=== PATIENT | female | born 1975 | race Caucasian/White ===

== ENCOUNTER 2022-08-26 04:27 | Emergency (ER) | payer OTHER, SELFPAY ==
[2022-08-26 04:28] VITALS: BP 181/101; PULSE 132; RESP 18; TEMP 36; O2SAT 99; BMI 37.8
--- NOTE | 2022-08-26 04:34 | RAD_ITS ---
STUDY: X-RAY - LEFT HUMERUS REASON FOR EXAM: Female, 46 years old patient with fracture after unspecified trauma. TECHNIQUE: AP and crosstable lateral view(s) of the humerus. COMPARISON: Prior comparison studies are not available for review at this time. FINDINGS: There is an acute displaced fracture of the mid humeral diaphysis. There is mild angulation at the fracture site with apex volar. The visualized left shoulder and elbow are within normal limits in appearance. There is no demonstrated soft tissue abnormality. RAD/Humerus min 2 Views IMPRESSION: Acute displaced fracture of the mid humerus. Electronically Signed: Anel Latif MD at 5:25 EST ,
--- NOTE | 2022-08-26 04:35 | EX.ED.UPPERE ---
HPI History of Present Illness Chief Complaint: Upper Extremity Injury Informant: patient and spouse/S.O. Narrative Narrative: [id number]-[id number]-[id number] female presents for left upper extremity injury. Patient sleeping fell out of bed awakening to pain. Bed is 3 feet high. Carpeted floor. This occurred 2 PM over 2 hours ago. Due to pain increasing she came to the ED. History of foot fractures in the past with no surgical intervention. States pain goes down her whole arm. No paresthesias. Prior similar symptoms: No PFSH PFSH Medical History Asthma Home Medications oxycodone 5 mg capsule 5 mg PO Q4H PRN pain 5 days #30 caps 08/26/22 [Rx Last Taken Unknown] Allergy/AdvReac Type Severity Reaction Status Date / Time amoxicillin Allergy Hives Verified 08/26/22 04:31 Sulfa (Sulfonamide Allergy Rash Verified 08/26/22 04:31 Antibiotics) Surgical History Status post left foot surgery Social History Smoking Status: Current every day smoker tobacco type: cigarettes ROS ROS ED Constitutional Constitutional ED: Denies chills, fever(s) or sweats Eyes Eyes: Denies change in vision ENT ENT ED: Denies dysphagia or sore throat Cardiovascular Cardiovascular: Denies chest pain, leg edema, palpitations or racing heartbeat Respiratory/Chest Respiratory/Chest: Denies cough, dyspnea or dyspnea on exertion Gastrointestinal Gastrointestinal: Denies abdominal pain, diarrhea, nausea or vomiting Genitourinary Genitourinary ED: Denies dysuria, hematuria or urinary frequency Musculoskeletal Musculoskeletal: Reports extremity pain and other Details: Left upper arm pain ; Denies back pain or neck pain Integumentary Denies rash or wounds Neurologic Neurologic: Denies headache(s), paresthesias or weakness EXAM Physical Exam Const Vital Signs: 08/26/22 04:28 Temperature 96.8 F L Temperature Source Temporal Pulse Rate 132 H Respiratory Rate 18 Blood Pressure 181/101 H Blood Pressure Mean 127 Pulse Ox 99 Oxygen Delivery Method Room Air Positive well nourished and well developed Constitutional Narrative: GCS 15, uncomfortable, holding her left upper arm. General Appearance ED: well developed HEENT Reports moist mucous membranes normocephalic and atraumatic Eyes PERRL, EOMs intact bilaterally and conjunctivae normal General Eye ED: Yes normal appearance of both eyes Neck full ROM, no lymphadenopathy and supple Neck Narrative: No step-offs. General: Negative for tenderness Chest Wall inspection of chest normal and palpation of chest normal Chest: Negative for tenderness Resp normal respiratory effort and normal air movement Resp Narrative: Symmetric breath sounds Effort and Inspection: symmetric chest movement; Negative for respiratory distress Cardio regular rhythm and no murmurs Rate: tachycardic Peripheral Pulses: pulses 2+ throughout GI normal to inspection, nondistended, normoactive bowel sounds and non-tender Palpation: Negative for guarding or rebound tenderness present Back/Spine no CVA tenderness and no thoracic nor lumbar tenderness Extremity Extremity Narrative: Right upper extremity full range of motion without pain. Left upper extremity: No clavicular tenderness. No proximal shoulder tenderness there is tenderness at the mid humerus, is able to passively extend the elbow. She is able to have wrist extension. Skin intact. Neurovascular intact distally. General Extremety ED: Negative for edema or tenderness General Extremity: Negative for edema Neuro oriented x3, CN's II-XII intact bilaterally and no sensory deficits noted Sensorium / Orientation: awake and alert Skin no rashes or lesions noted and no wounds MDM MDM MDM Narrative Medical decision making narrative: Patient thought about exam concerns for injury to the humerus. Contusion versus fracture, no deformities at the shoulder elbow for concern for dislocation. Patient treated with IM morphine, x-ray humerus will be obtained. 0505: 2 view humerus x-ray interpreted myself transverse fracture mid humerus, angulated with apex anterior I spoke with on-call orthopedist Dr. Corrales who reviewed the imagings. He states this will likely need surgery due to transverse fracture. Recommended placing a coaptation posterior splint to help with immobilization. He will have a office reach out to the patient for appointment to be seen this week. This was explained with the patient understands. I placed a splint with no difficulty sling was provided. Due to fracture with pain, she will require medicines to help with symptoms. She is provided a 5-day prescription to help with symptoms to take every 4 hours. Oxycodone. Radial nerve was intact during examination and post splinting. Return precautions. All questions were answered. Procedure note: Splinting. Verbal consent. Morphine IM given prior to splinting. Assistance with nursing for stabilization. Kerlix dressing placed in upper and lower forearm with extra padding in the mid humerus. 5 inch plaster used for coapt splint of the upper arm, Kerlix dressing to secure secure. Additional 5 inch plaster for long posterior splint. Juan wrap to secure. Sling provided to help with weight. Neuro vas intact post splint. Able to flex and extend her wrist. Patient tolerated procedure well. Discharge Plan Triage Chief Complaint: Upper Extremity Injury ED Provider: Jose A Renae Dx/Rx/DC Orders Clinical Impression: Humerus shaft fracture, Injury of left upper arm Instructions: Understanding a Humerus Fracture Prescriptions: New oxycodone 5 mg capsule 5 mg PO Q4H PRN (Reason: pain) 5 Days Qty: 30 0RF Primary Care Provider: Care Physician,No Primary Referrals: Maximilian Corrales DO [Med Staff - Active Staff] - 2 Days Care Physician,No Primary [Primary Care Provider] - Activity Restrictions/Additional Instructions: Maintain splint and sling for comfort. Pain medicine as prescribed will likely need surgery. Dr. Corrales's office will reach out to you to be seen. Disposition Disposition: Home, Self Care
[2022-08-26] MEDS: Morphine 4 MG/ML Syringe IM ×2 (04:41→05:28)
== END 2022-08-26 06:37 | disposition home or self-care (01) ==
PROVIDERS: Emergency Provider Emergency Medicine; Visit Provider Emergency Medicine
DX: S42.302A Unspecified fracture of shaft of humerus, left arm, initial encounter for closed fracture (principal); F17.210 Nicotine dependence, cigarettes, uncomplicated; W06.XXXA Fall from bed, initial encounter
CPT/HCPCS: 73060; 96372; 99283

== ENCOUNTER 2023-01-22 10:00 | Outpatient (RCR) | payer OTHER, SELFPAY ==
--- NOTE | 2022-09-17 08:31 | HP.OTEVAL_ITS ---
Patient's Visit Information JOHNATHAN CAMPUZANO is a 46 year old F, referred to Occupational Therapy by Dr. Enrique Vasques MD, with a diagnosis of closed displaced transvers fx of shaft of L humerus. Date of Evaluation: 09/16/22 Occupational Therapist: Jina Ye, VIDYA/Maria E, CHT - Subjective This 46 year old female was seen for OT eval with dx of closed displaced transverse fx of left humerus shaft. pt states DOI was 08/26/22 pt states she went to ER. and was sent to [facility]. pt states she had sx about a weak later and underwent a ORIF on 08/30/22. pt arrives to day s/p 2 weeks 3 days from left humerus ORIF. pt is right handed. 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 currently pts is assisting with all ADLs and IADls. Dr. Vasques ordered OT : use of sling PRN Non WB at this time. - ADLs Dressing: Pants, Socks, Shoes Fasteners: Tie shoes, Buttons, Zippers, Snaps Eating: Use silverware Bathing: Handle washcloth & soap, Wash hair, Squeeze shampoo bottle Toileting: Manage clothing Kitchen: Chop with knife, Peel fruits & vegetables, Open jars, Lift saucepan, Take dish out of oven Comments: pts is assisting pt as able with all daily tasks - Pain left 1 Pain Intensity Range: 8 - ROM Shoulder: right WNL left will test at week 4 Elbow: right 0/135 left 60/ Forearm: right sup/pron WNL left 50 sup 55 pronation Wrist: right 70/65 left 30/45 - Strength Surveillance Systems Engineer: right 65# left NT Lateral Pinch: right 8# left NT Tripod Pinch: right 6# left NT Strength Comments: will test at week 8 - Quick DASH-Disab of Arm,Shoulder& Hand Quick DASH Score: 91.6650 - Goals Goal:100% adherence to protocol: Yes Comment: ORIF of humerus Goal:Daily scar massage when approriate: Yes Goal:ROM equal to unaffected hand: Yes Goal:Surveillance Systems Engineer/Pinch strength at least 75% of unaffected hand: Yes Comment: not to initiate until indicates Goal:No pain with affected hand use: Yes Goal:Full use of affected hand in daily activities including: Yes Goal:Decrease scar hypersensitivity: Yes - Rehabilitation General Assessment: Pt arrives 2 weeks and 3 days s/p from ORIF of left Humerus. Pt currently non wt. Bearing to left UE. pt demo with newly healing structures of left UE limiting pts use of left UE with ADls. Pt will demo need for skilled OTR/L,CHT services 1-2x week for 8 weeks to decrease pain, decrease edema, increase ROM and when cleared by increase strength to return pt to PLOF. Pt demo understanding and agrees to POC. Rehabilitation Potential: Excellent - Anticipated Interventions A/AAROM/PROM, Strengthening, Edema Control, Scar Care, Triggerpoint Release, Desensitization, Modalities, Joint Protection/Energy Conservation, Ergonomic Education, Education re Diagnosis, Manual Lymph Drainage, Home Program - Visit Plan Frequency: 1-2x /Week Duration: 2 Months TEXT: Thank you for the opportunity to evaluate your patient. For Medicare and Medicare HMO plans, please review the plan of care and approve it. It will need to be FAXED BACK to us at [phone] for Medicare purposes. Please let me know if there are questions or concerns regarding this plan of care. Physician Signature: Date:
--- NOTE | 2022-10-03 12:11 | OTREVAL_ITS ---
Dr. Enrique Vasques MD, It has been my pleasure to treat JOHNATHAN CAMPUZANO over the last 3 visits for closed displaced transvers fx of shaft of L humerus. Please see the progress note below for an update on the occupational therapy plan of care! Subjective: pt arrives 4 weeks and and 6 days s/p from ORIF closed displaced transvers fx of shaft of L humerus. pt continues to have limited ROM/ soreness and edema. pt reports increase pain and limited ability to sleep more than 3 hours. pt is doing AROM and using sling when not at home Objective/Function: left elbow -35/125 increase from -60/80. left forearm pronation 70* increase from 55*. left forearm supination 55* (after therapy) increase from 50 (prior to tx session 0). left wrist flexion 45 same as eval. left wrist ext 20* decrease 10*. pt demo limited ROM of left UE. pt demo with scar adhesions to triceps. Therapy has ed. pt on AROM of shoulder, elbow forearm and wrist- pt using ice 3x a day 10 min to keep swelling down- pt is performing scar massage and currently using soft sponge to work on keeping fingers joints from getting stiff. Plan Frequency: 1-2x /Week Duration: 2 Months Plan: cont with AROM. light strentch Goals - Goals Patient Goals: Regain Mobility, Decrease Pain, Return to Work, Decrease Swelling/Stiffness, Improve Fine Motor Skills, Use Hand/Wrist/Arm Normally Again, Be More Independent in ADLS Goal:100% adherence to protocol: Yes Goal:Daily scar massage when approriate: Yes Goal:ROM equal to unaffected hand: Yes Goal:Armhole Feller Handstitching Machine/Pinch strength at least 75% of unaffected hand: Yes Goal:No pain with affected hand use: Yes Goal:Full use of affected hand in daily activities including: Yes Goal:Decrease scar hypersensitivity: Yes Anticipated Interventions Anticipated Interventions: A/AAROM/PROM, Strengthening, Edema Control, Scar Care, Triggerpoint Release, Desensitization, Modalities, Joint Protection/Energy Conservation, Ergonomic Education, Education re Diagnosis, Manual Lymph Drainage, Home Program Please do not hesitate to contact me at [phone] by phone or if you have questions or concerns regarding this new plan of care! Sincerely, Jina Ye, COMPAR/L, CHT
--- NOTE | 2022-12-24 16:12 | HP.PTEVAL_ITS ---
Patient's Visit Information JOHNATHAN CAMPUZANO is a 47 year old F referred to Physical Therapy by Dr. Enrique Vasques MD with a diagnosis of Adhesive capsulitis. Date of Evaluation: 12/24/22 Physical Therapist: Omero Zapata, DPT, OCS, CSCS - Visit Plan Frequency: 2-3x /Week Duration: 4-6 Weeks Plan: 2-3x/week for 4-6 weeks for. 1. manual g- h mobs grade 4 L shoulder and stretching capsule and PROM-AROM. 2. strength RC and postural muscles to HEP. 3. ice and TENS if painful at rest. - Subjective L shoulder. Broke humerus in August and had surgery. Plate and screws. Working in OT on frozen wrist. Shoulder has been frozen since then. May have MRI on shoulder. Shoulder has hurt since she fell. She fell out of bed in middle of night. Then went to OT for therapy. Now has a hard time lifting up. It hurts alot of the time. Got injection in shoulder November 25. That helped her pain a little. Hlped her sleep better. Was constant pain Fe and October. Now is intermittent. Hard to wear bra. Wakes up every 45 minutes and has to sleep on tummy. 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 5# lift restriction. Hoping to go back late January. Hobbies: fish, has not been but will this and is R handed. Basic aDLS: Dresses self , hard to pull pants up and has to pull bra up body, cannot reach behind her. Showers self. bathroom I. Lives with , in one story. - Pain L shoulder Pain Intensity (Out of 10): 2 Pain Intensity Range: 3, 6 - Objective AROM L shoulder 45 er, glut IR, 90 flexion adn 85 abduction, R is WNL.PROM L shoulder to 110 and abduction to 100 and ext rotation to 40 and IR to 20 at 80 abd. Endfeels are firm and painful in all motions. Elbow arom WFL and full. w rist and hand closing limited on L side and being seen by OT. Posture is forward head and protracted scap. strength in neutral on L is 4- er, ir; flexion and abduction are 3+. reflexes 2/3 bi and tri. Sensation UE WNL to gross light touch. - Balance/Special Test Scores Quick DASH Score: 54.5450 - Goals Goal 1:: 130 flexion adn abduction aROM without pain to help with funciton Goal Time Frame: 4-6 Weeks Goal 2:: pain 2/10 at worst and only with stretching Goal Time Frame: 4-6 Weeks Goal 3:: Sleep without interruption 4 hours at night Goal Time Frame: 4-6 Weeks Goal 4:: Pt ready to return to work full duty Goal Time Frame: 4-6 Weeks Goal 5:: I appropriate HEP to manage condition Goal Time Frame: 4-6 Weeks - Rehabilitation Potential Physical Therapy Diagnosis: Adhesive capsulitis stiffness limiting funciton and sleep Rehabilitation Potential: Good - Anticipated Interventions Patient/Client Instruction: Educate patient on: Condition, Plan of Care For the Purpose of:: To decrease pain, To increase ROM, To improve nutrient delivery to tissue, To improve muscle performance and motor function, To increase tolerance to activity/condition/position, To improve ability of physical actions for home/community/work/leisure Therapeutic Exercise to Include: Strength training, Flexibilty training, Passive ROM, Active ROM, Scapular Strength/Stabilization For the Purpose of:: To decrease pain, To decrease swelling/inflammation, To increase ROM, To improve nutrient delivery to tissue, To increase oxygenation perfusion, To increase tolerance to activity/condition/position, To improve ability of physical actions for home/community/work/leisure Manual Therapy Techniques to Include: Mobilization, Passive ROM, Soft tissue mobilization For the Purpose of:: To decrease pain, To increase ROM TENS: Yes Cryotherapy (ice pack, ice massage): Yes For the Purpose of:: To decrease pain Thank you for the opportunity to evaluate your patient. For Medicare and Medicare HMO plans, please review the plan of care and approve it. It will need to be FAXED BACK to us at [phone] for Medicare purposes. For Medicare only, by signing this I certify the plan of care. Please let me know if there are questions or concerns regarding this plan of care. Physician Signature: Date:
--- NOTE | 2023-03-07 14:39 | HP.PTDCNRP_ITS ---
Patient Information Patient Information: JOHNATHAN CAMPUZANO was seen in my office for initial evaluation on 12/24/22. The following Plan of Care was established for this patient: POC Established Initial Frequency: 2-3x /Week Initial Duration: 4-6 Weeks Anticipated Interventions Patient/Client Instruction: Educate patient on: Condition and Plan of Care For the Purpose of:: To decrease pain, To increase ROM, To improve nutrient delivery to tissue, To improve muscle performance and motor function, To increase tolerance to activity/condition/position and To improve ability of phy sical actions for home/community/work/leisure Therapeutic Exercise to Include: Strength training, Flexibilty training, Passive ROM, Active ROM and Scapular Strength/Stabilization For the Purpose of:: To decrease pain, To decrease swelling/inflammation, To increase ROM, To improve nutrient delivery to tissue, To increase oxygenation perfusion, To increase tolerance to activity/condition/position and To improve ability of physical actions for home/community/work/leisure Manual Therapy Techniques to Include: Mobilization, Passive ROM and Soft tissue mobilization For the Purpose of:: To decrease pain and To increase ROM TENS: Yes Cryotherapy (ice pack, ice massage): Yes For the Purpose of:: To decrease pain Last Seen Last Seen: This patient was last seen in our office 01/22/23. Pertinent comments regarding their Physical therapy will appear below: Pt seen 8 visits and felt 85% better. She was to f/u two weeks after last session but did not attend. At this point, it has been over 6 weeks and I will discontinue due to nonattendance. At this point I will be discontinuing this patient from physical therapy. I would be happy to see this patient again in the future if found appropriate by the physician. Thank you! Omero Zapata, DPT, OCS, CSCS Balance/Gait/Functional tests Balance/Special Test Scores Quick DASH Score: 11.6858
== END 2023-01-22 19:00 | disposition home or self-care (01) ==
LOC: PT 10:00
PROVIDERS: Referring Provider Orthopaedic Surgery Hand Surgery; Visit Provider Orthopaedic Surgery Hand Surgery
DX: S42.322D Displaced transverse fracture of shaft of humerus, left arm, subsequent encounter for fracture with routine healing (principal)
CPT/HCPCS: 97110; 97140; 97161; 97166; 97530

== ENCOUNTER 2023-02-21 01:56 | Emergency (ER) | payer OTHER, SELFPAY ==
[2023-02-21 01:57] VITALS: BP 141/82; PULSE 96; RESP 16; TEMP 36.6; O2SAT 99; BMI 42.4
--- NOTE | 2023-02-21 02:05 | EDS_ITS ---
HPI History of Present Illness Chief Complaint: Back Informant: patient Narrative Narrative: Patient has been having pain in her left low back for the past 2 days, started when she stood up after getting some coffee at home 1 morning. Has been persistent ever since. Hurts more to move around. Radiates into her left proximal thigh and she has some pain in her left groin. No nausea, vomiting, diarrhea, fevers, chills. She states she usually does not urinate a lot, and she seems to been urinating more lately. She denies any dysuria or hematuria or other urinary symptoms. She is concerned she could have a urinary infection, she states she had one in the past and she think she had pain like this. [facility] Medical History Asthma Contusion of left forearm Contusion of left hand Contusion of left wrist Left elbow contusion Home Medications NK 02/21/23 [History Last Taken Unknown] hydrocodone-acetaminophen 5-325mg 5mg-325mg 1 tab PO Q6H PRN PRN Pain 2 days #8 TABLETS 02/21/23 [Rx Last Taken Unknown] naproxen 500 mg tablet 500 mg PO BID PRN #20 tabs 02/21/23 [Rx Last Taken Unknown] Allergy/AdvReac Type Severity Reaction Status Date / Time amoxicillin Allergy Hives Verified 02/21/23 01:57 Sulfa (Sulfonamide Allergy Rash Verified 02/21/23 01:57 Antibiotics) Surgical History Status post left foot surgery Social History Smoking Status: Current every day smoker tobacco type: cigarettes ROS ROS ED Constitutional Constitutional ED: Denies chills or fever(s) Gastrointestinal Gastrointestinal: Denies abdominal pain, constipation, fecal incontinence, nausea or vomiting Genitourinary Genitourinary ED: Reports other Details: no urinary retention ; Denies abdominal discomfort or urinary incontinence Musculoskeletal Musculoskeletal: Reports as per HPI and back pain; Denies neck pain Integumentary Denies rash or wounds Neurologic Neurologic: Denies headache(s), paresthesias or weakness EXAM Physical Exam Const Vital Signs: 02/21/23 01:57 Temperature 97.9 F Temperature Source Temporal Pulse Rate 96 Respiratory Rate 16 Blood Pressure 141/82 H Blood Pressure Mean 101 Pulse Ox 99 Positive well nourished, well developed and obese General Appearance ED: well developed and NAD Nutritional Appearance: obese HEENT Negative for trauma or tenderness Eyes PERRL and EOMs intact bilaterally Neck full ROM and supple GI normal to inspection, nondistended, normoactive bowel sounds, soft to palpation and non-tender GI Narrative: Tender at the left ASIS, not the left lower quadrant Back/Spine normal to inspection Back/Spine Narrative: Ipsilateral left straight leg raise increases back pain without radicular symptoms. Tender at the left SI joint no other areas of back tenderness no midline tenderness. No rash. Lumbar Spine / Lower Back: ROM limited, paraspinal muscle tenderness and straight leg raise negative bilaterally; Negative for lumbar spinal tenderness Extremity normal to inspection, full ROM and no pedal edema Neuro oriented x3 and no sensory deficits noted Sensorium / Orientation: alert Motor Exam: strength 5/5 throughout Deep Tendon Reflexes: Rt Patellar (L4): 2+, Lt Patellar (L4): 2+, Rt Ankle (S1): 2+ and Lt Ankle (S1): 2+ Deep Tendon Reflexes Back: Rt Patellar (L4): 2+, Lt Patellar (L4): 2+, Rt Ankle (S1): 2+ and Lt Ankle (S1): 2+ Plantar Reflex: Downgoing: bilateral Psych mental status grossly normal and thought process normal Skin no rashes or lesions noted and no wounds MDM MDM MDM Narrative Medical decision making narrative: As I discussed with this patient, I am happy to check her urine if she would like, and she would. However, I do not think her back pain has anything to do with her bladder or kidney. She does not have pain high in the CVA to suggest pyelonephritis or a renal process. She is tender in the left SI joint where her pain is, and I suspect this is sacroiliitis which we discussed. I reviewed her urinalysis, she does have positive nitrite but the rest of her urinalysis is unremarkable. I am sending this for a culture but I do not think she needs to be treated with an antibiotic right now. Given prescriptions for analgesics and appropriate discharge instructions regarding follow-up. Patient is feeling much better after analgesics here in the emergency department in the form of Toradol injection and an oral [place]. Lab Data Attestation: I reviewed the patient's lab results. Labs: Laboratory Results - last 24 hr 02/21/23 02:15 Urine Color Yellow Urine Clarity Clear Urine pH 6.0 Ur Specific [place] 1.010 Urine Protein Negative Urine Glucose (UA) Normal Urine Ketones Negative Urine Occult Blood Negative Urine Nitrite Positive H Urine Bilirubin 3 H Urine Urobilinogen 8 H Ur Leukocyte Esterase 25 H Urine RBC 0 SEEN Urine WBC 0-5 SEEN Ur Squamous Epith Cells 5-10 SEEN Urine Bacteria 1+ Urine Mucus 0 SEEN Discharge Plan Triage Chief Complaint: Back ED Provider: Braulio Reynolds Dx/Rx/DC Orders Clinical Impression: Acute left-sided low back pain Instructions: ED Sacroiliitis Prescriptions: New hydrocodone-acetaminophen [hydrocodone-acetaminophen] 5-325 mg tablet 1 tab PO Q6H PRN PRN (Reason: Pain) 2 Days Qty: 8 0RF naproxen 500 mg tablet 500 mg PO BID PRN Qty: 20 0RF No Action NK Primary Care Provider: Care Physician,No Primary Referrals: Doctor,Your [Non-Staff] - 1 Week if not improving Activity Restrictions/Additional Instructions: We sent a culture of your urine, if it returns consistent with infection, you will be contacted about starting an antibiotic. Disposition Disposition: Home, Self Care
[2023-02-21] MEDS: HYDROcodone Bitartrate/Apap 5/325 Tablet PO (02:13)
[2023-02-21] MEDS: Ketorolac 60 MG/2 ML Vial IM (02:14)
[2023-02-21 02:29] LABS: Mucous, Urine 0 SEEN /hpf (<or=2+); Red Blood Cells-Urine 0 SEEN /hpf (0-5)
[2023-02-21 02:30] LABS: Color, Urine Yellow (Yellow); Glucose, Dipstick Normal (Normal); Ketone-Dipstick Negative (Negative); Leukocyte Esterase-Dipstick 25 /ul (Negative); Nitrite-Dipstick Positive (Negative); Occult Blood-Urine Negative /ul (Negative); Protein-Dipstick Negative (Negative); Urine Bilirubin Dipstick 3 mg/dL (Negative); Urine Clarity Clear (Clear); Urine Urobilinogen 8 mg/dl (Normal)
[2023-02-21 02:45] LABS: Bacteria 1+ /hpf (None Seen); Squamous Epithelial Cells - UA 5-10 SEEN /hpf (5-10); White Blood Cells 0-5 SEEN /hpf (0-5)
[2023-02-21 03:18] VITALS: PULSE 78; RESP 18; O2SAT 97
== END 2023-02-21 03:25 | disposition home or self-care (01) ==
PROVIDERS: Emergency Provider Emergency Medicine; Visit Provider Emergency Medicine
DX: M54.50 Low back pain, unspecified (principal); F17.210 Nicotine dependence, cigarettes, uncomplicated; E66.9 Obesity, unspecified
CPT/HCPCS: 81001; 96372; 99283

== ENCOUNTER 2023-10-15 06:31 | Emergency (ER) | payer OTHER, SELFPAY ==
[2023-10-15 06:32] VITALS: BP 124/89; PULSE 109; RESP 16; TEMP 36.6; O2SAT 96; BMI 42.5
--- NOTE | 2023-10-15 06:36 | EKG12_ITS ---
Test Reason : CP Blood Pressure : / mmHG Vent. Rate : 104 BPM Atrial Rate : 104 BPM P-R Int : 130 ms QRS Dur : 076 ms QT Int : 338 ms P-R-T Axes : 078 051 064 degrees QTc Int : 444 ms Sinus tachycardia Otherwise normal ECG Confirmed by SINDHU CARL, MAU ([id number]), multimedia editor GAUTAM HERNANDEZ ([id number]) on 10/16/2023 6:23:36 AM Referred By: Gail Confirmed By:MAU MANLEY MD
[2023-10-15 06:51] VITALS: O2SAT 96
[2023-10-15 06:56] VITALS: BP 140/86; PULSE 99; RESP 20; O2SAT 96
--- OUTSIDE RECORDS SUMMARY | 2023-10-15 07:07 | XMS RPT_ITS | CCD ---
Author Name Unknown Address [address] [place] [address] Organization [facility] Care Team Providers Care Clinical Data Analyst Name Role Phone MELQUIADES, KOBE Unavailable Unavailable MELQUIADES, KOBE Unavailable Unavailable MELQUIADES, KOBE Unavailable Unavailable YAMILETH ROSE Unavailable Unavailable MELQUIADES, KOBE Unavailable Unavailable CLARIBEL LU Unavailable Unavailable MELQUIADES, KOBE Unavailable Unavailable KAMRAN LAME Olga Lidia Unavailable Unavailable MELQUIADSE, KOBE Unavailable Unavailable LISA MCGILL Unavailable Unavailable GARCIA DE LA TORRE CHECKERER HAND Attending Unavailable GARCIA DE LA TORRE NP Primary Care Unavailable GARCIA DE LA TORRE CHECKERER HAND Admitting Unavailable Allergies Allergy Classification Reported Allergen(s) Allergy Type Date of Onset Reaction(s) Facility (1 source) Amoxicillin Drug Allergy 12-12-2017 [facility] Repository (1 source) Sulfonamides (Antibiotic) Drug allergy (disorder) 12-12-2017 [facility] Repository (1 source) Amoxicillin Drug Allergy [facility] Repository (1 source) Sulfonamides (Antibiotic) Drug allergy (disorder) [facility] Repository Problems Active Problems Problem Classification Problem Date Documented Da te Episodic/Chronic Unclassified (1 source) CONTACT WITH AND SUSPECTED EXPOSURE TO COVID-19; Translations: [CONTACT WITH AND SUSPECTED EXPOSURE TO COVID-19] Onset: 02-22-2022 Past or Other Problems Problem Classification Problem Date Documented Da te Episodic/Chronic Other injuries and conditions due to external causes (2 sources) Unspecified injury of right wrist, hand and finger(s), initial encounter; Translations: [S69.91XA - Unspecified injury of right wrist, hand and finger(s), initial encounter] Onset: 12-12-2017 Episodic Results Test Name Value Interpretation Reference Range Facil ity Encounters Encounter Date Encounter Type Care Provider Facility Start: 02-22-2022 End: 02-22-2022 ambulatory GARCIA NARDA [facility] Start: 12-12-2017 End: 12-12-2017 Emergency department patient visit KOBE ARNETT Facility:[facility] Start: 11-09-2017 End: 11-09-2017 Emergency department patient visit KOBE ARNETT Facility:[facility] Start: 11-09-2017 End: 11-09-2017 Emergency department patient visit KOBE ARNETT Facility:[facility] Start: 10-29-2017 End: 10-29-2017 Emergency department patient visit KOBE ARNETT Facility:[facility] Start: 08-15-2017 End: 08-15-2017 Patient encounter procedure KOBE ARNETT Facility:[facility] Payers Date Payer Category Payer Self-pay 2017 Unknown [id number] 1975 Unknown [id number] 2.16.84 [id number] Unknown [id number] 2.16.8 [id number] Unknown [id number] 2.16.8 [id number] Unknown [id number] 2.16.8 [id number] Unknown [id number] 2.16.8 [id number] Unknown [id number] 2.16.8 [id number] Unknown [id number] Summary Purpose Family History No Family History Records FoundNo Family History Records FoundNo Family History Records Found Advance Directives No Advanced Directives Records FoundNo Advanced Directives Records FoundNo Advanced Directives Records Found Additional Source Comments INFORMATION SOURCE (unrecogn ized section and content) DATE CREATED AUTHOR AUTHOR'S ORGANIZ ATION 08/31/2020 [facility] DATE CREATED AUTHOR AUTHOR'S ORGANIZ ATION 02/25/2022 [facility] FOR RECORDS PERTAINING TO PATIENTS WHO ARE OR HAVE BEEN ENROLLED IN A CHEMICAL DEPENDENCY/SUBSTANCEABUSE PROGRAM, SOME INFORMATION MAY BE OMITTED. This clinical summary was aggregated from multiple sources. Caution should be exercised in using it in the provision of clinical care. This summary normalizes information from multiple sources, and as a consequence, information in this document may materially change the coding, format and clinical context of patient data. In addition, data may be omitted in some cases. CLINICAL DECISIONS SHOULD BE BASED ON THE PRIMARY CLINICAL RECORDS. [employer] [facility]. provides no warranty or guarantee of the accuracy or completeness of information in this document.
--- NOTE | 2023-10-15 07:09 | RAD_ITS ---
INDICATION: cough EXAMINATION/TECHNIQUE: X-RAY - XR Chest 2 Views COMPARISON: No relevant prior comparison study available FINDINGS: LINES/DEVICES: None. LUNGS: No consolidation, edema or effusion. No pneumothorax. MEDIASTINUM AND CARDIOVASCULAR STRUCTURES: Cardiac silhouette not enlarged. Central airways and mediastinal contour are unremarkable. BONES AND SOFT TISSUES: Unremarkable. RAD/Chest PA and Lateral IMPRESSION: No radiographic evidence of acute cardiopulmonary disease. Electronically Signed: Maria A Lujan MD at 7:47 EDT ,
--- NOTE | 2023-10-15 07:10 | EX.ED.VIS.UR ---
HPI HPI - URI History of Present Illness Chief Complaint: Cough Informant: patient Onset/Context/Timing Onset: Weeks Timing: Continuous Current Severity: Mild Maximum Severity: Mild Associated Symptoms Associated Symptoms: Positive for Productive Cough (Green sputum) Narrative Narrative: 47-year-old female history of asthma has had a 10-day history of a productive cough of green sputum. No fever. No vomiting or diarrhea. Wheezing with shortness of breath. She currently is on no meds at home and does not have an inhaler. She denies any hemoptysis. Prior similar symptoms: Yes Recent Illness/Hospitalization: No ROS ROS ED ROS Narrative Cough. Wheezing. Review of Systems ROS Unobtainable: Denies due to encephalopathy Constitutional Constitutional ED: Denies chills or fever(s) Eyes Eyes: Denies blurry vision ENT ENT ED: Denies ear pain Cardiovascular Cardiovascular: Denies chest pain or palpitations Respiratory/Chest Respiratory/Chest: Reports cough, dyspnea and sputum Gastrointestinal Gastrointestinal: Denies abdominal pain, constipation or diarrhea Genitourinary Genitourinary ED: Denies dysuria or hematuria Musculoskeletal Musculoskeletal: Denies arthralgias, back pain, myalgias or neck pain Integumentary Denies abscess, Abrasions or rash Neurologic Neurologic: Denies headache(s) Psychiatric Psychiatric: Denies anxiety, depression or suicidal ideation Endocrine Endocrinology: Denies cold intolerance or heat intolerance Hematologic/Lymphatic Hematologic/Lymphatic: Denies easy bleeding, easy bruising or lymphadenopathy Allergic/Immunologic Allergic/Immunologic ED: Denies mouth swelling, tongue swelling or urticaria PFSH PFSH Medical History Asthma Contusion of left forearm Contusion of left hand Contusion of left wrist Former smoker Left elbow contusion Sleep apnea Smoker Home Medications hydrocodone-acetaminophen 5-325mg 5mg-325mg 1 tab PO Q6H PRN PRN Pain 2 days #8 TABLETS 02/21/23 [Rx Last Taken Unknown] naproxen 500 mg tablet 500 mg PO BID PRN #20 tabs 02/21/23 [Rx Last Taken Unknown] albuterol sulfate 90 mcg/actuation aerosol inhaler (Proventil HFA) 2 inh inhalation Q4H PRN shortness of breath or wheezing #8.5 grams 10/15/23 [Rx Last Taken Unknown] fluticasone propionate inhalation 10/15/23 [History Last Taken Unknown] multivitamin (Daily Multi-Vitamin tablet) 1 tab PO DAILY 10/15/23 [History Last Taken Unknown] prednisone 20 mg tablet 40 mg (2 x 20 mg) PO DAILY 10 days #20 tabs 10/15/23 [Rx Last Taken Unknown] Allergy/AdvReac Type Severity Reaction Status Date / Time amoxicillin Allergy Hives Verified 02/21/23 01:57 Sulfa (Sulfonamide Allergy Rash Verified 02/21/23 01:57 Antibiotics) Surgical History History of tonsillectomy Status post left foot surgery Social History Smoking Status: Current every day smoker tobacco type: cigarettes EXAM Physical Exam Narrative Exam Narrative: Well-appearing 47-year-old female. Vital signs stable afebrile. Pulse ox 96% on room air no signs hypoxia. H EENT exam posterior pharynx normal. Moist mucous membranes. Neck nontender no JVD. No lymphadenopathy. Lungs scattered expiratory wheezes. No rales or rhonchi. Dry cough. Heart regular rhythm no murmur. Chest wall and ribs nontender. Abdomen soft nontender. Moving all 4 extremities. Calves are nontender without edema or cords. Neurologically patient is awake and alert no focal motor deficits. Const Vital Signs: 10/15/23 06:32 10/15/23 06:51 10/15/23 06:56 Temperature 97.9 F Temperature Source Oral Pulse Rate 109 H 99 Respiratory Rate 16 20 H Respiratory Effort Normal Respiratory Depth Normal Respiratory Pattern Normal Blood Pressure 124/89 H 140/86 H Blood Pressure Mean 100 104 Pulse Ox 96 96 Oxygen Delivery Method Room Air Room Air Room Air Positive well nourished and well developed; Negative for cachectic or contractures General Appearance ED: well developed and NAD; Negative for cachectic, contractures, cyanotic, diaphoretic or pallor Nutritional Appearance: Negative for cachectic HEENT Reports moist mucous membranes; Denies dry mucous membranes normocephalic; Negative for atraumatic or scalp tenderness Face and Sinus: Negative for sinus tenderness, maxillary instability or facial tenderness Mouth ED: No dry mucous membranes Mouth: No dry mucous membranes Throat: posterior oropharynx normal Eyes PERRL and EOMs intact bilaterally General Eye ED: Negative for pale conjunctiva or scleral icterus Neck no lymphadenopathy, supple, no meningeal signs and no JVD General: Negative for anterior neck swelling or lymphadenopathy Resp No clear to auscultation bilaterally Effort and Inspection: Negative for retractions, pain with movement or other Auscultation: Negative for rales, rhonchi or wheezes Cardio S1 normal heart sound, S2 normal heart sound and no murmurs Rate: regular rate; Negative for bradycardia, tachycardic or other Rhythm: regular rhythm; Negative for abnormal rhythm GI non-tender, non-distended and no masses Inspection: Negative for abdominal distention Auscultation: normoactive bowel sounds Palpation: soft; Negative for tender, guarding, hepatomegaly, splenomegaly or mass Percussion: Negative for other Back/Spine no CVA tenderness and normal ROM General Back: Negative for CVA tenderness Cervical Spine: Negative for cervical spine tenderness Thoracic Spine / Upper Back: Negative for thoracic spinal tenderness Lumbar Spine / Lower Back: Negative for lumbar spinal tenderness Sacrum: Negative for tenderness Extremity normal to inspection and full ROM General Extremety ED: Negative for cyanosis, tenderness or other findings General Extremity: Negative for cyanosis or other findings Neuro oriented x3 and CN's II-XII intact bilaterally Sensorium / Orientation: alert, oriented to person, oriented to place and oriented to time; Negative for orientation impaired, lethargic or stuporous Motor Exam: strength 5/5 throughout; Negative for general weakness or strength abnormal Psych mental status grossly normal Appearance: Negative for other Attitude: No agitated Mood & Affect: Negative for depressed, anxious or tearful Skin General Skin Exam: Negative for jaundice or pallor Lesions: no lesions Rashes: no rashes Trauma: Negative for abrasion or laceration MDM MDM MDM Narrative Medical decision making narrative: 47-year-old female, smoker with asthma that said a cough for 10 days. Wheezing. She will be treated with DuoNeb and albuterol aerosols. 60 p.o. prednisone a chest x-ray to be obtained. Patient is already COVID test at home was negative. I explained to her and her significant other that it may be -10 days and they are comfortable with not being tested at this time. It is not can alter our treatment. Repeat exam patient doing well at 7:40 AM. She is currently receiving aerosols. She will receive her steroids. Currently she is not wheezing. She and I and her went over her chest x-ray. She will be discharged home with Proventil inhaler prescription and also prednisone prescription. We discussed the need to stop smoking. And outpatient follow-up with a local primary care physician. History & Record Review Discussion w/independent historian: Patient and Family Radiography Chest X-Ray - ED: 2 View, Read by ED Physician, Heart, Lungs and Mediastinum Diagnostic Testing: Chest x-ray, 2 views, AP and lateral 2 by myself shows no acute abnormality. Normal cardiac silhouette. No infiltrates. No effusions. Rhythm Strip Rhythm Strip: Sinus Tach Rate: 104 Ectopy: None EKG Initial EKG: Attestation: I personally reviewed and interpreted this EKG as follows: Interpretation: No Acute Injury Pattern and Sinus Tachycardia Comments: Sinus tachycardia cardia rate of 104 no acute signs of MA, ischemia or dysrhythmia. Discharge Plan Triage Chief Complaint: Cough ED Provider: Gordo Viera Dx/Rx/DC Orders Clinical Impression: Bilateral wheezing, Viral URI Instructions: ED Asthma, Acute (Adult), ED URI, Viral W/ Wheezing (Adult) Prescriptions: New prednisone 20 mg tablet 40 mg PO DAILY 10 Days Qty: 20 0RF albuterol sulfate [Proventil HFA] 90 mcg/actuation HFA aerosol inhaler 2 inh inhalation Q4H PRN (Reason: shortness of breath or wheezing) Qty: 8.5 1RF No Action hydrocodone-acetaminophen [hydrocodone-acetaminophen] 5-325 mg tablet 1 tab PO Q6H PRN PRN (Reason: Pain) 2 Days Qty: 8 0RF naproxen 500 mg tablet 500 mg PO BID PRN Qty: 20 0RF multivitamin [Daily Multi-Vitamin] Tablet 1 tab PO DAILY fluticasone propionate inhalation Primary Care Provider: Care Physician,No Primary Referrals: Matt Worrell MD [Med Staff - Industrial Registered Nurse] - 1 Week if not improving Care Physician,No Primary [Primary Care Provider] - Activity Restrictions/Additional Instructions: Prednisone 40 mg/day with for the next 10 days. Albuterol inhaler 2 puffs every 2 hours as needed for wheezing or shortness of breath. Follow-up with a local primary care physician. Return if worse. Long-term try to stop smoking. Disposition Disposition: Home, Self Care
[2023-10-15] MEDS: predniSONE 20 MG Tablet 60 MG PO (07:13)
[2023-10-15] MEDS: Albuterol 2.5 MG/3 ML VIAL.NEB. INHALATION (07:36)
[2023-10-15] MEDS: Ipratropium/Albuterol Sulfate 3 ML AMPUL.NEB INHALATION (07:36)
[2023-10-15 07:38] VITALS: PULSE 110; RESP 20; O2SAT 96
[2023-10-15 08:02] VITALS: BP 139/84; PULSE 107; RESP 19; TEMP 37.1; O2SAT 96
== END 2023-10-15 08:03 | disposition home or self-care (01) ==
PROVIDERS: Emergency Provider Emergency Medicine; Visit Provider Emergency Medicine
DX: J06.9 Acute upper respiratory infection, unspecified (principal); J45.909 Unspecified asthma, uncomplicated; F17.210 Nicotine dependence, cigarettes, uncomplicated
CPT/HCPCS: 71046; 93005; 94640; 99282

== ENCOUNTER 2023-11-22 15:32 | Emergency (ER) | payer OTHER, SELFPAY ==
[2023-11-22 15:34] VITALS: BP 143/92; PULSE 100; RESP 18; TEMP 36.4; O2SAT 97; BMI 41.1
--- NOTE | 2023-11-22 15:48 | EKG12_ITS ---
Test Reason : HTN Blood Pressure : / mmHG Vent. Rate : 089 BPM Atrial Rate : 089 BPM P-R Int : 142 ms QRS Dur : 076 ms QT Int : 358 ms P-R-T Axes : 071 030 057 degrees QTc Int : 435 ms Normal sinus rhythm Normal ECG When compared with ECG of 15-OCT-2023 06:36, No significant change was found Confirmed by SARAH CARL, ANTOINE ([id number]), film editor supervisor ALEXIS ABREU ([id number]) on 12/01/2023 1:16:57 PM Referred By: Confirmed By:MARY JO SMITH MD
--- NOTE | 2023-11-22 15:50 | EX.ED.DYSGE1 ---
HPI <EZIO Rolon - Last Filed: 11/22/23 19:55> History of Present Illness Chief Complaint: Hypertension Narrative Narrative: 47-year-old female states intermittently over the last week she is felt off. She had occasional headaches, lightheadedness, and both thighs feels sore. She also has years long history of intermittent chest pain with a sharp pain in the left side of her chest that lasts seconds which occurred maybe 5 times this week. This morning her coworkers checked her blood pressure and it was high and they rechecked an hour later and it was even higher so she decided to seek evaluation. She does not take any medications or have a history of high blood pressure. She smokes about 1 pack/day and drinks alcohol daily. She states her reoccurring chest pain has been thoroughly evaluated in the past with 2 separate admissions. She reports having a normal echocardiogram and stress test. [facility] <EZIO Rolon - Last Filed: 11/22/23 19:55> PFS Medical History Asthma Contusion of left forearm Contusion of left hand Contusion of left wrist Former smoker Left elbow contusion Sleep apnea Smoker Home Medications hydrocodone-acetaminophen 5-325mg 5mg-325mg 1 tab PO Q6H PRN PRN Pain 2 days #8 TABLETS 02/21/23 [Rx Last Taken Unknown] naproxen 500 mg tablet 500 mg PO BID PRN #20 tabs 02/21/23 [Rx Last Taken Unknown] albuterol sulfate 90 mcg/actuation aerosol inhaler (Proventil HFA) 2 inh inhalation Q4H PRN shortness of breath or wheezing #8.5 grams 10/15/23 [Rx Last Taken Unknown] fluticasone propionate inhalation 10/15/23 [History Last Taken Unknown] multivitamin (Daily Multi-Vitamin tablet) 1 tab PO DAILY 10/15/23 [History Last Taken Unknown] prednisone 20 mg tablet 40 mg (2 x 20 mg) PO DAILY 10 days #20 tabs 10/15/23 [Rx Last Taken Unknown] albuterol sulfate 90 mcg/actuation aerosol inhaler (Ventolin HFA) 1 - 2 puff inhalation Q6H PRN wheezing 30 days #1 device 11/22/23 [Rx Last Taken Unknown] Allergy/AdvReac Type Severity Reaction Status Date / Time amoxicillin Allergy Hives Verified 11/22/23 15:34 latex Allergy Hives Verified 11/22/23 15:34 Sulfa (Sulfonamide Allergy Rash Verified 11/22/23 15:34 Antibiotics) Surgical History History of tonsillectomy Status post left foot surgery Social History Smoking Status: Current every day smoker tobacco type: cigarettes ROS <EZIO Rolon - Last Filed: 11/22/23 19:55> ROS ED ROS Narrative Constitutional: Negative for fever, chills, malaise. CVS: Positive for chest pain. Negative for palpitations, syncope. Respiratory: Negative for shortness of breath, cough. GI: Negative for abdominal pain, nausea, vomiting, diarrhea, melena, hematochezia. : Negative for dysuria. EXAM <EZIO Rolon - Last Filed: 11/22/23 19:55> Physical Exam Narrative Exam Narrative: CONST: Patient sitting in no acute distress. EYES: Normal inspection. NECK: Normal inspection. RESP: No respiratory distress, CTAB. CVS: Regular rate and rhythm, no murmur, no gallop. ABD: Soft and nontender, no guarding or rebound, nondistended. SKIN: Color normal, no rash, warm, dry, intact. EXTREMITIES: Normal appearance, no pedal edema. 2+ radial and DP pulses. NEURO: Alert and answering questions appropriately. PSYCH: Normal affect. Const Vital Signs: 11/22/23 15:34 11/22/23 17:13 11/22/23 17:14 Temperature 97.5 F L Temperature Source Temporal Pulse Rate 100 85 Respiratory Rate 18 19 H Respiratory Effort Normal Non-Labored Respiratory Pattern Normal Blood Pressure 143/92 H 153/82 H Blood Pressure Mean 109 105 Pulse Ox 97 96 Oxygen Delivery Method Room Air Room Air 11/22/23 17:29 Temperature 97.6 F L Temperature Source Pulse Rate 60 Respiratory Rate 14 Respiratory Effort Respiratory Pattern Blood Pressure 145/78 H Blood Pressure Mean 100 Pulse Ox 99 Oxygen Delivery Method <Dr. Omero Preston, DO - Last Filed: 11/22/23 17:48> Physical Exam Const Vital Signs: 11/22/23 15:34 11/22/23 17:13 11/22/23 17:14 Temperature 97.5 F L Temperature Source Temporal Pulse Rate 100 85 Respiratory Rate 18 19 H Respiratory Effort Normal Non-Labored Respiratory Pattern Normal Blood Pressure 143/92 H 153/82 H Blood Pressure Mean 109 105 Pulse Ox 97 96 Oxygen Delivery Method Room Air Room Air 11/22/23 17:29 Temperature 97.6 F L Temperature Source Pulse Rate 60 Respiratory Rate 14 Respiratory Effort Respiratory Pattern Blood Pressure 145/78 H Blood Pressure Mean 100 Pulse Ox 99 Oxygen Delivery Method [facility] <EZIO Rolon - Last Filed: 11/22/23 19:55> [facility] Narrative Medical decision making narrative: Patient checked her blood pressure at work and it was high so she presents for evaluation. She appears well and nontoxic. BP is 143/92 vital signs are stable. She is in no distress and her exam is benign. Overall basic labs are unremarkable. EKG is sinus rhythm with no ischemic changes and troponin is 5. She had chest pain earlier this week but none today so do not think she requires serial enzymes. She also has had a negative cardiac workup in the past with echo/stress test for the same symptoms. Her blood pressure here has been slightly elevated staying in the 140s/70s?90s. I recommended she keep a daily BP log and follow-up with primary care doctor for reevaluation and if it continues to read high she may need medication at that point. She was comfortable with this plan and discharged in stable condition. Lab Data Attestation: I reviewed the patient's lab results. Labs: Laboratory Results - last 24 hr 11/22/23 16:00 WBC 12.2 H RBC 5.04 Hgb 15.7 H Hct 47.2 H MCV 93.7 MCH 31.2 MCHC 33.3 RDW Std Deviation 44.5 H RDW Coeff of Sofiya 13.1 Plt Count 244 MPV 10.8 Immature Gran % (Auto) 0.600 Neut % (Auto) 63.8 Lymph % (Auto) 26.5 [place] % (Auto) 7.5 Eos % (Auto) 1.0 Baso % (Auto) 0.6 Absolute Neuts (auto) 7.8 H Absolute Lymphs (auto) 3.22 Nucleated RBC % 0 Platelet Estimate ADEQUATE Plt Morphology Comment LARGE RBC Morphology N CHROM Anisocytosis RARE Macrocytosis RARE Sodium 141 Potassium 3.7 Chloride 108 H Carbon Dioxide 27.0 Anion Gap 6 BUN 12 Creatinine 0.73 Estim Creat Clear Calc 106.58 Est GFR (MDRD) Af Amer 109 Est GFR (MDRD) Non-Af 90 BUN/Creatinine Ratio 16.4 Glucose 97 Calcium 9.1 Troponin I High Sens 5 Radiography Diagnostic Testing: Clinical Impression(s) from Imaging Studies Chest X-Ray 11/22/23 16:49 IMPRESSION: There are no acute findings. Electronically Signed: Ramon Aguayo MD at 17:11 EDT , ED attending interpretation of 1-view chest x-ray shows normal heart size, no acute infiltrate, edema, or effusion. EKG Initial EKG: Attestation: I personally reviewed and interpreted this EKG as follows: Interpretation: Sinus Rhythm and No Acute Injury Pattern Comments: Normal sinus rhythm 89 bpm Normal intervals, no acute ischemic changes <Dr. Omero Preston, DO - Last Filed: 11/22/23 17:48> [facility] Lab Data Labs: Laboratory Results - last 24 hr 11/22/23 16:00 WBC 12.2 H RBC 5.04 Hgb 15.7 H Hct 47.2 H MCV 93.7 MCH 31.2 MCHC 33.3 RDW Std Deviation 44.5 H RDW Coeff of Sofiya 13.1 Plt Count 244 MPV 10.8 Immature Gran % (Auto) 0.600 Neut % (Auto) 63.8 Lymph % (Auto) 26.5 [place] % (Auto) 7.5 Eos % (Auto) 1.0 Baso % (Auto) 0.6 Absolute Neuts (auto) 7.8 H Absolute Lymphs (auto) 3.22 Nucleated RBC % 0 Platelet Estimate ADEQUATE Plt Morphology Comment LARGE RBC Morphology N CHROM Anisocytosis RARE Macrocytosis RARE Sodium 141 Potassium 3.7 Chloride 108 H Carbon Dioxide 27.0 Anion Gap 6 BUN 12 Creatinine 0.73 Estim Creat Clear Calc 106.58 Est GFR (MDRD) Af Amer 109 Est GFR (MDRD) Non-Af 90 BUN/Creatinine Ratio 16.4 Glucose 97 Calcium 9.1 Troponin I High Sens 5 Radiography Chest X-Ray - ED: 1 View, Read by ED Physician, Read by Radiologist and No Acute Disease Diagnostic Testing: Clinical Impression(s) from Imaging Studies Chest X-Ray 11/22/23 16:49 IMPRESSION: There are no acute findings. Electronically Signed: Ramon Aguayo MD at 17:11 EDT , Treatment and Re-Evaluation :: I have personally performed a face to face assessment of the patient and have reviewed the PEÑA Note. I performed a substantive portion of the visit including all aspects of the following. My alston findings include: History: Patient presents with elevated blood pressure that she noticed today. Patient states she has not felt right for the past week and a half. Patient checked her blood pressure today at work and noted that it was elevated at 147/104. Patient states she repeated twice and it was 152/109 and then 163/106. Patient admits to some mild nausea but denies any vomiting. Patient admits to a mild headache. Patient states her blood pressure gets better with rest. Patient states nothing makes it worse. Patient denies any fevers or chills. Exam: Vital signs are stable except for slightly elevated blood pressure of 143/92. Patient is afebrile. Patient is in no acute distress. Oral mucosa is pink and moist. Neck is supple. Trachea is midline. There is no JVD. Heart was regular rate and rhythm. Lungs are clear and equal bilaterally. Abdomen is soft. Bowel sounds are normal. There is no tenderness. Cranial nerves II through XII are intact. There are no focal motor or sensory deficits noted. Medical Decision Making: Differential diagnosis includes accelerated hypertension, hypertensive urgency, hypertensive emergency, cardiac dysrhythmia, cardiac ischemia, acute kidney injury, and electrolyte abnormality. EKG will be obtained to assess for cardiac dysrhythmia and cardiac ischemia. Chest x-ray will be obtained to assess for pneumonia and widened mediastinum. CBC will be obtained to assess for leukocytosis and anemia. Basic metabolic profile will be obtained to assess for electrolyte abnormality and renal function. High-sensitivity troponin will be obtained to assess for cardiac ischemia. EKG was obtained. On my independent interpretation, it shows a normal sinus rhythm with a rate of 89. OR interval, QRS interval, and QTc intervals were within normal limits. [place] was normal. There are no acute ST or T wave changes noted. Portable 1 view chest x-ray was obtained. On my independent interpretation, lung barney are clear. There is normal cardiac silhouette. Bony thorax is normal. There is no acute process noted. Radiologist also interpreted the x-ray and agrees. CBC was reviewed. There is a mild leukocytosis of 12.2. The remainder was essentially within normal limits. Basic metabolic profile was reviewed and was within normal limits. High-sensitivity troponin was reviewed and was normal at 5. Patient was advised of her findings. Patient's blood pressure is not elevated to a point where emergent control is necessary at this time. Patient was instructed to continue to monitor her blood pressures. Patient was instructed to follow-up with her primary care physician in 3 to 5 days for further evaluation. Patient understood and was agreeable with the plan. All questions were answered. Discharge Plan Triage Chief Complaint: Hypertension ED Midlevel Provider: Sivan Garces ED Provider: Omero Preston Dx/Rx/DC Orders Clinical Impression: Hypertension, Atypical chest pain Instructions: Blood Pressure Check Steps Prescriptions: New albuterol sulfate [Ventolin HFA] 90 mcg/actuation HFA aerosol inhaler 1 - 2 puff inhalation Q6H PRN (Reason: wheezing) 30 Days Qty: 1 0RF No Action hydrocodone-acetaminophen [hydrocodone-acetaminophen] 5-325 mg tablet 1 tab PO Q6H PRN PRN (Reason: Pain) 2 Days Qty: 8 0RF naproxen 500 mg tablet 500 mg PO BID PRN Qty: 20 0RF multivitamin [Daily Multi-Vitamin] Tablet 1 tab PO DAILY fluticasone propionate inhalation prednisone 20 mg tablet 40 mg PO DAILY 10 Days Qty: 20 0RF albuterol sulfate [Proventil HFA] 90 mcg/actuation HFA aerosol inhaler 2 inh inhalation Q4H PRN (Reason: shortness of breath or wheezing) Qty: 8.5 1RF Primary Care Provider: Care Physician,No Primary Referrals: Eugenio Mckeon MD [Med Staff - Active Staff] - Care Physician,No Primary [Primary Care Provider] - Activity Restrictions/Additional Instructions: Your screening blood work and testing looks normal today. I recommend getting a blood pressure cuff and checking the reading on your upper arm once a day. Take it after you have been calm and sitting for about 5 minutes. Keep a daily log and follow-up with a primary care doctor. Disposition Disposition: Home, Self Care Discharge Date/Time: 11/22/23 17:33
[2023-11-22 16:16] LABS: Absolute Lymphocyte Count 3.22 X10^3/uL (0.83-4.51); Absolute Neutrophil Count 7.8 X10^3/uL (2.0-7.7); Basophil# 0.07 X10^3/uL; Basophil% 0.6 % (0-1); Eosinophil# 0.12 X10^3/uL; Hematocrit 47.2 % (37-47); Hemoglobin 15.7 g/dL (12.0-15.0); Lymphocyte # 3.22 X10^3/ul (0.83-4.51); Lymphocyte % 26.5 % (19-41); Mean Corp Hgb Conc 33.3 g/dL (32-36); Mean Corpuscular Hgb 31.2 pg (27.0-32.0); Mean Corpuscular Volume 93.7 fL (81-99); Mean Platelet Vol. 10.8 fl (6.2-12.0); Monocyte# 0.91 X10^3/uL; Monocyte% 7.5 % (0-10); NRBC Flagged by Analyzer 0 % (0-5); Neutrophil # 7.76 X10^3/uL (2.7-7.7); Neutrophil % 63.8 % (47-70); POSITIVE COUNT YES; Platelet Count 244 K/mm3 (150-450); RBC Distribution Width CV 13.1 % (11.6-14.6); RBC Distribution Width SD 44.5 fl (35.1-43.9); Red Blood Count 5.04 M/mm3 (4.2-5.4); White Blood Count 12.2 K/mm3 (4.4-11.0)
[2023-11-22 16:35] LABS: Anion Gap 6 (5-15); BUN 12 mg/dL (7-18); BUN/Creat Ratio 16.4 RATIO (10-20); Calcium,Total 9.1 mg/dL (8.5-10.1); Chloride 108 mmol/L (98-107); Creatinine, Serum 0.73 mg/dL (0.55-1.02); EST Glomerular Filtration Rate 90 mL/min (>60); Est Glom Filt Rate - Afr Amer 109 mL/min (>60); Estimated Creatinine Clearance 106.58 ml/min; Glucose 97 mg/dL (74-106); Potassium 3.7 mmol/L (3.5-5.1); Sodium Level 141 mmol/L (136-145); Troponin-I HS 5 pg/mL (3.0-54.0)
--- NOTE | 2023-11-22 16:49 | RAD_ITS ---
STUDY: X-RAY CHEST REASON FOR EXAM: Female, 47 years old. CHEST PAIN chest pain TECHNIQUE: XR Chest 1 View COMPARISON: 10/15/2023 FINDINGS: There is no demonstrated pleural abnormality. Normal size heart. Normal mediastinum and stewart. Normal visualized pulmonary arteries. Normal visualized aortic arch and descending thoracic aorta. Normal visualized thoracic spine. Normal visualized ribs, clavicles, and shoulders. There are no acute findings of the upper abdomen. RAD/Chest 1 View (Portable) IMPRESSION: There are no acute findings. Electronically Signed: Ramon Aguayo MD at 17:11 EDT ,
[2023-11-22 16:52] LABS: Differential Indicated SCAN CRITERIA MET; Platelet Estimate ADEQUATE (ADEQ)
[2023-11-22 16:53] LABS: Anisocytosis RARE; Macrocytosis RARE; Platelet Morphology LARGE; Red Cell Morphology N CHROM NORMAL (NORM C&C)
[2023-11-22 17:14] VITALS: BP 153/82; PULSE 85; RESP 19; O2SAT 96
[2023-11-22 17:29] VITALS: BP 145/78; PULSE 60; RESP 14; TEMP 36.4; O2SAT 99
== END 2023-11-22 17:33 | disposition home or self-care (01) ==
PROVIDERS: Physician Assistant; Emergency Provider Emergency Medicine; Visit Provider Emergency Medicine
DX: I10 Essential (primary) hypertension (principal); R07.89 Other chest pain; F17.210 Nicotine dependence, cigarettes, uncomplicated; G47.30 Sleep apnea, unspecified
CPT/HCPCS: 71045; 80048; 84484; 85025; 93005; 99283

== ENCOUNTER 2024-02-23 23:58 | Observation (INO) | payer OTHER, SELFPAY ==
[2024-02-23 23:59] VITALS: BP 144/102; PULSE 120; RESP 22; TEMP 36.5; O2SAT 96; BMI 42.3
[2024-02-24] VITALS (8 sets, daily range): BP systolic 122–138; BP diastolic 63–86; PULSE 79–108; RESP 14–18; TEMP 35.8–36.9; O2SAT 95–97; BMI 42.3
--- NOTE | 2024-02-24 00:18 | EX.ED.SAOD ---
HPI History of Present Illness Chief Complaint: ETOH Intox Informant: patient and spouse/S.O. Narrative Narrative: 48-year-old female alcoholic presenting asking for detox. She has never gone through detox before. She has been a daily heavy drinker for over 10 years. She states she has quit on her own before but the last time was a while ago. She averages 11-18 beers per day in addition to about 10 shots worth of tequila. She drank about that much today and her last drink was about an hour ago, she states she does not have withdrawal symptoms at this time but if she does not drink typically she will get them. She denies using any other substances. She has no suicidal thoughts or ideation. No recent illness. [facility] Medical History Sleep apnea Former smoker Smoker Contusion of left hand Contusion of left wrist Contusion of left forearm Left elbow contusion Asthma Home Medications ?Medication ?Instructions ?Recorded ?Last Taken ?Type albuterol sulfate 90 mcg/actuation 2 inh inhalation Q4H PRN shortness 10/15/23 Unknown Rx aerosol inhaler (Proventil HFA) of breath or wheezing #8.5 grams Allergy/AdvReac Type Severity Reaction Status Date / Time amoxicillin Allergy Hives Verified 02/23/24 23:59 latex Allergy Hives Verified 02/23/24 23:59 Sulfa (Sulfonamide Allergy Rash Verified 02/23/24 23:59 Antibiotics) Surgical History History of tonsillectomy Status post left foot surgery Social History Smoking Status: Current every day smoker tobacco type: cigarettes ROS ROS ED Constitutional Constitutional ED: Denies chills or fever(s) Eyes Eyes: Denies change in vision or diplopia ENT ENT ED: Denies rhinorrhea or sore throat Cardiovascular Cardiovascular: Denies chest pain or palpitations Respiratory/Chest Respiratory/Chest: Denies cough or dyspnea Gastrointestinal Gastrointestinal: Denies abdominal pain, diarrhea, nausea or vomiting Genitourinary Genitourinary ED: Denies dysuria or hematuria Musculoskeletal Musculoskeletal: Denies back pain or neck pain Integumentary Denies abscess or rash Neurologic Neurologic: Denies headache(s), paresthesias or weakness Psychiatric Psychiatric: Denies anxiety or suicidal thoughts EXAM Physical Exam Const Vital Signs: 02/23/24 23:59 Temperature 97.7 F L Temperature Source Temporal Pulse Rate 120 H Respiratory Rate 22 H Blood Pressure 144/102 H Blood Pressure Mean 116 Pulse Ox 96 Oxygen Delivery Method Room Air Positive well nourished and well developed General Appearance ED: well developed and NAD HEENT Reports moist mucous membranes normocephalic and atraumatic Eyes PERRL and EOMs intact bilaterally Neck full ROM and supple Resp normal respiratory effort and clear to auscultation bilaterally Cardio regular rate, regular rhythm and no murmurs GI non-tender and non-distended Auscultation: normoactive bowel sounds Palpation: soft Back/Spine no CVA tenderness General Back: other FROM Extremity normal to inspection General Extremety ED: Negative for edema, pulses abnormal or tenderness General Extremity: Negative for edema or pulses abnormal Neuro oriented x3, CN's II-XII intact bilaterally and no sensory deficits noted Sensorium / Orientation: awake and alert Motor Exam: strength 5/5 throughout Psych mental status grossly normal and thought process normal Psych Narrative: Tearful at times Skin no rashes or lesions noted and no wounds MDM MDM MDM Narrative Medical decision making narrative: At this time patient is not in any alcohol withdrawal, requesting detox, which is appropriate given her longstanding history of heavy daily use. Withdrawal is likely if she quit cold turkey. Workup underway, discussing with hospitalist for inpatient detox bed. Lab Data Attestation: I reviewed the patient's lab results. Labs: Laboratory Results - last 24 hr 02/24/24 00:30 WBC 9.7 RBC 4.86 Hgb 15.4 H Hct 45.3 MCV 93.2 MCH 31.7 MCHC 34.0 RDW Std Deviation 44.4 H RDW Coeff of Sofiya 13.0 Plt Count 319 MPV 10.6 Immature Gran % (Auto) 0.900 Neut % (Auto) 46.7 L Lymph % (Auto) 42.8 H [place] % (Auto) 7.0 Eos % (Auto) 1.9 Baso % (Auto) 0.7 Absolute Neuts (auto) 4.5 Absolute Lymphs (auto) 4.15 Nucleated RBC % 0 PT 12.4 INR 0.9 Sodium 142 Potassium 3.9 Chloride 109 H Carbon Dioxide 22.0 Anion Gap 11 BUN 14 Creatinine 0.79 Estim Creat Clear Calc 95.23 Est GFR (MDRD) Af Amer 100 Est GFR (MDRD) Non-Af 82 BUN/Creatinine Ratio 17.7 Glucose 160 H Calcium 8.5 Total Bilirubin 0.20 AST 41 H ALT 59 H Alkaline Phosphatase 95 Total Protein 7.2 Albumin 3.6 Globulin 3.6 Albumin/Globulin Ratio 1.0 Serum , Qual NEGATIVE Urine Opiates Screen NEGATIVE Urine Methadone Screen NEGATIVE Ur Barbiturates Screen NEGATIVE Ur Phencyclidine Scrn NEGATIVE Ur Amphetamines Screen NEGATIVE MDMA (Ecstasy) Screen NEGATIVE U Benzodiazepines Scrn NEGATIVE Urine Cocaine Screen NEGATIVE U Cannabinoids Screen NEGATIVE Ur Drug Screen Comment Ethyl Alcohol 100.0 Management Discussion w/another healthcare provider: Hospitalist Discharge Plan Dx/Rx/DC Orders Clinical Impression: Alcohol dependence Disposition Disposition: Acute Care Hospital [facility]
[2024-02-24 00:49] LABS: Absolute Lymphocyte Count 4.15 X10^3/uL (0.83-4.51); Absolute Neutrophil Count 4.5 X10^3/uL (2.0-7.7); Basophil# 0.07 X10^3/uL; Basophil% 0.7 % (0-1); Eosinophil# 0.18 X10^3/uL; Eosinophils% 1.9 % (0-5); Hematocrit 45.3 % (37-47); Hemoglobin 15.4 g/dL (12.0-15.0); Lymphocyte # 4.15 X10^3/ul (0.83-4.51); Lymphocyte % 42.8 % (19-41); Mean Corpuscular Hgb 31.7 pg (27.0-32.0); Mean Corpuscular Volume 93.2 fL (81-99); Mean Platelet Vol. 10.6 fl (6.2-12.0); Monocyte# 0.68 X10^3/uL; NRBC Flagged by Analyzer 0 % (0-5); Neutrophil # 4.53 X10^3/uL (2.7-7.7); Neutrophil % 46.7 % (47-70); POSITIVE MORPHOLOGY YES; Platelet Count 319 K/mm3 (150-450); RBC Distribution Width SD 44.4 fl (35.1-43.9); Red Blood Count 4.86 M/mm3 (4.2-5.4); White Blood Count 9.7 K/mm3 (4.4-11.0)
--- NOTE | 2024-02-24 00:50 | HP.PCM.HOS_ITS ---
HPI - General General Date of Admission: 02/24/24 Date of Service: 02/24/24 Chief Complaint: Alcohol detox HPI Narrative JOHNATHAN CAMPUZANO, is a 48 F who presented to [facility] ED on 02/24/2024 for alcohol detoxification. Saw patient at bedside in the ED, present. Patient was sitting up comfortably in bed, no acute distress. She was flushed appearing but otherwise did not appear anxious or agitated. She was answering all questions appropriately for me. Patient has never gone through alcohol detox before. She has been a daily heavy drinker for over 10 years. Has quit on her own in the past but it has been a while since then. She averages 12-18 beers per day plus about 10 shots worth of tequila. She drank about that much today and last drink was an hour prior to admission. She currently denies any withdrawal symptoms but does states she will get withdrawal symptoms if she does not drink at home. Denies any other substance use. No other acute concerns. Vitals in ED notable for sinus tachycardia to 100s, otherwise unremarkable. Labs notable for mild AST and ALT elevations, otherwise unremarkable. No imaging done in the ED. Will be admitted for further management. [facility] Medical History (Updated 02/24/24 @ 03:[address] Christopher Soares, DO) Chest pain Sleep apnea Former smoker Smoker Contusion of left hand Contusion of left wrist Contusion of left forearm Left elbow contusion Asthma Home Medications ?Medication ?Instructions ?Recorded ?Last Taken ?Type albuterol sulfate 90 mcg/actuation 2 inh inhalation Q4H PRN shortness 10/15/23 Unknown Rx aerosol inhaler (Proventil HFA) of breath or wheezing #8.5 grams Allergy/AdvReac Type Severity Reaction Status Date / Time amoxicillin Allergy Hives Verified 02/23/24 23:59 latex Allergy Hives Verified 02/23/24 23:59 Sulfa (Sulfonamide Allergy Rash Verified 02/23/24 23:59 Antibiotics) Surgical History History of tonsillectomy Status post left foot surgery Social History Smoking Status: Current every day smoker tobacco type: cigarettes ROS Constitutional Constitutional: Denies chills, fatigue, fever(s) or weakness Eyes Eyes: Denies change in vision Cardiovascular Cardiovascular: Denies chest pain Respiratory/Chest Respiratory/Chest: Denies shortness of breath at rest Gastrointestinal Gastrointestinal: Denies abdominal pain, constipation, diarrhea, nausea or vomiting Musculoskeletal Musculoskeletal: Denies arthralgias or myalgias Neurologic Neurologic: Denies dizziness, focal weakness, headache(s), seizures or tremor(s) Psychiatric Psychiatric: Denies anxiety or depression Vital Signs Vital Signs Vital Signs: 02/23/24 23:59 Temperature 97.7 F L Temperature Source Temporal Pulse Rate 120 H Respiratory Rate 22 H Blood Pressure 144/102 H Blood Pressure Mean 116 Pulse Ox 96 Oxygen Delivery Method Room Air Weight Weight: 101.469 kg Body Mass Index (BMI) 42.3 Physical Exam Const alert, oriented x3 and no apparent distress Constitutional Narrative: Middle-age female, morbidly obese, somewhat flushed appearing, otherwise sitting up comfortably in bed, conversing normally, no acute distress. General Appearance: cooperative and comfortable HEENT normocephalic, head/scalp atraumatic, hearing grossly normal bilaterally, nasal mucous membranes and turbinates normal and moist oral mucous membranes Eyes PERRL, EOMs intact bilaterally and conjunctivae normal Neck full ROM Chest inspection of chest normal Resp normal respiratory effort, normal air movement, no use of accessory muscles and clear to auscultation bilaterally Cardio no murmurs and peripheral pulses 2+ throughout Cardio Narrative: Tachycardic, regular rhythm. GI normal to inspection, nondistended, normoactive bowel sounds, soft to palpation, non-tender and non-distended Back/Spine normal ROM Extremity normal to inspection, full ROM and no pedal edema Skin no rashes or lesions noted Neuro moves all extremities and no focal motor deficits Speech: speech normal Psych mental status grossly normal Results Lab / Micro Data 02/24/24 00:30 02/24/24 00:30 Labs: Laboratory Results - last 24 hr 02/24/24 00:30: Ur Drug Screen Comment Assessment & Plan Assessment/Plan (1) Alcohol abuse: (2) Desire for detoxification: (3) Tobacco abuse: PLAN: Plan Patient is a 48-year-old female who presented [facility] ED on 02/24/2024 for alcohol detoxification. 1. Alcohol abuse with desire for detoxification ? Admit under inpatient status to [facility]. Case management consulted. Will treat with phenobarbital taper with as needed medications for symptom management per alcohol withdrawal order set. 2. Tobacco abuse ? Smokes 1 to 1.5 packs of cigarettes per day. Nicotine patch provided per patient request. 3. Morbid obesity ? BMI 42 on admit. Encouraged lifestyle modifications. Complicates hospital course, care and prognosis. 4. Asthma ? Stable on room air, not in acute exacerbation. Continue home albuterol as needed. DVT prophylaxis: Lovenox twice daily CODE STATUS: Full code, verified Expected disposition: Home, 2 to 3 days Total clinical time spent by myself addressing the patient's medical issues, reviewing all the data, and collaborating with patient's care team: 55 minutes. Charges/Coding Visit Charges Inpatient E&M: 50821 Init Hosp L2
[2024-02-24 00:51] LABS: Differential Indicated SCAN CRITERIA MET; International Normalized Ratio 0.9; Prothrombin Time (Protime)PT. 12.4 SECONDS (11.7-14.9)
[2024-02-24 00:56] LABS: Internal QC Validated? YES +Cl - CLEAR BKGD; Pregnancy, Serum, hCG Quali. NEGATIVE Negative
[2024-02-24 01:02] LABS: AST(SGOT) 41 U/L (15-37); Alanine Aminotransfer ALT/SGPT 59 U/L (13-56); Albumin, Serum 3.6 g/dL (3.2-5.0); Alkaline Phosphatase 95 U/L (45-117); Anion Gap 11 (5-15); BUN 14 mg/dL (7-18); BUN/Creat Ratio 17.7 RATIO (10-20); Calcium,Total 8.5 mg/dL (8.5-10.1); Chloride 109 mmol/L (98-107); Creatinine, Serum 0.79 mg/dL (0.55-1.02); EST Glomerular Filtration Rate 82 mL/min (>60); Est Glom Filt Rate - Afr Amer 100 mL/min (>60); Estimated Creatinine Clearance 95.23 ml/min; Globulin 3.6 g/dL (2.2-4.2); Glucose 160 mg/dL (74-106); Potassium 3.9 mmol/L (3.5-5.1); Protein, Total 7.2 g/dL (6.4-8.2); Sodium Level 142 mmol/L (136-145)
[2024-02-24 01:05] LABS: Amphetamine Urine VISTA NEGATIVE (<1000 ng/mL); Barbiturate Urine VISTA NEGATIVE (< 200 ng/mL); Benzodiazepine Urine VISTA NEGATIVE (< 200 ng/mL); Cocaine Urine VISTA NEGATIVE (< 300 ng/mL); Ecstacy Urine VISTA NEGATIVE (< 500 ng/mL); Methadone Urine VISTA NEGATIVE (< 300 ng/mL); PCP Urine VISTA NEGATIVE (< 25 ng/mL); THC Urine VISTA NEGATIVE (< 50 ng/mL); Vista UDS pH Range 4
[2024-02-24 01:52] LABS: Differential Comment SCANNED
[2024-02-24] MEDS: Phenobarbital 32.4 MG Tablet PO ×6 (02:23→21:33)
[2024-02-24] MEDS: Ondansetron 8 MG Tablet PO ×2 (02:23→10:19)
[2024-02-24] MEDS: Acetaminophen 325 MG Tablet 650 MG PO ×2 (06:18→21:36)
[2024-02-24] MEDS: hydrOXYzine PAM 25 MG Capsule 50 MG PO ×3 (06:18→17:53)
--- NOTE | 2024-02-24 09:49 | PN.HOSP_ITS ---
Reason for Visit Reason for Visit: Diagnoses Alcohol abuse, uncomplicated (02/24/24) Tobacco use (02/24/24) Subjective Subjective Patient was seen and examined today, she does not complain of any tremor or nervousness. Patient was admitted for alcohol detox yesterday. Patient denies any chronic medical problems. Objective Data Objective Data Vital Signs: Vital Signs Temp Pulse Resp BP Pulse Ox O2 Del Method 98 F 90 16 122/63 H 96 Room Air 02/24/24 06:11 02/24/24 06:11 02/24/24 06:11 02/24/24 06:11 02/24/24 09:35 02/24/24 09:35 Oxygen Delivery Method Room Air Weight: 101.605 kg Body Mass Index (BMI) 42.3 Lab / Micro Data 02/24/24 00:30 02/24/24 00:30 Labs: Laboratory Results - last 24 hr 02/24/24 00:30: WBC 9.7, RBC 4.86, Hgb 15.4 H, Hct 45.3, MCV 93.2, MCH 31.7, MCHC 34.0, RDW Std Deviation 44.4 H, RDW Coeff of Sofiya 13.0, Plt Count 319, MPV 10.6, Immature Gran % (Auto) 0.900, Neut % (Auto) 46.7 L, Lymph % (Auto) 42.8 H, Stephenson % (Auto) 7.0, Eos % (Auto) 1.9, Baso % (Auto) 0.7, Absolute Neuts (auto) 4.5, Absolute Lymphs (auto) 4.15, Nucleated RBC % 0, Differential Comment SCANNED, PT 12.4, INR 0.9, Sodium 142, Potassium 3.9, Chloride 109 H, Carbon Dioxide 22.0, Anion Gap 11, BUN 14, Creatinine 0.79, Estim Creat Clear Calc 95.23, Est GFR (MDRD) Af Amer 100, Est GFR (MDRD) Non-Af 82, BUN/Creatinine Ratio 17.7, Glucose 160 H, Calcium 8.5, Total Bilirubin 0.20, AST 41 H, ALT 59 H , Alkaline Phosphatase 95, Total Protein 7.2, Albumin 3.6, Globulin 3.6, Albumin/Globulin Ratio 1.0, Serum , Qual NEGATIVE, Urine Opiates Screen NEGATIVE, Urine Methadone Screen NEGATIVE, Ur Barbiturates Screen NEGATIVE, Ur Phencyclidine Scrn NEGATIVE, Ur Amphetamines Screen NEGATIVE, MDMA (Ecstasy) Screen NEGATIVE, U Benzodiazepines Scrn NEGATIVE, Urine Cocaine Screen NEGATIVE, U Cannabinoids Screen NEGATIVE, Ur Drug Screen Comment , Ethyl Alcohol 100.0 Physical Exam Const alert, oriented x3, no apparent distress and healthy appearing Constitutional Narrative: Patient is morbidly obese General Appearance: cooperative, well kempt and well developed Orientation / Consciousness: awake, oriented to person, oriented to place and oriented to time HEENT normocephalic, head/scalp atraumatic and moist oral mucous membranes Eyes PERRL, EOMs intact bilaterally and conjunctivae normal Neck supple, no JVD, thyroid normal and no carotid bruits General: trachea midline Resp normal respiratory effort, no retractions, no use of accessory muscles and clear to auscultation bilaterally Auscultation: Negative for rales, rhonchi or wheezes Cardio regular rate, regular rhythm, S1 normal heart sound, S2 normal heart sound, no murmurs, no rub and no gallops GI normal to inspection, nondistended, normoactive bowel sounds, soft to palpation, non-tender and non-distended Extremity no clubbing, cyanosis or edema Skin no rashes or lesions noted General Skin Exam: no breakdown Neuro oriented x3, CN's II-XII intact bilaterally, moves all extremities, no focal motor deficits and no sensory deficits noted Sensorium / Orientation: awake and alert Speech: speech normal Psych affect normal Assessment & Plan Assessment/Plan (1) Alcohol abuse: PLAN: Plan 1. Acute alcohol withdrawal-patient will remain on her current medications, she will be monitored for signs of DTs. #2 chronic alcoholism-complicates care, management, recovery, and prognosis #3 morbid obesity-complicates care, management, recovery, and prognosis
[2024-02-24] MEDS: Folic Acid 1 MG Tablet PO (09:56)
[2024-02-24] MEDS: Thiamine Hydrochloride 100 MG Tablet PO (09:56)
[2024-02-24] MEDS: Enoxaparin 40 MG/0.4 ML Syringe SC ×2 (09:56→21:33)
[2024-02-24] MEDS: Dicyclomine 10 MG Capsule 20 MG PO (10:19)
--- NOTE | 2024-02-24 12:25 | CASEMGMT ---
cyber systems operations specialist Rohan said she will meet with patient tomorrow Fri02-25-24. Adamaris Villar NEGOTIATOR INTERNET MARKETER
--- NOTE | 2024-02-24 12:44 | CASEMGMT ---
Social Work As per admitting RN, pt does not have LW/POA and declined further information at this time. PABLITO Zuniga
[2024-02-24] MEDS: traZODone 100 MG Tablet PO (21:36)
[2024-02-25] VITALS (11 sets, daily range): BP systolic 117–148; BP diastolic 64–88; PULSE 72–100; RESP 16–18; TEMP 35.9–36.8; O2SAT 91–98
[2024-02-25] MEDS: Phenobarbital 32.4 MG Tablet PO ×6 (02:14→22:23)
[2024-02-25] MEDS: Albuterol 2.5 MG/3 ML VIAL.NEB. INHALATION ×2 (02:35→21:55)
[2024-02-25] MEDS: Enoxaparin 40 MG/0.4 ML Syringe SC ×2 (10:20→21:18)
[2024-02-25] MEDS: Thiamine Hydrochloride 100 MG Tablet PO (10:20)
[2024-02-25] MEDS: Folic Acid 1 MG Tablet PO (10:20)
[2024-02-25] MEDS: predniSONE 20 MG Tablet 40 MG PO (11:54)
--- NOTE | 2024-02-25 12:33 | PCM.PROGNOTE ---
Subjective Subjective Patient seen and examined. She denies any tremors or shakes, palpitations or any symptoms of withdrawal. She does admit to some shortness of breath with mild wheezing which she thinks is due to her asthma. Review of systems otherwise negative. Objective Data Objective Data Vital Signs: Vital Signs Temp Pulse Resp BP Pulse Ox O2 Del Method O2 Flow Rate 97.8 F 72 16 130/76 H 95 Room Air 2 02/25/24 09:36 02/25/24 09:36 02/25/24 09:36 02/25/24 09:36 02/25/24 10:19 02/25/24 10:19 02/25/24 09:36 Oxygen Flow Rate (L/min) 2 Oxygen Delivery Method Room Air Weight: 224 lb Body Mass Index (BMI) 42.3 Intake & Output: Intake and Output for Last 24 Hours 02/23/24 02/24/24 02/25/24 23:59 23:59 23:59 Intake Total 240 / 240 Balance 240 / 240 Lab / Micro Data 02/24/24 00:30 02/24/24 00:30 Physical Exam Const alert, oriented x3, no apparent distress and well nourished General Appearance: cooperative and well developed HEENT normocephalic, head/scalp atraumatic, moist oral mucous membranes and oropharynx normal Eyes PERRL and EOMs intact bilaterally Neck no lymphadenopathy, supple and no JVD Lymph Lymphatic: no lymphadenopathy noted Resp Resp Narrative: moderately diminished breath sounds bilaterally, mild wheezing but no crackles. On 2L of oxygen. Cardio regular rate, regular rhythm, S1 normal heart sound, S2 normal heart sound and no murmurs GI normal to inspection, nondistended, normoactive bowel sounds, soft to palpation and non-tender Extremity normal capillary refill, no clubbing, cyanosis or edema and no calf tenderness General Extremity: no tenderness to palpation of joints or extremities Skin General Skin Exam: no breakdown Neuro CN's II-XII intact bilaterally, no focal motor deficits, no sensory deficits noted and deep tendon reflexes 2+ bilaterally Motor Exam: strength 5/5 throughout and general weakness Psych thought process normal, cooperative and affect normal Appearance: appropriate Assessment & Plan Assessment/Plan (1) Alcohol abuse: (2) Desire for detoxification: (3) Asthma exacerbation: PLAN: Plan #Acute alcohol withdrawal Denies any symptoms of withdrawal. Currently on alcohol withdrawal phenobarbital. Monitor CIWA score. Thiamine, folic acid and Multi-Laina. #Acute asthma exacerbation Patient on 2 L of oxygen. States she does feel a bit short of breath and is wheezing. Start on p.o. prednisone. Breathing treatments with bronchodilators. #Morbid obesity: BMi is 42.3. Complicates acute care, expected recovery and prognosis. DVT prophylaxis: low risk, encourage ambulation. Charges/Coding Visit Charges Inpatient E&M: 74207 Subs Hosp L2
--- NOTE | 2024-02-25 12:45 | ADDICTION ---
This policy writer met with PT to conduct ASAM, MSE, AUDIT, DUDIT assessments and to plan for d/c. PT A+Ox4 and participated actively. All assessments completed. PT plans to follow-up with treatment services, however she wanted to discuss it with her employer for the EAP program. This worker offered resources. PT did not indicate a need for transportation post d/c from [facility].
[2024-02-25] MEDS: 0.9% Saline Lock 10 ML Syringe IV ×2 (14:06→21:18)
[2024-02-25] MEDS: Acetaminophen 325 MG Tablet 650 MG PO (21:17)
[2024-02-25] MEDS: hydrOXYzine PAM 25 MG Capsule 50 MG PO (22:23)
[2024-02-25] MEDS: traZODone 100 MG Tablet PO (22:23)
[2024-02-26] MEDS: Phenobarbital 32.4 MG Tablet PO ×5 (02:44→22:07)
[2024-02-26 02:55] VITALS: BP 118/85; PULSE 88; RESP 18; TEMP 36.4; O2SAT 97
[2024-02-26 08:02] VITALS: O2SAT 95
[2024-02-26 09:41] VITALS: BP 111/91; PULSE 84; RESP 16; TEMP 36.6; O2SAT 96
[2024-02-26] MEDS: Thiamine Hydrochloride 100 MG Tablet PO (09:43)
[2024-02-26] MEDS: Folic Acid 1 MG Tablet PO (09:43)
[2024-02-26] MEDS: Enoxaparin 40 MG/0.4 ML Syringe SC ×2 (09:43→22:07)
[2024-02-26] MEDS: predniSONE 20 MG Tablet 40 MG PO (09:43)
--- NOTE | 2024-02-26 10:17 | PN_ITS ---
Subjective Subjective Patient seen and examined. She does feel better today. Her breathing has improved and she is on room air. Review of systems otherwise negative. She has remained hemodynamically stable. Objective Data Objective Data Vital Signs: Vital Signs Temp Pulse Resp BP Pulse Ox O2 Del Method O2 Flow Rate 97.9 F 84 16 111/91 H 96 Room Air 2 02/26/24 09:41 02/26/24 09:41 02/26/24 09:41 02/26/24 09:41 02/26/24 09:41 02/26/24 09:41 02/26/24 02:55 Oxygen Flow Rate (L/min) 2 Oxygen Delivery Method Room Air Weight: 224 lb Body Mass Index (BMI) 42.3 Intake & Output: Intake and Output for Last 24 Hours 02/24/24 02/25/24 02/26/24 23:59 23:59 23:59 Intake Total 240 / 240 Balance 240 / 240 Lab / Micro Data 02/24/24 00:30 02/24/24 00:30 Physical Exam Const alert, oriented x3, no apparent distress, healthy appearing and well nourished Constitutional Narrative: Patient is morbidly obese General Appearance: cooperative, comfortable, well kempt and well developed Orientation / Consciousness: awake, oriented to person, oriented to place and oriented to time HEENT normocephalic, head/scalp atraumatic, hearing grossly normal bilaterally, nasal mucous membranes and turbinates normal, moist oral mucous membranes and oropharynx normal Eyes PERRL, EOMs intact bilaterally and conjunctivae normal Neck full ROM, no lymphadenopathy, supple, no JVD, thyroid normal and no carotid bruits General: trachea midline Lymph Lymphatic: no lymphadenopathy noted Chest inspection of chest normal Resp normal respiratory effort, normal air movement, no retractions, no use of accessory muscles and clear to auscultation bilaterally Resp Narrative: on room air. Auscultation: Negative for rales, rhonchi or wheezes Cardio regular rate, regular rhythm, S1 normal heart sound, S2 normal heart sound, no murmurs, no rub, no gallops and peripheral pulses 2+ throughout GI normal to inspection, nondistended, normoactive bowel sounds, soft to palpation, non-tender and non-distended Back/Spine normal ROM Extremity normal to inspection, full ROM, normal capillary refill, no clubbing, cyanosis or edema, no calf tenderness and no pedal edema General Extremity: no tenderness to palpation of joints or extremities Skin no rashes or lesions noted General Skin Exam: no breakdown Neuro oriented x3, CN's II-XII intact bilaterally, moves all extremities, no focal motor deficits, no sensory deficits noted and deep tendon reflexes 2+ bilaterally Sensorium / Orientation: awake and alert Speech: speech normal Motor Exam: strength 5/5 throughout and general weakness Psych mental status grossly normal, thought process normal, cooperative and affect normal Appearance: appropriate Assessment & Plan Assessment/Plan (1) Alcohol abuse: (2) Desire for detoxification: (3) Asthma exacerbation: PLAN: Plan #Acute alcohol withdrawal * Denies any symptoms of withdrawal. * Currently on alcohol withdrawal phenobarbital. Monitor CIWA score. * Thiamine, folic acid and Multi-Laina. * #Acute asthma exacerbation * resolving. Now on room air. continue PO prednisone 40mg daily x 5 days. * * #Morbid obesity: BMi is 42.3. Complicates acute care, expected recovery and prognosis. DVT prophylaxis: low risk, encourage ambulation. Disposition:for likely DC tomorrow. Charges/Coding Visit Charges Inpatient E&M: 74103 Subs Hosp L2
[2024-02-26 15:15] VITALS: BP 117/71; PULSE 87; RESP 16; TEMP 36.8; O2SAT 95
[2024-02-26 22:01] VITALS: BP 141/98; PULSE 88; RESP 17; TEMP 36.5; O2SAT 97
[2024-02-26] MEDS: traZODone 100 MG Tablet PO (22:07)
[2024-02-26] MEDS: Acetaminophen 325 MG Tablet 650 MG PO (22:07)
[2024-02-26] MEDS: 0.9% Saline Lock 10 ML Syringe IV (22:09)
[2024-02-27 03:37] VITALS: BP 115/71; PULSE 70; RESP 16; TEMP 36.5; O2SAT 99
[2024-02-27] MEDS: Phenobarbital 32.4 MG Tablet PO ×2 (03:42→09:40)
--- NOTE | 2024-02-27 03:47 | NURSING ---
updated Ángel (pt ) per pt request about possible DC today.
[2024-02-27 09:34] VITALS: BP 127/84; PULSE 75; RESP 18; TEMP 36.7; O2SAT 96
[2024-02-27] MEDS: predniSONE 20 MG Tablet 40 MG PO (09:35)
[2024-02-27] MEDS: Folic Acid 1 MG Tablet PO (09:35)
--- NOTE | 2024-02-27 09:35 | DS.PCM_ITS ---
Providers Date of Admission: 02/24/24 Date of Discharge: 02/27/24 Primary Care Physician: EZIO Muñoz Reason For Visit: alcohol detox Diagnosis Discharge Diagnosis (1) Alcohol abuse: Status: Acute Code(s): F10.10 - Alcohol abuse, uncomplicated (2) Desire for detoxification: Status: Acute (3) Asthma exacerbation: Status: Acute Code(s): J45.901 - Unspecified asthma with (acute) exacerbation Plan #Acute alcohol withdrawal * Denies any symptoms of withdrawal. * Currently on alcohol withdrawal phenobarbital. Monitor CIWA score. * Thiamine, folic acid and Multi-Laina. * #Acute asthma exacerbation * resolving. Now on room air. continue PO prednisone 40mg daily x 5 days. * * #Morbid obesity: BMi is 42.3. Complicates acute care, expected recovery and prognosis. DVT prophylaxis: low risk, encourage ambulation. Disposition:for likely DC tomorrow. Medications at Discharge Home Medications albuterol sulfate 90 mcg/actuation aerosol inhaler (Proventil HFA) 2 inh inhalation Q4H PRN shortness of breath or wheezing #8.5 grams 10/15/23 prednisone 20 mg tablet 40 mg (2 x 20 mg) PO BREAKFAST #6 tabs 02/27/24 Hospital Course Operations None Procedures None Summary of Care Provided Minutes Spent on Discharge: 55 Hospital Course: Patient is a 48 y/o F with a PMH as outlined who was admitted via the ED on 02/24/2024 for alcohol detox. She said she drank about 12-18 bers daily together with 10 shots of tequila. Her last drink was about an hour prior to admission. Serum alcohol level was less than 3. She was admitted and managed for acute alcohol withdrawal. She was started on alcohol withdrawal protocol with phenobarbital. Hospital course was complicated by mild acute asthmatic exacerbation. She was placed on p.o. prednisone and was initially on 2 L of oxygen but subsequently she was weaned down to room air. She completed a 3-day detox protocol and did well. She remained stable and was discharged home on 02/27/2024. She is follow-up with her primary care doctor within 1 to 2 weeks. She was given a prescription for p.o. prednisone 40 mg daily for 3 days to complete a 5-day course. Patient seen and examined prior to discharge. She had no complaints and had an uneventful night. Review of systems otherwise negative. Labs and vitals reviewed. Home medication reviewed and reconciled. Physical Exam Const alert, oriented x3, no apparent distress, healthy appearing and well nourished Constitutional Narrative: Patient is morbidly obese General Appearance: cooperative, comfortable, well kempt and well developed Orientation / Consciousness: awake, oriented to person, oriented to place and oriented to time HEENT normocephalic, head/scalp atraumatic, hearing grossly normal bilaterally, nasal mucous membranes and turbinates normal, moist oral mucous membranes and oropharynx normal Mouth: oral and palatal mucosa normal Eyes PERRL, EOMs intact bilaterally and conjunctivae normal Neck full ROM, no lymphadenopathy, supple, no JVD, thyroid normal and no carotid bruits General: trachea midline Lymph Lymphatic: no lymphadenopathy noted Chest inspection of chest normal Resp normal respiratory effort, normal air movement, no retractions, no use of accessory muscles and clear to auscultation bilaterally Resp Narrative: on room air. Auscultation: Negative for rales, rhonchi or wheezes Cardio regular rate, regular rhythm, S1 normal heart sound, S2 normal heart sound, no murmurs, no rub, no gallops and peripheral pulses 2+ throughout Cardio Narrative: Tachycardic, regular rhythm. GI normal to inspection, nondistended, normoactive bowel sounds, soft to palpation, non-tender and non-distended Back/Spine normal ROM Extremity normal to inspection, full ROM, normal capillary refill, no clubbing, cyanosis or edema, no calf tenderness and no pedal edema General Extremity: no tenderness to palpation of joints or extremities Skin no rashes or lesions noted General Skin Exam: no breakdown Neuro oriented x3, CN's II-XII intact bilaterally, moves all extremities, no focal motor deficits, no sensory deficits noted and deep tendon reflexes 2+ bilaterally Sensorium / Orientation: awake and alert Speech: speech normal Motor Exam: strength 5/5 throughout and general weakness Psych mental status grossly normal, thought process normal, cooperative and affect normal Appearance: appropriate Weight / BMI Weight Weight: 224 lb Body Mass Index (BMI) 42.3 ABG / Lab / Microbiology Data 02/24/24 00:30 02/24/24 00:30 D/C Instructions Discharge Diet: Low fat / Low cholesterol Discharge Activity: Return to Normal Activity Weight Bearing Status: Weight bearing as tolerated Call your doctor if you observe: Fever of 101 or Higher, Shortness of breath, Dizziness and Chest pain Meaningful Use Info Meaningful Use Meaningful Use Diagnoses (Choose all that apply): None applicable Ischemic Stroke Statin Dosing Therapy Reference: STATIN DOSE THERAPY REFERENCE: * Patients > 75 years receive moderate or high dose statin therapy. * Patients 75 years or YOUNGER should receive HIGH intensity statin dose unless contraindicated. You will be required to document reason for non-treatment if statin daily dose does not meet guidelines. HIGH DOSE STATIN THERAPY DAILY Atorvastatin > than or = to 40 mg Rosuvastatin > than or = to 20 mg Amlodipine + Atorvastatin > than or = to 2.5/40 mg Ezetimibe + Simvastatin 10/80 mg Simvastatin 80mg Discharge Plan Admission Admit Date/Time: 02/24/24 01:13 Primary Reason for Your Visit: acute alcohol withdrawal Attending Provider: Kathie Longoria Primary Care Provider: Hermilo Truong Consulting Providers: Christopher Soares; Peyman Thompson Instructions Patient Instructions: Alcohol Withdrawal: What to Expect Discharge Orders/Prescriptions Prescriptions: New prednisone 20 mg Tablet 40 mg PO BREAKFAST Qty: 6 0RF Continued albuterol sulfate [Proventil HFA] 90 mcg/actuation HFA aerosol inhaler 2 inh inhalation Q4H PRN (Reason: shortness of breath or wheezing) Qty: 8.5 1RF Referrals / Follow Up: Hermilo Truong PA [Primary Care Provider] - Within 1 Week Disposition Disposition (needs filled in before D/C Order can be placed): Home, Self Care Charges/Coding Visit Charges Inpatient E&M: 42726 Disch Hosp >30min
--- NOTE | 2024-02-27 09:35 | DCINST_ITS ---
Discharge Instructions Diet Discharge Diet: Low fat / Low cholesterol Activity Discharge Activity: Return to Normal Activity Weight Bearing Status: Weight bearing as tolerated Dressing / Incision Call your doctor if you observe: Fever of 101 or Higher, Shortness of breath, Dizziness and Chest pain Follow Up Care Test Results: Test results from this visit will be discussed in further detail at your follow- up appointment, if applicable. Discharge Plan Admission Admit Date/Time: 02/24/24 01:13 Primary Reason for Your Visit: acute alcohol withdrawal Attending Provider: Kathie Longoria Primary Care Provider: Hermilo Truong Consulting Providers: Christopher Soares; Peyman Thompson Instructions Patient Instructions: Alcohol Withdrawal: What to Expect Discharge Orders/Prescriptions Prescriptions: New prednisone 20 mg Tablet 40 mg PO BREAKFAST Qty: 6 0RF Continued albuterol sulfate [Proventil HFA] 90 mcg/actuation HFA aerosol inhaler 2 inh inhalation Q4H PRN (Reason: shortness of breath or wheezing) Qty: 8.5 1RF Referrals / Follow Up: Hermilo Truong PA [Primary Care Provider] - Within 1 Week Disposition Disposition (needs filled in before D/C Order can be placed): Home, Self Care
[2024-02-27] MEDS: Enoxaparin 40 MG/0.4 ML Syringe SC (09:36)
[2024-02-27] MEDS: Thiamine Hydrochloride 100 MG Tablet PO (09:36)
--- NOTE | 2024-02-27 09:49 | NURSING ---
pt dialysis continues, pt drowsy
--- NOTE | 2024-02-27 10:48 | PHA.DC.MC.R ---
Pharmacy [facility] has performed discharge medication reconciliation and counseling for this patient. The patient's discharge medication list was reviewed for discrepancies and discrepancies were resolved. The patient was counseled on the following discharge medications and changes in medications for homegoing were reviewed. 1. PREDNISONE The Reason for Use, instructions for use, and potential side effects were reviewed for all new medications. The patient's questions regarding all of their medications were answered. The patient was able to verbally demonstrate an understanding of their discharge medications. The patient was counselled by Frankie Irving PharmD Candidate Medications at Discharge Home Medications albuterol sulfate 90 mcg/actuation aerosol inhaler (Proventil HFA) 2 inh inhalation Q4H PRN shortness of breath or wheezing #8.5 grams 10/15/23 prednisone 20 mg tablet 40 mg (2 x 20 mg) PO BREAKFAST #6 tabs 02/27/24
== END 2024-02-27 10:55 | disposition home or self-care (01) | DRG 897 ==
LOC: ED 02-24 00:25 → PCU 02-24 07:10
PROVIDERS: Admitting Provider Hospitalist; Emergency Provider Emergency Medicine; PCP Physician Assistant; Visit Provider Student in an Organized Health Care Education/Training Program
DX: F10.229 Alcohol dependence with intoxication, unspecified (principal); F10.239 Alcohol dependence with withdrawal, unspecified; Z68.41 Body mass index [BMI] 40.0-44.9, adult; E66.01 Morbid (severe) obesity due to excess calories; J45.901 Unspecified asthma with (acute) exacerbation; F17.210 Nicotine dependence, cigarettes, uncomplicated; Y90.5 Blood alcohol level of 100-119 mg/100 ml
CPT/HCPCS: 80053; 80307; 82077; 84703; 85025; 85610; 94640; 94668; 96372; 99221; 99283; A4216; G0378

== ENCOUNTER → 2024-03-17 | Outpatient (CLI) | payer OTHER, SELFPAY ==
--- NOTE | 2024-03-17 12:17 | BI_ITS ---
MAMMOGRAPHY - BILATERAL SCREENING REASON FOR EXAM: Female, 48 years old. Routine annual screening examination. PERTINENT HISTORY: Non-contributory. TECHNIQUE: Digital bilateral breast michelle (3D mammographic acquisition) in the CC and MLO projections. 2-D mediolateral oblique (MLO) and craniocaudad (CC) views of both breasts were obtained. CAD: Full Field Digital Mammography with Computer Added Detection was performed. COMPARISON: No comparison mammograms available at this time. If any prior films become available, an addendum to this report can be generated. FINDINGS: Breast Composition: There are scattered areas of fibroglandular density. There are no dominant masses or suspicious calcifications. Small benign appearing bilateral axillary lymph nodes. No other significant abnormalities are identified. BI/SCRN MAMM (CAD)W/MICHELLE BILAT IMPRESSION: Negative screening mammogram. Yearly followup mammogram recommended. (A) ASSESSMENT CATEGORY: BIRADS Category 2: Benign. A letter regarding these results will be sent to the patient by the facility within 30 days. Approximately 10% of breast cancers are not detected by mammography. A normal mammogram should not delay biopsy of a clinically suspicious abnormality. [id number] Electronically Signed: Saud Everett MD at 15:04 EDT ,
== END | disposition home or self-care (01) ==
DX: Z12.31 Encounter for screening mammogram for malignant neoplasm of breast (principal)
CPT/HCPCS: 77063; 77067; 94060; 94726; 94729

== ENCOUNTER 2024-11-23 14:02 | Emergency (ER) | payer OTHER, SELFPAY ==
[2024-11-23 14:03] VITALS: BP 120/93; PULSE 104; RESP 16; TEMP 36.3; O2SAT 97; BMI 43.1
[2024-11-23 16:03] VITALS: BP 122/68; PULSE 88; RESP 18; O2SAT 97
--- NOTE | 2024-11-23 16:08 | EDS_ITS ---
HPI History of Present Illness Chief Complaint: General Illness Informant: patient Onset/Context/Timing Onset: Weeks (The last 12 days.) Context: Gradual Onset Timing: Continuous Current Severity: Mild Maximum Severity: Mild Narrative Narrative: 48-year-old female history of prior alcohol abuse but she has been abstaining from alcohol last 9 months. She also has a history of asthma and depression she takes fluoxetine as only medication she is on. Since the 10th about 12 days ago noticed swelling to her left knee. Denies any calf pain. No chest pain or shortness of breath. Said the knee at times feels stiff. Said she just has not really felt great. Denies vomiting or diarrhea. No fever. No trauma. No back pain or chest pain. No abdominal pain. Prior similar symptoms: No Recent Illness/Hospitalization: No PFSH PFSH Medical History Tobacco abuse Desire for detoxification Alcohol abuse Alcohol dependence Chest pain Sleep apnea Former smoker Smoker Contusion of left hand Contusion of left wrist Contusion of left forearm Left elbow contusion Asthma Home Medications ?Medication ?Instructions ?Recorded ?Last Taken ?Type albuterol sulfate 90 mcg/actuation 2 inh inhalation Q4 H PRN shortness 10/15/23 Unknown Rx aerosol inhaler (Proventil HFA) of breath or wheezing #8.5 grams prednisone 20 mg tablet 40 mg (2 x 20 mg) PO BREAKFA ST #6 02/27/24 Unknown Rx tabs Allergy/AdvReac Type Severity Reaction Status Date / Time amoxicillin Allergy Hives Verified 11/23/24 14:03 latex Allergy Hives Verified 11/23/24 14:03 Sulfa (Sulfonamide Allergy Rash Verified 11/23/24 14:03 Antibiotics) Surgical History History of tonsillectomy Status post left foot surgery Social History Smoking Status: Current every day smoker tobacco type: cigarettes ROS ROS ED ROS Narrative Intermittent nausea. No vomiting or diarrhea. No fever or chills. No chest pain or shortness of breath. No abdominal pain. Constitutional Constitutional ED: Denies chills or fever(s) Eyes Eyes: Denies blurry vision ENT ENT ED: Denies ear pain Cardiovascular Cardiovascular: Denies chest pain or palpitations Respiratory/Chest Respiratory/Chest: Denies cough or dyspnea Gastrointestinal Gastrointestinal: Reports nausea; Denies abdominal pain, constipation, diarrhea, melena or vomiting Genitourinary Genitourinary ED: Denies dysuria or hematuria Musculoskeletal Musculoskeletal: Denies arthralgias Integumentary Denies abscess Neurologic Neurologic: Reports headache(s) Psychiatric Psychiatric: Reports depression; Denies anxiety Endocrine Endocrinology: Denies cold intolerance Hematologic/Lymphatic Hematologic/Lymphatic: Reports none Allergic/Immunologic Allergic/Immunologic ED: Denies mouth swelling, tongue swelling, urticaria or other EXAM Physical Exam Narrative Exam Narrative: Well-appearing 40 female. Vital signs are stable afebrile. Pulse ox 97% on room air no signs hypoxia. Significant other is at bedside. H EENT exam pupils round reactive light. Extra motions are intact. No scleral icterus. Moist mucous membranes. No facial droop. Normal speech. Neck nontender no JVD. No lymphadenopathy. Lungs clear to auscultation bilaterally. Heart regular rhythm rate about 100 no murmur. Chest wall ribs nontender. Abdomen soft nontender. No peritoneal signs. Back nontender. She has a nondescript red rash upper sole k. It blanches. There is no petechiae appropriate. No sloughing of skin. This does not look like cellulitis. There is no hives. She is moving all 4 extremities. Left knee she has full flexion extension. No significant swelling or effusion. Calves are nontender without edema or cords. She has normal flexion extension of both hips and knees and ankles. Dorsi plantarflexion intact. Normal touch sensation and strength. Upper extremities are normal. With normal strength and range of motion. Neurologically she is awake alert no focal motor deficits. Const Vital Signs: 11/23/24 14:03 11/23/24 16:03 11/23/24 17:43 Temperature 97.4 F L Temperature Source Temporal Pulse Rate 104 H 88 Respiratory Rate 16 18 Respiratory Effort Normal Respiratory Pattern Normal Blood Pressure 120/93 H 122/68 H Blood Pressure Mean 102 86 Pulse Ox 97 97 Oxygen Delivery Method Room Air Room Air 11/23/24 18:00 Temperature Temperature Source Pulse Rate 74 Respiratory Rate 20 H Respiratory Effort Respiratory Pattern Blood Pressure 128/72 H Blood Pressure Mean 90 Pulse Ox 100 Oxygen Delivery Method Room Air Positive well nourished and well developed; Negative for cachectic, contractures or unkempt General Appearance ED: well developed and NAD; Negative for unkempt, cachectic, contractures, cyanotic, diaphoretic or pallor Nutritional Appearance: Negative for cachectic HEENT Reports moist mucous membranes Eyes PERRL and EOMs intact bilaterally General Eye ED: Negative for pale conjunctiva or scleral icterus Neck no lymphadenopathy, supple and no JVD General: Negative for tenderness Lymph Lymphatic: Negative for other Chest Wall inspection of chest normal and palpation of chest normal Resp normal respiratory effort and clear to auscultation bilaterally Effort and Inspection: Negative for retractions Auscultation: Negative for rales, rhonchi, wheezes or diminished lung sounds Cardio regular rate, regular rhythm, S1 normal heart sound, S2 normal heart sound and no murmurs Rate: Negative for bradycardia or tachycardic Rhythm: Negative for abnormal rhythm GI normal to inspection, nondistended, normoactive bowel sounds, non-tender, non- distended and no masses Inspection: Negative for abdominal distention Auscultation: normoactive bowel sounds Palpation: soft; Negative for tender, guarding or rebound tenderness present Back/Spine no CVA tenderness General Back: Negative for CVA tenderness Cervical Spine: Negative for cervical spine tenderness Thoracic Spine / Upper Back: Negative for thoracic spinal tenderness Lumbar Spine / Lower Back: Negative for lumbar spinal tenderness Extremity normal to inspection Extremity Narrative: Normal range of motion of both upper and lower extremities. Normal strength and sensation. Both calves are nontender without edema or cords. She has minimal if any swelling to the left knee. There is no effusion. No redness. Is not hot. There is no septic joint. No signs of trauma. Ligaments are intact. General Extremety ED: Negative for edema or tenderness General Extremity: Negative for edema Neuro oriented x3, CN's II-XII intact bilaterally and no sensory deficits noted Sensorium / Orientation: alert; Negative for orientation impaired, lethargic or stuporous Motor Exam: strength 5/5 throughout Psych mental status grossly normal Appearance: Negative for unkempt Attitude: No agitated Mood & Affect: Negative for depressed, anxious or tearful Skin no rashes or lesions noted and no wounds General Skin Exam: Negative for jaundice or pallor Lesions: No lesion noted Rashes: No rashes noted Trauma: Negative for abrasion Wounds: Negative for wounds noted MDM MDM MDM Narrative Medical decision making narrative: 48-year-old female is concerned because of her prior history of drinking even though she has abstained for the last 9 months that her liver enzymes may be elevated and also atraumatic knee pain. Screening labs including liver enzymes. EKG even though she appears she has a sinus rhythm. And a left knee x-ray which may show arthritis. There is no history of trauma. There is no dis location and no reason to have a fracture. There is no signs of infected joint. Repeat exam patient is doing well at 6:13 PM. We went over her test results. She will be discharged home outpatient follow-up for her left knee. Ice. Motrin Tylenol. Otherwise her labs are unremarkable. As were her liver enzymes. History & Record Review Discussion w/independent historian: Patient and Family Additional record(s) reviewed:: Prior inpatient record, Prior outpatient record, Prior ED visit and Prior labs Lab Data Attestation: I reviewed the patient's lab results. Lab results narrative: CBC shows white count of 12. H&H of 15 and 43. Platelets 320. Electrolytes shows sodium 139. Gap 10. Normal BUN 13 creatinine 0.68. Liver enzymes are normal. EKG unremarkable. Left knee x-ray unremarkable. Labs: Laboratory Results - last 24 hr 11/23/24 16:54 WBC 12.0 H RBC 4.94 Hgb 15.2 H Hct 43.9 MCV 88.9 MCH 30.8 MCHC 34.6 RDW Std Deviation 41.4 RDW Coeff of Sofiya 12.8 Plt Count 320 MPV 9.8 Immature Gran % (Auto) 0.700 Neut % (Auto) 60.0 Lymph % (Auto) 29.8 Traverse % (Auto) 7.8 Eos % (Auto) 1.2 Baso % (Auto) 0.5 Absolute Neuts (auto) 7.2 Absolute Lymphs (auto) 3.59 Nucleated RBC % 0 Sodium 139 Potassium 4.3 Chloride 103 Carbon Dioxide 25.8 Anion Gap 10 BUN 13 Creatinine 0.68 L Estim Creat Clear Calc 112.00 Est GFR (MDRD) Non-Af 107 BUN/Creatinine Ratio 18.4 Glucose 119 H Calcium 9.2 Total Bilirubin 0.18 AST 27 ALT 29 Alkaline Phosphatase 77 Total Protein 6.8 Albumin 4.1 Globulin 2.7 Albumin/Globulin Ratio 1.5 Radiography Diagnostic Testing: Clinical Impression(s) from Imaging Studies Knee X-Ray 11/23/24 17:10 IMPRESSION: Normal left knee. Reading Location: [facility] Left knee x-ray, 4 views, interpreted by both by myself and the radiologist shows no acute abnormality. No significant arthritis. No joint narrowing. No deformity. No fracture. No effusion. Rhythm Strip Rhythm Strip: Sinus Rhythm Rate: 89 Ectopy: None EKG Initial EKG: Attestation: I personally reviewed and interpreted this EKG as follows: Interpretation: Sinus Rhythm and No Acute Injury Pattern Comments: Normal sinus rhythm rate 89 no acute signs of [place] or ischemia. No change from prior in 2023. Prior EKG tracings: available for review Prior: Unchanged Discharge Plan Triage Chief Complaint: General Illness ED Provider: Gordo Viera Dx/Rx/DC Orders Clinical Impression: Acute pain of left knee Instructions: Knee Pain Prescriptions: No Action albuterol sulfate [Proventil HFA] 90 mcg/actuation HFA aerosol inhaler 2 inh inhalation Q4H PRN (Reason: shortness of breath or wheezing) Qty: 8.5 1RF prednisone 20 mg Tablet 40 mg PO BREAKFAST Qty: 6 0RF Primary Care Provider: Jennifer Olsen Referrals: Jennifer Olsen PA [Primary Care Provider] - 1 Week if not improving Activity Restrictions/Additional Instructions: Ice to your knee to decrease pain and swelling. Motrin for pain and swelling. Follow-up if not improving for further evaluation. Your x-ray today and labs were good. Your liver enzymes were normal. Print Language: Turkmen Disposition Disposition: Home, Self Care
[2024-11-23 17:02] LABS: Absolute Lymphocyte Count 3.59 X10^3/uL (0.83-4.51); Absolute Neutrophil Count 7.2 X10^3/uL (2.0-7.7); Basophil# 0.06 X10^3/uL; Basophil% 0.5 % (0-1); Eosinophil# 0.14 X10^3/uL; Eosinophils% 1.2 % (0-5); Hematocrit 43.9 % (37-47); Hemoglobin 15.2 g/dL (12.0-15.0); Lymphocyte # 3.59 X10^3/ul (0.83-4.51); Lymphocyte % 29.8 % (19-41); Mean Corp Hgb Conc 34.6 g/dL (32-36); Mean Corpuscular Hgb 30.8 pg (27.0-32.0); Mean Corpuscular Volume 88.9 fL (81-99); Mean Platelet Vol. 9.8 fl (6.2-12.0); Monocyte# 0.94 X10^3/uL; Monocyte% 7.8 % (0-10); NRBC Flagged by Analyzer 0 % (0-5); Neutrophil # 7.23 X10^3/uL (2.7-7.7); Platelet Count 320 K/mm3 (150-450); RBC Distribution Width CV 12.8 % (11.6-14.6); RBC Distribution Width SD 41.4 fl (35.1-43.9); Red Blood Count 4.94 M/mm3 (4.2-5.4)
--- NOTE | 2024-11-23 17:10 | RAD_ITS ---
PROCEDURE: KNEE 4 OR MORE VIEWS 11/23/2024 REASON FOR EXAM: ATRAUMATIC LEFT KNEE PAIN TECHNIQUE: 4 view(s) of the left knee FINDINGS: Bones: No fracture. No suspicious bone lesion. Joints: Normal alignment. Effusion: No effusion. Soft tissues: Soft tissues are unremarkable. Other: RAD/Knee 4 or More Views IMPRESSION: Normal left knee. Reading Location: [id number]
[2024-11-23 17:26] LABS: ALB/GLOB Ratio 1.5 RATIO (0.9-2.4); AST(SGOT) 27 U/L (<=31); Alanine Aminotransfer ALT/SGPT 29 U/L (<=34); Albumin, Serum 4.1 g/dL (3.5-5.0); Alkaline Phosphatase 77 U/L (35-104); Anion Gap 10 (5-15); BUN 13 mg/dL (4-19); BUN/Creat Ratio 18.4 RATIO (10-20); Calcium,Total 9.2 mg/dL (7.6-11.0); Carbon Dioxide 25.8 mmol/L (21.0-32.0); Chloride 103 mmol/L (98-108); Creatinine, Serum 0.68 mg/dL (0.70-1.20); EST Glomerular Filtration Rate 107 (>60); Globulin 2.7 g/dL (2.2-4.2); Glucose 119 mg/dL (70-99); Potassium 4.3 mmol/L (3.3-5.1); Protein, Total 6.8 g/dL (5.9-8.4); Sodium Level 139 mmol/L (133-145); Total Bilirubin 0.18 mg/dL (0.00-1.30)
[2024-11-23 18:00] VITALS: BP 128/72; PULSE 74; RESP 20; O2SAT 100
== END 2024-11-23 18:23 | disposition home or self-care (01) ==
PROVIDERS: Emergency Provider Emergency Medicine; Visit Provider Emergency Medicine
DX: M25.562 Pain in left knee (principal); G47.30 Sleep apnea, unspecified; F17.210 Nicotine dependence, cigarettes, uncomplicated
CPT/HCPCS: 73564; 80053; 85025; 93005; 99283; A4216

== ENCOUNTER 2024-12-14 21:29 | Emergency (ER) | payer OTHER, SELFPAY ==
[2024-12-14 21:30] VITALS: BP 153/70; PULSE 106; RESP 20; TEMP 36.4; O2SAT 100; BMI 44.0
[2024-12-14] MEDS: Gabapentin 300 MG Capsule PO (22:21)
[2024-12-14] MEDS: Ibuprofen 600 MG Tablet PO (22:21)
--- NOTE | 2024-12-14 22:36 | ED.VIS.LOWEX ---
HPI History of Present Illness Chief Complaint: Lower Extremity Injury Informant: patient and spouse/S.O. Narrative Narrative: Patient here for other evaluation continued left knee pain for the past month. States a month ago knee buckled had swelling this continued. Reports now pain has gone up her buttocks to her back. No loss of bowel or bladder control. She was seen approximately 3 weeks in the ED and x-ray that was negative. Prior to that saw her PCP was put on steroids with no relief was told to go to ER worsen. She was seen with x-rays. Since then she is had continued pain daily. She states PCP office did call her back to check on her with no relief they called today to set up physical therapy for her. Denies any direct falls or injuries. Prior similar symptoms: No PFSH PFSH Medical History Tobacco abuse Desire for detoxification Alcohol abuse Alcohol dependence Chest pain Sleep apnea Former smoker Smoker Contusion of left hand Contusion of left wrist Contusion of left forearm Left elbow contusion Asthma Home Medications ?Medication ?Instructions ?Recorded ?Last Taken ?Type albuterol sulfate 90 mcg/actuation 2 inh inhalation Q4H PRN shortness 10/15/23 Unknown Rx aerosol inhaler (Proventil HFA) of breath or wheezing #8.5 grams prednisone 20 mg tablet 40 mg (2 x 20 mg) PO BREAKFAST #6 02/27/24 Unknown Rx tabs gabapentin 300 mg capsule 300 mg PO QHS #30 caps 12/14/24 Unknown Rx ibuprofen 600 mg tablet 600 mg PO Q6H PRN PRN pain #20 12/14/24 Unknown Rx TABLETS Allergy/AdvReac Type Severity Reaction Status Date / Time amoxicillin Allergy Hives Verified 12/14/24 21:30 latex Allergy Hives Verified 12/14/24 21:30 Sulfa (Sulfonamide Allergy Rash Verified 12/14/24 21:30 Antibiotics) Surgical History History of tonsillectomy Status post left foot surgery Social History Smoking Status: Current every day smoker tobacco type: cigarettes ROS ROS ED Constitutional Constitutional ED: Denies chills, fever(s) or sweats ENT ENT ED: Denies sore throat Cardiovascular Cardiovascular: Denies chest pain, leg edema, palpitations or racing heartbeat Respiratory/Chest Respiratory/Chest: Denies cough, dyspnea or dyspnea on exertion Gastrointestinal Gastrointestinal: Denies abdominal pain, diarrhea, nausea or vomiting Genitourinary Genitourinary ED: Denies dysuria, hematuria or urinary frequency Musculoskeletal Musculoskeletal: Reports back pain and extremity pain; Denies neck pain Integumentary Denies rash or wounds Neurologic Neurologic: Denies headache(s), paresthesias or weakness EXAM Physical Exam Const Vital Signs: 12/14/24 21:30 12/14/24 22:46 Temperature 97.6 F L 97.9 F Temperature Source Temporal Pulse Rate 106 H 88 Respiratory Rate 20 H 18 Blood Pressure 153/70 H 138/72 H Blood Pressure Mean 97 94 Pulse Ox 100 100 Oxygen Delivery Method Room Air Positive well nourished and well developed General Appearance ED: well developed and NAD HEENT Reports moist mucous membranes normocephalic and atraumatic Eyes General Eye ED: Yes normal appearance of both eyes Neck full ROM Chest Wall Chest: Negative for tenderness Resp normal respiratory effort and normal air movement Effort and Inspection: symmetric chest movement; Negative for respiratory distress Cardio regular rate, regular rhythm and no murmurs Peripheral Pulses: pulses 2+ throughout GI normal to inspection, nondistended, normoactive bowel sounds and non-tender Palpation: Negative for guarding or rebound tenderness present Back/Spine Back/Spine Narrative: No midline tenderness tender palpation left lower lumbar. Straight leg test was negative. Extremity normal to inspection Extremity Narrative: Left lower extremity: No medial thigh tenderness. No calf tenderness. Knee extensor mechanism intact. Mild positive Kathi's. No deformities. Pulses intact distally. General Extremety ED: Negative for edema or tenderness General Extremity: Negative for edema Neuro oriented x3 and no sensory deficits noted Sensorium / Orientation: awake and alert Skin no rashes or lesions noted and no wounds MDM MDM MDM Narrative Medical decision making narrative: Interventions / MDM: Differential diagnosis: Sciatica, left knee pain Diagnosis considered but do not suspect: No cauda equina symptoms. My EKG interpretation: N/A Imaging independently reviewed and interpreted by myself: N/A External documents reviewed: Reviewed left knee x-ray from November 23, 2024 no acute process. Test considered but not ordered:N/A ED course: Patient with no cauda equina symptoms history concerning for sciatica no cauda equina symptoms. Edition states had persistent knee pain had swelling initially she had mildly proximal Kathi's. Discussed with her starting her on neuropathic medicine for which she agreed. Gabapentin started for nighttime use. She will continue ibuprofen. Prescriptions were written. As concerns for knee pain she is referred to orthopedics. She has physical therapy plan outpatient. She will follow-up with her PCP for this. All questions were answered. Re-evaluation: stable Disposition discussed with patient/family/significant other: Patient and significant other Case discussed with consulting clinician: N/A This note was generated with [employer] dictation software. It may contain incorrect words, spelling, and punctuation that were not noted in checking the note before signing. Discharge Plan Triage Chief Complaint: Lower Extremity Injury ED Provider: Jose A Renae Dx/Rx/DC Orders Clinical Impression: Left sided sciatica, Left knee pain Instructions: Knee Pain, ED Sciatica Prescriptions: New gabapentin 300 mg capsule 300 mg PO QHS Qty: 30 0RF ibuprofen 600 mg tablet 600 mg PO Q6H PRN PRN (Reason: pain) Qty: 20 0RF No Action albuterol sulfate [Proventil HFA] 90 mcg/actuation HFA aerosol inhaler 2 inh inhalation Q4H PRN (Reason: shortness of breath or wheezing) Qty: 8.5 1RF prednisone 20 mg Tablet 40 mg PO BREAKFAST Qty: 6 0RF Stand Alone Forms: ED Work / School Excuse Primary Care Provider: Jennifer Olsen Referrals: Jose Almanza MD [Med Staff - Active Staff] - 1 Week Jennifer Olsen PA [Primary Care Provider] - 3-5 Days Activity Restrictions/Additional Instructions: Take medications as prescribed. Follow-up with orthopedics for your knee pain. Follow-up with your doctor for sciatica symptoms. Follow through with your physical therapy. Print Language: Khmer Disposition Disposition: Home, Self Care Discharge Date/Time: 12/14/24 22:48
[2024-12-14 22:46] VITALS: BP 138/72; PULSE 88; RESP 18; TEMP 36.6; O2SAT 100
== END 2024-12-14 22:48 | disposition home or self-care (01) ==
PROVIDERS: Emergency Provider Emergency Medicine; Visit Provider Emergency Medicine
DX: M54.32 Sciatica, left side (principal); M25.562 Pain in left knee; G47.30 Sleep apnea, unspecified; J45.909 Unspecified asthma, uncomplicated; F17.210 Nicotine dependence, cigarettes, uncomplicated
CPT/HCPCS: 99283

== ENCOUNTER 2025-03-09 05:52 | Day surgery (SDC) | payer OTHER, SELFPAY ==
[2025-03-09] VITALS (12 sets, daily range): BP systolic 127–161; BP diastolic 61–135; PULSE 82–114; RESP 16–20; TEMP 36.1–36.8; O2SAT 88–99; BMI 45.1
--- OUTSIDE RECORDS SUMMARY | 2025-03-09 05:55 | XMS RPT_ITS | CCD ---
Author Organization [facility], [facility] Care Team Providers [employer] Architect Name Role Phone MELQUIADES, KOBE Unavailable Unavailable MELQUIADES, KOBE Unavailable Unavailable MELQUIADES, KOBE Unavailable Unavailable YAMILETH AUSTIN Unavailable Unavailable MELQUIADES, KOBE Unavailable Unavailable CLARIBEL LU Unavailable Unavailable MELQUIADES, KOBE Unavailable Unavailable JOHN LAM Unavailable Unavailable MELQUIADES, KOBE Unavailable Unavailable LISA MCGILL Unavailable Unavailable GARCIA DE LA TORRE NP Attending Unavailable GARCIA DE LA TORRE NP Primary Care Unavailable GARCIA DE LA TORRE CHANNEL DEVELOPMENT DIRECTOR Admitting Unavailable Yahir Gutierrez PA-C Unavailable [phone] Ingrid Woods MA Unavailable Unavailable Unavailable Unavailable Mami Eubanks LPN Unavailable Unavailabl e Yahir Dahl Primary Care Provider [phone] Dr. Gordo Viera MD Emergency Provider Unavailable Primary Care Provider Unavailabl e Physical Therapy Provider Unavailable Unavai YAHIR Yoon Referring Unavailable Dr. Gordo Viera MD Attending Provider Dr. Jose A Renae DO Emergency Provider [phone] Yahir Dahl Referring Provider Olivia Mooney Attending Provider Dr. Jose A Renae DO Attending Provider OLIVIA STALLINGS Referring Unavailable OLIVIA STALLINGS Attending Unavailable YAHIR GUTIERREZ Primary Care Unavailable Dr. Maximilian Corrales DO Attending Provider Tony Latham MD Attending Provider Gutierrez, Yahir Referring Unavailable Gutierrez, Yahir Primary Care Unavailable Olivia Stallings Attending Unavailable Josue Austin Attending Unavailable Gutierrez, Yahir Primary Care Unavailable Gutierrez, Yahir Referring Unavailable Maximilian Corrales Attending Unavailable Gutierrez, Yahir Referring Unavailable Gutierrez, Yahir Primary Care Unavailable Gutierrez, Yahir Referring Unavailable Gutierrez, Yahir Primary Care Unavailable Tony Latham Attending Unavailable Olivia Stallings Attending Unavailable Gutierrez, Yahir Primary Care Unavailable Gutierrez, Yahir Referring Unavailable Gutierrez, Yhair Attending Unavailable Gordo Viera Attending Unavailable Gutierrez, Yahir Primary Care Unavailable Gutierrez, Yahir Primary Care Unavailable Jose A Renae Attending Unavailable Gutierrez, Yahir Primary Care Unavailable Tony Latham Attending Unavailable Allergies Allergy Classification Reported Allergen(s) Allergy Type Date of Onset Reaction(s) Facility (2 sources) Amoxicillin Drug Allergy 8 [facility] Repository (2 sources) Sulfonamides (Antibiotic) Drug allergy (disorder) 8 [facility] Repository (1 source) Amoxicillin Drug Allergy [facility] Repository (1 source) Sulfonamides (Antibiotic) Drug allergy (disorder) [facility] Repository (20 sources) Amoxicillin Drug Allergy 3 [facility] (11 sources) Sulfonamides (Antibiotic) Allergy to substance 3 [facility] (7 sources) Latex Allergy to substance 4 [facility] (20 sources) Sulfonamides (Antibiotic) [facility], [facility] (1 source) Latex Drug allergy (disorder) 5 [facility] Repository Medications Current Medications Medication Drug Class(es) Dates Sig (Normalized) Sig (Original) [id number] 200 actuat albuterol 0.09 mg/actuat metered dose inhaler (20 sources) beta2-Adrenergic Agonist Start: 06-09-2024 take 2 puff(s) by inhalation every four to six hours as needed Ventolin HFA 90 mcg/actuation aerosol inhaler ; 2 (two) puff(s) every 4-6hrs prn for 0 days Quantity: 1 {Each} Refills: 3 Ordered: 09-Jun-2024 DELIA Gutierrez Start: 09-Jun-2024 Start: 03-03-2024 take 2 puff(s) by in halation every four to six hours as needed Ventolin HFA 90 mcg/actuation aerosol inhaler ; 2 (two) puff(s) every 4-6hrs prn for 0 days Quantity: 1 {Each} Refills: 3 Ordered: 03-Mar-2024 MELY Woods Ingrid Start: 03-Mar-2024 Start: 11-22-2023 End: 02-24-2024 Albuterol Sulfate (Ventolin Hfa) 90 mcg/actuation HFA aerosol inhaler Discontinued 1 - 2 NMA INHALATION EVERY 6 HOURS as needed for wheezing 1 November 22, 2023 5:28pm February 24, 2024 12:38am Start: 11-22-2023 take 1 puff(s) by in halation every six hours Albuterol Sulfate (Ventolin Hfa) 90 mcg/actuation HFA aerosol inhaler Active 1 - 2 PUFF INHALATION EVERY 6 HOURS 09 02November 22, 2023 5:28pm Start: 10-15-2023 Albuterol Sulf ate (Proventil Hfa) 90 mcg/actuation HFA aerosol inhaler Active 2 NMA INHALATION Q4H as needed for shortness of breath or wheezing 8.5 October 15, 2023 12:00am Start: 10-15-2023 Albuterol Sulf ate (Proventil Hfa) 90 mcg/actuation HFA aerosol inhaler Active 2 INH INHALATION Q4H 8.October 15, 2023 12:00am FLUoxetine 20 mg oral tablet (20 sources) Serotonin Reuptake Inhibitor Start: 01-12-2025 FLUoxetine 20 mg tablet ; 1 (one) tablet daily for 0 days Quantity: 90 {Tablet} Refills: 0 Ordered: 12-Jan-2025 DELIA Gutierrez Start: 12-Jan-2025 Start: 10-11-2024 FLUoxetine 20 mg tablet ; 1 (one) tablet daily for 0 days Quantity: 90 {Tablet} Refills: 0 Ordered: 11-Oct-2024 DELIA Gutierrez Start: 11-Oct-2024 Start: 07-07-2024 FLUoxetine 20 mg tablet ; 1 (one) tablet daily for 0 days Quantity: 90 {Tablet} Refills: 0 Ordered: 07-Jul-2024 DELIA Gutierrez Start: 07-Jul-2024 Start: 04-14-2024 FLUoxetine 20 mg tablet ; 1 (one) tablet daily for 0 days Quantity: 90 {Tablet} Refills: 0 Ordered: 14-Apr-2024 DELIA Gutierrez Start: 14-Apr-2024 Start: 03-03-2024 FLUoxetine 10 mg tablet ; 1 (one) tablet daily for 0 days Quantity: 60 {Tablet} Refills: 0 Ordered: 03-Mar-2024 DELIA Gutierrez Start: 03-Mar-2024 60 actuat fluticasone propionate 0.1 mg/actuat / salmeterol 0.05 mg/actuat dry powder inhaler (20 sources) Corticosteroid, beta2-Adrenergic Agonist Start: 04-14-2024 fluticasone 100 mcg-salmeteroL 50 mcg/dose blistr powdr for inhalation ; 2 (two) inhalation daily for 0 days Quantity: 1 {Each} Refills: 1 Ordered: 14-Apr-2024 MELY Woods Start: 14-Apr-2024 hydrOXYzine hydrochloride 10 mg oral tablet (20 sources) Antihistamine Start: 03-03-2024 hydrOXYzine HC L 10 mg tablet ; 1 (one) tablet three times daily, as needed for 0 days Quantity: 30 {Tablet} Refills: 0 Ordered: 03-Mar-2024 MELY Woods Start: 03-Mar-2024 Comments: Medication taken as needed. Comment on above: Medication taken as needed. ibuprofen 600 mg oral tablet (7 sources) Nonsteroidal Anti-inflammatory Drug Start: 12-14-2024 End: 02-14-2025 Ibuprofen 600 mg tablet Active 600 mg PO EVERY 6-8 HOURS as needed for pain 90 0 January 07, 2025 12:00am [place] (Nk) (2 sources) Start: 02-21-2023 [place] (Nk) A ctive February 21, 2023 12:00am Completed/Discontinued Medications Medication Drug Class(es) Dates Sig (Normalized) Sig (Original) acetaminophen 325 mg / HYDROcodone bitartrate 5 mg oral tablet (10 sources) Opioid Agonist Start: 02-21-2023 End: 07-23-2024 Hydrocodone-Acetami nophen 5-325 mg tablet Discontinued 1 {tbl} PO EVERY 6 HOURS NEEDED as needed for Pain 8 2 0 February 21, 2023 February 24, 2024 12:36am Acute left-sided low back pain Low back pain, unspecified Start: 02-21-2023 take 1 tablet by ernst th every six hours as needed Hydrocodone-Acetaminophen Active 1 TABLE T PO EVERY 6 HOURS NEEDED 8 2 February 21, 2023 fluticasone (8 sources) Corticosteroid Start: 10-15-2023 End: 02-24-2024 fluticasone propionate Disco ntinued INHALATION October 15, 2023 12:00am February 24, 2024 12:36am Start: 10-15-2023 fluticasone pr opionate Active INHALATION October 15, 2023 12:00am gabapentin 300 mg oral capsule (5 sources) Anti-epileptic Agent Start: 12-14-2024 End: 01-21-2025 take 1 capsule by mouth at bedtime Gabapentin 300 mg capsule Discontinued 300 mg PO AT BEDTIME 30 0 December 14, 2024 12:00am January 21, 2025 8:15am Multivitamin (Daily Multi-Vitamin) tablet (8 sources) Start: 10-15-2023 End: 02-24-2024 Multivitamin (Daily Multi-Vitamin) tablet Discontinued 1 {tbl} PO DAILY October 15, 2023 12:00am February 24, 2024 12:36am Start: 10-15-2023 take 1 tablet by ernst th once daily Multivitamin (Daily Multi-Vitamin) tablet Active 1 TABLET PO DAILY October 15, 2023 12:00am naproxen 500 mg oral tablet (10 sources) Nonsteroidal Anti-inflammatory Drug Start: 02-21-2023 End: 02-24-2024 take 1 tablet by mouth twice daily as needed Naproxen 500 mg tablet Discontinued 500 mg PO TWICE DAILY NEEDED 20 0 February 21, 2023 12:00am February 24, 2024 12:36am oxyCODONE hydrochloride 5 mg oral capsule (11 sources) Opioid Agonist Start: 08-26-2022 End: 02-21-2023 take 1 capsule by mouth every four hours as needed for pain Oxycodone 5 mg capsule Discontinued 5 mg PO Q4H as needed for pain 30 5 0 August 26, 2022 February 21, 2023 1:57am Fracture of shaft of humerus predniSONE 20 mg oral tablet (20 sources) Start: 11-15-2024 End: 02-15-2025 predniSONE 20 mg tablet ; 1 (one) Tablet as directed for 0 days Quantity: 20 {Tablet} Refills: 0 Ordered: 15-Feb-2025 MELY Woods Start: 15-Nov-2024 End: 15-Feb-2025 Status: Inactive Comments: Take 3tabs qd for 3 days thenTake 2tabs qd for 3 days thenTake 1tab qd for 3 days thenTake 1/2tab qd for 4 days. Start: 02-27-2024 End: 12-16-2024 take 2 tablets by mouth at breakfast Prednisone 20 mg Tablet Discontinued 40 mg PO WITH BREAKFAST February 27, 2024 12:00am December 16, 2024 10:51am Start: 10-15-2023 End: 02-24-2024 take 2 tablets by mouth once daily Prednisone 20 mg tablet Discontinued 40 mg PO DAILY October 15, 2023 12:00am February 24, 2024 12:36am Start: 10-15-2023 take 40 mg by mouth once daily Prednisone Active 40 MG PO DAILY 23 05October 15, 2023 12:00am Comment on above: Take 3tabs qd for 3 days thenTake 2tabs qd for 3 days thenTake 1tab qd for 3 days thenTake 1/2tab qd for 4 days. Problems Active Problems Problem Classification Problem Date Documented Date Episodic/Chronic Abdominal pain (20 sources) Abdominal pain; Translations: [Unspecified abdominal pain] 11-17-2024 Episodic Alcohol-related disorders (20 sources) Alcohol abuse; Translations: [Alcohol dependence, in remission] 03-03-2024 Chronic Anxiety disorders (20 sources) Anxiety; Translations: [Anxiety disorder, unspecified] 03-03-2024 Chronic Asthma (20 sources) Asthma; Translations: [Exacerbation of asthma] 03-03-2024 Chronic Chronic obstructive pulmonary disease and bronchiectasis (20 sources) Chronic obstructive lung disease; Translations: [Chronic airway obstruction, not elsewhere classified] 03-03-2024 Chronic Essential hypertension (7 sources) Hypertensive disorder; Translations: [Essential (primary) hypertension] 11-22-2023 Chronic Fracture of upper limb (11 sources) Fracture of shaft of humerus ; Translations: [Unspecified fracture of shaft of humerus, unspecified arm, initial encounter for closed fracture] 08-26-2022 Episodic Genitourinary symptoms and ill-defined conditions (20 sources) Urinary symptoms ; Translations: [Unspecified symptoms and signs involving the genitourinary system] 03-03-2024 Episodic Joint disorders and dislocations; trauma-related (17 sources) Derangement of knee; Translations: [Unspecified internal derangement of unspecified knee] Onset: 01-04-2025 12-16-2024 Chronic Joint disorders and dislocations; trauma-related (7 sources) Acute meniscal tear, medial; Translations: [Other tear of medial meniscus, current injury, unspecified knee, initial encounter] Onset: 02-14-2025 01-07-2025 Episodic Malaise and fatigue (20 sources) Fatigue; Translations: [Other fatigue] 10-19-2024 Episodic Nonspecific chest pain (20 sources) Atypical chest pain; Translations: [Other chest pain] 11-22-2023 Episodic Osteoarthritis (20 sources) Arthritis; Translations: [Osteoarthritis of left knee joint] Onset: 02-14-2025 03-03-2024 Chronic Other hematologic conditions (20 sources) Hematocrit - PCV - high; Translations: [Other abnormality of red blood cells] 10-20-2024 Episodic Other injuries and conditions due to external causes (3 sources) Injury of upper arm; Translations: [Unspecified injury of left shoulder and upper arm, initial encounter] 08-26-2022 Episodic Other injuries and conditions due to external causes (8 sources) Injury of left upper arm; Translations: [Unspecified injury of left shoulder and upper arm, initial encounter] 09-03-2022 Episodic Other lower respiratory disease (8 sources) Wheezing; Translations: [Wheezing] 10-15-2023 Episodic Other non-traumatic joint disorders (20 sources) Pain in left knee; Translations: [Pain in joint, lower leg] Onset: 12-20-2024 11-11-2024 Episodic Other non-traumatic joint disorders (3 sources) Effusion, left knee; Translations: [Effusion, left knee] Onset: 12-16-2024 Episodic Other upper respiratory infections (20 sources) Viral upper respiratory tract infection; Translations: [Acute upper respiratory infection, unspecified] 10-15-2023 Episodic Residual codes; unclassified (20 sources) Colon cancer screening declined; Translations: [Procedure and treatment not carried out because of patient's decision for unspecified reasons] 03-03-2024 Episodic Residual codes; unclassified (6 sources) Tobacco user; Translations: [Tobacco use] 03-06-2024 Episodic Spondylosis; intervertebral disc disorders; other back problems (15 sources) Acute low back pain; Translations: [Acute left-sided low back pain] 02-21-2023 Episodic Superficial injury; contusion (20 sources) Contusion of elbow; Translations: [Contusion of left elbow, initial encounter] 10-10-2022 Episodic Unclassified (1 source) CONTACT WITH AND SUSPECTED EXPOSURE TO COVID-19; Translations: [CONTACT WITH AND SUSPECTED EXPOSURE TO COVID-19] Onset: 02-22-2022 Unclassified (20 sources) Number of Children 03-03-2024 Comment on above: 3. Unclassified (20 sources) Number of Pregnancies 03-03-2024 Comment on above: 3. Unclassified (20 sources) Vaginal deliveries 03-03-2024 Comment on above: 3. Unclassified (20 sources) Well adult female - The patient feels well with minor complaints, has good energy level and is sleeping well. The first day of the last menstrual period was : (2002 - s/p hysterectomy). The patient is not using any method of contraception at this time. The patient has a balanced diet (Patient has been working recently on improving her diet overall). The patient exercises weekly (She has recently starting walking in an effort to improve her health). The patient sleeps 6 hours per night. Note for Well adult female: Patient is fasting today.She has not been to a doctor in several years.She is due for breast and colon cancer screening.Patient reports a history of asthma and COPD currently managed with a rescue inhaler. She does report cough and wheezing most days. She usually uses her inhaler once every morning. She has not had pulmonary function testing for some time. She is a current smoker and smokes 1 ppd. She has been smoking since her early twenties. She would like to eventually quit smoking, but does not feel that she is ready to do so at this time.She reports many years of excessive alcohol consumption. She reports that for over 20 years, she drinks heavily most nights. She would drink 12-18 beers a night with 11-14 shots of tequila. She reports that she was able to function well in her life to the point where most people in her life did not know that she had this problem. She recently came to terms with the fact that she had a problem and decided to detox at [facility]. She has been sober for 8 days and reports a strong commitment to remaining so. She reports that she has started counseling for substance abuse and has an excellent support system in her family and friends.Patient does report that she has been feeling anxious and on edge since detoxing. She does report a history of anxiety and depression, though it has been years since she has received treatment for either condition. 03-03-2024 Unclassified (13 sources) Follow up for multiple chronic conditions - The patient is here for follow-up of anxiety, arthritis, asthma and Chronic Obstructive Pulmonary Disease. The patient always takes the prescribed medications. No side effects noted. The patient has a sedentary lifestyle. The patient's out of office blood pressure checks occur rarely. The patient states that there is no recent angina or dyspnea, there are no vision changes or weakness, weight has increased and they do not have headaches. Note for Multiple chronic conditions follow-up: Patient reports that she is feeling well overall.Her anxiety has been well controlled with her current medication. 10-19-2024 Unclassified (13 sources) [ADDITIONAL REASON] Fatigue - The onset of the fatigue has been gradual and has been occurring in a persistent pattern for 4 months (3-4 months). The course has been constant. The fatigue occurs all the time. The symptoms have been associated with excessive sleeping (Patient reports that she can sleep for 16 hours), while the symptoms have not been associated with abdominal pain, chest pain, chills, cough, depression, dyspnea, edema, fever, headache, lymphadenopathy, myalgia, nasal stuffiness, runny nose or sore throat. Note for Fatigue: Patient does report waking often during the night. She does wake up gasping for air at times. She has a history of sleep apnea for which she had surgery approximately 20 years ago. She has not needed a CPAP since having this surgery.Patient is 8 months sober at this time. She has not had any alcohol since before her inpatient detox stay.Patient reports a family history of narcolepsy. 10-19-2024 Unclassified (8 sources) Fatigue - The onset of the fatigue has been gradual and has been occurring in a persistent pattern for 4 months (3-4 months). The course has been constant. The fatigue occurs all the time. The symptoms have been associated with excessive sleeping (Patient reports that she can sleep for 16 hours), while the symptoms have not been associated with abdominal pain, chest pain, chills, cough, depression, dyspnea, edema, fever, headache, lymphadenopathy, myalgia, nasal stuffiness, runny nose or sore throat. Note for Fatigue: Patient does report waking often during the night. She does wake up gasping for air at times. She has a history of sleep apnea for which she had surgery approximately 20 years ago. She has not needed a CPAP since having this surgery.Patient is 8 months sober at this time. She has not had any alcohol since before her inpatient detox stay.Patient reports a family history of narcolepsy. 10-19-2024 Unclassified (8 sources) [ADDITIONAL REASON] Follow up for multiple chronic conditions - The patient is here for follow-up of anxiety, arthritis, asthma and Chronic Obstructive Pulmonary Disease. The patient always takes the prescribed medications. No side effects noted. The patient has a sedentary lifestyle. The patient's out of office blood pressure checks occur rarely. The patient states that there is no recent angina or dyspnea, there are no vision changes or weakness, weight has increased and they do not have headaches. Note for Multiple chronic conditions follow-up: Patient reports that she is feeling well overall.Her anxiety has been well controlled with her current medication. 10-19-2024 Unclassified (2 sources) Well adult female - The patient feels well with no complaints, has good energy level and is sleeping poorly (Patient has been having pain in her knee. She is seeing ortho and is in the process of being scheduled for a meniscus repair in her left knee.). The first day of the last menstrual period was : (partial hysterectomy). The patient is not using any method of contraception at this time. The patient has a balanced diet. The patient does not exercise. The patient sleeps 4 hours per night. Note for Well adult female: Patient due for mammogram and colon cancer screening. 02-15-2025 Past or Other Problems Problem Classification Problem Date Documented Date Episodic/Chronic Other injuries and conditions due to external causes (2 sources) Unspecified injury of right wrist, hand and finger(s), initial encounter; Translations: [S69.91XA - Unspecified injury of right wrist, hand and finger(s), initial encounter] Onset: 12-12-2017 Episodic Other screening for suspected conditions (not mental disorders or infectious disease) (20 sources) Patient encounter status; Translations: [Encounter for screening for diabetes mellitus] Onset: 04-22-2024 03-03-2024 Episodic Unclassified (1 source) Well adult female - The patient feels well with minor complaints, has good energy level and is sleeping well. The first day of the last menstrual period was : (2002). The patient is not using any method of contraception at this time. The patient has a balanced diet. The patient exercises weekly (walking a lot to keep mind off things). The patient sleeps 6 hours per night. The patient's libido is normal. Note for Well adult female: pt was drinking a lot and now sober 8 days and was in [facility] for detox for 4 days - liquid and beer for 25 years when in hospital o2 would drop in the night and they told her to mention to you today went down to 85 pt is now in therapy pt is having real bad headaches 03-03-2024 Unclassified (20 sources) Follow up for multiple chronic conditions - The patient is here for follow-up of anxiety, arthritis, asthma, Chronic Obstructive Pulmonary Disease and other condition(s) (Alcohol use disorder). The patient always takes the prescribed medications. No side effects noted (Needs a refill today). The patient has an active lifestyle but no regular exercise program. The patient's out of office blood pressure checks occur rarely and dietary compliance is fairly good usually adhering to recommendations. The patient states that breathing effort is stable (Patient reports that her rescue inhaler works well when she uses it. She continues to have trouble breathing most mornings when she wakes up. She had PFTs completed, which were normal.), there are no vision changes or weakness, weight has decreased, in general mood has improved (Patient reports that the medication seems to be helping, but she feels that an increased dose would be more helpful. She reports only needing 2 hydroxyzine tablets since her last visit.) and they do not have headaches. Note for Multiple chronic conditions follow-up: Patient is now 50 days sober. 04-14-2024 Unclassified (20 sources) Cold Symptoms - Symptoms include nasal congestion, runny nose, ear pain, sore throat, fever (patient felt feverish, but did not check her temperature), general malaise, headache and facial pain, but do not include dry cough, productive cough or wheezing. The onset was gradual 6 day(s) ago. The symptoms occur constantly. The patient describes this as mild and unchanged. Current treatment includes non-prescription cold medication and rest. Risk factors do not include child in daycare or smoking. The patient has been exposed to an individual with strep (Three of her grandchildren). Patient denies history of seasonal allergies, recurrent sinusitis, recurrent strep pharyngitis, asthma, tonsillectomy or recurrent ear infections. 05-11-2024 Unclassified (19 sources) Knee pain - The onset of the knee pain has been gradual following no specific incident (Patient does not recall any injury.) and has been occurring in a persistent pattern for 2 days. The course has been worsening. The knee pain is mild to moderate in the left knee. The knee pain is characterized as a sharp stabbing. The knee pain is described as being located in the anterior knee. The knee pain is aggravated by any movement. The knee pain is relieved by nothing (Patient has not yet tried any OTC treatments.). The symptoms have been associated with joint swelling, painful ROM, decreased ROM, difficulty arising from chair and difficulty going up and down stairs, but have not been associated with catching, locking, instability, warmth, erythema or fever. There were no previous diagnostic tests. There were no previous evaluations. There has been no previous surgeries. 11-11-2024 Unclassified (1 source) Abdominal pain - The pain radiates to the back. 11-17-2024 Unclassified (16 sources) Abdominal pain - The onset of the abdominal pain has been sudden and has been occurring in a persistent pattern for hours (Started this morning after she had a bowel movement). The course has been constant. The pain is described as a mild dull ache and pressure sensation. The pain is located in the right lower quadrant, left lower quadrant and suprapubic area and radiates to the back. The symptoms have no aggravating factors but have no relieving factors. The symptoms have been associated with chest pain (Patient reports at least several days of intermittent chest pain/heaviness. She denies any worsening of this pain with exertion. She feels that it comes on randomly. She denies any heartburn, shortness of breath, cough, or palpitations.) and fever (Patient reports a fever of 102 on Friday. She has not had any fever since then.), while the symptoms have not been associated with abdominal distention, bloating, bloody stools, constipation, diarrhea, dysuria, heartburn, nausea or vomiting. Note for Abdominal pain: Patient reports that she has generally not felt well since Friday. She reports having significant fatigue, but denies any runny nose, nasal congestion, sore throat, or cough.Patient is currently taking prednisone and she reports that her knee pain has improved. 11-17-2024 Unclassified (6 sources) Readiness finding 03-06-2024 Unclassified (1 source) Well adult female - The patient feels well with no complaints, has good energy level and is sleeping poorly. The first day of the last menstrual period was : (partial hysterectomy). The patient is not using any method of contraception at this time. The patient has a balanced diet. The patient does not exercise. The patient sleeps 4 hours per night. The patient's libido is normal. Note for Well adult female: 03/202402-15-2025 Results Test Name Value Interpretation Reference Range Facility CBC (INCLUDES DIFF/PLT)on Basophils (Bld) [#/Vol] 0.055 10*3/uL Normal 0-200 [facility] Comment on above: Performed By: #### 6 399 #### [facility] [address] [employer] Senior Sergeant: Eduardo Fernandez MD Basophils/100 WBC (Bld) 0.5 % Normal [facility] Comment on above: Performed By: #### 6 399 #### [facility] [address] [employer] Senior Sergeant: Eduardo Fernandez MD Eosinophils (Bld) [#/Vol] 0.187 10*3/uL Normal 15-500 [facility] Comment on above: Performed By: #### 6 399 #### [facility] [address] [place] [address] [employer] Sergeant: Eduardo Fernandez MD Eosinophils/100 WBC (Bld) 1.7 % Normal [facility] Comment on above: Performed By: #### 6 399 #### [facility] of [place] [address] [employer] Senior Sergeant: Eduardo Fernandez MD Erythrocyte distribution width (RBC) [Ratio] 12.8 % Normal 11.0-15.0 [facility] Comment on above: Performed By: #### 6 399 #### [facility] [place] [address] [employer] Senior Sergeant: Eduardo Fernandez MD Hematocrit (Bld) [Volume fraction] 45.7 % High 35.0-45.0 [facility] Comment on above: Performed By: #### 6 399 #### [facility] [place] [address] [employer] Senior Sergeant: Eduardo Fernandez MD Hemoglobin (Bld) [Mass/Vol] 14.8 g/dL Normal 11.7-15.5 [facility] Comment on above: Performed By: #### 6 399 #### [facility] [place] [address] [employer] Senior Sergeant: Eduardo Fernandez MD Lymphocytes (Bld) [#/Vol] 3.817 10*3/uL Normal 850-3900 [facility] Comment on above: Performed By: #### 6 399 #### [facility] [place] [address] [employer] Senior Sergeant: Eduardo Fernandez MD Lymphocytes/100 WBC (Bld) 34.7 % Normal [facility] Comment on above: Performed By: #### 6 399 #### [facility] [place] [address] [employer] Senior Sergeant: Eduardo Fernandez MD MCH (RBC) [Entitic mass] 30.7 pg Normal 27.0-33.0 [facility] Comment on above: Performed By: #### 6 399 #### [facility] [place] [address] [employer] Senior Sergeant: Eduardo Fernandez MD MCHC (RBC) [Mass/Vol] 32.4 g/dL Normal 32.0-36.[address] [facility] Comment on above: Result Comment: For adults, a slight decrease in the calculated MCHC value (in the range of 30 to 32 g/dL) is most likely not clinically significant; however, it should be interpreted with caution in correlation with other red cell parameters and the patient's clinical condition. Performed By: #### 6 399 #### [facility] [place] [address] [employer] Senior Sergeant: Eduardo Fernandez MD MCV (RBC) [Entitic vol] 94.8 fL Normal 80.0-100.0 [facility] Comment on above: Performed By: #### 6 399 #### [facility] [place] [address] [employer] Senior Sergeant: Eduardo Fernandez MD Monocytes (Bld) [#/Vol] 0.737 10*3/uL Normal 200-950 [facility] Comment on above: Performed By: #### 6 399 #### [facility] [place] [address] [employer] Senior Sergeant: Eduardo Fernandez MD Monocytes/100 WBC (Bld) 6.7 % Normal [facility] Comment on above: Performed By: #### 6 399 #### [facility] [place] [address] [employer] Senior Sergeant: Eduardo Fernandez MD Neutrophils (Bld) [#/Vol] 6.204 10*3/uL Normal 4047-8164 [facility] Comment on above: Performed By: #### 6 399 #### [facility] [place] [address] [employer] Senior Sergeant: Eduardo Fernandez MD Neutrophils/100 WBC (Bld) 56.4 % Normal [facility] Comment on above: Performed By: #### 6 399 #### [facility] of [address] [place] [address] [employer]: Eduardo Fernandez MD Platelet mean volume (Bld) [Entitic vol] 10.1 fL Normal 7.5-12.5 [facility] Comment on above: Performed By: #### 6 399 #### [facility] [place] [address] [employer] Senior Sergeant: Eduardo Fernandez MD Platelets (Bld) [#/Vol] 345 10*3/uL Normal 140-400 [facility] Comment on above: Performed By: #### 6 399 #### [facility] of [place] [address] [employer] Senior Sergeant: Eduardo Fernandez MD RBC (Bld) [#/Vol] 4.82 10*6/uL Normal 3.80-5.10 [facility] Comment on above: Performed By: #### 6 399 #### [facility] [place] [address] [employer] Sergeant: Eduardo Fernandez MD WBC (Bld) [#/Vol] 11.0 10*3/uL High 3.8-10.8 [facility] Comment on above: Performed By: #### 6 399 #### [facility] [place] [address] [employer] Senior Sergeant: Eduardo Fernandez MD Laboratory - Hematology and Cell countson 02-15-2025 Basophils (Bld) [#/Vol] 0.055 10*3/uL Normal 0 - 200 {cells/uL} [facility] [employer] [facility] Basophils/100 WBC (Bld) 0.5 % Normal [facility] [employer] [facility] Eosinophils (Bld) [#/Vol] 0.187 10*3/uL Normal 15 - 500 {cells/uL} [facility] [employer] [facility] Eosinophils/100 WBC (Bld) 1.7 % Normal [facility] [employer] [facility] Erythrocyte distribution width (RBC) [Ratio] 12.8 % Normal 11.0 - 15.0 % [facility] [employer] [facility].; [place] [employer], [facility]. Hematocrit (Bld) [Volume fraction] 45.7 % Abnormal 35.0 - 45.0 % [facility] [employer] [facility].; [facility], [facility]. Hemoglobin (Bld) [Mass/Vol] 14.8 g/dL Normal 11.7 - 15.5 g/dL [facility], [facility].; [facility], [facility]. Lymphocytes (Bld) [#/Vol] 3.817 10*3/uL Normal 850 - 3900 {cells/uL} [facility] [employer] [facility].; [place] [employer], [facility]. Lymphocytes/100 WBC (Bld) 34.7 % Normal [facility] [employer] [facility].; [place] [employer], [facility]. MCH (RBC) [Entitic mass] 30.7 pg Normal 27.0 - 33.0 pg [facility], [facility].; [place] [employer], [facility]. MCHC (RBC) [Mass/Vol] 32.4 g/dL Normal 32.0 - 36.0 g/dL [facility] [employer] [facility].; [place] [employer], [facility]. MCV (RBC) [Entitic vol] 94.8 fL Normal 80.0 - 100.0 fL [place] [employer] [facility] [employer] [facility] [facility].; [place] [employer], [facility]. Monocytes (Bld) [#/Vol] 0.737 10*3/uL Normal 200 - 950 {cells/uL} [place] [employer], [facility].; [employer], [facility]. Monocytes/100 WBC (Bld) 6.7 % Normal [facility] [employer] [facility] [facility].; [place] [employer] [facility], [facility]. Neutrophils (Bld) [#/Vol] 6.204 10*3/uL Normal 1500 - 7800 {cells/uL} [place] [employer] [facility].; [place] [employer], [facility]. Neutrophils/100 WBC (Bld) 56.4 % Normal [place] [employer] [facility] [employer] [facility] [facility].; [place] [employer], [facility]. Platelet mean volume (Bld) [Entitic vol] 10.1 fL Normal 7.5 - 12.5 fL [facility] [employer], [facility].; [place] [employer], [facility]. Platelets (Bld) [#/Vol] 345 10*3/uL Normal 140 - 400 [place] [email or web address] [facility]. RBC (Bld) [#/Vol] 4.82 10*6/uL Normal 3.80 - 5.1 0 {Million/uL} [email or web address] [facility]. WBC (Bld) [#/Vol] 11.0 10*3/uL Abnormal 3.8 - 10.8 [employer]. Orthopedic Visit Reporton Orthopedic Visit Report [facility] [address] [place] [address] OFFICE VISIT Date of Service: 02/14/25 MR#: [id number] Acct: [id number] Name: JOHNATHAN ANTONIO Rep #: [id number] : 1975 Provider: Dr. Tony miller MD Age/Sex: 49/F Location[place] [facility] [place] Status: Signed Intake Vital Signs 01/21/25 08:12 02/14/25 13:50 Height 5 ft 1 in 5 ft 1 in Weight: 225 lb 225 lb BMI 42.5 42.5 Intake Visit Reasons: LEFT KNEE Chief Complaint: Left knee pain Accompanied by: Is patient in pain?: Yes Pain scale (1-10): 6 Allergies amoxicillin Allergy (Verified 02/14/25 13:53) Hives latex Allergy (Verified 02/14/25 13:53) Hives Sulfa (Sulfonamide Antibiotics) Allergy (Verified 02/14/25 13:53) Rash Medications ???Medication ???Instructions ???Recorded ???Confirmed ???Type albuterol sulfate 90 mcg/actuation 2 inh inhalation Q4H PRN shortne ss 10/15/23 02/14/25 Rx aerosol inhaler (Proventil HFA) of breath or wheezing #8.5 grams ibuprofen 600 mg tablet 600 mg PO Q6-8H PRN pain #90 tabs 01/07/25 02/14/25 Rx Have you fallen in the past year?: Yes PFSH Medical History Tear of medial meniscus of left knee Tobacco abuse Desire for detoxification Alcohol abuse Alcohol dependence Chest pain Sleep apnea Former smoker Smoker Contusion of left hand Contusion of left wrist Contusion of left forearm Left elbow contusion Asthma Surgical History History of tonsillectomy Status post left foot surgery Social History Smoking Status: Current every day smoker tobacco type: cigarettes HPI LEFT KNEE Details: This documentation accurately reflects the service provided and the decisions made by me, Dr. Tony Latham MD 02/14/25 1226. Part of today???s visit was documented by [ ], acting as scribe. JOHNATHAN ANTONIO is a 49 year old F here today for L knee pain, mild OA and MM root tear. Medial posterior and anterior knee pain. 4 months. 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. does a lot of walking. some mechanical symptoms, positive catching / locking. cortisone made it worse. here with her . PT no. no prior operations on the knee. Using a brace. Supplemental Info [facility] [address] [place] [address] Knee 4 or More Views MR#: [id number] Acct: [id number] Name: JOHNATHAN ANTONIO Rep #: [id number] : 1975 F 48 From: Stanislav Sampson MD PCP: EZIO Carey Status: REG ER Study: Knee 4 or More Views Date of Exam: 11/23/24 Exam# [id number] Ordering Dr: Gordo Viera MD PROCEDURE: KNEE 4 OR MORE VIEWS 11/23/2024 REASON FOR EXAM: ATRAUMATIC LEFT KNEE PAIN TECHNIQUE: 4 view(s) of the left knee FINDINGS: Bones: No fracture. No suspicious bone lesion. Joints: Normal alignment. Effusion: No effusion. Soft tissues: Soft tissues are unremarkable. Other: RAD/Knee 4 or More Views IMPRESSION: Normal left knee. Reading Location: [id number] per Dr. Corrales notes... 01/04/2025 MRI left knee: Report from outside facility read as radial tear involving posterior root medial meniscus with diffuse amorphous increased signal within the medial meniscus compatible with intrasubstance degeneration. Medial extrusion of the body of the medial meniscus. Mild degenerative changes of the medial patellofemoral compartment trace joint effusion on spectra system. I independently reviewed the imaging. Concur with radiologist report. Coding Level of Care Code Off vis,est,level 4 Diagnoses Primary osteoarthritis of left knee M17.12 Osteoarthritis type: primary Tear of medial meniscus of left knee S83.242A Assessment and Plan Assessment and Plan (1) Osteoarthritis of left knee: Status: Acute Qualifiers: Osteoarthritis type: primary Qualified Code(s): M17.12 - Unilateral primary osteoarthritis, left knee Plan: 49-year-old female with left knee pain failed conservative management including intra-articular cortisone injection with mild degenerative changes of the medial patellofemoral compartments normal overall alignment medial meniscus tear that involves the posterior horn and the medial meniscus root on the MRI with mild extrusion, I concur with radiologist interpretation the root does appear to be torn. Can consider ongoing conservative management although more recent literature of last (more content not included)... Normal [facility] Orthopedic Visit Reporton Orthopedic Visit Report [facility] [address] [place] [address] OFFICE VISIT Date of Service: 01/21/25 MR#: [id number] Acct: [id number] Name: JOHNATHAN ANTONIO Rep #: [id number] : 1975 Provider: Dr. Maximilian wallace, DO Age/Sex: 49/F Location[place] [facility] [place] Status: Signed Intake Vital Signs 01/07/25 08:56 01/21/25 08:12 Height 5 ft 1 in 5 ft 1 in Weight: 225 lb 225 lb BMI 42.5 42.5 Intake Visit Reasons: LEFT KNEE Chief Complaint: Left knee pain Accompanied by: Is patient in pain?: Yes Pain scale (1-10): 6 Allergies amoxicillin Allergy (Verified 01/21/25 08:14) Hives latex Allergy (Verified 01/21/25 08:14) Hives Sulfa (Sulfonamide Antibiotics) Allergy (Verified 01/21/25 08:14) Rash Medications ???Medication ???Instructions ???Recorded ???Confirmed ???Type albuterol sulfate 90 mcg/actuation 2 inh inhalation Q4H PRN shortne ss 10/15/23 01/21/25 Rx aerosol inhaler (Proventil HFA) of breath or wheezing #8.5 grams ibuprofen 600 mg tablet 600 mg PO Q6H PRN PRN pain #20 01/21/25 Rx TABLETS ibuprofen 600 mg tablet 600 mg PO Q6-8H PRN pain #90 tabs 01/07/25 01/21/25 Rx Have you fallen in the past year?: Yes [facility] Medical History Tobacco abuse Desire for detoxification Alcohol abuse Alcohol dependence Chest pain Sleep apnea Former smoker Smoker Contusion of left hand Contusion of left wrist Contusion of left forearm Left elbow contusion Asthma Surgical History History of tonsillectomy Status post left foot surgery Social History Smoking Status: Current every day smoker tobacco type: cigarettes HPI LEFT KNEE Details: This documentation accurately reflects the service provided and the decisions made by me, Dr. Maximilian Corrales, DO 01/21/25 0746. Part of today???s visit was documented by Shy Tejeda MA, acting as scribe. JOHNATHAN ANTONIO is a 49 year old obese female smoker here today for left knee. New to me but previously seen by our office. To recall patient had a fall she believes in November however at that time she did not injure her knee however a few days later she started having knee pain. She was having some hip stiffness prior to this with difficulty externally rotating her hip but no real knee problems. She did have an incident where she was walking without any trauma and felt a painful pop in her knee. At previous visit she was started on ibuprofen 600 mg 4 times daily and given a hinged knee brace and an MRI was ordered. She is not having any further significantly painful mechanical symptoms some minor popping. Most of her pain is anterior knee and also some posterior but not specifically medial or lateral. She has improved with the ibuprofen and is not nearly as bad as she was. Her swelling is also reportedly improved. Ortho Exam General General: Yes no acute distress and Yes well groomed Neurologic: Yes alert and Yes oriented x3 Psychologic: Yes reasonable and appropriate Right Knee Patella Translation: 1 Left Knee Skin/Wound: Yes CDI, No ecchymosis, No erythema and Yes swelling Knee ROM: Yes ROM-Extension -20 to 0 and No ROM-Flexion 0-140 (100) Examination: Yes med jt line tenderness, Yes Lat jt line tenderness, Yes TTP inf pole patella, Yes Crepitus and Yes Pain with flexion Stability: NML: Anterior Drawer, NML: Tina, NML: Posterior Drawer, NML: Valgus 0, NML: Valgus 30, NML: Varus 0 and NML: Varus 30 Apprehension with Lateral Translation: No Patella Translation: 1 Patella Grind: Yes KNEE: Questionable faint soft tissue swelling no joint effusion + patellar grind with pain and crepitation that reproduces her pain + tenderness medial joint line + tenderness pes bursa + tenderness lateral joint line - collateral ligament instability - anterior drawer - posterior drawer + pain but no click with medial alla's + pain but no click with lateral alla's Office Procedures Ortho Injections Injections Yes Knee Left Is this a patient provided medication?: No Details: Obtained consent for injection. Under sterile conditions, injected the patients left knee with 1.5cc Bupivacaine, 1.5cc Lidocaine, and 1.0cc Depomedrol. The patient tolerated the injection well without any noted complication. Patient should call our office if redness develops, pain worsens or if they have any concerns. Office Meds Depo-Medrol 40 mg/mL suspension for injection Performing Provider: Maximilian Corrales DO Performing Location: [facility] Administered by: Maximilian Corrales DO on 01/21/25 08:43 Dose Route Admin Location Dispensed Lot Numb (more content not included)... Normal [facility] Orthopedic Visit Reporton Orthopedic Visit Report [facility] [address] [place] [address] [address] [place] [address] OFFICE VISIT Date of Service: 01/07/25 MR#: [id number] Acct: [id number] Name: JOHNATHAN ANTONIO Rep #: [id number] : 1975 Provider: FACUNDO greene Age/Sex: 49/F Location: [facility] Status: Signed Intake Vital Signs 12/16/24 08:04 01/07/25 08:56 Height 5 ft 1 in 5 ft 1 in Weight: 225 lb BMI 42.5 Intake Visit Reasons: LEFT KNEE Chief Complaint: Left knee MRI review Accompanied by: Is patient in pain?: Yes Pain scale (1-10): 6 Allergies amoxicillin Allergy (Verified 01/07/25 08:58) Hives latex Allergy (Verified 01/07/25 08:58) Hives Sulfa (Sulfonamide Antibiotics) Allergy (Verified 01/07/25 08:58) Rash Medications ???Medication ???Instructions ???Recorded ???Confirmed ???Type albuterol sulfate 90 mcg/actuation 2 inh inhalation Q4H PRN shortne ss 10/15/23 01/07/25 Rx aerosol inhaler (Proventil HFA) of breath or wheezing #8.5 grams gabapentin 300 mg capsule 300 mg PO QHS #30 caps 12/14/24 Rx ibuprofen 600 mg tablet 600 mg PO Q6H PRN PRN pain #20 01/07/25 Rx TABLETS ibuprofen 600 mg tablet 600 mg PO Q6-8H PRN pain #90 tabs 01/07/25 01/07/25 Rx [facility] you [facility] the [facility]?: [facility] Tobacco abuse Desire for detoxification Alcohol abuse Alcohol dependence Chest pain Sleep apnea Former smoker Smoker Contusion of left hand Contusion of left wrist Contusion of left forearm Left elbow contusion Asthma Surgical History History of tonsillectomy Status post left foot surgery Social History Smoking Status: Current every day smoker tobacco type: cigarettes HPI LEFT KNEE Details: This documentation accurately reflects the service provided and the decisions made by me, FACUNDO Callahan 01/07/25 0856. Part of today???s visit was documented by Shy Tejeda MA, acting as scribe. JOHNATHAN ANTONIO is a 49 year old F here today for left knee MRI review. Patient would like to discuss the MRI results and discuss what the next step would be. She has been wearing the knee brace. Patient states that she likes wearing the brace, because it helps her more and it has more support. Patient denies any recent injections or physical therapy. Agree with above. Johnathan is a pleasant 49-year-old presenting today for follow-up of left knee injury and MRI review. Currently taking ibuprofen 3x/daily with mild symptom improvement. Takes with food or snack, denies any GI distress. Patient is using the hinged knee brace with weightbearing activity and single crutch on left side and states using approximately 75% weightbearing on the left side with use of the crutch. denies any new injuries. States does get some episodes of sensation of give way, no falls or actual give out has occurred. ROS Const All systems reviewed are unremarkable except as noted in H and other (A O x 3, no apparent distress. No recent illness.) ENT Denies dizziness Card Denies chest pain, Denies dyspnea, Denies edema and Reports other (No palpitations) Resp Denies cough, Denies dyspnea and Reports other (No recent URI) GI Reports system reviewed and no additional complaints, except as documented, Denies nausea and Denies vomiting Musc Reports as per HPI, Reports abnormal gait, Reports arthralgias, Reports joint swelling and Reports limited range of motion Neuro Yes abnormal gait and No dizziness Psych Reports system reviewed and no additional complaints, except as documented Richard/Lymph Denies easy bleeding and Denies easy bruising Ortho Exam Left Knee KNEE: Skin is pink, warm, dry and intact. There is mild to moderate swelling noted to suprapatellar, lateral region. There is no ecchymosis or skin discoloration noted. Range of motion: 0 to 100 degrees, tight and hesitant in 10 to 0 degree motion Palpation : Tender to palpation over superior lateral aspect of the knee and popliteal fossa Special tests: Alla unable to tolerate exam; Tina negative; anterior drawer positive; posterior drawer negative; medial joint opening negative; lateral joint opening minimal, less than 5 Unable to bear full weight on left leg, difficulty and symptom aggravation with approximately 75% of weight on left leg, difficulty with fully extending and weightbearing. Lower leg is soft, nontender, easily compressible, Homans negative Ambulates with left-sided limp Full range of distal joints with no symptom aggravation Distal motor or sensory intact with brisk cap refill at 2 seconds Supplemental Info Attempted to review M (more content not included)... Normal [facility] MR KNEE LEFT WITHOUT CONTRAS Ton 01-04-2025 MR KNEE LEFT WITHOUT CONTRAST EXAMINATION: MRI OF THE LEFT KNEE WITHOUT CONTRAST 01/04/2025 TECHNIQUE: Multiplanar multisequence MRI of the left knee was performed without the administration of intravenous contrast. COMPARISON: None. HISTORY: ORDERING SYSTEM PROVIDED HISTORY: Unspecified internal derangement of left knee; TECHNOLOGIST PROVIDED HISTORY: Illness/Other Acuity: Acute Reason for Exam: Unspecified internal derangement of left knee Type of Encounter: Initial Additional signs and symptoms: nki ORDERING SYSTEM PROVIDED DIAGNOSIS CODES: M23.92 Unspecified internal derangement of left knee M25.562 Pain in left knee M25.462 Effusion, left knee FINDINGS: MENISCI: Radial tear involving posterior root of medial meniscus. Diffuse amorphous increased signal intensity within the medial meniscus compatible with intrasubstance degenerative signal change. Medial extrusion of the body of the medial meniscus likely relating to loss of normal hoop stress. Lateral meniscus appears intact and normal in morphology. No parameniscal cysts are seen. CRUCIATE LIGAMENTS: ACL and PCL appear intact and unremarkable. EXTENSOR MECHANISM: Quadriceps and patellar tendons appear intact and unremarkable. Medial and lateral patellar retinacula appear intact. LATERAL COLLATERAL LIGAMENT COMPLEX: Lateral collateral ligament complex appears intact and unremarkable. Popliteus tendon appears intact. MEDIAL COLLATERAL LIGAMENT COMPLEX: Medial collateral ligament appears intact and unremarkable. KNEE JOINT: Trace knee joint effusion. No intra-articular loose bodies. Small to moderately sized Dumont's cyst. Mild degenerative changes to the patellofemoral compartment of the knee with some areas of fissuring and partial-thickness loss involving lateral facet and apex of the patella. There is also some fissuring and partial-thickness loss involving midline femoral trochlear articular cartilage. Mild degenerative changes to the medial compartment the knee with some slight thinning and possibly some fibrillation. No significant degenerative changes noted to the lateral compartment. No focal full-thickness chondral defect or osteochondral lesion. BONE MARROW: Bone marrow signal intensities are within normal limits. No evidence for occult fracture. No suspicious focal bony lesions. IMPRESSION: 1. Medial meniscus tear. 2. Mild degenerative changes to the medial and patellofemoral compartments. 3. Trace knee joint effusion. 4. Small to moderately sized Dumont's cyst. [facility]/ges Workstation ID: [id number] Dictated by: SALVADOR EVANGELISTA on FriJan 05, 2025 2:30:25 PM EDT Transcribed by: VITA SMITH on FriJan 05, 2025 2:53:48 PM EDT Finalized by: SALVADOR EVANGELISTA on FriJan 06, 2025 8:53:[address] [facility] Comment on above: Order Comment: Fax Injury/Trauma or Illness?:Illness/Other How long have you had these symptoms (acute/chronic)?:Acute Reason for exam?:Unspecified internal derangement of left knee Type of Exam?:Initial Additional signs and symptoms?:nki Orthopedic Visit Reporton Orthopedic Visit Report [facility] [address] [place] [address] OFFICE VISIT Date of Service: 12/16/24 MR#: [id number] Acct: [id number] Name: JOHNATHAN ANTONIO Rep #: [id number] : 1975 Provider: FACUNDO greene Age/Sex: 48/F Location: [facility] [place] Status: Signed Intake Vital Signs 12/14/24 21:30 12/15/24 11:00 12/16/24 08:04 Height 5 ft 1 in 5 ft 1 in 5 ft 1 in Weight: 225 lb BMI 42.5 Intake Visit Reasons: LEFT KNEE Chief Complaint: Left knee pain Accompanied by: Is patient in pain?: Yes Pain scale (1-10): 8 Allergies amoxicillin Allergy (Verified 12/16/24 08:09) Hives latex Allergy (Verified 12/16/24 08:09) Hives Sulfa (Sulfonamide Antibiotics) Allergy (Verified 12/16/24 08:09) Rash Medications ???Medication ???Instructions ???Recorded ???Confirmed ???Type albuterol sulfate 90 mcg/actuation 2 inh inhalation Q4H PRN shortne ss 10/15/23 12/16/24 Rx aerosol inhaler (Proventil HFA) of breath or wheezing #8.5 grams gabapentin 300 mg capsule 300 mg PO QHS #30 caps 12/14/24 Rx ibuprofen 600 mg tablet 600 mg PO Q6H PRN PRN pain #20 Rx TABLETS Have you fallen in the past year?: No PFSH Medical History Tobacco abuse Desire for detoxification Alcohol abuse Alcohol dependence Chest pain Sleep apnea Former smoker Smoker Contusion of left hand Contusion of left wrist Contusion of left forearm Left elbow contusion Asthma Surgical History History of tonsillectomy Status post left foot surgery Social History Smoking Status: Current every day smoker tobacco type: cigarettes HPI LEFT KNEE Details: This documentation accurately reflects the service provided and the decisions made by me, FACUNDO Callahan 12/16/24 0804. Part of today???s visit was documented by Shy Tejeda MA, acting as scribe. JOHNATHAN ANTONIO is a 48 year old F here today for left knee pain. Patient is here for left knee pain. She has a burning ,and shooting pain in knee cap that goes down the leg. This has been going on for about a month. Her left knee just started swelling in the knee cap, and then she could barely put weight on it. She went ot the ER the Friday after [place], the ydid xrays, and they couldn't see any thing. Went to the ER Friday. Patient was walking in the house, and she felt a painful pop in the knee cap.Patient denies any surgeries in the past on the left knee. Bending the knee makes the pain worse. When bending it the knee feels like it's going to explode. Walking makes the pain worse, she can't put weight on it. Patient denies any knee injections. She is going to start physical therapy on 12/30/2024 at [place]. Patient denies any diabetes, or blood thinners.Patient smokes a pack of cigarettes a day. Patient's foot did go numb the other day, but it hasn't went numb ever since. Agree with above. Johnathan is a pleasant 48-year-old female presenting for evaluation of L knee swelling, pain and difficulty walking for 1 month. No identified injury. Unable to recall any aggravating motions or activities prior to onset. Painful and loud pop yesterday, been using crutches Worse with trying bear wt, in and out of car, putting shoes and socks, any rotation on the knee. Sx progressively worsening. 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 No recent illness.) ENT Denies dizziness Card Denies chest pain, Denies dyspnea, Denies edema and Reports other (No palpitations) Resp Denies cough, Denies dyspnea and Reports other (No recent URI) GI Reports system reviewed and no additional complaints, except as documented, Denies nausea and Denies vomiting Musc Reports as per HPI, Reports abnormal gait, Reports arthralgias, Reports joint swelling and Reports limited range of motion Neuro Yes abnormal gait and No dizziness Psych Reports system reviewed and no additional complaints, except as documented Richard/Lymph Denies easy bleeding and Denies easy bruising Ortho Exam Left Knee KNEE: Skin is pink, warm, dry and intact. There is moderate swelling noted to suprapatellar, lateral region. There is no ecchymosis or skin discolorat (more content not included)... Normal [facility] Emergency Department Summary on 12-14-2024 Emergency Department Summary [facility] Medical Records Department [address] [place] [address] Emergency Department Summary 12/14/24 MR#: [id number] Acct: [id number] Name: JOHNATHAN ANTONIO Rep #: [id number] : 1975 48 From: Jose A Espinal PCP: EZIO Carey Status:DEP ER Location: ED HPI History of Present Illness Chief Complaint: Lower Extremity Injury Informant: patient and spouse/S.O. Narrative Narrative: Patient here for other evaluation continued left knee pain for the past month. States a month ago knee buckled had swelling this continued. Reports now pain has gone up her buttocks to her back. No loss of bowel or bladder control. She was seen approximately 3 weeks in the ED and x-ray that was negative. Prior to that saw her PCP was put on steroids with no relief was told to go to ER worsen. She was seen with x-rays. Since then she is had continued pain daily. She states PCP office did call her back to check on her with no relief they called today to set up physical therapy for her. Denies any direct falls or injuries. Prior similar symptoms: No PFSH PFSH Medical History Tobacco abuse Desire for detoxification Alcohol abuse Alcohol dependence Chest pain Sleep apnea Former smoker Smoker Contusion of left hand Contusion of left wrist Contusion of left forearm Left elbow contusion Asthma Home Medications ???Medication ???Instructions ???Recorded ???Last Taken ???Type albuterol sulfate 90 mcg/actuation 2 inh inhalation Q4H PRN shortne ss 10/15/23 Unknown Rx aerosol inhaler (Proventil HFA) of breath or wheezing #8.5 grams prednisone 20 mg tablet 40 mg (2 x 20 mg) PO BREAKFAST #6 02/27/24 Unknown Rx tabs gabapentin 300 mg capsule 300 mg PO QHS #30 caps 12/14/24 Un known Rx ibuprofen 600 mg tablet 600 mg PO Q6H PRN PRN pain #20 Unknown Rx TABLETS Allergy/AdvReac Type Severity Reaction Status Date / Time amoxicillin Allergy Hives Verified 12/14/24 21:30 latex Allergy Hives Verified 12/14/24 21:30 Sulfa (Sulfonamide Allergy Rash Verified 12/14/24 21:30 Antibiotics) Surgical History History of tonsillectomy Status post left foot surgery Social History Smoking Status: Current every day smoker tobacco type: cigarettes ROS ROS ED Constitutional Constitutional ED: Denies chills, fever(s) or sweats ENT ENT ED: Denies sore throat Cardiovascular Cardiovascular: Denies chest pain, leg edema, palpitations or racing heartbeat Respiratory/Chest Respiratory/Chest: Denies cough, dyspnea or dyspnea on exertion Gastrointestinal Gastrointestinal: Denies abdominal pain, diarrhea, nausea or vomiting Genitourinary Genitourinary ED: Denies dysuria, hematuria or urinary frequency Musculoskeletal Musculoskeletal: Reports back pain and extremity pain; Denies neck pain Integumentary Denies rash or wounds Neurologic Neurologic: Denies headache(s), paresthesias or weakness EXAM Physical Exam Const Vital Signs: 12/14/24 21:30 12/14/24 22:46 Temperature 97.6 F L 97.9 F Temperature Source Temporal Pulse Rate 106 H 88 Respiratory Rate 20 H 18 Blood Pressure 153/70 H 138/72 H Blood Pressure Mean 97 94 Pulse Ox 100 100 Oxygen Delivery Method Room Air Positive well nourished and well developed General Appearance ED: well developed and NAD HEENT Reports moist mucous membranes normocephalic and atraumatic Eyes General Eye ED: Yes normal appearance of both eyes Neck full ROM Chest Wall Chest: Negative for tenderness Resp normal respiratory effort and normal air movement Effort and Inspection: symmetric chest movement; Negative for respiratory distress Cardio regular rate, regular rhythm and no murmurs Peripheral Pulses: pulses 2+ throughout GI normal to inspection, nondistended, normoactive bowel sounds and non-tender Palpation: Negative for guarding or rebound tenderness present Back/Spine Back/Spine Narrative: No midline tenderness tender palpation left lower lumbar. Straight leg test was negative. Extremity normal to inspection Extremity Narrative: Left lower extremity: No medial thigh tenderness. No calf tenderness. Knee extensor mechanism intact. Mild positive Alla's. No deformities. Pulses intact distally. General Extremety ED: Negative for edema or tenderness General Extremity: Negative for edema Neuro oriented x3 and no sensory deficits noted Sensorium / Orientation: awake and alert Skin no rashes or lesions noted and no wounds MDM MDM MDM Narrative Medical decision making narrative: Interventions / MDM: Differential diagnosis: Sciatica, left knee pain Diagnosis considered but do no (more content not included)... Normal [facility] CT ABD/PEL W IVCONon 025 CT ABD/PEL W IVCON * * *Final Report* * * DATE OF EXAM: Dec 07 2024 8:48AM [facility] 0530 - CT ABD/PEL W IVCON / PROCEDURE REASON: R10.9 * * * * Physician Interpretation * * * * EXAMINATION: CT ABDOMEN AND PELVIS WITH IV CONTRAST CLINICAL HISTORY: Pelvic pain. TECHNIQUE: CT of the abdomen and pelvis was performed using standard technique, scanning from just above the dome of the diaphragm to the symphysis pubis. MQ: CTAP_3 Contrast: IV: 100 ml of Omnipaque 350 CT Radiation dose: Integrated Dose-length product (DLP) for this visit = 1031 mGy*cm. CT Dose Reduction Employed: Automated exposure control(AEC) and iterative recon COMPARISON: None. RESULT: Liver: No mass. Diffuse hepatic steatosis. Biliary: No bile duct dilation. Gallbladder is unremarkable. Spleen: No mass. No splenomegaly. Pancreas: No mass or duct dilation. Adrenals: No mass. Kidneys: No mass, calculus or hydronephrosis. GI tract: No dilation or wall thickening. Sigmoid diverticulosis without diverticulitis. Normal appendix. Lymph nodes: No abdominal or pelvic lymphadenopathy. Mesentery/Peritoneum: No ascites or mass. Retroperitoneum: No mass. Vasculature: - Abdominal aorta and iliac arteries: Atherosclerotic calcifications without aneurysm. - Celiac and SMA: Patent with replaced right hepatic artery arising from the SMA, normal variant. - Portal venous system (SMV, splenic vein, portal vein and branches): Patent. - Hepatic veins: Patent. Pelvis: No mass, ascites or fluid collection. Hysterectomy. Bones/Soft Tissues: Degenerative changes. Lower thorax: Unremarkable. Localizer images: No additional findings. IMPRESSION: Sigmoid diverticulosis without diverticulitis. Hepatic steatosis. Founder President And Ceo: JEANNIE Transcribe Date/Time: Dec 11 2024 1:14P Dictated by : BRIGIDO TRAN MD This examination was interpreted and the report reviewed and electronically signed by: BRIGIDO TRAN MD on Dec 11 2024 1:23PM EST [id number] Normal [facility] Absolute lymphocyte countOrd ered By: Gordo Viera on 11-23-2024 Lymphocytes Auto (Unsp spec) [#/Vol] 3.59 10*3/uL 0.83-4.51 [facility] Absolute neutrophil countOrd ered By: Gordo Viera on 11-23-2024 Neutrophils (Bld) [#/Vol] 7.2 10*3/uL 2.0-7.7 [facility] Anion gap in Serum or Plasma Ordered By: Gordo Viera on 11-23-2024 Anion gap [Moles/Vol] 10 mmol/L 5- [facility] Automated lymphocyte count a s percentage of total leukocytesOrdered By: Gordo Viera on 11-23-2024 Lymphocytes/100 WBC Auto (Unsp spec) 29.8 % - [facility] BUN/creatinine ratioOrdered By: Gordo Viera on 11-23-2024 Urea nitrogen/Creatinine [Mass ratio] 18.4 mg/mg 10- [facility] Basophil percentageOrdered B y: Gordo Viera on 11-23-2024 Basophils/100 WBC (Bld) 0.5 % 0-1 [facility] Bilirubin, totalOrdered By: Gordo Viera on 11-23-2024 Bilirubin [Mass/Vol] 0.18 mg/dL 0.00-1.[address] [facility] CBC W/Diff, Automatedon 11-03 Absolute Lymph 3.59 X10 3/uL Normal 0.83-4.51 [facility] Comment on above: Performed By: #### L 100.0100 #### [facility] [address] [place], [address] Absolute Neut 7.2 X10 3/uL Normal 2.0-7.7 [facility] Comment on above: Performed By: #### L 100.0100 #### [facility] [address] [place], [address] Basophils/100 WBC (Bld) 0.5 % Normal 0-1 [facility] Comment on above: Performed By: #### L 100.0100 #### [facility] [address] [place], [address] Eosinophils/100 WBC (Bld) 1.2 % Normal 0-5 [facility] Comment on above: Performed By: #### L 100.0100 #### [facility] [address] [place], [address] Erythrocyte distribution width (RBC) [Ratio] 12.8 % Normal 11.6-14.6 [facility] Comment on above: Performed By: #### L 100.0100 #### [facility] [address] [place], [id number] Hematocrit (Bld) [Volume fraction] 43.9 % Normal 37-47 [facility] Comment on above: Performed By: #### L 100.0100 #### [facility] [address] [place], [address] Hemoglobin (Bld) [Mass/Vol] 15.2 g/dL High 12.0-15.0 [facility] Comment on above: Performed By: #### L 100.0100 #### [facility] [address] [place], [address] IG% 0.700 Normal 0.0-0.9 [facility] Comment on above: Result Comment: IG% - Immature Granulocytes (promyelocytes, myelocytes and metamyelocytes) > 1% indicates that a LEFT SHIFT is Present. Performed By: #### L 100.0100 #### [facility] [address] [place], [address] Lymphocytes/100 WBC (Bld) 29.8 % Normal 19-41 [facility] Comment on above: Performed By: #### L 100.0100 #### [facility] [address] [place], [address] MCH (RBC) [Entitic mass] 30.8 pg Normal 27.0-32.0 [facility] Comment on above: Performed By: #### L 100.0100 #### [facility] [address] [place], [address] MCHC (RBC) [Mass/Vol] 34.6 g/dL Normal 32-36 [facility] Comment on above: Performed By: #### L 100.0100 #### [facility] [address] [place], [address] MCV (RBC) [Entitic vol] 88.9 fL Normal 81-99 [facility] Comment on above: Performed By: #### L 100.0100 #### [facility] [address] [place], [address] Monocytes/100 WBC (Bld) 7.8 % Normal 0-10 [facility] Comment on above: Performed By: #### L 100.0100 #### [facility] [address] [place], [address] Neutrophils/100 WBC (Bld) 60.0 % Normal 47-70 [facility] Comment on above: Performed By: #### L 100.0100 #### [facility] [address] [place], [id number] Nucleated RBC (Bld) [#/Vol] 0 10*3/uL Normal 0-5 [facility] Comment on above: Performed By: #### L 100.0100 #### [facility] [address] [place], [address] Platelet mean volume (Bld) [Entitic vol] 9.8 fL Normal 6.2-12.0 [facility] Comment on above: Performed By: #### L 100.0100 #### [facility] [address] [place], [address] Platelets (Bld) [#/Vol] 320 10*3/uL Normal 150-450 [facility] Comment on above: Performed By: #### L 100.0100 #### [facility] [address] [place], [address] RBC (Bld) [#/Vol] 4.94 10*6/uL Normal 4.2-5.4 [facility] Comment on above: Performed By: #### L 100.0100 #### [facility] [address] [place], [address] RDW SD 41.4 fl Normal 35.1-43.9 [facility] Comment on above: Performed By: #### L 100.0100 #### [facility] [address] [place], [address] WBC (Bld) [#/Vol] 12.0 10*3/uL High 4.4-11.0 [facility] Comment on above: Performed By: #### L 100.0100 #### [facility] [address] [place], [address] Carbon dioxide, total [Moles /volume] in Central venous bloodOrdered By: Gordo Viera on 11-23-2024 CO2 [Moles/Vol] 25.8 mmol/L 21.0-32.0 [facility] Chloride assayOrdered By: Dalton Viera on 11-23-2024 Chloride [Moles/Vol] 103 mmol/L 98-[address] [facility] Comprehensive Metabolic Prof ilon 11-23-2024 Albumin [Mass/Vol] 4.1 g/dL Normal 3.5-5.0 [facility] Comment on above: Performed By: #### L 500.4050 #### [facility] [address] [place], [address] Albumin/Globulin [Mass ratio] 1.5 {ratio} Normal 0.9-2.4 [facility] Comment on above: Performed By: #### L 500.4050 #### [facility] [address] [place], [address] ALK PHOS 77 U/L Normal 35-104 [facility] Comment on above: Performed By: #### L 500.4050 #### [facility] [address] [place], [address] ALT [Catalytic activity/Vol] 29 U/L Normal <=34 [facility] Comment on above: Performed By: #### L 500.4050 #### [facility] [address] [place], [address] AST [Catalytic activity/Vol] 27 U/L Normal <=31 [facility] Comment on above: Result Comment: Hemo lysis present, Results??could be affected. ?? Performed By: #### L 500.4050 #### [facility] [address] [place], [address] Bilirubin [Mass/Vol] 0.18 mg/dL Normal 0.00-1.[address] [facility] Comment on above: Performed By: #### L 500.4050 #### [facility] [address] [place], [address] BUN/CRE 18.4 RATIO Normal 10-20 [facility] Comment on above: Performed By: #### L 500.4050 #### [facility] [address] [place], [address] Calcium [Mass/Vol] 9.2 mg/dL Normal 7.6-11.0 [facility] Comment on above: Performed By: #### L 500.4050 #### [facility] [address] [place], [address] Chloride [Moles/Vol] 103 mmol/L Normal 98-[address] [facility] Comment on above: Performed By: #### L 500.4050 #### [facility] [address] [place], [address] CO2 [Moles/Vol] 25.8 mmol/L Normal 21.0-32.0 [facility] Comment on above: Performed By: #### L 500.4050 #### [facility] [address] [place], [address] Creatinine [Mass/Vol] 0.68 mg/dL Low 0.70-1.20 [facility] Comment on above: Performed By: #### L 500.4050 #### [facility] [address] [place], [address] ECRCL 112.00 ml/min Normal 50-250 [facility] Comment on above: Performed By: #### L 500.4050 #### [facility] [address] [place], [address] GAP 10 Normal 5-15 [facility] Comment on above: Performed By: #### L 500.4050 #### [facility] [address] [place], [address] GFR/1.73 sq M.predicted among non-blacks MDRD (S/P/Bld) [Vol rate/Area] 107 mL/min/{1.73_m2} Normal >60 [facility] Comment on above: Result Comment: mL/m in/1.73m2 CKD-EPI Creatinine Equation (2020) Performed By: #### L 500.4050 #### [facility] [address] [place], [address] Globulin (S) [Mass/Vol] 2.7 g/dL Normal 2.2-4.2 [facility] Comment on above: Performed By: #### L 500.4050 #### [facility] [address] [place], [address] Glucose [Mass/Vol] 119 mg/dL High 70-99 [facility] Comment on above: Performed By: #### L 500.4050 #### [facility] [address] [place], [address] Potassium [Moles/Vol] 4.3 mmol/L Normal 3.3-5.1 [facility] Comment on above: Result Comment: Hemo lysis present, Results??could be affected. ?? Performed By: #### L 500.4050 #### [facility] [address] [place], [place], [address] Sodium [Moles/Vol] 139 mmol/L Normal 133-145 [facility] Comment on above: Performed By: #### L 500.4050 #### [facility] [address], [place], [address] T PROT 6.8 g/dL Normal 5.9-8.4 [facility] Comment on above: Performed By: #### L 500.4050 #### [facility] [address] [place], [place], [id number] Urea nitrogen [Mass/Vol] 13 mg/dL Normal 4-19 [facility] Comment on above: Performed By: #### L 500.4050 #### [facility] [address] [place], [place], [address] Emergency Department Summary on 11-23-2024 Emergency Department Summary [facility] Medical Records Department [address] [place] [address] Emergency Department Summary 11/23/24 MR#: [id number] Acct: [id number] Name: JOHNATHAN ANTONIO Rep #: [id number] : 1975 48 From: Gordo Viera MD PCP: EZIO Carey Status:DEP ER Location: ED HPI History of Present Illness Chief Complaint: General Illness Informant: patient Onset/Context/Timing Onset: Weeks (The last 12 days.) Context: Gradual Onset Timing: Continuous Current Severity: Mild Maximum Severity: Mild Narrative Narrative: 48-year-old female history of prior alcohol abuse but she has been abstaining from alcohol last 9 months. She also has a history of asthma and depression she takes fluoxetine as only medication she is on. Since the 10th about 12 days ago noticed swelling to her left knee. Denies any calf pain. No chest pain or shortness of breath. Said the knee at times feels stiff. Said she just has not really felt great. Denies vomiting or diarrhea. No fever. No trauma. No back pain or chest pain. No abdominal pain. Prior similar symptoms: No Recent Illness/Hospitalizatio n: No PFSH PFSH Medical History Tobacco abuse Desire for detoxification Alcohol abuse Alcohol dependence Chest pain Sleep apnea Former smoker Smoker Contusion of left hand Contusion of left wrist Contusion of left forearm Left elbow contusion Asthma Home Medications ???Medication ???Instructions ???Recorded ???Last Taken ???Type albuterol sulfate 90 mcg/actuation 2 inh inhalation Q4H PRN shortne ss 10/15/23 Unknown Rx aerosol inhaler (Proventil HFA) of breath or wheezing #8.5 grams prednisone 20 mg tablet 40 mg (2 x 20 mg) PO BREAKFAST #6 02/27/24 Unknown Rx tabs Allergy/AdvReac Type Severity Reaction Status Date / Time amoxicillin Allergy Hives Verified 11/23/24 14:03 latex Allergy Hives Verified 11/23/24 14:03 Sulfa (Sulfonamide Allergy Rash Verified 11/23/24 14:03 Antibiotics) Surgical History History of tonsillectomy Status post left foot surgery Social History Smoking Status: Current every day smoker tobacco type: cigarettes ROS ROS ED ROS Narrative Intermittent nausea. No vomiting or diarrhea. No fever or chills. No chest pain or shortness of breath. No abdominal pain. Constitutional Constitutional ED: Denies chills or fever(s) Eyes Eyes: Denies blurry vision ENT ENT ED: Denies ear pain Cardiovascular Cardiovascular: Denies chest pain or palpitations Respiratory/Chest Respiratory/Chest: Denies cough or dyspnea Gastrointestinal Gastrointestinal: Reports nausea; Denies abdominal pain, constipation, diarrhea, melena or vomiting Genitourinary Genitourinary ED: Denies dysuria or hematuria Musculoskeletal Musculoskeletal: Denies arthralgias Integumentary Denies abscess Neurologic Neurologic: Reports headache(s) Psychiatric Psychiatric: Reports depression; Denies anxiety Endocrine Endocrinology: Denies cold intolerance Hematologic/Lymphatic Hematologic/Lymphatic: Reports none Allergic/Immunologic Allergic/Immunologic ED: Denies mouth swelling, tongue swelling, urticaria or other EXAM Physical Exam Narrative Exam Narrative: Well-appearing 40 female. Vital signs are stable afebrile. Pulse ox 97% on room air no signs hypoxia. Significant other is at bedside. H EENT exam pupils round reactive light. Extra motions are intact. No scleral icterus. Moist mucous membranes. No facial droop. Normal speech. Neck nontender no JVD. No lymphadenopathy. Lungs clear to auscultation bilaterally. Heart regular rhythm rate about 100 no murmur. Chest wall ribs nontender. Abdomen soft nontender. No peritoneal signs. Back nontender. She has a nondescript red rash upper back. It blanches. There is no petechiae appropriate. No sloughing of skin. This does not look like cellulitis. There is no hives. She is moving all 4 extremities. Left knee she has full flexion extension. No significant swelling or effusion. Calves are nontender without edema or cords. She has normal flexion extension of both hips and knees and ankles. Dorsi plantarflexion intact. Normal touch sensation and strength. Upper extremities are normal. With normal strength and range of motion. Neurologically she is awake alert no focal motor deficits. Const Vital Signs: 11/23/24 14:03 11/23/24 16:03 11/23/24 17:43 Temperature 97.4 F L Temperature Source Temporal Pulse Rate 104 H 88 Respiratory Rate 16 18 Respiratory Effort Normal Respiratory Pattern Normal Blood Pressure 120/93 H 122/68 H Blood Pressure Mean 102 86 Pulse Ox 97 97 Oxygen Delivery Method Room Air Room Air (more content not included)... Normal [facility] Eosinophil percentageOrdered By: Gordo Viera on 11-23-2024 Eosinophils/100 WBC (Bld) 1.2 % 0-5 [facility] Erythrocyte distribution wid th (RBC) [Ratio]Ordered By: Gordo Viera on 11-23-2024 Erythrocyte distribution width (RBC) [Entitic vol] 41.4 fL 35.1-43.9 [facility] Erythrocyte distribution wid th ratioOrdered By: Gordo Viera on 11-23-2024 Erythrocyte distribution width (RBC) [Ratio] 12.8 % 11.6-14.6 [facility] Erythrocyte distribution wid th standard deviationOrdered By: Gordo Viera on 11-23-2024 Erythrocyte distribution width (RBC) [Ratio] 41.4 fl 35.1-43.9 [facility] Estimation of creatinine pranav aranceOrdered By: Gordo Viera on 11-23-2024 Estimated Creatinine Clearance Calc 112.00 ml/min 50-250 [facility] GFR/1.73 sq M.predicted gaby g non-blacks MDRD (S/P/Bld) [Vol rate/Area]Ordered By: Gordo Viera on 11-23-2024 Estimated GFR (MDRD) Non-Af Amer 107 >60 [facility] Comment on above: mL/min/1.73m2 CKD-EP I Creatinine Equation (2020) Glomerular filtration rate ( GFR) estimation/1.73 sq m using serum, plasma, or whole bOrdered By: Gordo Viera on 11-23-2024 GFR/1.73 sq M.predicted among non-blacks MDRD (S/P/Bld) [Vol rate/Area] 107 mL/min/{1.73_m2} >60 [facility] Comment on above: mL/min/1.73m2 CKD-EP I Creatinine Equation (2020) Hematocrit Auto (Bld) [Volum e fraction]Ordered By: Gordo Viera on 11-23-2024 Hematocrit (Bld) [Volume fraction] 43.9 % 37-47 [facility] Hemoglobin measurementOrdere d By: Gordo Viera on 11-23-2024 Hemoglobin (Bld) [Mass/Vol] 15.2 g/dL High 12.0-15.0 [facility] Immature granulocytes/100 WB C Auto (Bld)Ordered By: Gordo Viera on 11-23-2024 Immature granulocytes/100 WBC (Bld) 0.700 % 0.0-0.9 [facility] Comment on above: IG% - Immature Granu locytes (promyelocytes, myelocytes and metamyelocytes) > 1% indicates that a LEFT SHIFT is Present. Knee 4 or More Viewson 11-23 Knee 4 or More Views [facility] [address] [place], [place] [address] Knee 4 or More Views MR#: [id number] Acct: [id number] Name: TATIANNALETICIA SANCHEZSerena Rush Rep #: [id number] : 1975 F 48 From: Stanislav Sampson MD PCP: EZIO Carey Status: REG ER Study: Knee 4 or More Views Date of Exam: 11/23/24 Exam# [id number] Ordering Dr: Gordo Viera MD PROCEDURE: KNEE 4 OR MORE VIEWS 11/23/2024 REASON FOR EXAM: ATRAUMATIC LEFT KNEE PAIN TECHNIQUE: 4 view(s) of the left knee FINDINGS: Bones: No fracture. No suspicious bone lesion. Joints: Normal alignment. Effusion: No effusion. Soft tissues: Soft tissues are unremarkable. Other: RAD/Knee 4 or More Views IMPRESSION: Normal left knee. Reading Location: [facility] CC: Dr. Gordo Viera MD; EZIO Carey Founder President And Ceo: Signed Normal [facility] - Chemistry and C hemistry - challengeOrdered By: Gordo Viera on 11-23-2024 AST [Catalytic activity/Vol] 27 U/L <32 [facility] Comment on above: Hemolysis present, R esults could be affected. Lymphocytes Auto (Unsp spec) [#/Vol]Ordered By: Gordo Viera on 11-23-2024 Lymphocytes (Bld) [#/Vol] 3.59 10*3/uL 0.83-4.51 [facility] Lymphocytes/100 WBC Auto (Un sp spec)Ordered By: Gordo Viera on 11-23-2024 Lymphocytes/100 WBC (Bld) 29.8 % 19-41 [facility] MCV (mean corpuscular volume ) determinationOrdered By: Gordo Viera on 11-23-2024 MCV (RBC) [Entitic vol] 88.9 fL 81-99 [facility] Mean corpuscular hemoglobin (MCH) determinationOrdered By: Gordo Viera on 11-23-2024 MCH (RBC) [Entitic mass] 30.8 pg 27.0-32.0 [facility] Mean corpuscular hemoglobin concentration (MCHC) determinationOrdered By: Gordo Viera on 11-23-2024 MCHC (RBC) [Mass/Vol] 34.6 g/dL 32-36 [facility] Mean platelet volume determi nationOrdered By: Gordo Viera on 11-23-2024 Platelet mean volume (Bld) [Entitic vol] 9.8 fL 6.2-12.0 [facility] Monocyte percentageOrdered B y: Gordo Viera on 11-23-2024 Monocytes/100 WBC (Bld) 7.8 % 0-10 [facility] Neutrophil percentageOrdered By: Gordo Viera on 11-23-2024 Neutrophils/100 WBC (Bld) 60.0 % 47-70 [facility] Nucleated red blood cell per centageOrdered By: Gordo Viera on 11-23-2024 Nucleated RBC/100 WBC (Bld) [Ratio] 0 % 0-5 [facility] Platelet countOrdered By: Dalton Viera on 11-23-2024 Platelets (Bld) [#/Vol] 320 10*3/uL 150-450 [facility] Potassium (Unsp spec) [Mass/ Vol]Ordered By: Gordo Viera on 11-23-2024 Potassium [Moles/Vol] 4.3 mmol/L 3.3-5.1 [facility] Comment on above: Hemolysis present, R esults could be affected. Potassium measurement (mass/ volume)Ordered By: Gordo Viera on 11-23-2024 Potassium (Unsp spec) [Mass/Vol] 4.3 mmol/L 3.3-5.1 [facility] Comment on above: Hemolysis present, R esults could be affected. RBC Auto (Bld) [#/Vol]Ordere d By: Gordo Viera on 11-23-2024 RBC (Bld) [#/Vol] 4.94 10*6/uL 4.2-5.4 [facility] Serum creatinine measurement (mass/volume)Ordered By: Gordo Viera on 11-23-2024 Creatinine [Mass/Vol] 0.68 mg/dL Low 0.70-1.20 [facility] Serum globulin measurementOr dered By: Gordo Viera on 11-23-2024 Globulin (S) [Mass/Vol] 2.7 g/dL 2.2-4.2 [facility] Serum glucose measurement (m ass/volume)Ordered By: Gordo Viera on 11-23-2024 Glucose [Mass/Vol] 119 mg/dL High 70-99 [facility] Serum or plasma alanine todd otransferase (ALT) measurementOrdered By: Gordo Viera on 11-23-2024 ALT [Catalytic activity/Vol] 29 U/L <35 [facility] Serum or plasma albumin ludin urement (mass/volume)Ordered By: Gordo Viera on 11-23-2024 Albumin [Mass/Vol] 4.1 g/dL 3.5-5.0 [facility] Serum or plasma albumin/glob ulin mass ratioOrdered By: Gordo Viera on 11-23-2024 Albumin/Globulin [Mass ratio] 1.5 {ratio} 0.9-2.4 [facility] Serum or plasma alkaline storm sphatase measurementOrdered By: Gordo Viera on 11-23-2024 ALP [Catalytic activity/Vol] 77 U/L 35-104 [facility] Serum or plasma calcium uldin urement (mass/volume)Ordered By: Gordo Viera on 11-23-2024 Calcium [Mass/Vol] 9.2 mg/dL 7.6-11.0 [facility] Serum or plasma urea nitroge n measurement (mass/volume)Ordered By: Gordo Viera on 11-23-2024 Urea nitrogen [Mass/Vol] 13 mg/dL 4-19 [facility] Sodium levelOrdered By: Gordo Viera on 11-23-2024 Sodium [Moles/Vol] 139 mmol/L 133-145 [facility] Total proteinOrdered By: Kyle Viera on 11-23-2024 Protein [Mass/Vol] 6.8 g/dL 5.9-8.4 [facility] White blood cell (WBC) count Ordered By: Gordo Viera on 11-23-2024 WBC (Bld) [#/Vol] 12.0 10*3/uL High 4.4-11.0 [facility] AMYLASEon 11-18-2024 Amylase [Catalytic activity/Vol] 43 U/L Normal 21-101 [facility] Comment on above: Performed By: #### 6 399, 606, 81307 #### [facility] [address] [address] [employer] Senior Sergeant: Eduardo Fernandez MD CBC (INCLUDES DIFF/PLT)on Basophils (Bld) [#/Vol] 0.047 10*3/uL Normal 0-200 [facility] Comment on above: Performed By: #### 6 399, 606, 15977 #### [facility] [address], [address] [place] [id number] [employer] Sergeant: Eduardo Fernandez MD Basophils/100 WBC (Bld) 0.3 % Normal [facility] Comment on above: Performed By: #### 6 399, 606, 65629 #### [facility] [place] [address] [employer] Senior Sergeant: Eduardo Fernandez MD Eosinophils (Bld) [#/Vol] 0.016 10*3/uL Normal 15-500 [facility] Comment on above: Performed By: #### 6 399, 606, 98678 #### [facility] [place] [address] [employer] Sergeant: Eduardo Fernandez MD Eosinophils/100 WBC (Bld) 0.1 % Normal [facility] Comment on above: Performed By: #### 6 399, 606, 17532 #### [facility] [place] [address] [employer] Sergeant: Eduardo Fernandez MD Erythrocyte distribution width (RBC) [Ratio] 12.4 % Normal 11.0-15.0 [facility] Comment on above: Performed By: #### 6 399, 606, 61685 #### [facility] [place] [address] [employer] Sergeant: Eduardo Fernandez MD Hematocrit (Bld) [Volume fraction] 47.3 % High 35.0-45.0 [facility] Comment on above: Performed By: #### 6 399, 606, 18552 #### [facility] [place] [address] [employer] Sergeant: Eduardo Fernandez MD Hemoglobin (Bld) [Mass/Vol] 16.1 g/dL High 11.7-15.5 [facility] Comment on above: Performed By: #### 6 399, 606, 60634 #### [facility] [place] [address] [employer] Sergeant: Eduardo Fernandez MD Lymphocytes (Bld) [#/Vol] 2.558 10*3/uL Normal 850-3900 [facility] Comment on above: Performed By: #### 6 399, 606, 54396 #### [facility] of [address], [address] [place] [address] [employer]: Eduardo Fernandez MD Lymphocytes/100 WBC (Bld) 16.4 % Normal [facility] Comment on above: Performed By: #### 6 399, 606, 09429 #### [facility] [place] [address] [employer] Sergeant: Eduardo Fernandez MD MCH (RBC) [Entitic mass] 30.5 pg Normal 27.0-33.0 [facility] Comment on above: Performed By: #### 6 399, 606, 45892 #### [facility] [place] [address] [employer] Sergeant: Eduardo Fernandez MD MCHC (RBC) [Mass/Vol] 34.0 g/dL Normal 32.0-36.[address] [facility] Comment on above: Result Comment: For adults, a slight decrease in the calculated MCHC value (in the range of 30 to 32 g/dL) is most likely not clinically significant; however, it should be interpreted with caution in correlation with other red cell parameters and the patient's clinical condition. Performed By: #### 6 399, 606, 61925 #### [facility] [place] [address] [employer]: Eduardo Fernandez MD MCV (RBC) [Entitic vol] 89.6 fL Normal 80.0-100.0 [facility] Comment on above: Performed By: #### 6 399, 606, 89880 #### [facility] [place] [address] [employer]: Eduardo Fernandez MD Monocytes (Bld) [#/Vol] 0.608 10*3/uL Normal 200-950 [facility] Comment on above: Performed By: #### 6 399, 606, 16509 #### [facility] [place] [address] [employer]: Eduardo Fernandez MD Monocytes/100 WBC (Bld) 3.9 % Normal [facility] Comment on above: Performed By: #### 6 399, 606, 39980 #### [facility] [place] [address] [employer] Sergeant: Eduardo Fernandez MD Neutrophils (Bld) [#/Vol] 12.371 10*3/uL High 4029-7299 [facility] Comment on above: Performed By: #### 6 399, 606, 18980 #### [facility] [place] [address] [employer] Sergeant: Eduardo Fernandez MD Neutrophils/100 WBC (Bld) 79.3 % Normal [facility] Comment on above: Performed By: #### 6 399, 606, 50402 #### [facility] [place] [address] [employer] Sergeant: Eduardo Fernandez MD Platelet mean volume (Bld) [Entitic vol] 10.3 fL Normal 7.5-12.5 [facility] Comment on above: Performed By: #### 6 399, 606, 75440 #### [facility] [place] [address] [employer]: Eduardo Fernandez MD Platelets (Bld) [#/Vol] 408 10*3/uL High 140-400 [facility] Comment on above: Performed By: #### 6 399, 606, 28302 #### [facility] [place] [address] [employer] Sergeant: Eduardo Fernandez MD RBC (Bld) [#/Vol] 5.28 10*6/uL High 3.80-5.10 [facility] Comment on above: Performed By: #### 6 399, 606, 03109 #### [facility] [place] [address] [employer] Sergeant: Eduardo Fernandez MD WBC (Bld) [#/Vol] 15.6 10*3/uL High 3.8-10.8 [facility] Comment on above: Performed By: #### 6 399, 606, 60702 #### [facility] [place] [address] [employer] Sergeant: Eduardo Fernandez MD COMPREHENSIVE METABOLIC PANE [facility] 11-18-2024 Albumin [Mass/Vol] 4.8 g/dL Normal 3.6-5.1 [facility] Comment on above: Performed By: #### 6 399, 606, 76798 #### [facility] [place] [address] [employer]: Eduardo Fernandez MD Albumin/Globulin [Mass ratio] 1.8 {ratio} Normal 1.0-2.5 [facility] Comment on above: Performed By: #### 6 399, 606, 68544 #### [facility] [place] [address] [employer]: Eduardo Fernandez MD ALP [Catalytic activity/Vol] 67 U/L Normal 31-125 [facility] Comment on above: Performed By: #### 6 399, 606, 81163 #### [facility] [place] [address] [employer]: Eduardo Fernandez MD ALT [Catalytic activity/Vol] 25 U/L Normal 6-29 [facility] Comment on above: Performed By: #### 6 399, 606, 74061 #### [facility] [place] [address] [employer]: Eduardo Fernandez MD AST [Catalytic activity/Vol] 13 U/L Normal 10-35 [facility] Comment on above: Performed By: #### 6 399, 606, 93525 #### [facility] [place] [address] [employer]: Eduardo Fernandez MD Bilirubin [Mass/Vol] 0.3 mg/dL Normal 0.2-1.2 [facility] Comment on above: Performed By: #### 6 399, 606, 87433 #### [facility] [place] [address] [employer]: Eduardo Fernandez MD BUN/CREATININE RATIO SEE NOTE: Normal 6-22 [facility] Comment on above: Result Comment: Not Reported: BUN and Creatinine are within reference range. Performed By: #### 6 399, 606, 17845 #### [facility] [place] [address] [employer]: Eduardo Fernandez MD Calcium [Mass/Vol] 10.0 mg/dL Normal 8.6-10.2 [facility] Comment on above: Performed By: #### 6 399, 606, 19230 #### [facility] [place] [address] [employer]: Eduardo Fernandez MD Chloride [Moles/Vol] 105 mmol/L Normal 98-110 [facility] Comment on above: Performed By: #### 6 399, 606, 61670 #### [facility] [place] [address] [employer]: Eduardo Fernandez MD CO2 [Moles/Vol] 24 mmol/L Normal 20-32 [facility] Comment on above: Performed By: #### 6 399, 606, 76179 #### [facility] [place] [address] [employer]: Eduardo Fernandez MD Creatinine [Mass/Vol] 0.61 mg/dL Normal 0.50-0.[address] [facility] [address] [facility] Comment on above: Performed By: #### 6 399, 606, 16015 #### [facility] [place] [address] [employer]: Eduardo Fernandez MD GFR/1.73 sq M.predicted among non-blacks MDRD (S/P/Bld) [Vol rate/Area] 110 mL/min/{1.73_m2} Normal > OR = 60 [facility] Comment on above: Performed By: #### 6 399, 606, 93471 #### [facility] [place] [address], [address] [place] [address] [employer]: Eduardo Fernandez MD Globulin (S) [Mass/Vol] 2.6 g/dL Normal 1.9-3.7 [facility] Comment on above: Performed By: #### 6 399, 606, 66546 #### [facility] [place] [address] [employer]: Eduardo Fernandez MD Glucose [Mass/Vol] 107 mg/dL High 65-99 [facility] Comment on above: Result Comment: Fasting reference interval For someone without known diabetes, a glucose value between 100 and 125 mg/dL is consistent with prediabetes and should be confirmed with a follow-up test. Performed By: #### 6 399, 606, 67940 #### [facility] [place] [address] [employer]: Eduardo Fernandez MD Potassium [Moles/Vol] 4.4 mmol/L Normal 3.5-5.[address] [facility] Comment on above: Performed By: #### 6 399, 606, 20889 #### [facility] [place] [address] [employer]: Eduardo Fernandez MD Protein [Mass/Vol] 7.4 g/dL Normal 6.1-8.1 [facility] Comment on above: Performed By: #### 6 399, 606, 51207 #### [facility] [place] [address] [employer] Sergeant: Eduardo Fernandez MD Sodium [Moles/Vol] 139 mmol/L Normal 135-146 [facility] Comment on above: Performed By: #### 6 399, 606, 07273 #### [facility] [place] [address] [employer]: Eduardo Fernandez MD Urea nitrogen [Mass/Vol] 12 mg/dL Normal 7-25 [facility] Comment on above: Performed By: #### 6 399, 606, 63663 #### [facility] [address], [address] [place] [address] [employer]: Eduardo Fernandez MD LIPASEon 11-18-2024 Lipase [Catalytic activity/Vol] 38 U/L Normal 7-60 [facility] Comment on above: Performed By: #### 6 399, 606, 19820 #### [facility] [address], [address] [place] [address] [employer]: Eduardo Fernandez MD Laboratory - Chemistry and C hemistry - challengeon 11-17-2024 Albumin [Mass/Vol] 4.8 g/dL Normal 3.6 - 5.1 g/dL [place] [employer] [facility] [employer] Albumin/Globulin [Mass ratio] 1.8 {ratio} Normal 1.0 - 2.5 [place] [employer] ALP [Catalytic activity/Vol] 67 U/L Normal 31 - 125 U/L [employer] ALT [Catalytic activity/Vol] 25 U/L Normal 6 - 29 U/L [employer] Amylase [Catalytic activity/Vol] 43 U/L Normal 21 - 101 U/L [employer] AST [Catalytic activity/Vol] 13 U/L Normal 10 - 35 U/L [employer] Bilirubin [Mass/Vol] 0.3 mg/dL Normal 0.2 - 1 .2 mg/dL [employer] Calcium [Mass/Vol] 10.0 mg/dL Normal 8.6 - 10. 2 mg/dL [employer] Chloride [Moles/Vol] 105 mmol/L Normal 98 - 11 0 mmol/L [employer] CO2 [Moles/Vol] 24 mmol/L Normal 20 - 32 mmol/L [employer] Creatinine [Mass/Vol] 0.61 mg/dL Normal 0.50 - 0.99 mg/dL [facility], [facility]. GFR/1.73 sq M.predicted among non-blacks MDRD (S/P/Bld) [Vol rate/Area] 110 mL/min/{1.73_m2} Normal [facility], [facility] Glucose [Mass/Vol] 107 mg/dL Abnormal 65 - 99 mg/dL [facility], [facility]. Lipase [Catalytic activity/Vol] 38 U/L Normal 7 - 60 U/L [facility] [facility], [facility]. Potassium [Moles/Vol] 4.4 mmol/L Normal 3.5 - 5.3 mmol/L [facility]; [facility], [facility]. Protein [Mass/Vol] 7.4 g/dL Normal 6.1 - 8.1 g/dL [facility], [facility].; [facility], [facility]. Sodium [Moles/Vol] 139 mmol/L Normal 135 - 146 mmol/L [facility], [facility]. Urea nitrogen [Mass/Vol] 12 mg/dL Normal 7 - 25 mg/dL [facility] [employer] [facility] [facility].; [facility], [facility]. Laboratory - Hematology and Cell countson 11-17-2024 Basophils (Bld) [#/Vol] 0.047 10*3/uL Normal 0 - 200 {cells/uL} [facility], [facility]. Basophils/100 WBC (Bld) 0.3 % Normal [facility].; [facility], [facility]. Eosinophils (Bld) [#/Vol] 0.016 10*3/uL Normal 15 - 500 {cells/uL} [facility].; [facility], [facility]. Eosinophils/100 WBC (Bld) 0.1 % Normal [facility]; [facility], [facility] Erythrocyte distribution width (RBC) [Ratio] 12.4 % Normal 11.0 - 15.0 % [facility] [employer] [facility] [facility].; [facility], [facility] Hematocrit (Bld) [Volume fraction] 47.3 % Abnormal 35.0 - 45.0 % [facility] [employer] [facility] [facility].; [facility], [facility] Hemoglobin (Bld) [Mass/Vol] 16.1 g/dL Abnormal 11.7 - 15.5 g/dL [facility], [facility] Lymphocytes (Bld) [#/Vol] 2.558 10*3/uL Normal 850 - 3900 {cells/uL} [facility], [facility].; [facility] [employer] [facility] Lymphocytes/100 WBC (Bld) 16.4 % Normal [facility] [place] [employer] [facility], [facility]. MCH (RBC) [Entitic mass] 30.5 pg Normal 27.0 - 33.0 pg [facility] [employer] [facility] [facility].; [place] [employer] [facility], [facility]. MCHC (RBC) [Mass/Vol] 34.0 g/dL Normal 32.0 - 36.0 g/dL [facility], [facility].; [place] [employer] [facility], [facility]. MCV (RBC) [Entitic vol] 89.6 fL Normal 80.0 - 100.0 fL [facility] [employer] [facility] [facility].; [place] [employer] [facility], [facility]. Monocytes (Bld) [#/Vol] 0.608 10*3/uL Normal 200 - 950 {cells/uL} [facility], [facility].; [place] [employer] [facility], [facility]. Monocytes/100 WBC (Bld) 3.9 % Normal [facility].; [facility], [facility] Neutrophils (Bld) [#/Vol] 12.371 10*3/uL Abnormal 1500 - 7800 {cells/uL} [facility] [employer] [facility] [facility].; [place] [employer] [facility], [facility]. Neutrophils/100 WBC (Bld) 79.3 % Normal [facility] [employer] [facility] [facility]; [place] [employer] [facility] [employer] [facility] [facility] Platelet mean volume (Bld) [Entitic vol] 10.3 fL Normal 7.5 - 12.5 fL [facility] [employer] [facility] [facility].; [facility], [facility]. Platelets (Bld) [#/Vol] 408 10*3/uL Abnormal 140 - 400 [facility] [employer] [facility].; [place] [employer], [facility]. RBC (Bld) [#/Vol] 5.28 10*6/uL Abnormal 3.80 - 5.1 0 {Million/uL} [facility].; [facility] [employer] [facility]. WBC (Bld) [#/Vol] 15.6 10*3/uL Abnormal 3.8 - 10.8 [facility].; [facility] [employer] [facility] No Panel Informationon 11-17 BUN/CREATININE RATIO SEE NOTE: Normal 6 - 22 [facility] [employer] [facility] [facility].; [facility] [employer] [facility]. GLOBULIN 2.6 Normal 1.9 - 3.7 [facility] [employer] [facility] [facility].; [facility] [employer] [facility]. CBC (INCLUDES DIFF/PLT)on Basophils (Bld) [#/Vol] 0.053 10*3/uL Normal 0-200 [facility] Comment on above: Performed By: #### 1 0231, 8763, 3520 #### [facility] [place] [address] [employer] Senior Sergeant: Eduardo Fernandez MD Basophils/100 WBC (Bld) 0.6 % Normal [facility] Comment on above: Performed By: #### 1 0231, 13, 1210 #### [facility] [place] [address] [employer] Senior Sergeant: Eduardo Fernandez MD Eosinophils (Bld) [#/Vol] 0.214 10*3/uL Normal 15-500 [facility] Comment on above: Performed By: #### 1 0231, 63, 7600 #### [facility] [place] [address] [employer] Sergeant: Eduardo Fernandez MD Eosinophils/100 WBC (Bld) 2.4 % Normal [facility] Comment on above: Performed By: #### 1 0231, 27, 7600 #### [facility] [place] [address] [employer] Senior Sergeant: Eduardo Fernandez MD Erythrocyte distribution width (RBC) [Ratio] 12.5 % Normal 11.0-15.0 [facility] Comment on above: Performed By: #### 1 0231, 1601, 0070 #### [facility] of [address], [address] [place] [address] [employer]: Eduardo Fernandez MD Hematocrit (Bld) [Volume fraction] 46.6 % High 35.0-45.0 [facility] Comment on above: Performed By: #### 1 0231, 6399, 7600 #### [facility] of [address], [address] [place] [address] [employer]: Eduardo Fernandez MD Hemoglobin (Bld) [Mass/Vol] 15.6 g/dL High 11.7-15.5 [facility] Comment on above: Performed By: #### 1 0231, 63, 7600 #### [facility] of [address], [address] [place] [address] [employer]: Eduardo Fernandez MD Lymphocytes (Bld) [#/Vol] 3.106 10*3/uL Normal 850-3900 [facility] Comment on above: Performed By: #### 1 023, 63, 7600 #### [facility] of [address], [address] [place] [address] [employer]: Eduardo Fernandez MD Lymphocytes/100 WBC (Bld) 34.9 % Normal [facility] Comment on above: Performed By: #### 1 0231, 6399, 7600 #### [facility] of [place] [address] [employer] Senior Sergeant: Eduardo Fernandez MD MCH (RBC) [Entitic mass] 30.8 pg Normal 27.0-33.0 [facility] Comment on above: Performed By: #### 1 0231, 6399, 7600 #### [facility] of [place] [address] [employer] Sergeant: Eduardo Fernandez MD MCHC (RBC) [Mass/Vol] 33.5 g/dL Normal 32.0-36.[address] [facility] Comment on above: Result Comment: For adults, a slight decrease in the calculated MCHC value (in the range of 30 to 32 g/dL) is most likely not clinically significant; however, it should be interpreted with caution in correlation with other red cell parameters and the patient's clinical condition. Performed By: #### 1 0231, 63, 7600 #### [facility] of [place] [address] [employer] Sergeant: Eduardo Fernandez MD MCV (RBC) [Entitic vol] 91.9 fL Normal 80.0-100.0 [facility] Comment on above: Performed By: #### 1 023, 63, 7600 #### [facility] of [place] [address] [employer] Sergeant: Eduardo Fernandez MD Monocytes (Bld) [#/Vol] 0.596 10*3/uL Normal 200-950 [facility] Comment on above: Performed By: #### 1 230, 63, 7600 #### [facility] of [place] [address] [employer] Sergeant: Eduardo Fernandez MD Monocytes/100 WBC (Bld) 6.7 % Normal [facility] Comment on above: Performed By: #### 1 023, 63, 7600 #### [facility] of [place] [address] [employer] Sergeant: Eduardo Fernandez MD Neutrophils (Bld) [#/Vol] 4.931 10*3/uL Normal 7519-6087 [facility] Comment on above: Performed By: #### 1 023, 63, 7600 #### [facility] of [place] [address] [employer] Sergeant: Eduardo Fernandez MD Neutrophils/100 WBC (Bld) 55.4 % Normal [facility] Comment on above: Performed By: #### 1 023, 63, 7600 #### [facility] of [place] [address] [employer] Sergeant: Eduardo Fernandez MD Platelet mean volume (Bld) [Entitic vol] 10.8 fL Normal 7.5-12.5 [facility] Comment on above: Performed By: #### 1 0231, 6399, 7600 #### [facility] of [place] [address] [employer]: Eduardo Fernandez MD Platelets (Bld) [#/Vol] 376 10*3/uL Normal 140-400 [facility] Comment on above: Performed By: #### 1 0231, 6399, 7600 #### [facility] of [address], [address] [place] [address] [employer]: Eduardo Fernandez MD RBC (Bld) [#/Vol] 5.07 10*6/uL Normal 3.80-5.10 [facility] Comment on above: Performed By: #### 1 0231, 63, 7600 #### [facility] of [place] [address] [employer] Sergeant: Eduardo Fernandez MD WBC (Bld) [#/Vol] 8.9 10*3/uL Normal 3.8-10.8 [facility] Comment on above: Performed By: #### 1 0231, 63, 7600 #### [facility] of [place] [address] [employer] Sergeant: Eduardo Fernandez MD [facility] METABOLIC PANE [facility] 10-20-2024 Albumin [Mass/Vol] 4.6 g/dL Normal 3.6-5.1 [facility] Comment on above: Performed By: #### 1 0231, 63, 7600 #### [facility] of [place] [address] [employer]: Eduardo Fernandez MD Albumin/Globulin [Mass ratio] 1.9 {ratio} Normal 1.0-2.5 [facility] Comment on above: Performed By: #### 1 0231, 6399, 7600 #### [facility] of [place] [address] [employer]: Eduardo Fernandez MD ALP [Catalytic activity/Vol] 68 U/L Normal 31-125 [facility] Comment on above: Performed By: #### 1 0231, 6399, 7600 #### [facility] of [address], [address] [place] [address] [employer]: Eduardo Fernandez MD ALT [Catalytic activity/Vol] 22 U/L Normal 6-29 [facility] Comment on above: Performed By: #### 1 0231, 6399, 7600 #### [facility] of [address], [address] [place] [address] [employer]: Eduardo Fernandez MD AST [Catalytic activity/Vol] 16 U/L Normal 10-35 [facility] Comment on above: Performed By: #### 1 0231, 6399, 7600 #### [facility] of [place] [address] [employer] Sergeant: Eduardo Fernandez MD Bilirubin [Mass/Vol] 0.4 mg/dL Normal 0.2-1.2 [facility] Comment on above: Performed By: #### 1 0231, 63, 7600 #### [facility] of [address], [address] [place] [address] [employer]: Eduardo Fernandez MD BUN/CREATININE RATIO SEE NOTE: Normal 6-22 [facility] Comment on above: Result Comment: Not Reported: BUN and Creatinine are within reference range. Performed By: #### 1 0231, 6399, 7600 #### [facility] of [place] [address] [employer]: Eduardo Fernandez MD Calcium [Mass/Vol] 9.4 mg/dL Normal 8.6-10.2 [facility] Comment on above: Performed By: #### 1 0231, 6399, 7600 #### [facility] of [place] [address] [employer] Sergeant: Eduardo Fernandez MD Chloride [Moles/Vol] 105 mmol/L Normal 98-110 [facility] Comment on above: Performed By: #### 1 0231, 6399, 7600 #### [facility] of [address], [address] [place] [address] [employer]: Eduardo Fernandez MD CO2 [Moles/Vol] 24 mmol/L Normal 20-32 [facility] Comment on above: Performed By: #### 1 0231, 6399, 7600 #### [facility] of [address], [address] [place] [address] [employer]: Eduardo Fernandez MD Creatinine [Mass/Vol] 0.66 mg/dL Normal 0.50-0.[address] [facility] Comment on above: Performed By: #### 1 0231, 63, 7600 #### [facility] of [address], [address] [place] [address] [employer]: Eduardo Fernandez MD GFR/1.73 sq M.predicted among non-blacks MDRD (S/P/Bld) [Vol rate/Area] 108 mL/min/{1.73_m2} Normal > OR = 60 [facility] Comment on above: Performed By: #### 1 0231, 63, 7600 #### [facility] of [address], [address] [place] [address] [employer]: Eduardo Fernandez MD Globulin (S) [Mass/Vol] 2.4 g/dL Normal 1.9-3.7 [facility] Comment on above: Performed By: #### 1 0231, 63, 7600 #### [facility] of [address], [address] [place] [address] [employer]: Eduardo Fernandez MD Glucose [Mass/Vol] 116 mg/dL High 65-99 [facility] Comment on above: Result Comment: Fasting reference interval For someone without known diabetes, a glucose value between 100 and 125 mg/dL is consistent with prediabetes and should be confirmed with a follow-up test. Performed By: #### 1 0231, 6399, 7600 #### [facility] of [address], [address] [place] [address] [employer]: Eduardo Fernandez MD Potassium [Moles/Vol] 4.2 mmol/L Normal 3.5-5.[address] [facility] Comment on above: Performed By: #### 1 0231, 6399, 7600 #### [facility] of [address], [address] [place] [address] [employer]: Eduardo Fernandez MD Protein [Mass/Vol] 7.0 g/dL Normal 6.1-8.1 [facility] Comment on above: Performed By: #### 1 0231, 6399, 7600 #### [facility] of [address], [address] [place] [address] [employer]: Eduardo Fernandez MD Sodium [Moles/Vol] 140 mmol/L Normal 135-146 [facility] Comment on above: Performed By: #### 1 0231, 63, 7600 #### [facility] of [address], [address] [place] [address] [employer]: Eduardo Fernandez MD Urea nitrogen [Mass/Vol] 12 mg/dL Normal 7-25 [facility] Comment on above: Performed By: #### 1 0231, 63, 7600 #### [facility] of [place] [address] [employer] Sergeant: Eduardo Fernandez MD LIPID PANEL, [facility] 10-02 Cholesterol [Mass/Vol] 210 mg/dL High <200 [facility] Comment on above: Performed By: #### 1 0231, 63, 7600 #### [facility] of [place] [address] [employer]: Eduardo Fernandez MD Cholesterol in HDL [Mass/Vol] 46 mg/dL Low > OR = 50 [facility] Comment on above: Performed By: #### 1 0231, 6399, 7600 #### [facility] of [place] [address] [employer]: Eduardo Fernandez MD Cholesterol in LDL [Mass/Vol] 133 mg/dL High [facility] Comment on above: Result Comment: Refe rence range: <100 Desirable range <100 mg/dL for primary prevention; <70 mg/dL for patients with CHD or diabetic patients with > or = 2 CHD risk factors. LDL-C is now calculated using the Rajwinder calculation, which is a validated novel method providing better accuracy than the Friedewald equation in the estimation of LDL-C. Rajesh MEDINA et al. KEMI. 2013;310(19): 1882-2085 (http://education.Musations.CAD Crowd/faq/FRN727) Performed By: #### 1 0231, 4199, 4230 #### [facility] [address], [address] [place] [address] [employer]: Eduardo Fernandez MD Cholesterol.total/Cande sterol in HDL [Mass ratio] 4.6 {ratio} Normal <5.0 [facility] Comment on above: Performed By: #### 1 0231, 1724, 8970 #### [facility] [address], [address] [place] [address] [employer]: Eduardo Fernandez MD NON HDL CHOLESTEROL 164 mg/dL (calc) High <130 [facility] Comment on above: Result Comment: For patients with diabetes plus 1 major ASCVD risk factor, treating to a non-HDL-C goal of <100 mg/dL (LDL-C of <70 mg/dL) is considered a therapeutic option. Performed By: #### 1 0231, 0277, 2890 #### [facility] [address], [address] [place] [address] [employer]: Eduardo Fernandez MD Triglyceride [Mass/Vol] 171 mg/dL High <150 [facility] Comment on above: Performed By: #### 1 0231, 5087, 2720 #### [facility] [place] [address] [employer] Sergeant: Eduardo Fernandez MD TSH W/REFLEX TO FT4on 2024 TSH W/REFLEX TO FT4 1.10 mIU/L Normal [facility] Comment on above: Result Comment: Refe rence Range > or = 20 Years 0.40-4.50 Ranges First trimester 0.26-2.66 Second trimester 0.55-2.73 Third trimester 0.43-2.91 Performed By: #### 1 0231, 2823, 6060 #### [facility] [address] [facility], [address] [place] [address] [employer]: Eduardo Fernandez MD Laboratory - Chemistry and C hemistry - challengeon 10-19-2024 Albumin [Mass/Vol] 4.6 g/dL Normal 3.6 - 5.1 g/dL [facility], [facility].; [place] [employer] [facility] Albumin/Globulin [Mass ratio] 1.9 {ratio} Normal 1.0 - 2.5 [facility], [facility].; [facility] ALP [Catalytic activity/Vol] 68 U/L Normal 31 - 125 U/L [facility] [place] [employer] [facility] ALT [Catalytic activity/Vol] 22 U/L Normal 6 - 29 U/L [facility] [place] [employer] [facility] AST [Catalytic activity/Vol] 16 U/L Normal 10 - 35 U/L [facility], [facility].; [place] [employer] [facility] Bilirubin [Mass/Vol] 0.4 mg/dL Normal 0.2 - 1 .2 mg/dL [facility] [place] [employer] [facility] Calcium [Mass/Vol] 9.4 mg/dL Normal 8.6 - 10. 2 mg/dL [facility] [place] [employer] Chloride [Moles/Vol] 105 mmol/L Normal 98 - 11 0 mmol/L [facility].; [place] [employer] [employer] Cholesterol [Mass/Vol] 210 mg/dL Abnormal [facility] [place] [employer] [facility] Cholesterol in HDL [Mass/Vol] 46 mg/dL Abnormal [place] [employer] [facility] [place] [employer] [facility] Cholesterol in LDL [Mass/Vol] 133 mg/dL Abnormal [place] [employer] [facility] [place] [employer] CO2 [Moles/Vol] 24 mmol/L Normal 20 - 32 mmol/L [facility] [place] [employer] [employer] Creatinine [Mass/Vol] 0.66 mg/dL Normal 0.50 - 0.99 mg/dL [facility] [employer] [facility].; [facility], [facility]. GFR/1.73 sq M.predicted among non-blacks MDRD (S/P/Bld) [Vol rate/Area] 108 mL/min/{1.73_m2} Normal [facility], [facility] Glucose [Mass/Vol] 116 mg/dL Abnormal 65 - 99 mg/dL [facility] [employer] [facility] [facility].; [facility], [facility] Potassium [Moles/Vol] 4.2 mmol/L Normal 3.5 - 5.3 mmol/L [facility], [facility] Protein [Mass/Vol] 7.0 g/dL Normal 6.1 - 8.1 g/dL [facility].; [facility], [facility]. Sodium [Moles/Vol] 140 mmol/L Normal 135 - 146 mmol/L [facility].; [place] [employer] [facility], [facility] Triglyceride [Mass/Vol] 171 mg/dL Abnormal [facility]; [facility], [facility] Urea nitrogen [Mass/Vol] 12 mg/dL Normal 7 - 25 mg/dL [facility] [employer] [facility] [facility]; [place] [employer] [facility], [facility] Laboratory - Hematology and Cell countson 10-19-2024 Basophils (Bld) [#/Vol] 0.053 10*3/uL Normal 0 - 200 {cells/uL} [facility].; [place] [employer], [facility] Basophils/100 WBC (Bld) 0.6 % Normal [facility], [facility] Eosinophils (Bld) [#/Vol] 0.214 10*3/uL Normal 15 - 500 {cells/uL} [facility] [employer] [facility] [facility].; [place] [employer], [facility] Eosinophils/100 WBC (Bld) 2.4 % Normal [facility] [employer] [facility] [facility]; [place] [employer] [facility], [facility] Erythrocyte distribution width (RBC) [Ratio] 12.5 % Normal 11.0 - 15.0 % [facility].; [place] [employer], [facility] Hematocrit (Bld) [Volume fraction] 46.6 % Abnormal 35.0 - 45.0 % [facility], [facility]. Hemoglobin (Bld) [Mass/Vol] 15.6 g/dL Abnormal 11.7 - 15.5 g/dL [facility].; [facility], [facility] Lymphocytes (Bld) [#/Vol] 3.106 10*3/uL Normal 850 - 3900 {cells/uL} [facility].; [facility], [facility] Lymphocytes/100 WBC (Bld) 34.9 % Normal [facility], [facility]. MCH (RBC) [Entitic mass] 30.8 pg Normal 27.0 - 33.0 pg [facility].; [facility], [facility]. MCHC (RBC) [Mass/Vol] 33.5 g/dL Normal 32.0 - 36.0 g/dL [facility].; [facility], [facility]. MCV (RBC) [Entitic vol] 91.9 fL Normal 80.0 - 100.0 fL [facility].; [facility], [facility]. Monocytes (Bld) [#/Vol] 0.596 10*3/uL Normal 200 - 950 {cells/uL} [facility].; [facility], [facility]. Monocytes/100 WBC (Bld) 6.7 % Normal [facility].; [facility], [facility]. Neutrophils (Bld) [#/Vol] 4.931 10*3/uL Normal 1500 - 7800 {cells/uL} [facility].; [place] [employer], [facility]. Neutrophils/100 WBC (Bld) 55.4 % Normal [facility] [employer] [facility] [facility].; [place] [employer] [facility], [facility] Platelet mean volume (Bld) [Entitic vol] 10.8 fL Normal 7.5 - 12.5 fL [facility], [facility].; [employer], [facility]. Platelets (Bld) [#/Vol] 376 10*3/uL Normal 140 - 400 [facility], [facility].; [place] [employer], [facility]. RBC (Bld) [#/Vol] 5.07 10*6/uL Normal 3.80 - 5.1 0 {Million/uL} [facility] [employer] [facility] [facility].; [facility]. WBC (Bld) [#/Vol] 8.9 10*3/uL Normal 3.8 - 10.8 [facility] [employer] [facility] [facility]; [facility] [employer] [facility] [facility] No Panel Informationon 10-19 BUN/CREATININE RATIO SEE NOTE: Normal 6 - 22 [facility] [employer] [facility] [facility].; [facility] [employer] [facility] [facility]. CHOL/HDLC RATIO 4.6 Normal [facility]; [facility] [employer] [facility] [facility] GLOBULIN 2.4 Normal 1.9 - 3.7 [facility] [employer] [facility] [facility]; [facility] [employer] [facility] [facility] NON HDL CHOLESTEROL [address] [facility] [employer] [facility] [facility]; [facility] [employer] [facility] [facility] TSH W/REFLEX TO FT4 1.10 {mIU/L} Normal [facility] [employer] [facility]; [facility] [employer] [facility] [facility] FOOT RIGHT COMPLETEon 2024 FOOT RIGHT COMPLETE EXAM: FOOT RIGHT COMPLETE REASON FOR EXAM: Sprain of right foot COMPARISON: None TECHNIQUE: 3 views FINDINGS: No fractures. 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 Plantar calcaneal enthesophyte. No aggressive osseous lesions or bony demineralization. Normal soft tissues. IMPRESSION: No fracture or traumatic malalignment. Normal [facility] Laboratory - Microbiology an d Antimicrobial susceptibilityon 05-11-2024 S. pyogenes Ag EIA Ql (Throat) Negative Normal [facility] [employer] [facility] [facility]; [facility] [employer] [facility] [facility] SCRN MAMM (CAD)W/MICHELLE BILATo n 03-17-2024 SCRN MAMM (CAD)W/MICHELLE BILAT [place] [address], [place] [id number] SCRN MAMM (CAD)W/MICHELLE BILAT MR#: [id number] Acct: [id number] Name: JOHNATHAN ANTONIO Rep #: [id number] : 1975 F 48 From: Saud gilbert MD PCP: EZIO Carey Status: REG CLI Study: SCRN MAMM (CAD)W/MICHELLE BILAT Date of Exam: 03/04 11/25 Exam# [id number] Ordering Dr: Yahir Gutierrez [id number] MAMMOGRAPHY - BILATERAL SCREENING REASON FOR EXAM: Female, 48 years old. Routine annual screening examination. PERTINENT HISTORY: Non-contributory. TECHNIQUE: Digital bilateral breast michelle (3D mammographic acquisition) in the CC and MLO projections. 2-D mediolateral oblique (MLO) and craniocaudad (CC) views of both breasts were obtained. CAD: Full Field Digital Mammography with Computer Added Detection was performed. COMPARISON: No comparison mammograms available at this time. If any prior films become available, an addendum to this report can be generated. FINDINGS: Breast Composition: There are scattered areas of fibroglandular density. There are no dominant masses or suspicious calcifications. Small benign appearing bilateral axillary lymph nodes. No other significant abnormalities are identified. BI/SCRN MAMM (CAD)W/MICHELLE BILAT IMPRESSION: Negative screening mammogram. Yearly followup mammogram recommended. (A) ASSESSMENT CATEGORY: BIRADS Category 2: Benign. A letter regarding these results will be sent to the patient by the facility within 30 days. Approximately 10% of breast cancers are not detected by mammography. A normal mammogram should not delay biopsy of a clinically suspicious abnormality. [id number] Electronically Signed: Saud Everett MD at 15:04 EDT , CC: EZIO Carey Founder President And Ceo: Signed Normal [facility] COMPREHENSIVE METABOLIC PANE Ruperto 03-04-2024 Albumin [Mass/Vol] 4.5 g/dL Normal 3.6-5.1 [facility] Comment on above: Performed By: #### 1 0231, 63, 7600 #### [facility] of [address], [address] [place] [address] [employer] Senior Sergeant: Eduardo Fernandez MD Albumin/Globulin [Mass ratio] 1.7 {ratio} Normal 1.0-2.5 [facility] Comment on above: Performed By: #### 1 0231, 6399, 7600 #### [facility] of [address], [address] [place] [address] [employer] Senior Sergeant: Eduardo Fernandez MD ALP [Catalytic activity/Vol] 74 U/L Normal 31-125 [facility] Comment on above: Performed By: #### 1 0231, 63, 7600 #### [facility] of [address], [address] [place] [address] [employer] Senior Sergeant: Eduardo Fernandez MD ALT [Catalytic activity/Vol] 42 U/L High 6-29 [facility] Comment on above: Performed By: #### 1 0231, 63, 7600 #### [facility] of [address], [address] [place] [address] [employer] Senior Sergeant: Eduardo Fernandez MD AST [Catalytic activity/Vol] 29 U/L Normal 10-35 [facility] Comment on above: Performed By: #### 1 0231, 6399, 7600 #### [facility] of [address], [address] [place] [address] [employer] Sergeant: Eduardo Fernandez MD Bilirubin [Mass/Vol] 0.4 mg/dL Normal 0.2-1.2 [facility] Comment on above: Performed By: #### 1 0231, 6399, 7600 #### [facility] of [address], [address] [place] [address] [employer] Senior Sergeant: Eduardo Fernandez MD BUN/CREATININE RATIO SEE NOTE: Normal 6-22 [facility] Comment on above: Result Comment: Not Reported: BUN and Creatinine are within reference range. Performed By: #### 1 0231, 6399, 7600 #### [facility] of [address], [address] [place] [address] [employer] Sergeant: Eduardo Fernandez MD Calcium [Mass/Vol] 9.5 mg/dL Normal 8.6-10.2 [facility] Comment on above: Performed By: #### 1 0231, 63, 7600 #### [facility] of [address], [address] [place] [address] [employer] Sergeant: Eduardo Fernandez MD Chloride [Moles/Vol] 101 mmol/L Normal 98-110 [facility] Comment on above: Performed By: #### 1 023, 63, 7600 #### [facility] of [place] [address] [employer] Senior Sergeant: Eduardo Fernandez MD CO2 [Moles/Vol] 22 mmol/L Normal 20-32 [facility] Comment on above: Performed By: #### 1 023, 63, 7600 #### [facility] of [place] [address] [employer] Sergeant: Eduardo Fernandez MD Creatinine [Mass/Vol] 0.83 mg/dL Normal 0.50-0.[address] [facility] Comment on above: Performed By: #### 1 023, 63, 7600 #### [facility] of [place] [address] [employer] Sergeant: Eduardo Fernandez MD GFR/1.73 sq M.predicted among non-blacks MDRD (S/P/Bld) [Vol rate/Area] 87 mL/min/{1.73_m2} Normal > OR = 60 [facility] Comment on above: Performed By: #### 1 0231, 63, 7600 #### [facility] of [place] [address] [employer] Sergeant: Eduardo Fernandez MD Globulin (S) [Mass/Vol] 2.6 g/dL Normal 1.9-3.7 [facility] Comment on above: Performed By: #### 1 023, 63, 7600 #### [facility] of [place] [address] [employer] Sergeant: Eduardo Fernandez MD Glucose [Mass/Vol] 123 mg/dL High 65-99 [facility] Comment on above: Result Comment: Fasting reference interval For someone without known diabetes, a glucose value between 100 and 125 mg/dL is consistent with prediabetes and should be confirmed with a follow-up test. Performed By: #### 1 0231, 6399, 7600 #### [facility] [place] [address] [employer]: Eduardo Fernandez MD Potassium [Moles/Vol] 4.2 mmol/L Normal 3.5-5.[address] [facility] Comment on above: Performed By: #### 1 0231, 63, 7600 #### [facility] [place] [address] [employer]: Eduardo Fernandez MD Protein [Mass/Vol] 7.1 g/dL Normal 6.1-8.1 [facility] Comment on above: Performed By: #### 1 0231, 63, 7600 #### [facility] [place] [address] [employer] Sergeant: Eduardo Fernandez MD Sodium [Moles/Vol] 138 mmol/L Normal 135-146 [facility] Comment on above: Performed By: #### 1 0231, 63, 7600 #### [facility] [place] [address] [employer] Senior Sergeant: Eduardo Fernandez MD Urea nitrogen [Mass/Vol] 12 mg/dL Normal 7-25 [facility] Comment on above: Performed By: #### 1 0231, 6399, 7600 #### [facility] [place] [address] [employer] Senior Sergeant: Eduardo Fernandez MD LIPID PANEL, STANDARD 08-0 Cholesterol [Mass/Vol] 200 mg/dL High <200 [facility] Comment on above: Performed By: #### 1 0231, 7600 #### [facility] [address], [address] [place] [address] [employer] Sergeant: Eduardo Fernandez MD Cholesterol in HDL [Mass/Vol] 61 mg/dL Normal > OR = 50 [facility] Comment on above: Performed By: #### 1 023, 7600 #### [facility] [address], [address] [place] [address] [employer] Sergeant: Eduardo Fernandez MD Cholesterol in LDL [Mass/Vol] 110 mg/dL High [facility] Comment on above: Result Comment: Refe rence range: <100 Desirable range <100 mg/dL for primary prevention; <70 mg/dL for patients with CHD or diabetic patients with > or = 2 CHD risk factors. LDL-C is now calculated using the Rajwinder calculation, which is a validated novel method providing better accuracy than the Friedewald equation in the estimation of LDL-C. Rajesh MEDINA et al. KEMI. 2013;310(19): 1793-4235 (http://education.Musations.CAD Crowd/faq/GQN696) Performed By: #### 1 023, 0 #### [facility] [address], [address] [place] [address] [employer] Sergeant: Eduardo Fernandez MD Cholesterol.total/Cande sterol in HDL [Mass ratio] 3.3 {ratio} Normal <5.0 [facility] Comment on above: Performed By: #### 1 023, 7600 #### [facility] [address], [address] [place] [address] [employer] Sergeant: Eduardo Fernandez MD NON HDL CHOLESTEROL 139 mg/dL (calc) High <130 [facility] Comment on above: Result Comment: For patients with diabetes plus 1 major ASCVD risk factor, treating to a non-HDL-C goal of <100 mg/dL (LDL-C of <70 mg/dL) is considered a therapeutic option. Performed By: #### 1 0231, 7600 #### [facility] [address], [address] [place] [address] [employer]: Eduardo Fernandez MD Triglyceride [Mass/Vol] 169 mg/dL High <150 [facility] Comment on above: Performed By: #### 1 3051, 2380 #### [facility] [address], [address] [place] [address] [employer] Sergeant: Eduardo Fernandez MD Laboratory - Chemistry and C hemistry - challengeon 03-03-2024 Albumin [Mass/Vol] 4.5 g/dL Normal 3.6 - 5.1 g/dL [facility], [facility].; [facility], [facility] Albumin/Globulin [Mass ratio] 1.7 {ratio} Normal 1.0 - 2.5 [facility], [facility].; [facility], [facility]. ALP [Catalytic activity/Vol] 74 U/L Normal 31 - 125 U/L [facility], [facility].; [facility], [facility]. ALT [Catalytic activity/Vol] 42 U/L Abnormal 6 - 29 U/L [facility], [facility].; [facility], [facility]. AST [Catalytic activity/Vol] 29 U/L Normal 10 - 35 U/L [facility], [facility].; [place] [employer] [facility], [facility]. Bilirubin [Mass/Vol] 0.4 mg/dL Normal 0.2 - 1 .2 mg/dL [facility], [facility].; [place] [employer] [facility], [facility]. Bilirubin Ql (U) Negative Normal [facility].; [place] [employer] [facility] Calcium [Mass/Vol] 9.5 mg/dL Normal 8.6 - 10. 2 mg/dL [facility], [facility].; [facility] Chloride [Moles/Vol] 101 mmol/L Normal 98 - 11 0 mmol/L [facility], [facility].; [place] [employer] [facility] Cholesterol [Mass/Vol] 200 mg/dL Abnormal [facility], [facility].; [facility], [facility]. Cholesterol in HDL [Mass/Vol] 61 mg/dL Normal [facility], [facility].; [facility] Cholesterol in LDL [Mass/Vol] 110 mg/dL Abnormal [facility], [facility].; [facility] [employer] CO2 [Moles/Vol] 22 mmol/L Normal 20 - 32 mmol/L [facility], [employer].; [employer]. Creatinine [Mass/Vol] 0.83 mg/dL Normal 0.50 - 0.99 mg/dL [facility].; [employer], [employer]. GFR/1.73 sq M.predicted among non-blacks MDRD (S/P/Bld) [Vol rate/Area] 87 mL/min/{1.73_m2} Normal [facility].; [employer]. Glucose [Mass/Vol] 123 mg/dL Abnormal 65 - 99 mg/dL [facility] [employer] [facility] [facility].; [employer]. Ketones Ql (U) Negative Normal [facility].; [employer]. pH (U) 7.0 [pH] Normal [facility] [employer] [facility] [facility].; [place] [employer], [employer]. Potassium [Moles/Vol] 4.2 mmol/L Normal 3.5 - 5.3 mmol/L [facility].; [employer]. Protein [Mass/Vol] 7.1 g/dL Normal 6.1 - 8.1 g/dL [facility] [employer] [facility] [facility].; [employer]. Sodium [Moles/Vol] 138 mmol/L Normal 135 - 146 mmol/L [employer]. Specific gravity (U) [Rel density] 1.015 Normal [facility] [employer] [facility].; [employer]. Triglyceride [Mass/Vol] 169 mg/dL Abnormal [facility] [employer] [facility].; [employer]. Urea nitrogen [Mass/Vol] 12 mg/dL Normal 7 - 25 mg/dL [facility] [employer]. Urobilinogen Qn (U) 0.2 mg/dL Normal [facility].; [employer]. Laboratory - Hematology and Cell countson 03-03-2024 Hemoglobin Ql (U) Negative Normal [employer], [employer] Laboratory - Specimen inform ationon 03-03-2024 Appearance (U) clear Normal [facility].; [employer]. Color (U) dark Yellow Normal [employer] Laboratory - Urinalysison Glucose Test strip (U) [Mass/Vol] Negative Normal [facility] [employer] [facility].; [employer] [employer]. Leukocyte esterase Test strip Ql (U) trace Normal [facility].; [place] [employer], [employer]. Nitrite Ql (U) Negative Normal [facility].; [employer] [employer]. Protein Ql (U) Negative Normal [facility].; [employer]. No Panel Informationon 03-03 BUN/CREATININE RATIO SEE NOTE: Normal 6 - 22 [facility] [employer] [facility].; [employer], [employer]. CHOL/HDLC RATIO 3.3 Normal [facility] [employer] [facility].; [employer] [employer]. GLOBULIN 2.6 Normal 1.9 - 3.7 [facility].; [employer] [employer]. NON HDL CHOLESTEROL [address] [facility] [employer] [facility].; [place] [employer] [facility]. Absolute lymphocyte countOrd ered By: Sivan Garces on 11-22-2023 Lymphocytes Auto (Unsp spec) [#/Vol] 3.22 10*3/uL 0.83-4.51 [facility] Automated lymphocyte count a s percentage of total leukocytesOrdered By: Sivan Garces on 11-22-2023 Lymphocytes/100 WBC Auto (Unsp spec) 26.5 % 19-41 [facility] Basophil percentageOrdered B y: Sivan Garces on 11-22-2023 Basophils/100 WBC (Bld) 0.6 % 0-1 [facility] Chloride [Moles/Vol] 108 mmol/L 98-[address] [facility] Eosinophils/100 WBC (Bld) 1.0 % 0-5 [facility] Glucose [Mass/Vol] 97 mg/dL 74-106 [facility] Hemoglobin (Bld) [Mass/Vol] 15.7 g/dL 12.0-15.0 [facility] Monocytes/100 WBC (Bld) 7.5 % 0-10 [facility] Neutrophils (Bld) [#/Vol] 7.8 10*3/uL 2.0-7.7 [facility] Neutrophils/100 WBC (Bld) 63.8 % 47-70 [facility] Potassium [Moles/Vol] 3.7 mmol/L 3.5-5.1 [facility] Sodium [Moles/Vol] 141 mmol/L 136-145 [facility] WBC (Bld) [#/Vol] 12.2 10*3/uL 4.4-11.0 [facility] Blood platelet adequacy dete ction by light microscopyOrdered By: Sivan Garces on 11-22-2023 Platelets LM Ql (Bld) ADEQUATE ADEQ [facility] Blood platelet morphology de termination (nominal result)Ordered By: Sivan Garces on 11-22-2023 Platelet morphology finding Nom (Bld) LARGE [facility] Determination of erythrocyte mean corpuscular volume (MCV)Ordered By: Sivan Garces on 11-22-2023 MCV (RBC) [Entitic vol] 93.7 fL 81-99 [facility] Erythrocyte distribution wid th ratioOrdered By: Sivan Garces on 11-22-2023 Erythrocyte distribution width (RBC) [Ratio] 13.1 % 11.6-14.6 [facility] Erythrocyte distribution wid th standard deviationOrdered By: Sivan Garces on 11-22-2023 Erythrocyte distribution width (RBC) [Entitic vol] 44.5 fL 35.1-43.9 [facility] Hematocrit Auto (Bld) [Volum e fraction]Ordered By: Sivan Garces on 11-22-2023 Hematocrit (Bld) [Volume fraction] 47.2 % 37-47 [facility] Immature granulocytes/100 WB C Auto (Bld)Ordered By: Sivan Garces on 11-22-2023 Immature granulocytes/100 WBC (Bld) 0.600 % 0.0-0.9 [facility] Comment on above: IG% - Immature Granu locytes (promyelocytes, myelocytes and metamyelocytes) > 1% indicates that a LEFT SHIFT is Present. Laboratory - Chemistry and C hemistry - challengeOrdered By: Sivan Garces on 11-22-2023 CO2 [Moles/Vol] 27.0 mmol/L 21.0-32.0 [facility] Urea nitrogen/Creatinine [Mass ratio] 16.4 mg/mg 10-20 [facility] Laboratory - Hematology and Cell countsOrdered By: Sivan Garces on 11-22-2023 Anisocytosis Ql (Bld) [facility] MCH (RBC) [Entitic mass] 31.2 pg 27.0-32.0 [facility] MCHC (RBC) [Mass/Vol] 33.3 g/dL 32-36 [facility] Nucleated RBC/100 WBC (Bld) [Ratio] 0 % 0-5 [facility] Platelet mean volume (Bld) [Entitic vol] 10.8 fL 6.2-12.0 [facility] Platelets (Bld) [#/Vol] 244 10*3/uL 150-450 [facility] Macrocytes detectionOrdered By: Sivan Garces on 11-22-2023 Macrocytes Ql (Bld) [facility] No Panel InformationOrdered By: Sivan Garces on 11-22-2023 Estimated Creatinine Clearance Calc 106.58 ml/min [facility] Estimated GFR (MDRD) Amer 109 mL/min >60 [facility] Comment on above: GFR Calc Estimated GFR (MDRD) Non-Af Amer 90 mL/min >60 [facility] Comment on above: Non- GFR Calc Troponin I High Sensitivity 5 pg/mL 3.0-54.0 [facility] Comment on above: Please Note: [place] t Units and Gender Specific Reference Ranges. For more information see Policy Stat Procedure [place] High Sensitivity Troponin (TNIH) and attachments. RBC Auto (Bld) [#/Vol]Ordere d By: Sivan Garces on 11-22-2023 RBC (Bld) [#/Vol] 5.04 10*6/uL 4.2-5.4 [facility] RBC morphologyOrdered By: Marcelina Garces on 11-22-2023 RBC morphology finding Nom (Bld) N CHROM NORMAL NORM C&C [facility] Serum or plasma calcium ludin urement (mass/volume)Ordered By: Sivan Garces on 11-22-2023 Calcium [Mass/Vol] 9.1 mg/dL 8.5-10.1 [facility] Serum or plasma creatinine m easurement (mass/volume)Ordered By: Sivan Garces on 11-22-2023 Creatinine [Mass/Vol] 0.73 mg/dL 0.55-1.02 [facility] Comment on above: The validity of the calculated GFR & GFRAA in patients over 70 years has not been determined. Clinical correlation is essential. Serum or plasma urea nitroge n measurement (mass/volume)Ordered By: Sivan Garces on 11-22-2023 Urea nitrogen [Mass/Vol] 12 mg/dL 7-18 [facility] Thin prep Papanicolaou smear with manual screeningOrdered By: Sivan Garces on 11-22-2023 Thin prep Papanicolaou smear with manual screening 6 5-15 [facility] Basophil percentageOrdered B y: Braulio Reynolds on 02-21-2023 Basophil percentage 0-5 SEEN /hpf 0-5 [facility] Bilirubin Test strip Ql (U)O rdered By: Braulio Reynolds on 02-21-2023 Bilirubin Ql (U) 3 mg/dL Negative [facility] Comment on above: COLOR OF URINE MAY A FFECT DIPSTICK RESULTS. Ketones Test strip Ql (U)Ord ered By: Braulio Reynolds on 02-21-2023 Ketones Ql (U) Negative Negative [facility] Mucus LM Ql (Urine sed)Order ed By: Braulio Reynolds on 02-21-2023 Mucus Ql (Urine sed) 0 SEEN /hpf [facility] Nitrite Test strip Ql (U)Ord ered By: Braulio Reynolds on 02-21-2023 Nitrite Ql (U) Positive Negative [facility] Protein Test strip Ql (U)Ord ered By: Braulio Reynolds on 02-21-2023 Protein Ql (U) Negative Negative [facility] Squamous epithelial cells de tection in urine sediment by light microscopyOrdered By: Braulio Reynolds on 02-21-2023 Epithelial cells.squamous LM Ql (Urine sed) 5-10 SEEN /hpf 5-10 [facility] Urine blood detectionOrdered By: Braulio Reynolds on 02-21-2023 RBC Ql (U) Negative Negative [facility] RBC Ql (U) 0 SEEN /hpf 0-5 [facility] Urine clarityOrdered By: Teddy Reynolds on 02-21-2023 Clarity (U) Clear Clear [facility] Urine color determinationOrd ered By: Braulio Reynolds on 02-21-2023 Color (U) Yellow Yellow [facility] Urine glucose detectionOrder ed By: Braulio Reynolds on 02-21-2023 Glucose Ql (U) Normal mg/dl Normal [facility] Urine leukocyte esterase det ection by dipstickOrdered By: Braulio Reynolds on 02-21-2023 Leukocyte esterase Test strip Ql (U) 25 /ul Negative [facility] Urine pHOrdered By: Braulio Reynolds on 02-21-2023 pH (U) 6.0 [pH] 5.0 - 8.0 [facility] Urine sediment bacteria coun t by microscopy (number/high power field)Ordered By: Braulio Reynolds on 02-21-2023 Bacteria LM.HPF (Urine sed) [#/Area] 1 /[HPF] None Seen [facility] Urine specific gravity measu rementOrdered By: Braulio Reynolds on 02-21-2023 Specific gravity (U) [Rel density] 1.010 1.002-1.030 [facility] Urobilinogen Auto test strip Ql (U)Ordered By: Braulio Reynolds on 02-21-2023 Urobilinogen Ql (U) 8 mg/dl Normal [facility] CORONAVIRUS PCR - [facility] 02-22-2022 SARS-CoV-2 (COVID-19) RNA LENA+probe Ql (Unsp spec) Positive Abnormal NORMAL: NEGATIVE [facility] Comment on above: Result Comment: { CA LLED TO ALEXIS,02/22/22,16:41,KLS { READ BACK BY ALEXIS Performed By: #### 2 [id number] #### [facility],[address] [place] [address] SEND TO IC? YES Normal [facility] Comment on above: Result Comment: RESU LTS FAXED TO INFECTION CONTROL. SARS-CoV-2 THIS TEST IS BEING USED UNDER THE FDA EUA PROCEDURE. THIS ASSAY HAS BEEN VALIDATED IN THE [facility] FOR USE WITH NASOPHARYNGEAL SPECIMENS IN [facility]. INTERPRETIVE DATA LABORATORY TEST RESULTS SHOULD ALWAYS BE CONSIDERED IN THE CONTEXT OF CLINICAL OBSERVATIONS AND EPIDEMIOLOGICAL DATA IN MAKING FINAL DIAGNOSIS AND PATIENT MANAGEMENT DECISIONS. PATIENT MANAGEMENT SHOULD FOLLOW CURRENT CDC GUIDELINES. A POSITIVE TEST RESULT FOR COVID-19 INDICATES THAT RNA FROM SARS-CoV-2 WAS DETECTED, AND THE PATIENT IS INFECTED WITH THE VIRUS AND PRESUMED TO BE CONTAGIOUS. A NEGATIVE TEST RESULT FOR THIS TEST MEANS THAT SARS-CoV-2 RNA WAS NOT PRESENT IN THE SPECIMEN ABOVE THE LIMIT OF DETECTION. HOWEVER, A NEGATVIE RESULT DOES NOT RULE OUT COVID-19 AND SHOULD NOT BE USED THE SOLE BASIS FOR TREATMENT OR PATIENT MANAGEMENT DECISIONS. A NEGATIVE RESULT DOES NOT EXCLUDE THE POSSIBILITY OF COVID-19. WHEN DIAGNOSTIC TESTING IS NEGATIVE, THE POSSIBLILTY OF A FALSE NEGATIVE RESULT SHOULD BE CONSIDERED IN THE CONTEXT OF A PATIENT'S RECENT EXPOSURES AND THE PRESENCE OF CLINICAL SIGNS AND SYMPTOMS CONSISTENT WITH COVID-19. THE POSSIBILITY OF A FALSE NEGATIVE RESULT SHOULD ESPECIALLY BE CONSIDERED IF THE PATIENT'S RECENT EXPOSURES OR CLINICAL PRESENTATION INDICATE THAT COVID-19 IS LIKELY, AND DIAGNOSTIC TESTS FOR OTHER CAUSES OF ILLNESS (e.g., OTHER RESPIRATORY ILLNESS) ARE NEGATIVE. IF COVID-19 IS STILL SUSPECTED BASED ON EXPOSURE HISTORY TOGETHER WITH OTHER CLINICAL FINDINGS, RE-TESTED SHOULD BE CONSIDERED BY HEALTHCARE PROVIDERS IN CONSULTATION WITH PUBLIC HEALTH AUTHORITIES. 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 [facility] Comment on above: Result Comment: Nega tive for This test was developed and its performance characteristics determined by [facility]'s [facility] [place]. This test has been authorized by FDA under an Emergency Use Authorization (EUA). This test has been validated in accordance with the FDA's Guidance Document Policy for Diagnostics Testing in Laboratories Certified to Perform High Complexity Testing under CLIA prior to Emergency use Authorization for Coronavirus Disease 2019 during the Public Health Emergency issued on October 02, 2019. COVID19 (SARS This test was developed and its performance characteristics determined by [facility]'s [facility] [place]. This test has been authorized by FDA under an Emergency Use Authorization (EUA). This test has been validated in accordance with the FDA's Guidance Document Policy for Diagnostics Testing in Laboratories Certified to Perform High Complexity Testing under CLIA prior to Emergency use Authorization for Coronavirus Disease 2019 during the Public Health Emergency issued on October 02, 2019. CoV2) by PCR. This test was developed and its performance characteristics determined by [facility]'s [facility] [place]. This test has been authorized by FDA under an Emergency Use Authorization (EUA). This test has been validated in accordance with the FDA's Guidance Document Policy for Diagnostics Testing in Laboratories Certified to Perform High Complexity Testing under CLIA prior to Emergency use Authorization for Coronavirus Disease 2019 during the Public Health Emergency issued on October 02, 2019. COVID 19 Source CHANNEL DEVELOPMENT DIRECTOR Normal [facility] Comment on above: Result Comment: Naso pharyngeal Corrected on 08/30 AT 0134: Previously reported as CHANNEL DEVELOPMENT DIRECTOR SWAB Swab Corrected on 08/30 AT 0134: Previously reported as CHANNEL DEVELOPMENT DIRECTOR SWAB XR Hand 3 Views Righton 12-02 XR Hand 3 Views [facility] Name: JOHNATHAN ANTONIO [address] [place] [address] Phys: [place] [address] : 1975 Age: 41 Acct: [id number] Loc: P/PHYSCARE MRN/Unit No.: [id number] Status: DEP ER Exam Date: 12/12/17 Accession Number: [id number] Exam: [id number] RAD/XR Hand 3 Views Right XR Hand 3 Views Right CLINICAL HISTORY: Fall. COMPARISON: No relevant prior study available at time of interpretation. TECHNIQUE: XR Hand 3 Views Right FINDINGS: No acute fracture or dislocation is visualized. The visualized alignment and joint spaces are unremarkable. IMPRESSION: No acute osseous injury is visualized at the right hand. If there is persistent clinical concern for underlying acute osseous abnormality, recommend repeat exam in 7-10 days. CC: KOBE ARNETT; LISA MCGILL Technologist: GERARDO BOWIE Dictated By: LAUREN ELLIS Signed Date/Time: 12/12/17, 2031 Dictated Date/Time: 12/12/171947 Founder President And Ceo: MIREYA THAO Printed Date/Time: , This report was electronically signed in another vendor system Normal [facility] Basic Metabolic Panelon 04-0 Anion gap 3 molar conc 13 mmol/L Normal 9-18 [facility] Comment on above: Performed By: #### C HEM7, MG, TPNT, TSH ####[facility] [address] [place], [place] [phone] ,Tristan Traylor M.D. FCAP, FASCP Calcium mass conc 9.0 mg/dL Normal 8.6-10.0 [facility] Comment on above: Performed By: #### C HEM7, MG, TPNT, TSH ####[facility] Nyx[address] [place], [place] [address] ,Tristan Traylor M.D. FCAP, FASCP Chloride molar conc 101 mmol/L Normal 98-107 [facility] Comment on above: Performed By: #### C HEM7, MG, TPNT, TSH ####[facility] Ozg[address] [place], [place] 23[address] ,Tristan Traylor M.D. FCAP, FASCP CO2 molar conc 24 mmol/L Normal 22-29 [facility] Comment on above: Performed By: #### C HEM7, MG, TPNT, TSH ####[facility] Ppg[address] [place], [place] [address] ,Tristan Traylor M.D. FCAP, FASCP Creatinine mass conc 0.65 mg/dL Normal 0.51-0.95 [facility] Comment on above: Performed By: #### C HEM7, MG, TPNT, TSH ####[facility] Eia[address] [place], [place] [address] ,Tristan Traylor M.D. FCAP, FASCP GFR/1.73 sq M predicted among non-blacks MDRD vol rate/area (S/P/Bld) mL/min/{1.73_m2} Normal [facility] Comment on above: Result Comment: THE GFR IS ESTIMATED USING THE MDRD STUDY EQUATION.*NOTE* IF THE RACE OF THE PATIENT WAS UNKNOWN AT THE TIME OFREGISTRATION, AND THE PATIENT IS , MULTIPLYTHE EGFR RESULT PROVIDED BY 1.21.NORMAL: EGFR >60.0 Performed By: #### C HEM7, MG, TPNT, TSH ####[facility] Zwr[address] [place], [place] [address] ,Tristan Traylor M.D. FCAP, FASCP Glucose mass conc 91 mg/dL Normal 70-100 [facility] Comment on above: Result Comment: INTR EPRETATION FOR FASTING BLOOD GLUCOSE:70-100 mg/dl NORMAL GLUCOSE EATNQXKGO415-685 mg/dl IMPAIRED FASTING GLUCOSE (PRE-DIABETES)>125 mg/dl DIABETES - ON MORE THAN ONE TESTING Performed By: #### C HEM7, MG, TPNT, TSH ####[facility] Tvu[address] [place], [place] [id number] ,Muna LaneAP, FASCP Potassium molar conc 4.0 mmol/L Normal 3.6-5.0 [facility] Comment on above: Performed By: #### C HEM7, MG, TPNT, TSH ####[facility] Bjm[address] [place], [place] [address] ,Muna LaneAP, FASCP Sodium molar conc 138 mmol/L Normal 136-145 [facility] Comment on above: Performed By: #### C HEM7, MG, TPNT, TSH ####[facility] Nyn[address] [place], [place] [address] ,Tristan Traylor M.D. FCAP, FASCP Urea nitrogen mass conc (Bld) 8.3 mg/dL Normal 6-20 [facility] Comment on above: Performed By: #### C HEM7, MG, TPNT, TSH ####[facility] Gmb[address] [place], [place] [address] ,Tristan Traylor M.D. FCAP, FASCP CBC With Differentialon 04-0 2018 Basophils Auto #/vol (Bld) 0.06 10:3/uL Normal 0.02-0.2 [facility] Comment on above: Performed By: #### C BCD ####[facility] Pad[address] [place] [address] ,Tristan Traylor M.D. FCAP, FASCP Basophils/100 WBC Auto (Bld) 0.7 % Normal 0-1.0 [facility] Comment on above: Performed By: #### C BCD ####[address] [phone] ,Tristan Traylor M.D. FCAP, FASCP CBC Manual Diff NO Normal [facility] Comment on above: Performed By: #### C BCD ####[facility] [place] [address] [phone] ,Tristan Traylor M.D. FCAP, FASCP Eosinophils Auto #/vol (Bld) 0.18 10:3/uL Normal 0-0.5 [facility] Comment on above: Performed By: #### C BCD ####[facility] [place] [phone] ,Tristan Traylor M.D. FCAP, FASCP Eosinophils/100 WBC Auto (Bld) 2.0 % Normal 1.0-3.0 [facility] Comment on above: Performed By: #### C BCD ####[facility] Div[address] [place], [place] 120[address] ,Tristan Traylor M.D. FCAP, FASCP Hematocrit Auto Volume Fraction (Bld) 41.6 % Normal 35.0-47.0 [facility] Comment on above: Performed By: #### C BCD ####[facility] Mmx[address] [place], [place] [address] ,Tristan Traylor M.D. FCAP, FASCP Hemoglobin mass conc (Bld) 14.4 g/dL Normal 11.7-15.7 [facility] Comment on above: Performed By: #### C BCD ####[facility] [place] [id number] ,Tristan Traylor M.D. FCAP, FASCP Lymphocytes Auto #/vol (Bld) 3.42 10:3/uL Normal 1.5-4.0 [facility] Comment on above: Performed By: #### C ANGIE ####[facility] [place] [address] [phone] ,Tristan Traylor M.D. FCAP, FASCP Lymphocytes/100 WBC Auto (Bld) 37.4 % Normal 20.0-40.0 [facility] Comment on above: Performed By: #### C BCD ####[facility] [address] [place] [phone] ,Tristan Traylor M.D. FCAP, FASCP MCH Auto Entitic mass (RBC) 31.4 pg Normal 27.0-40.0 [facility] Comment on above: Performed By: #### C BCD ####[facility] [place] [address] [phone] ,Tristan Traylor M.D. FCAP, FASCP MCV Auto Entitic volume (RBC) 90.6 CU uM Normal 80.0-100.0 [facility] Comment on above: Performed By: #### C BCD ####[facility] [place], [place] [address] ,Tristan Traylor M.D. FCAP, FASCP Mean Corpusc Hgb Concentration 34.6 G/DL Normal 31.0-36.0 [facility] Comment on above: Performed By: #### C BCD ####[facility] Mhc[address] [place], [place] [address] ,Tristan Traylor M.D. FCAP, FASCP Monocytes Auto #/vol (Bld) 0.65 10:3/uL Normal 0.2-0.8 [facility] Comment on above: Performed By: #### C BCD ####[facility] [address] [place] [address] [phone] ,Tristan Traylor M.D. FCAP, FASCP Monocytes/100 WBC Auto (Bld) 7.1 % Normal 4.0-10.0 [facility] Comment on above: Performed By: #### C BCD ####[facility] [place], [place] [address] ,Tristan Traylor M.D. FCAP, FASCP Neutrophils, Absolute 4.79 10:3/uL Normal 2.0-7.0 [facility] Comment on above: Performed By: #### C BCD ####[facility] Alz[address] [place], [place] [address] ,Tristan Traylor M.D. FCAP, FASCP Neutrophils/100 WBC Auto (Bld) 52.4 % Low 54.0-62.0 [facility] Comment on above: Performed By: #### C BCD ####[facility] Vif[address] [place], [place] [address] ,Tristan Traylor M.D. FCAP, FASCP Nucleated RBC #/vol (Bld) 0 10:3/uL Normal -0 [facility] Comment on above: Performed By: #### C BCD ####[facility] Jxv[address] [place], [place] 73225[address] ,Tristan Traylor M.D. FCAP, FASCP Nucleated RBC/100 WBC Ratio (Bld) 0 /100WBC Normal -0 [facility] Comment on above: Performed By: #### C BCD ####[facility] R[address] [place], [place] 8[address] ,Tristan Traylor M.D. FCAP, FASCP Platelets Auto #/vol (Bld) 305 10:3/uL Normal 130-440 [facility] Comment on above: Performed By: #### C BCD ####[facility] Cus[address] [place], [place] [address] ,Tristan Traylor M.D. FCAP, FASCP RBC Auto #/vol (Bld) 4.59 10:6/uL Normal 3.80-5.20 [facility] Comment on above: Performed By: #### C BCD ####[facility] [place] [phone] ,Tristan Traylor M.D. FCAP, FASCP Red Cell Distribution 12.8 Normal 11.5-14.5 [facility] Comment on above: Performed By: #### C BCMarcia ####[facility] [place], [place] [address] ,Tristan Traylor M.D. FCAP, FASCP WBC Auto #/vol (Bld) 9.1 10:3/uL Normal 3.5-11.0 [facility] Comment on above: Performed By: #### C BCD ####[facility] Jwx[address] [place], [place] [address] ,Tristan Traylor M.D. FCAP, FASCP Cardiac Troponin Ton 018 Troponin T.cardiac mass conc ug/L Normal 0-0.99152 [facility] Comment on above: Result Comment: Less than measurable range Performed By: #### C HEM7, MG, TPNT, TSH ####[facility] [address] [place] [address] ,Tristan Traylor M.D. FCAP, FASCP Group A Strep NAATon 018 Group A Strep NAAT S pyo DNA Throat Ql PCR: GAS NOT DETECTED Normal [facility] Comment on above: Order Comment: NEGAT MARLIN for: Group A Strep by NAATNote: Negative results should be followed up with a CULTUREfor patients when clinical symptoms persist or during anoutbreak of Acute Rheumatic Fever. Performed By: #### A LAURA, CP1 ####[facility] O[address] [place], [place] 8[address] ,Tristan Traylor M.D. FCAP, FASCP Magnesium Bloodon 11-09-2017 Magnesium mass conc 1.9 MG/DL Normal 1.6-2.6 [facility] Comment on above: Performed By: #### C HEM7, MG, TPNT, TSH ####[facility] [address] [place] [address] ,[address], FASCP Test Urineon 11-09 HCG ( test) Ql (U) Negative Normal NEGATIVE [facility] Comment on above: Order Comment: Sourc e Of Urine Specimen? Clean Catch` Performed By: #### P TU, U REFLEX ####[facility] [address] [place] [address] ,[address], FASCP Thyroid Stimulating Hormoneo n 11-09-2017 Thyrotropin Qn 1.9600 uIU/mL Normal 0.270-4.200 [facility] Comment on above: Performed By: #### A LAURA, CP1 ####[facility] [address] [place] [address] ,[address], FASCP Urinalysis with Reflex Cultu reon 11-09-2017 Character Urine CLEAR Normal [facility] Comment on above: Order Comment: Sourc e Of Urine Specimen? Clean Catch` Performed By: #### P TU, U REFLEX ####[facility] Xgr[address] [place] [address] ,Tristan Traylor M.D. FCAP, FASCP Is a Culture Indicated? NO CULTURE ORDERED Normal [facility] Comment on above: Order Comment: Sourc e Of Urine Specimen? Clean Catch` Performed By: #### P TU, U REFLEX ####[facility] [address] [place] [address] ,Tristan Traylor M.D. FCAP, FASCP Epithelial Cell 0-2 Normal 0-2 [facility] Comment on above: Order Comment: Sourc e Of Urine Specimen? Clean Catch` Performed By: #### P TU, U REFLEX ####[facility] [address] [place] [address] ,Tristan Traylor M.D. FCAP, FASCP RBC Test strip #/vol (U) 5-10 Abnormal 0-2 [facility] Comment on above: Order Comment: Sourc e Of Urine Specimen? Clean Catch` Performed By: #### P TU, U REFLEX ####[facility] Yih[address] [place] [address] ,Tristan Traylor M.D. FCAP, FASCP WBC #/vol (U) 0-2 Normal 0-5 [facility] Comment on above: Order Comment: Sourc e Of Urine Specimen? Clean Catch` Performed By: #### P TU, U REFLEX ####[facility] [address] [place] [address] ,Tristan Traylor M.D. FCAP, FASCP Bilirubin Ql (U) Negative Normal NEGATIVE [facility] Comment on above: Order Comment: Sourc e Of Urine Specimen? Clean Catch` Performed By: #### P TU, U REFLEX ####[facility] Fcq[address] [place] [address] ,Tristan Traylor M.D. FCAP, FASCP Color Nom (U) YELLOW Normal [facility] Comment on above: Order Comment: Sourc e Of Urine Specimen? Clean Catch` Performed By: #### P TU, U REFLEX ####[facility] Kvh[address] [place] [address] ,Tristan Traylor M.D. FCAP, FASCP Glucose Ql (U) Negative Normal NEGATIVE [facility] Comment on above: Order Comment: Sourc e Of Urine Specimen? Clean Catch` Performed By: #### P TU, U REFLEX ####[facility] [address] [place] [address] [place] [address] ,Tristan Traylor M.D. FCAP, FASCP Hemoglobin Test strip Ql (U) Negative Normal NEGATIVE [facility] Comment on above: Order Comment: Sourc e Of Urine Specimen? Clean Catch` Performed By: #### P TU, U REFLEX ####[facility] [address] [place] [address] [place] [address] ,Tristan Traylor M.D. FCAP, FASCP Ketones Ql (U) Negative Normal NEGATIVE [facility] Comment on above: Order Comment: Sourc e Of Urine Specimen? Clean Catch` Performed By: #### P TU, U REFLEX ####[facility] [address] [place] [address] [place] [address] ,Tristan Traylor M.D. FCAP, FASCP Leukocyte Esterase Negative Normal NEGATIVE [facility] Comment on above: Order Comment: Sourc e Of Urine Specimen? Clean Catch` Performed By: #### P TU, U REFLEX ####[facility] [address] [place] [address] [place] [address] ,Tristan Traylor M.D. FCAP, FASCP Nitrite Test strip Ql (U) Negative Normal NEGATIVE [facility] Comment on above: Order Comment: Sourc e Of Urine Specimen? Clean Catch` Performed By: #### P TU, U REFLEX ####[facility] Exa[address] [place], [place] [address] ,Tristan Traylor M.D. FCAP, FASCP pH Test strip (U) 6.0 [pH] Normal 5.0-8.5 [facility] Comment on above: Order Comment: Sourc e Of Urine Specimen? Clean Catch` Performed By: #### P TU, U REFLEX ####[facility] Jmj[address] [place], [place] 228[address] ,Tristan Traylor M.D. FCAP, FASCP Protein Test strip Ql (U) Negative Normal NEGATIVE [facility] Comment on above: Order Comment: Sourc e Of Urine Specimen? Clean Catch` Performed By: #### P TU, U REFLEX ####[address] [id number] ,Tristan Traylor M.D. FCAP, FASCP Specific Quil[place] 1.016 Normal 1.005-1.035 [facility] Comment on above: Order Comment: Sourc e Of Urine Specimen? Clean Catch` Performed By: #### P TU, U REFLEX ####[facility] Rwd[address] [place], [place] 8[address]4450 ,Tristan Traylor M.D. FCAP, FASCP Urobilinogen Test strip Qn (U) 0.2 {Dmitry'U}/dL Normal 0-1.0 [facility] Comment on above: Order Comment: Sourc e Of Urine Specimen? Clean Catch` Performed By: #### P TU, U REFLEX ####[facility] Lpq[address] [place], [place] 7628[address] ,Tristan Traylor M.D. FCAP, FASCP XR Foot 3 Views [facility] 03- XR Foot 3 Views [facility] Name: JOHNATHAN ANTONIO [address] [place] [address] Phys: [place] [address] : 1975 Age: 41 Acct: [id number] Loc: P/PHYSCARE MRN/Unit No.: [id number] Status: REG ER Exam Date: 10/29/17 Accession Number: [id number] Exam: [id number] RAD/XR Foot 3 Views Right XR Foot 3 Views Right RIGHT FOOT 3 VIEWS HISTORY: Medial pain, and stiffness following an injury slipping on wet grass. COMPARISON: 11/16/2012 FINDINGS: Mineralization is normal. There is narrowing and minimal hypertrophic degenerative change of the versed MTP joint. No fracture, dislocation or other acute osseous abnormality is seen. A prominent plantar heel spur is now present. IMPRESSION: Interval development of a prominent plantar heel spur when compared with 11/16/2012. 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 CC: YAMILETH AUSTIN; KOBE ARNETT Technologist: CHRISTINE FLOREZ Dictated By: PAMELLA RANDALL Signed Date/Time: 10/29/17, 1053 Dictated Date/Time: 10/29/17 1053 Founder President And Ceo: MIREYA THAO Printed Date/Time: , This report was electronically signed in an other vendor system Normal [facility] Complete Blood Counton 08-15 Hematocrit Auto Volume Fraction (Bld) 46.8 % Normal 35.0-47.0 [facility] Comment on above: Performed By: #### C BC ####[facility] Vib[address] [place] [address] ,Tristan Traylor M.D. FCAP, FASCP Hemoglobin mass conc (Bld) 15.8 g/dL High 11.7-15.7 [facility] Comment on above: Performed By: #### C BC ####[facility] Gel[address] [place], [place] 96339[address] ,Tristan Traylor M.D. FCAP, FASCP MCH Auto Entitic mass (RBC) 32.0 pg Normal 27.0-40.0 [facility] Comment on above: Performed By: #### C BC ####[facility] [place], [place] 8273050 ,Tristan Traylor M.D. FCAP, FASCP MCV Auto Entitic volume (RBC) 94.7 CU uM Normal 80.0-100.0 [facility] Comment on above: Performed By: #### C BC ####[facility] [place] [address] [id number] ,Tristan Traylor M.D. FCAP, FASCP Mean Corpusc Hgb Concentration 33.8 G/DL Normal 31.0-36.0 [facility] Comment on above: Performed By: #### C BC ####[facility] [place], [place] 558[address]50 ,Tristan Traylor M.D. FCAP, FASCP Platelets Auto #/vol (Bld) 301 10:3/uL Normal 130-440 [facility] Comment on above: Performed By: #### C BC ####[facility] [place] [address] [id number] ,Tristan Traylor M.D. FCAP, FASCP RBC Auto #/vol (Bld) 4.94 10:6/uL Normal 3.80-5.20 [facility] Comment on above: Performed By: #### C BC ####[facility] [place] [address] [phone] ,Tristan Traylor M.D. FCAP, FASCP Red Cell Distribution 12.8 Normal 11.5-14.5 [facility] Comment on above: Performed By: #### C BC ####[facility] Zma[address] [place], [place] 83308[address] ,Tristan Traylor M.D. FCAP, FASCP WBC Auto #/vol (Bld) 9.0 10:3/uL Normal 3.5-11.0 [facility] Comment on above: Performed By: #### C BC ####[facility] Tlp[address] [place] [address] ,Tristan Traylor M.D. FCAP, FASCP Comprehensive Metabolic Pane ruperto 08-15-2017 Albumin mass conc 4.3 g/dL Normal 4.0-4.9 [facility] Comment on above: Performed By: #### A STEVEN SANCHEZ1 ####[facility] [address] [place] [address] [id number] ,Tristan Traylor M.D. FCAP, FASCP ALP enzyme act/vol 57 U/L Normal 35-104 [facility] Comment on above: Performed By: #### A STEVEN SANCHEZ1 ####[facility] [place] [address] [phone] ,Muna LaneAP, FASCP ALT Alanine Transamine 19 U/L Normal 5-33 [facility] Comment on above: Performed By: #### A STEVEN SANCHEZ1 ####[facility] Hsf[address] [place], [place] [phone] ,Muna [address], FASCP Anion gap 3 molar conc 14 mmol/L Normal 9-18 [facility] Comment on above: Performed By: #### A STEVEN SANCHEZ1 ####[facility] Rlx[address] [place], [place] 7673850 ,Muna LaneAP, FASCP AST Aspartate Transaminase 16 U/L Normal 5-32 [facility] Comment on above: Performed By: #### A STEVEN SANCHEZ1 ####[facility] Mir[address] [place], [place] 1003[address] ,Muna LaneAP, FASCP Bilirubin mass conc 0.4 mg/dL Normal 0.15-1.2 [facility] Comment on above: Performed By: #### A STEVEN SANCHEZ1 ####[facility] [address] [place] [address] ,Tristan Traylor M.D. FCAP, FASCP Calcium mass conc 9.1 mg/dL Normal 8.6-10.0 [facility] Comment on above: Performed By: #### A STEVEN SANCHEZ1 ####[facility] [address] [place] [address] ,Tristan Traylor M.D. FCAP, FASCP Chloride molar conc 98 mmol/L Normal 98-107 [facility] Comment on above: Performed By: #### A STEVEN SANCHEZ1 ####[facility] [address] [place], [place] [id number] ,Tristan Traylor M.D. FCAP, FASCP CO2 molar conc 24 mmol/L Normal 22-29 [facility] Comment on above: Performed By: #### A STEVEN SANCHEZ1 ####[facility] [address] [place] [address] ,Muna LaneAP, FASCP Creatinine mass conc 0.65 mg/dL Normal 0.51-0.95 [facility] Comment on above: Performed By: #### A LAURA CP1 ####[facility] [address] [place] [id number] ,Tristan Traylor M.D. FCAP, FASCP GFR/1.73 sq M predicted among non-blacks MDRD vol rate/area (S/P/Bld) mL/min/{1.73_m2} Normal [facility] Comment on above: Result Comment: THE GFR IS ESTIMATED USING THE MDRD STUDY EQUATION.*NOTE* IF THE RACE OF THE PATIENT WAS UNKNOWN AT THE TIME OFREGISTRATION, AND THE PATIENT IS , MULTIPLYTHE EGFR RESULT PROVIDED BY 1.21.NORMAL: EGFR >60.0 Performed By: #### A STEVEN SANCHEZ1 ####[facility] [address] [place], [place] [id number] ,Tristan Traylor M.D. FCAP, FASCP Glucose mass conc 120 mg/dL High 70-100 [facility] Comment on above: Result Comment: INTR EPRETATION FOR FASTING BLOOD GLUCOSE:70-100 mg/dl NORMAL GLUCOSE [id number] mg/dl IMPAIRED FASTING GLUCOSE (PRE-DIABETES)>125 mg/dl DIABETES - ON MORE THAN ONE TESTING Performed By: #### A STEVEN SANCHEZ1 ####[address] [id number] ,Tristan Traylor M.D. FCAP, FASCP Potassium molar conc 4.4 mmol/L Normal 3.6-5.0 [facility] Comment on above: Performed By: #### A STEVEN SANCHEZ1 ####[facility] [place] [address] [id number] ,Muna LaneAP, FASCP Protein mass conc 6.8 g/dL Normal 6.4-8.3 [facility] Comment on above: Performed By: #### A STEVEN SANCHEZ1 ####[facility] [place] [address] [id number] ,Muna LaneAP, FASCP Sodium molar conc 136 mmol/L Normal 136-145 [facility] Comment on above: Performed By: #### A STEVEN SANCHEZ1 ####[facility] [address] [place] [address] [id number] ,Tristan Traylor M.D. FCAP, FASCP Urea nitrogen mass conc (Bld) 10.8 mg/dL Normal 6-20 [facility] Comment on above: Performed By: #### A STEVEN SANCHEZ1 ####[address], [place] [id number] ,Muna LaneAP, FASCP Lipid Profileon 08-15-2017 Cholesterol in HDL mass conc 55 mg/dL Low >65 [facility] Comment on above: Performed By: #### A STEVEN SANCHEZ1 ####[facility] [address] [place] [address] [id number] ,Muna [address]AP, FASCShantel Cholesterol mass conc 200 mg/dL High 0-199 [facility] Comment on above: Performed By: #### A STEVEN SANCHEZ1 ####[address] [id number] ,Muna Lane, FASCP LDL Cholesterol calculated 129 mg/dl High <100 [facility] Comment on above: Performed By: #### A STVEEN SANCHEZ1 ####[facility] [address] [place] [address] [id number] ,[address], FASCP Risk Ratio 3.[address] [facility] Comment on above: Result Comment: RISK NORMALS MEN WOMEN1/[address] 23[address]39 11.04TRIGLYCERIDES >400 MG/DL MAY CAUSE INCONSISTENCIESIN THE LDL. Performed By: #### A LAURA, CP1 ####[facility] [address] [place] [address] [id number] ,[address], FASCP Triglyceride mass conc 79 mg/dL Normal <150 [facility] Comment on above: Performed By: #### A LAURA, CP1 ####[facility] [address] [place], [place] [id number] ,Tristan J. Macatol, M.D. FCAP, FASCP Vital Signs Date Time Vital Sign Value Performing Clinician Facility 02-15-2025 08:24-0400 Body height 158.75 cm Ingrid Woods MA [facility] 02-15-2025 08:24-0400 Body mass index (BMI) [Ratio] 43.77 kg/m2 Ingrid Woods MA [facility].; [facility] 02-15-2025 08:24-0400 Body surface area Derived from formula 2.09 m2 Ingrid Woods MA [facility].; [facility] 02-15-2025 08:24040 Body weight 110.31 kg Ingrid Woods [facility] [employer] [facility].; [facility] 02-15-2025 08:24-0400 Diastolic blood pressure 84 mm[Hg] Ingrid Woods MA [facility] [employer] [facility]. Comment on above: Patient Position: Sitting; Cuff Location : Left Arm; Cuff Size: Standard 02-15-2025 08:24-0400 Heart rate 82 /min Ingrid Woods [facility] [employer] [facility].; [place] [employer] [facility] [employer] [facility]. Comment on above: Pattern: Regular 02-15-2025 08:24-0400 Systolic blood pressure 136 mm[Hg] Ingrid Woods MA [facility] [employer] [facility].; [facility] [employer] [facility]. Comment on above: Patient Position: Sitting; Cuff Location : Left Arm; Cuff Size: Standard 02-14-2025 13:50-0400 Body height 154.94 cm Yahir Gutierrez PA Work Phone: [facility] 02-14-2025 13:50-0400 Body mass index (BMI) [Ratio] 42.5 kg/m2 Yahir Gutierrez PA Work Phone: [facility] 02-14-2025 13:50-0400 Body weight 102.05 kg Yahir Gutierrez PA Work Phone: [facility] 01-21-2025 08:12-0400 Body height 154.94 cm Yahir Gutierrez PA Work Phone: [facility] 01-21-2025 08:12-0400 Body mass index (BMI) [Ratio] 42.5 kg/m2 Yahir Gutierrez PA Work Phone: 5(929)172-488258 [address] 01-21-2025 08:12-0400 Body weight 102.05 kg Yahir Gutierrez PA Work Phone: 2(484)677-568488 [place] [address] 01-07-2025 08:56-0400 Body height 154.94 cm Yahir Gutierrez PA Work Phone: 0(612)511-929588 [place] [address] 01-07-2025 08:56-0400 Body mass index (BMI) [Ratio] 42.5 kg/m2 Yahir Gutierrez PA Work Phone: 6(893)236-309488 [place] [address] 01-07-2025 08:56-0400 Body weight 102.05 kg Yahir Gutierrez PA Work Phone: 5(493)583-511888 [place] [address] 12-16-2024 08:04-0400 Body height 154.94 cm Yahir Gutierrez PA Work Phone: 3(600)004-153588 [place] [address] 12-16-2024 08:04-0400 Body mass index (BMI) [Ratio] 42.5 kg/m2 Yahir Gutierrez PA Work Phone: 2(493)021-759788 [place] [address] 12-16-2024 08:04-0400 Body weight 102.05 kg Yahir Gutierrez PA Work Phone: 6(756)135-659988 [place] [address] 12-14-2024 22:46-0400 Body temperature 97.9 [degF] Yahir Gutierrez PA Work Phone: 5(339)376-544088 [place] [address] 12-14-2024 22:46-0400 Diastolic blood pressure 72 mm[Hg] Yahir Gutierrez PA Work Phone: 0(235)486-576188 [place] [address] 12-14-2024 22:46-0400 Heart rate 88 /min Yahir Gutierrez PA Work Phone: 3(486)417-712288 [place] [address] 12-14-2024 22:46-0400 Respiratory rate 18 /min Yahir Gutierrez PA Work Phone: 5(125)820-626392 [place] [address] 12-14-2024 22:46-0400 SaO2% (BldA) [Mass fraction] 100 % Yahir Gutierrez PA Work Phone: 8(699)861-906092 [place] [address] 12-14-2024 22:46-0400 Systolic blood pressure 138 mm[Hg] Yahir Gutierrez PA Work Phone: 0(251)499-145192 [place] [address] 12-14-2024 21:30-0400 Body height 154.94 cm Yahir Gutierrez PA Work Phone: 9(720)138-209192 [place] [address] 12-14-2024 21:30-0400 Body mass index (BMI) [Ratio] 44 kg/m2 Yahir Gutierrez PA Work Phone: 4(940)460-058692 [place] [address] 12-14-2024 21:30-0400 Body weight 105.7 kg Yahir Gutierrez PA Work Phone: 9(867)326-951692 [place] [address] 11-23-2024 18:00-0400 Diastolic blood pressure 72 mm[Hg] Yahir Gutierrez PA Work Phone: 5(766)621-923992 [place] [address] 11-23-2024 18:00-0400 Heart rate 74 /min Yahir Gutierrez PA Work Phone: 9(606)763-462392 [place] [address] 11-23-2024 18:00-0400 Respiratory rate 20 /min Yahir Gutierrez PA Work Phone: 4(925)977-154592 [place] [address] 11-23-2024 18:00-0400 SaO2% (BldA) [Mass fraction] 100 % Yahir Gutierrez PA Work Phone: 3(835)045-932192 [place] [address] 11-23-2024 18:00-0400 Systolic blood pressure 128 mm[Hg] Yahir Gutierrez PA Work Phone: 0(750)652-000392 [place] [address] 11-23-2024 14:03-0400 Body height 154.94 cm Yahir Gutierrez PA Work Phone: 9(240)633-746792 [place] [address] 11-23-2024 14:03-0400 Body mass index (BMI) [Ratio] 43.1 kg/m2 Yahir Gutierrez PA Work Phone: 5(594)726-642292 [place] [address] 11-23-2024 14:03-0400 Body temperature 97.4 [degF] Yahir Gutierrez PA Work Phone: [facility] 11-23-2024 14:03-0400 Body weight 103.6 kg Yahir Gutierrez PA Work Phone: [facility] 11-17-2024 13:04-0400 Body height 158.75 cm Ingrid Woods MA [facility] [employer] [facility] 11-17-2024 13:04-0400 Body mass index (BMI) [Ratio] 40.5 kg/m2 Ingrid Woods MA [facility], [facility].; [facility], [facility]. 11-17-2024 13:040400 Body surface area Derived from formula 2.02 m2 Ingrid Woods MA [facility], [facility].; [facility], [facility]. 11-17-2024 13:04-0400 Body temperature 98.4 [degF] Ingrid Wodos MA [facility] [place] [employer] [facility] 11-17-2024 13:040400 Body weight 102.06 kg Ingrid Woods MA [facility], [facility].; [employer] [facility] 11-17-2024 13:04-0400 Diastolic blood pressure 93 mm[Hg] Ingrid Woods MA [facility], [facility].; [employer] [facility] Comment on above: Patient Position: Sitting; Cuff Location : Left Arm; Cuff Size: Standard 11-17-2024 13:04-0400 Heart rate 101 /min Ingrid Woods MA [facility] [employer] Comment on above: Pattern: Regular 11-17-2024 13:04-0400 Systolic blood pressure 154 mm[Hg] Ingrid Woods MA [facility] [employer]. Comment on above: Patient Position: Sitting; Cuff Location : Left Arm; Cuff Size: Standard 11-11-2024 14:03-0400 Body height 158.75 cm Mami Eubanks LPN [facility] [employer] 11-11-2024 14:03-0400 Body mass index (BMI) [Ratio] 40.5 kg/m2 Mami Eubanks LPN [facility], [facility].; [facility], [facility]. 11-11-2024 14:03-0400 Body surface area Derived from formula 2.02 m2 [facility].; [facility]. 11-11-2024 14:03-0400 Body temperature 99.2 [degF] [facility].; [place] [employer] [facility], [employer]. Comment on above: Method: Tympanic 11-11-2024 14:03-0400 Body weight 102.06 kg [facility].; [facility]. 11-11-2024 14:03-0400 Diastolic blood pressure 85 mm[Hg] [facility].; [facility]. Comment on above: Patient Position: Sitting; Cuff Location : Left Arm; Cuff Size: Standard 11-11-2024 14:03-0400 Heart rate 85 /min [facility]; [facility]. Comment on above: Pattern: Regular 11-11-2024 14:03-0400 Systolic blood pressure 141 mm[Hg] [facility].; [facility]. Comment on above: Patient Position: Sitting; Cuff Location : Left Arm; Cuff Size: Standard 10-19-2024 09:48-0400 Diastolic blood pressure 85 mm[Hg] Yahir Gutierrez PA-C Work Phone: [facility].; [facility]. Comment on above: Patient Position: Sitting; Cuff Location : Left Arm; Cuff Size: Standard 10-19-2024 09:48-0400 Systolic blood pressure 131 mm[Hg] Yahir Gutierrez PA-C Work Phone: [facility].; [place] [employer] [facility]. Comment on above: Patient Position: Sitting; Cuff Location : Left Arm; Cuff Size: Standard 10-19-2024 08:29-0400 Body height 158.75 cm Ingrid Woods MA [facility].; [facility]. 10-19-2024 08:29-0400 Body mass index (BMI) [Ratio] 40.58 kg/m2 Ingrid Hood MELY [facility], [facility].; [facility]The [employer] [facility]. 10-19-2024 08:290400 Body surface area Derived from formula 2.02 m2 Ingrid Chuck BOONE [facility]The [employer] [facility].; [facility] 10-19-2024 08:290400 Body weight 102.26 kg Ingrid Chuck BOONE [facility] [employer] [facility].; [place] [employer] [facility] [employer] [facility]. 10-19-2024 08:29-0400 Diastolic blood pressure 85 mm[Hg] Ingrid Woods MA [facility] [employer] [facility].; [place] [employer] [facility], [employer]. Comment on above: Patient Position: Sitting; Cuff Location : Left Arm; Cuff Size: Standard 10-19-2024 08:29-0400 Heart rate 91 /min Ingrid Woods MA [facility] [employer] [facility].; [employer]. Comment on above: Pattern: Regular 10-19-2024 08:29-0400 Systolic blood pressure 144 mm[Hg] Ingrid Woods MELY [facility] [employer] [facility].; [employer] [employer]. Comment on above: Patient Position: Sitting; Cuff Location : Left Arm; Cuff Size: Standard 05-11-2024 10:240400 Body height 158.75 cm Ingrid Woods MA [facility] [employer] [facility].; [place] [employer] [facility] [employer] [facility]. 05-11-2024 10:24-0400 Body mass index (BMI) [Ratio] 38.58 kg/m2 Ingrid Woods MA [facility] [employer] [facility].; [place] [employer] [facility] [employer] [facility]. 05-11-2024 10:240400 Body surface area Derived from formula 1.98 m2 Ingrid Woods MA [facility] [employer] [facility].; [place] [employer] [facility] [employer] [facility]. 05-11-2024 10:24-0400 Body temperature 97.5 [degF] Ingrid Woods MA [facility] [employer] [facility].; [employer] [employer]. 05-11-2024 10:24-0400 Body weight 97.24 kg Ingrid Woods MA [facility] [employer] [facility].; [place] [employer] [facility]. 05-11-2024 10:24-0400 Diastolic blood pressure 73 mm[Hg] Ingrid Woods MA [facility]Perfect [employer]. Comment on above: Patient Position: Sitting; Cuff Location : Left Arm; Cuff Size: Standard 05-11-2024 10:24-0400 Heart rate 73 /min Ingrid Woods MA [facility].; [employer]. Comment on above: Pattern: Regular 05-11-2024 10:24-0400 Systolic blood pressure 137 mm[Hg] Ingrid Woods MA [facility] SouthThe [employer]. Comment on above: Patient Position: Sitting; Cuff Location : Left Arm; Cuff Size: Standard 04-14-2024 07:58-0400 Body height 158.75 cm Ingrid Woods MA [facility].; [employer] 04-14-2024 07:58-0400 Body mass index (BMI) [Ratio] 39.06 kg/m2 Ingrid Woods MA [facility].; [employer] 04-14-2024 07:58-0400 Body surface area Derived from formula 1.99 m2 Ingrid Woods MA [facility] [employer] [facility].; [employer], [employer]. 04-14-2024 07:58-0400 Body weight 98.43 kg Ingrid Woods MA [facility]The [employer] [facility].; [employer]. 04-14-2024 07:58-0400 Diastolic blood pressure 82 mm[Hg] Ingrid Woods MA [facility].; [employer]. Comment on above: Patient Position: Sitting; Cuff Location : Left Arm; Cuff Size: Standard 04-14-2024 07:58-0400 Heart rate 79 /min Ingrid Woods MA [employer] [employer]. Comment on above: Pattern: Regular 04-14-2024 07:58-0400 Systolic blood pressure 128 mm[Hg] Ingrid Woods MA [employer] [employer].; [employer]. Comment on above: Patient Position: Sitting; Cuff Location : Left Arm; Cuff Size: Standard 03-03-2024 11:01-0400 Body height 158.75 cm Ingrid Woods MA [facility] [employer] [facility].; [employer] [facility] [employer] [facility]. 03-03-2024 11:01-0400 Body mass index (BMI) [Ratio] 40.94 kg/m2 Ingrid Woods MA [facility]The [employer] [facility].; [facility] [employer] [facility]. 03-03-2024 11:01-0400 Body surface area Derived from formula 2.03 m2 Ingrid Woods MA [facility]The [employer] [facility].; [facility]The [employer] [facility]. 03-03-2024 11:01-0400 Body weight 103.17 kg Ingrid Woods MA [facility]The [employer] [facility].; [place] [employer] [facility] [employer] [facility]. 03-03-2024 11:01-0400 Diastolic blood pressure 88 mm[Hg] Ingrid Woods MA [facility]The [employer] [facility].; [place] [employer] [facility]. Comment on above: Patient Position: Sitting; Cuff Location : Left Arm; Cuff Size: Standard 03-03-2024 11:01-0400 Heart rate 86 /min Ingrid Woods MA [facility].; [employer]. Comment on above: Pattern: Regular 03-03-2024 11:01-0400 Inhaled oxygen concentration 21 % Ingrid Woods MA [facility]The [employer] [facility].; [employer] [facility]. Comment on above: Room air 03-03-2024 11:01-0400 SaO2% (BldA) [Mass fraction] 96 % Ingrid Woods MA [facility]The [employer] [facility].; [place] [employer]. 03-03-2024 11:01-0400 Systolic blood pressure 137 mm[Hg] Ingrid Woods MA [facility]The [employer] [facility].; [employer] [employer]. Comment on above: Patient Position: Sitting; Cuff Location : Left Arm; Cuff Size: Standard 11-22-2023 17:29-0400 Body temperature 97.6 [degF] [facility] 11-22-2023 17:29-0400 Diastolic blood pressure 78 mm[Hg] [facility] 11-22-2023 17:29-0400 Heart rate 60 /min [facility] 11-22-2023 17:29-0400 Respiratory rate 14 /min [facility] 11-22-2023 17:29-0400 SaO2% (BldA) [Mass fraction] 99 % [facility] 11-22-2023 17:29-0400 Systolic blood pressure 145 mm[Hg] [facility] 11-22-2023 15:34-0400 Body height 157.48 cm [facility] 11-22-2023 15:34-0400 Body mass index (BMI) [Ratio] 41.1 kg/m2 [facility] 11-22-2023 15:34-0400 Body weight 102.01 kg [facility] 10-15-2023 08:02-0400 Body temperature 98.8 [degF] [facility] 10-15-2023 08:02-0400 Diastolic blood pressure 84 mm[Hg] [facility] 10-15-2023 08:02-0400 Heart rate 107 /min [facility] 10-15-2023 08:02-0400 Respiratory rate 19 /min [facility] 10-15-2023 08:02-0400 SaO2% (BldA) [Mass fraction] 96 % [facility] 10-15-2023 08:02-0400 Systolic blood pressure 139 mm[Hg] [facility] 10-15-2023 06:32-0400 Body height 154.94 cm [facility] 10-15-2023 06:32-0400 Body mass index (BMI) [Ratio] 42.5 kg/m2 [facility] 10-15-2023 06:32-0400 Body weight 102.2 kg [facility] 02-21-2023 03:18-0400 Heart rate 78 /min [facility] 02-21-2023 03:18-0400 Respiratory rate 18 /min [facility] 02-21-2023 03:18-0400 SaO2% (BldA) [Mass fraction] 97 % [facility] 02-21-2023 01:57-0400 Body height 157.48 cm [facility] 02-21-2023 01:57-0400 Body mass index (BMI) [Ratio] 42.4 kg/m2 [facility] 02-21-2023 01:57-0400 Body temperature 97.9 [degF] [facility] 02-21-2023 01:57-0400 Body weight 105.3 kg [facility] 02-21-2023 01:57-0400 Diastolic blood pressure 82 mm[Hg] [facility] 02-21-2023 01:57-0400 Systolic blood pressure 141 mm[Hg] [facility] 08-26-2022 04:28-0500 Body height 154.94 cm [facility] 08-26-2022 04:28-0500 Body mass index (BMI) [Ratio] 37.8 kg/m2 [facility] 08-26-2022 04:28-0500 Body temperature 96.8 [degF] [facility] 08-26-2022 04:28-0500 Body weight 90.71 kg [facility] 08-26-2022 04:28-0500 Diastolic blood pressure 101 mm[Hg] [facility] 08-26-2022 04:28-0500 Heart rate 132 /min [facility] 08-26-2022 04:28-0500 Respiratory rate 18 /min [facility] 08-26-2022 04:28-0500 SaO2% (BldA) [Mass fraction] 99 % [facility] 08-26-2022 04:28-0500 Systolic blood pressure 181 mm[Hg] [facility] Encounters Encounter Date Encounter Type Care Provider Facility Start: 03-09-2025 ambulatory Yahir Gutierrez Facility:[facility] Start: 02-15-2025 End: 02-15-2025 Periodic preventive med est patient 40-64yrs Yahir Gutierrez PA-C Work Phone: [email or web address] [facility] Start: 02-15-2025 End: 02-15-2025 Physical examination Yahir Gutierrez PA-C Work Phone: [employer]. Start: 02-14-2025 End: 02-14-[address] Tony Latham MD -[facility] Work Phone: Start: 02-14-2025 End: 02-14-2025 ambulatory Yahir HOLGUIN Work Phone: -[facility] Start: 01-21-2025 End: 01-21-[address] Maximilian Corrales DO -[facility] Work Phone: Start: 01-21-2025 End: 01-21-2025 ambulatory Yahir Gutierrez PA Work Phone: [facility] Work Phone: Start: 01-07-2025 End: 01-07-2025 Patient encounter procedure Olivia REDMONDC -[facility] Work Phone: Start: 01-07-2025 End: 01-07-2025 ambulatory Yahir Gutierrez PA Work Phone: [facility] [facility] Work Phone: Start: 01-04-2025 End: 01-04-2025 ambulatory OLIVIA STALLINGS [facility] Start: 12-16-2024 End: 12-16-2024 ambulatory Yahir Gutierrez PA Work Phone: [facility] Work Phone: Start: 12-16-2024 End: 12-16-2024 Patient encounter procedure Olivia LOREDO [facility] Work Phone: Start: 12-14-2024 End: 12-14-2024 Emergency department patient visit Yahir Gutierrez PA Work Phone: -Emergency Department Work Phone: Start: 12-10-2024 End: 12-10-2024 Patient encounter procedure Yahir Gutierrez PA-C Work Phone: [facility] Start: 12-07-2024 ambulatory YAHIR GUTIERREZ Facility:[facility] Start: 12-07-2024 End: 12-07-2024 Subsequent hospital visit by physician [facility] Work Phone: [facility] Start: 11-23-2024 End: 11-23-2024 Emergency department patient visit Yahir Gutierrez PA Work Phone: -Emergency Department Work Phone: Start: 11-18-2024 End: 11-18-2024 Orders Yahir Gutierrez PA-C Work Phone: [employer] Start: 11-17-2024 End: 11-17-2024 Office outpatient visit 25 minutes Yahir Gutierrez PA-C Work Phone: [employer] Start: 11-17-2024 Review Yahir Gutierrez P A-C Work Phone: [employer] Start: 11-15-2024 End: 11-15-2024 Medication Yahir Gutierrez PA-C Work Phone: [employer] Start: 11-11-2024 End: 11-11-2024 Office outpatient visit 15 minutes Yahir Gutierrez PA-C Work Phone: [employer] Start: 10-20-2024 End: 10-20-2024 Orders Yahir Gutierrez PA-C Work Phone: [employer] Start: 10-19-2024 End: 10-19-2024 Office outpatient visit 25 minutes Yahir Gutierrez PA-C Work Phone: [employer] Start: 05-11-2024 End: 05-11-2024 Office outpatient visit 15 minutes Yahir Gutierrez PA-C Work Phone: [employer] Start: 04-14-2024 End: 04-14-2024 Office outpatient visit 25 minutes Yahir Gutierrez PA-C Work Phone: [employer] Start: 03-17-2024 End: 03-17-2024 ambulatory [facility] Facility:[facility] Start: 03-03-2024 End: 03-03-2024 Initial preventive medicine new patient 40-64yrs Yahir Gutierrez PA-C Work Phone: [employer] Start: 03-03-2024 Patient encounter procedure [facility]ierrez [facility]-C [facility] Start: 03-03-2024 End: 03-03-2024 Physical examination Yahir Gutierrez PA-C Work Phone: [facility] Start: 11-22-2023 End: 11-22-2023 Emergency department patient visit [facility]-Emergency Department Work Phone: Start: 10-15-2023 End: 10-15-2023 Emergency department patient visit [facility]-Emergency Department Work Phone: Start: 02-21-2023 End: 02-21-2023 Emergency department patient visit [facility]-Emergency Department Work Phone: Start: 01-22-2023 End: 01-22-2023 ambulatory [facility] Work Phone: Start: 01-22-2023 End: 01-22-2023 Discharged Recurring [facility]-Physical Therapy Work Phone: Start: 01-22-2023 Registered Rec[facility]ring [facility] Therapy Work Phone: Start: 08-26-2022 End: 08-26-2022 Emergency department patient visit [facility]-Emergency Department Start: 02-22-2022 End: 02-22-2022 ambulatory GARCIA LABOY [facility] Start: 12-12-2017 End: 12-12-2017 Emergency department patient visit KOBE MELQUIADES Facility:[facility] Start: 11-09-2017 End: 11-09-2017 Emergency department patient visit KOBE MELQUIADES Facility:[facility] Start: 11-09-2017 End: 11-09-2017 Emergency department patient visit KOBE MELQUIADES Facility:[facility] Start: 10-29-2017 End: 10-29-2017 Emergency department patient visit KOBE MELQUIADES Facility:[facility] Start: 08-15-2017 End: 08-15-2017 Patient encounter procedure KOBE MELQUIADES Facility:[facility] Physical examination [facility] [employer] [facility] [facility] Physical examination Ingrid Woods MA [facility], [facility]; [facility]. Procedures Date Procedure Procedure Detail Performing Clinician Start: 02-15-2025 End: 02-14-2025 Depression screening Yahir J Gutierrez PA-C Work Phone: Start: 02-15-2025 End: 02-14-2025 Pos clin depres scrn f/u doc Yahir J Gutierrez PA-C Work Phone: Start: 02-15-2025 End: 02-14-2025 Scr dep neg, no plan reqd Yahir J Gutierrez PA-C Work Phone: Start: 11-23-2024 X-ray of knee, four or more views Yahir Gutierrez PA Work Phone: Start: 11-23-2024 Estimated creatinine clearance Yahir Gutierrez PA Work Phone: Start: 11-18-2024 End: 12-13-2024 Ct abdomen & pelvis w/contrast material Yahir J Gutierrez PA-C Work Phone: Start: 11-17-2024 End: 11-22-2024 Ecg routine ecg w/least 12 lds w/i&r Yahir J Gutierrez PA-C Work Phone: Start: 11-15-2024 End: 12-09-2024 Radiologic exam knee complete 4/more views Yahir J Gutierrez PA-C Work Phone: Start: 03-03-2024 End: 04-09-2024 Brncdilat rspse spmtry pre&post-brncdilat admn Yahir J Gutierrez PA-C Work Phone: Start: 03-03-2024 End: 03-02-2024 Depression screening Yahir J Gutierrez PA-C Work Phone: Start: 03-03-2024 End: 03-02-2024 Scr dep neg, no plan reqd Yahir J Gutierrez PA-C Work Phone: Start: 03-03-2024 End: 03-17-2024 Screening mammography bi 2-view breast inc cad Yahir J Gutierrez PA-C Work Phone: Start: 11-22-2023 Plain chest X-ray Start: 10-15-2023 Plain chest X-ray Start: 08-26-2022 Plain x-ray of humerus Start: 08-04-2022 End: 08-04-2022 Left arm Ingrid Woods MA Start: 08-04-2002 End: 08-04-2002 Tonsillectomy Ingrid Woods MA Start: 08-04-1990 End: 08-04-1990 left foot Ingrid Woods MA Plan of Treatment Date Care Activity Detail Author Start: 04-04-2025 Influenza vaccination Influenza Vaccine (Season Ended) [facility] Start: 02-15-2025 Screening mammography bi 2-view breast inc cad Mammogram Bilateral Screening Digital w/CAD (66531) with 3D (tomosynthesis), bilateral (11077) Start: 15-Feb-[address] [facility] [employer] [facility] Start: 02-15-2025 Blood count complete auto&auto difrntl wbc CBC, PLATELETS & AUT DIFF (F) (02696) Start: 15-Feb-2025 08:35-04:[address] [facility] Start: 02-15-2025 Patient encounter procedure Medical; PHYSICAL - annual physical [facility]. Start: 15-Feb-2025 08:30-04:00 DELIA Gutierrez Appointment Request [facility] Start: 12-20-2024 Blood count complete auto&auto difrntl wbc CBC, PLATELETS & AUT DIFF (F) (83373) Start: 20-Dec-[address] [facility] Start: 12-20-2024 Nursing evaluation of patient and report Medical; Nurse visit - CBC- [facility] Start: 20-Dec-2024 10:20-04:00 NURSE, FLOAT Appointment [facility] [employer] [place], [place]. Start: 12-14-2024 [facility] Start: 11-23-2024 [facility] Start: 11-18-2024 End: 11-18-2024 Ct abdomen & pelvis w/contrast material [facility] [employer] Start: 11-17-2024 Assay of lipase LIPASE (04275) Start: 17-Nov-2024 13:31-04:[address] [facility] [employer] [facility] Start: 11-17-2024 Assay of amylase AMYLASE (70209) Start: 17-Nov-2024 13:31-04:[address] [facility] [employer] [facility] Start: 11-17-2024 Comprehensive metabolic panel CMP w/ GFR* (21721) Start: 17-Nov-2024 13:31-04:00 Request [employer]; [facility] [employer] Start: 11-17-2024 Blood count complete auto&auto difrntl wbc CBC, PLATELETS & AUT DIFF (F) (26621) Start: 17-Nov-2024 13:31-04:00 Request [employer]; [facility] [employer] Start: 11-17-2024 End: 11-17-2024 Ecg routine ecg w/least 12 lds w/i&r ELECTROCARDIOGRAM WITH INTERPRETATION (32817) Date: 17-Nov-2024 [employer]; [facility] Start: 11-15-2024 Radiologic exam knee complete 4/more views Knee x-ray, Left Complete (12270) Start: 15-Nov-[address] [facility] Start: 10-19-2024 Lipid panel LIPID PANEL (83841) Start: 19-Oct-2024 08:43-04:[address] [facility] [employer] [facility] Start: 10-19-2024 Assay of thyroid stimulating hormone tsh TSH W/ REFL FREE T4 (88098,86184) (84104) Start: 19-Oct-2024 08:41-04:[address] [facility] [employer] [place], [place]. Start: 10-19-2024 Comprehensive metabolic panel CMP w/ GFR* (43243) Start: 19-Oct-2024 08:41-04:[address] [facility] [employer] [facility] Start: 10-19-2024 Blood count complete auto&auto difrntl wbc CBC, PLATELETS & AUT DIFF (F) (79038) Start: 19-Oct-2024 08:41-04:00 Request [employer]; [employer] Start: 07-14-2024 Patient encounter procedure Medical; EXTENDED RTN - [address] [facility] Start: 14-Jul-2024 08:20-05:00 DELIA Gutierrez Appointment [facility] Start: 05-11-2024 [facility] streptococcus group a Rapid Strep Test (60662) Start: 11-May-2024 Request [employer]; [employer] Start: 04-14-2024 Follow-up encounter Medical; EXTENDED RTN - followup [employer]. Start: 14-Apr-2024 08:00-04:[address] DELIA Gutierrez App[address]ment Request [facility] Start: 04-04-2024 Covid-19 Vaccine ( season) Covid-19 Vaccine () [facility] Start: 03-03-2024 Brncdilat rspse spmtry pre&post-brncdilat admn PFT Protocol (39864) -- not in office Start: 03-Mar-2024 Intent [employer]; [employer] Start: 03-03-2024 Screening mammography bi 2-view breast inc cad Mammogram Bilateral Screening Digital w/CAD (34638) with 3D (tomosynthesis), bilateral (20430) Start: 03-Mar-[address] [facility] [employer] [facility] Start: 03-03-2024 Lipid panel LIPID PANEL (50907) Start: 03-Mar-2024 11:44-04:[address] [facility] [employer] [place], [place]. Start: 03-03-2024 Comprehensive metabolic panel CMP w/ GFR* (82193) Start: 03-Mar-2024 11:44-04:[address] [facility] [employer] Start: 03-03-2024 Urnls dip stick/tablet rgnt auto w/o microscopy Urinalysis, Automated w/o micro (in house)* (67248) Start: 03-Mar-2024 11:30-04:00 Request [facility]; [facility] Start: 11-22-2023 [facility] Start: 10-15-2023 End: 10-15-2023 [facility] Start: 12-20-2020 Diabetes Screening Diabetes Screening [facility] Start: 12-20-2020 Lipid panel Lipid Screening [facility] Start: 12-20-2020 Screening for malignant neoplasm of colon [facility] Start: 2015 Screening for malignant neoplasm of breast Mammogram Screening [facility] Start: 12-20-1996 Screening for malignant neoplasm of cervix Cervical Cancer Screening [facility] Start: 12-20-1994 Hepatitis B Vaccine (1 of 3 - 19+ 3-dose series) Hepatitis B Vaccine (1 of 3 - + 3-dose series) [facility] Start: 12-20-1994 Urine microalbumin profile DTaP,Tdap,Td Vaccine (1 - Tdap) [facility] Start: 12-20-1993 Anxiety Screening Anxiety Screening [facility] Start: 12-20-1993 Depression Screening Depression Screening [facility] Start: 12-20-1993 Hepatitis C screening Hepatitis C Screening [facility] Start: 12-20-1993 HIV screening HIV Screening [facility] MR Lower Extremity Joint [facility] MR Lower Extremity Joint [facility] Patient Education [facility] Work Phone: Patient referral [facility] Work Phone: Immunizations Immunization Date Immunization Notes Care Provider Fa jony 08-25-2021 Covid (Pfizer) Yahir HOLGUIN Work Phone: [facility] 08-01-2021 Covid (Pfizer) Yahir HOLGUIN Work Phone: [facility] Payers Date Payer Category Payer Private Health Insurance [employer] [id number] 2023 Private Health Insurance [id number] 2017 Self-pay 2017 Unknown [id number] 1975 Unknown [id number] .[id number] 1975 Unknown [id number] [id number] .2.902 Unknown [id number] [id number] .2.512 Unknown [id number] 2.840.1.396081.3.579 .2.512 Unknown [id number] [id number] .2.512 Unknown [id number] [id number] .2.512 Unknown [id number] [id number] .2.512 Unknown [id number] Unknown [employer] Unknown [id number] [id number] .2.462 Unknown [id number] 2.16.840.1.373253.3.579 .2.462 Unknown [id number] 2.16.840.1.114368.3.579 .2.462 Unknown [id number] 2.16.840.1.046889.3.579 .2.462 Unknown [id number] 2.16840.1.860113.3.579 .2.462 Unknown [id number] 2.16.840.1.433951.3.579 .2.462 Unknown [id number] 2.16.840.1.812822.3.579 .2.462 Unknown [id number] 2.16.840.1.471996.3.579 .2.462 Unknown [id number] [id number] .2.462 Social History Date Type Detail Facility Start: 08-26-2022 End: 11-22-2023 Tobacco smoking status NHIS Unknown if ever smoked [facility] Start: 1975 Sex Assigned At Female [facility] Current Work/Study Status: Current Work/Study Status: ; Full-time. [employer]. Spouse Spouse [employer]; [employer] Full-time [employer]; [employer] Work Phone: Start: 11-23-2024 End: 12-15-2024 Tobacco smoking status NHIS Smokes tobacco daily (finding) [facility] Start: 11-23-2024 Sex Female (finding) [facility] Start: 1975 Sex assigned at Not on file [facility] Gender identity Not on file [facility] inic NEGATED: Highlighted row [facility] Mental Status Date Assessment Result Facility 11-23-2024 Cognitive function Level Of Cons ciousness Awake;Alert;Appropriate;Follow s Commands [facility] Work Phone: 11-22-2023 Cognitive function Level Of Cons ciousness Awake;Alert;Appropriate;Follow s Commands [facility] Work Phone: Clinical Notes 03-07-2023 to 02-14-2025 Note Date & Type Note Facility 02-14-2025 Progress note [facility] 02-14-2025 Progress note Note Date/Time February 14, 2025 2:26pm [facility] [address] [place] [address] [place] [id number] OFFICE VISIT Date of Service: 02/14/25 MR#: [id number] Acct: [id number] Name: JOHNATHAN ANTONIO Rep #: [id number] : 1975 Provider: Dr. Cyrus Latham MD Age/Sex: 49/F Location: [facility] Status: Signed Intake Vital Signs 01/21/25 08:12 02/14/25 13:50 Height 5 ft 1 in 5 ft 1 in Weight: 225 lb 225 lb BMI 42.5 42.5 Intake Visit Reasons: LEFT KNEE Chief Complaint: Left knee pain Accompanied by: Is patient in pain?: Yes Pain scale (1-10): 6 Allergies amoxicillin Allergy (Verified 02/14/25 13:53) Hives latex Allergy (Verified 02/14/25 13:53) Hives Sulfa (Sulfonamide Antibiotics) Allergy (Verified 02/14/25 13:53) Rash Medications ?Medication ?Instructions ?Recorded ?Confirmed ?Type albuterol sulfate 90 mcg/actuation 2 inh inhalation Q4 H PRN shortness 10/15/23 02/14/25 Rx aerosol inhaler (Proventil HFA) of breath or wheezing #8.5 grams ibuprofen 600 mg tablet 600 mg PO Q6-8H PRN pain #90 tabs 01/07/25 02/14/25 Rx Have you fallen in the past year?: Yes PFSH Medical History Tear of medial meniscus of left knee Tobacco abuse Desire for detoxification Alcohol abuse Alcohol dependence Chest pain Sleep apnea Former smoker Smoker Contusion of left hand Contusion of left wrist Contusion of left forearm Left elbow contusion Asthma Surgical History History of tonsillectomy Status post left foot surgery Social History Smoking Status: Current every day smoker tobacco type: cigarettes HPI LEFT KNEE Details: This documentation accurately reflects the service provided and the decisions made by me, Dr. Tony Latham MD 02/14/25 3656. Part of today?s visit was documented by [ ], acting as scribe. JOHNATHAN ANTONIO is a 49 year old F here today for L knee pain, mild OA and MM root tear. Medial posterior and anterior knee pain. 4 months. 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. does a lot of walking. some mechanical symptoms, positive catching / locking. cortisone made it worse. here with her . PT no. no prior operations on the knee. Using a brace. Supplemental Info [facility] [address] [place], [place] [id number] Knee 4 or More Views MR#: [id number] Acct: [id number] Name: JOHNATHAN ANTONIO Rep #: [id number] : 1975 F 48 From: Stanislav Sampson MD PCP: EZIO Carey Status: REG ER Study: Knee 4 or More Views Date of Exam: 11/23/24 Exam# [id number] Ordering Dr: Gordo Viera MD PROCEDURE: KNEE 4 OR MORE VIEWS 11/23/2024 REASON FOR EXAM: ATRAUMATIC LEFT KNEE PAIN TECHNIQUE: 4 view(s) of the left knee FINDINGS: Bones: No fracture. No suspicious bone lesion. Joints: Normal alignment. Effusion: No effusion. Soft tissues: Soft tissues are unremarkable. Other: RAD/Knee 4 or More Views IMPRESSION: Normal left knee. Reading Location: [id number] per Dr. Corrales notes... 01/04/2025 MRI left knee: Report from outside facility read as radial tear involving posterior root medial meniscus with diffuse amorphous increased signal within the medial meniscus compatible with intrasubstance degeneration. Medial extrusion of the body of the medial meniscus. Mild degenerative changes of the medial patellofemoral compartment trace joint effusion on spectra system. I independently reviewed the imaging. Concur with radiologist report. Coding Level of Care Code Off vis,est,level 4 Diagnoses Primary osteoarthritis of left knee M17.12 Osteoarthritis type: primary Tear of medial meniscus of left knee S83.242A Assessment and Plan Assessment and Plan (1) Osteoarthritis of left knee: Status: Acute Qualifiers: Osteoarthritis type: primary Qualified Code(s): M17.12 - Unilateral primary osteoarthritis, left knee Plan: 49-year-old female with left knee pain failed conservative management including intra-articular cortisone injection with mild degenerative changes of the medialpatellofemoral compartments normal overall alignment medial meniscus tear that involves the posterior horn and the medial meniscus root on the MRI with mild extrusion, I concur with radiologist interpretation the root does appear to be torn. Can consider ongoing conservative management although more recent literature of last 5 years suggest that in this situation patients may do better with medial meniscus repair and specifically root repair to restore the meniscus hoop stresses and that they may protect the cartilage of the medial compartment more effectively and lead to less rapid degenerative changes over the next 2 years. This would require a period of nonweightbearing for 6 weeks generally I put these patients on VTE prophylaxis during that time with hinged knee brace lockedin full extension for ambulation but nonweightbearing with crutches for 6 weeks and passive range of motion only with physical therapy during that time for recovery 3 to 6 months for the surgery. The smoking and obesity will increase the chance of complications nonhealing of the tear or other risks associate with surgical management. Patient understands wished to proceed with left knee arthroscopy, medial meniscus repair (including the root). plan to be placed the patient on aspirin twice daily 81 mg postoperatively Pros and cons risks and benefits were discussed with the patient including but not limited to infection, pain, stiffness, bleeding, damage to surrounding structures, neurovascular injury, recurrence or retear, failure or wear of hardware or fixation, instability, fracture, deep vein thrombosis and pulmonary embolism, anesthetic risks, , patient dissatisfaction, need for further surgery and other risks. Patient understood and wished to proceed with surgery,and signed the informed consent documentation. (2) Tear of medial meniscus of left knee: Status: Acute Clinical Quality Measures Falls Risk Screening/Assistive Devices Have you fallen in the past year?: Yes Ortho Exam General General: Yes no acute distress Neurologic: Yes alert and Yes oriented x3 Psychologic: Yes reasonable and appropriate Right Knee Patella Translation: 2 Left Knee Skin/Wound: Yes CDI, No ecchymosis, No erythema and No swelling Examination: Yes med jt line tenderness, No Lat jt line tenderness, No TTP inf pole patella, No Crepitus, Yes Pain with flexion, Yes Alla's Test, No TTP Patellar tendon, No TTP Tibial tubercle, No TTP Pes Anserine and No Illiotibial band tenderness Quad Atrophy: No Stability: NML: Anterior Drawer, NML: Tina, NML: Posterior Drawer, NML: Valgus 0, NML: Valgus 30, NML: Varus 0 and NML: Varus 30 Apprehension with Lateral Translation: No Patella Translation: 2 Patellar Tilt Normal: Yes Patella Grind: No KNEE: antalgic gait, NVI, normal alignment, rom 0-120. 02/14/25 1426 <Electronically signed by Tony sharma MD> Date _ Tony Latham MD Cosigner Signature: Date (if applicable) CC: ~ [facility] Work Phone: 1(334) 646-521105-15-2025 Evaluation note* Diagnosis Onset Date Resolution Status Admit Date Internal derangement of knee , acute acute December 16, 2024 7 :58am Pain and swelling of left knee acute December 16, 2024 7:58am [facility] Work Phone: 1(511) 824-305105-15-2025 Evaluation note* Diagnosis Onset Date Resolution Status Admit Date Internal derangement of knee , acute acute December 16, 2024 7 :58am Pain and swelling of left knee acute December 16, 2024 7:58am Acute medial meniscus tear acute January 07, 2025 8:54am Internal derangement of knee , acute acute January 07, 2025 8 :54am Pain and swelling of left knee acute January 07, 2025 8:54am Internal derangement of knee , acute acute January 21, 2025 8:10am Osteoarthritis of left knee acute January 21, 2025 8:10am [facility] Work Phone: 1(434) 788-533405-15-2025 Evaluation note* Diagnosis Onset Date Resolution Status Admit Date Internal derangement of knee , acute acute December 16, 2024 7 :58am Pain and swelling of left knee acute December 16, 2024 7:58am Acute medial meniscus tear acute January 07, 2025 8:54am Internal derangement of knee , acute acute January 07, 2025 8 :54am Pain and swelling of left knee acute January 07, 2025 8:54am Internal derangement of knee , acute acute January 21, 2025 8:10am Osteoarthritis of left knee acute January 21, 2025 8:10am Osteoarthritis of left knee acute February 14, 2025 1:43pm Tear of medial meniscus of l eft knee acute February 14, 2025 1:43pm [facility] Work Phone: 1(842) 277-748405-06-2025 History of Present illness Narrative* Christine Rosales RT(R) - 12/07/2024 9:00 AM EDT Radiology Service Progress Note DATE OF SERVICE: December 07, 2024 TIME: 3:21 PM PATIENT IDENTITY VERIFICATION COMPLETED USING TWO (2) STANDARD IDENTIFIERS: Name and Date of confirmed by patient verbally. FALL SCREENING: Has the patient had 2 falls in the last year or 1 fall with injury or currently using an Ambulatory Assistive Device (Walker, Cane, Wheelchair, Crutches, etc.)? No PATIENT GENDER DATA: Assigned female at . status: : No status:NO. PATIENT RELEVANT IMPLANT DATA REVIEWED: Yes PATIENT PRESENTS WITH AN IMPLANTABLE OR ATTACHED SMALL ENGINE MECHANIC: No ALLERGIES: Reviewed and unchanged CONTRAST ALLERGY: NO. EXAM: CT -CONTRAST INDUCED NEPHROPATHY RISK FACTORS: Not applicable CREATININE: No results found for: CREAT, EGFROTH, EGFRAA P.O.C.T. RESULTS: POC done: Yes, See Lab Tab December 07, 2024 TREATMENT: N/A PERIPHERAL IV DATA: Ambulatory: A peripheral IV was started in the Left antecubital site with a Angio cath: 22 gauge. RADIOLOGY DEPARTMENT: CT; Exam(s) Completed: Abdomen/Pelvis SIGNATURE: RT Shiva(Sam) PATIENT NAME: Johnathan Antonio DATE: December 07, 2024 TIME: 3:21 PM [facility] NoteHNO ID: [id number] Author: CHRISTINE ROSALES RT(R) Service: ? Author Type: Needle Grader Type: Progress Notes Filed: 12/07/2024 15:21 Note Text: Radiology Service Progress Note DATE OF SERVICE: December 07, 2024 TIME: 3:21 PM PATIENT IDENTITY VERIFICATION COMPLETED USING TWO (2) STANDARD IDENTIFIERS: Name and Date of confirmed by patient verbally. FALL SCREENING: Has the patient had 2 falls in the last year or 1 fall with injury or currently using an Ambulatory Assistive Device (Walker, Cane, Wheelchair, Crutches, etc.)? No PATIENT GENDER DATA: Assigned female at . status: : No status: NO. PATIENT RELEVANT IMPLANT DATA REVIEWED: Yes PATIENT PRESENTS WITH AN IMPLANTABLE OR ATTACHED SMALL ENGINE MECHANIC: No ALLERGIES: Reviewed and unchanged CONTRAST ALLERGY: NO. EXAM: CT -CONTRAST INDUCED NEPHROPATHY RISK FACTORS: Not applicable CREATININE: No results found for: CREAT, EGFROTH, EGFRAA P.O.C.T. RESULTS: POC done: Yes, See Lab Tab December 07, 2024 TREATMENT: N/A PERIPHERAL IV DATA: Ambulatory: A peripheral IV was started in the Left antecubital site with a Angio cath: 22 gauge. RADIOLOGY DEPARTMENT: CT; Exam(s) Completed: Abdomen/Pelvis SIGNATURE: RT Shiva(R) PATIENT NAME: Johnathan Antonio DATE: December 07, 2024 TIME: 3:21 [facility]04-22-2025 Radiology Diagnostic study note [facility] [address] [place] [id number] Knee 4 or More Views MR#: [id number] Acct: [id number] Name: JOHNATHAN ANTONIO Rep #: [id number] : 1975 F 48 From: Andrei Sampson MD PCP: EZIO Carey Status: REG ER Study:Knee 4 or More Views Date of Exam: 11/23/24 Exam# [id number] Ordering Dr: Wendy Viear MD PROCEDURE: KNEE 4 OR MORE VIEWS 11/23/2024 REASON FOR EXAM: ATRAUMATIC LEFT KNEE PAIN TECHNIQUE: 4 view(s) of the left knee FINDINGS: Bones: No fracture. No suspicious bone lesion. Joints: Normal alignment. Effusion: No effusion. Soft tissues: Soft tissues are unremarkable. Other: RAD/Knee 4 or More Views IMPRESSION: Normal left knee. Reading Location: [id number] CC: Dr. Gordo Viera MD; EZIO Carey ~ Founder President And Ceo: Signed [facility]08-04-2023 Discharge summary Author Omero Zapata [facility] March 07, 2023 2:39pm Note Date/Time March 07, 2023 2:3 9pm [facility] Physical Therapy [facility] [address] [place] [address] / REHABILITATION SERVICES DISCHARGE SUMMARY MR#: [id number] Acct: [id number] Name: JOHNATHAN ANTONIO Rep #: [id number] : 1975 47 From: Omero Zapata DPT, OCS, CSCS Referring Dr.: Dr. Enrique Vasques MD Stat us: REG RCR Insurance: [employer] SELF [employer]Y INSURANCE Patient Information Patient Information: JOHNATHAN ANTONIO was seen in my office for initial evaluation on 12/24/22. The following Plan of Care was established for this patient: POC Established Initial Frequency: 2-3x /Week Initial Duration: 4-6 Weeks Anticipated Interventions Patient/Client Instruction: Educate patient on: Condition and Plan of Care For the Purpose of:: To decrease pain, To increase ROM, To improve nutrient delivery to tissue, To improve muscle performance and motor function, To increase tolerance to activity/condition/position and To improve ability of physical actions for home/community/work/leisure Therapeutic Exercise to Include: Strength training, Flexibilty training, PassiveROM, Active ROM and Scapular Strength/Stabilization For the Purpose of:: To decrease pain, To decrease swelling/inflammation, To increase ROM, To improve nutrient delivery to tissue, To increase oxygenation perfusion, To increase tolerance to activity/condition/position and To improve ability of physical actions for home/community/work/leisure Manual Therapy Techniques to Include: Mobilization, Passive ROM and Soft tissue mobilization For the Purpose of:: To decrease pain and To increase ROM TENS: Yes Cryotherapy (ice pack, ice massage): Yes For the Purpose of:: To decrease pain Last Seen Last Seen: This patient was last seen in our office 01/22/23. Pertinent comments regardingtheir Physical therapy will appear below: Pt seen 8 visits and felt 85% better. She was to f/u two weeks after last session but did not attend. At this point, it has been over 6 weeks and I will discontinue due to nonattendance. At this point I will be discontinuing this patient from physical therapy. I would be happy to see this patient again in the future if found appropriate by the physician. Thank you! Omero Zapata, NED, OCS, CSCS Balance/Gait/Functional tests Balance/Special Test Scores Quick DASH Score: 11.3625 <Electronically signed by Omero Zapata DPT, CATHERINE, CSCS> 03/07/23 1439 CC: Dr. Enrique Vasques MD; No Primary Care Physician ~ EBG Signed [facility] Work Phone: Discharge summary Author Braulio Reynolds [facility] February 21, 2023 3:10am Note Date/Time February 21, 2023 2:08 am [facility] Medical Records Department [address] [place] [address] Emergency Department Summary 02/21/23 MR#: [id number] Acct: [id number] Name: JOHNATHAN ANTONIO Rep #:[id number] : 1975 47 From: Braluio Reynolds MD PCP: Care Physician,No Primary Status :REG ER Location: ED HPI History of Present Illness Chief Complaint: Back Informant: patient Narrative Narrative: Patient has been having pain in her left low back for the past 2 days, started when she stood up after getting some coffee at home 1 morning. Has been persistent ever since. Hurts more to move around. Radiates into her left proximal thigh and she has some pain in her left groin. No nausea, vomiting, diarrhea, fevers, chills. She states she usually does not urinate a lot, and she seems to been urinating more lately. She denies any dysuria or hematuria orother urinary symptoms. She is concerned she could have a urinary infection, she states she had one in the past and she think she had pain like this. [facility] Medical History Asthma Contusion of left forearm Contusion of left hand Contusion of left wrist Left elbow contusion Home Medications NK 02/21/23 [History Last Taken Unknown] hydrocodone-acetaminophen 5-325mg 5mg-325mg 1 tab PO Q6H PRN PRN Pain 2 days #8 TABLETS 02/21/23 [Rx Last Taken Unknown] naproxen 500 mg tablet 500 mg PO BID PRN #20 tabs 02/21/23 [Rx Last Taken Unknown] Allergy/AdvReac Type Severity Reaction Status Date / Time amoxicillin Allergy Hives Verified 02/21/23 01:57 Sulfa (Sulfonamide Allergy Rash Verified 02/21/23 01:57 Antibiotics) Surgical History Status post left foot surgery Social History Smoking Status: Current every day smoker tobacco type: cigarettes ROS ROS ED Constitutional Constitutional ED: Denies chills or fever(s) Gastrointestinal Gastrointestinal: Denies abdominal pain, constipation, fecal incontinence, nausea or vomiting Genitourinary Genitourinary ED: Reports other Details: no urinary retention ; Denies abdominal discomfort or urinary incontinence Musculoskeletal Musculoskeletal: Reports as per HPI and back pain; Denies neck pain Integumentary Denies rash or wounds Neurologic Neurologic: Denies headache(s), paresthesias or weakness EXAM Physical Exam Const Vital Signs: 02/21/23 01:57 Temperature 97.9 F Temperature Source Temporal Pulse Rate 96 Respiratory Rate 16 Blood Pressure 141/82 H Blood Pressure Mean 101 Pulse Ox 99 Positive well nourished, well developed and obese General Appearance ED: well developed and NAD Nutritional Appearance: obese HEENT Negative for trauma or tenderness Eyes PERRL and EOMs intact bilaterally Neck full ROM and supple GI normal to inspection, nondistended, normoactive bowel sounds, soft to palpation and non-tender GI Narrative: Tender at the left ASIS, not the left lower quadrant Back/Spine normal to inspection Back/Spine Narrative: Ipsilateral left straight leg raise increases back pain without radicular symptoms. Tender at the left SI joint no other areas of back tenderness no midline tenderness. No rash. Lumbar Spine / Lower Back: ROM limited, paraspinal muscle tenderness and straight leg raise negative bilaterally; Negative for lumbar spinal tenderness Extremity normal to inspection, full ROM and no pedal edema Neuro oriented x3 and no sensory deficits noted Sensorium / Orientation: alert Motor Exam: strength 5/5 throughout Deep Tendon Reflexes: Rt Patellar (L4): 2+, Lt Patellar (L4): 2+, Rt Ankle (S1):2+ and Lt Ankle (S1): 2+ Deep Tendon Reflexes Back: Rt Patellar (L4): 2+, Lt Patellar (L4): 2+, Rt Ankle (S1): 2+ and Lt Ankle (S1): 2+ Plantar Reflex: Downgoing: bilateral Psych mental status grossly normal and thought process normal Skin no rashes or lesions noted and no wounds MDM MDM MDM Narrative Medical decision making narrative: As I discussed with this patient, I am happy to check her urine if she would like, and she would. However, I do not think her back pain has anything to do with her bladder or kidney. She does not have pain high in the CVA to suggest pyelonephritis or a renal process. She is tender in the left SI joint where herpain is, and I suspect this is sacroiliitis which we discussed. I reviewed her urinalysis, she does have positive nitrite but the rest of her urinalysis is unremarkable. I am sending this for a culture but I do not think she needs to be treated with an antibiotic right now. Given prescriptions for analgesics and appropriate discharge instructions regarding follow-up. Patient is feeling much better after analgesics here in the emergency department in the form of Toradol injection and an oral Udall. Lab Data Attestation: I reviewed the patient's lab results. Labs: Laboratory Results - last 24 hr 02/21/23 02:15 Urine Color Yellow Urine Clarity Clear Urine pH 6.0 Ur Specific [place] 1.010 Urine Protein Negative Urine Glucose (UA) Normal Urine Ketones Negative Urine Occult Blood Negative Urine Nitrite Positive H Urine Bilirubin 3 H Urine Urobilinogen 8 H Ur Leukocyte Esterase 25 H Urine RBC 0 SEEN Urine WBC 0-5 SEEN Ur Squamous Epith Cells 5-10 SEEN Urine Bacteria 1+ Urine Mucus 0 SEEN Discharge Plan Triage Chief Complaint: Back ED Provider: Braulio Reynolds Dx/Rx/DC Orders Clinical Impression: Acute left-sided low back pain Instructions: ED Sacroiliitis Prescriptions: New hydrocodone-acetaminophen [hydrocodone-acetaminophen] 5-325 mg tablet 1 tab PO Q6H PRN PRN (Reason: Pain) 2 Days Qty: 8 0RF naproxen 500 mg tablet 500 mg PO BID PRN Qty: 20 0RF No Action NK Primary Care Provider: Care Physician,No Primary Referrals: Doctor,Your [Non-Staff] - 1 Week if not improving Activity Restrictions/Additional Instructions: We sent a culture of your urine, if it returns consistent with infection, you will be contacted about starting an antibiotic. Disposition Disposition: Home, Self Care What to do if you have Problems For any increased pain, shortness of breath, bleeding, nausea or vomiting, chestpain, or any unexpected problems, contact your Primary Care Provider. Call [facility] ([phone]) or report to the closest Emergency Room. Call 911 if necessary. 02/21/23309 <Electronically signed by Braulio Reynolds MD> Cosigner Signature (if applicable): CC: No Primary Care Physician ~ Signed [facility] Work Phone: Evaluation noteNo assessment information available [facility] Work Phone: Evaluation note* Diagnosis Onset Date Resolution Status Admit Date Internal derangement of knee , acute acute December 16, 2024 7 :58am Pain and swelling of left knee acute December 16, 2024 7:58am [facility] Work Phone: Hospital Discharge instructions Additional Instructions Maintain splint and sling for comfort. Pain medicine as prescribed will likely need surgery. Dr. Corrales's office will reach out to you to be seen.[facility] Work Phone: Hospital Discharge instructions Additional Instructions We sent a culture of your urine, if it returns consistent with infection, you will be contacted about starting an antibiotic.[facility] Work Phone: Hospital Discharge instructions Additional Instructions Prednisone 40 mg/day with for the next 10 days. Albuterol inhaler 2 puffs every 2 hours as needed for wheezing or shortness of breath. Follow-up with a local primary care physician. Return if worse. Long-term try to stop smoking.[facility] Work Phone: Hospital Discharge instructions Additional Instructions Your screening blood work and testing looks normal today. I recommend getting a blood pressure cuff and checking the reading on your upper arm once a day. Take it after you have been calm and sitting for about 5 minutes. Keep a daily log and follow-up with a primary care doctor. [facility] Work Phone: Hospital Discharge instructions Additional Instructions Ice to your knee to decrease pain and swelling. Motrin for pain and swelling. Follow-up if not improving for further evaluation. Your x-ray today and labs were good. Your liver enzymes were normal.[facility] Work Phone: Hospital Discharge instructions Additional Instructions Take medications as prescribed. Follow-up with orthopedics for your knee pain. Follow-up with your doctor for sciatica symptoms. Follow through with your physical therapy.[facility] Work Phone: Reason for referral (narrative)No reason for referral information availableWTrumb[facility] Work Phone: Summary Purpose Family History No Family History Records Found Arthritis Status:Active Comments:Mother. Autoimmune disorder Status:Active Comments:Son . Diabetes Mellitus Type I Status:Active Comment s:Mother. Heart Disease Status:Active Comments:Materna l Grandfather. Hypertension Status:Active Comments:Father. Lung Cancer Status:Active Comments:Materna l Grandmother. Arthritis Status:Active Comments:Mother. Autoimmune disorder Status:Active Comments:Son . Diabetes Mellitus Type I Status:Active Comment s:Mother. Heart Disease Status:Active Comments:Materna l Grandfather. Hypertension Status:Active Comments:Father. Lung Cancer Status:Active Comments:Materna l Grandmother. Arthritis Status:Active Comments:Mother. Autoimmune disorder Status:Active Comments:Son . Diabetes Mellitus Type I Status:Active Comment s:Mother. Heart Disease Status:Active Comments:Materna l Grandfather. Hypertension Status:Active Comments:Father. Lung Cancer Status:Active Comments:Materna l Grandmother. Arthritis Status:Active Comments:Mother. Autoimmune disorder Status:Active Comments:Son . Diabetes Mellitus Type I Status:Active Comment s:Mother. Heart Disease Status:Active Comments:Materna l Grandfather. Hypertension Status:Active Comments:Father. Lung Cancer Status:Active Comments:Materna l Grandmother. Arthritis Status:Active Comments:Mother. Autoimmune disorder Status:Active Comments:Son . Diabetes Mellitus Type I Status:Active Comment s:Mother. Heart Disease Status:Active Comments:Materna l Grandfather. Hypertension Status:Active Comments:Father. Lung Cancer Status:Active Comments:Materna l Grandmother. Arthritis Status:Active Comments:Mother. Autoimmune disorder Status:Active Comments:Son . Diabetes Mellitus Type I Status:Active Comment s:Mother. Heart Disease Status:Active Comments:Materna l Grandfather. Hypertension Status:Active Comments:Father. Lung Cancer Status:Active Comments:Materna l Grandmother. Arthritis Status:Active Comments:Mother. Autoimmune disorder Status:Active Comments:Son . Diabetes Mellitus Type I Status:Active Comment s:Mother. Heart Disease Status:Active Comments:Materna l Grandfather. Hypertension Status:Active Comments:Father. Lung Cancer Status:Active Comments:Materna l Grandmother. Arthritis Status:Active Comments:Mother. Autoimmune disorder Status:Active Comments:Son . Diabetes Mellitus Type I Status:Active Comment s:Mother. Heart Disease Status:Active Comments:Materna l Grandfather. Hypertension Status:Active Comments:Father. Lung Cancer Status:Active Comments:Materna l Grandmother. Arthritis Status:Active Comments:Mother. Autoimmune disorder Status:Active Comments:Son . Diabetes Mellitus Type I Status:Active Comment s:Mother. Heart Disease Status:Active Comments:Materna l Grandfather. Hypertension Status:Active Comments:Father. Lung Cancer Status:Active Comments:Materna l Grandmother. Arthritis Status:Active Comments:Mother. Autoimmune disorder Status:Active Comments:Son . Diabetes Mellitus Type I Status:Active Comment s:Mother. Heart Disease Status:Active Comments:Materna l Grandfather. Hypertension Status:Active Comments:Father. Lung Cancer Status:Active Comments:Materna l Grandmother. Arthritis Status:Active Comments:Mother. Autoimmune disorder Status:Active Comments:Son . Diabetes Mellitus Type I Status:Active Comment s:Mother. Heart Disease Status:Active Comments:Materna l Grandfather. Hypertension Status:Active Comments:Father. Lung Cancer Status:Active Comments:Materna l Grandmother. Arthritis Status:Active Comments:Mother. Autoimmune disorder Status:Active Comments:Son . Diabetes Mellitus Type I Status:Active Comment s:Mother. Heart Disease Status:Active Comments:Materna l Grandfather. Hypertension Status:Active Comments:Father. Lung Cancer Status:Active Comments:Materna l Grandmother. Arthritis Status:Active Comments:Mother. Autoimmune disorder Status:Active Comments:Son . Diabetes Mellitus Type I Status:Active Comment s:Mother. Heart Disease Status:Active Comments:Materna l Grandfather. Hypertension Status:Active Comments:Father. Lung Cancer Status:Active Comments:Materna l Grandmother. Arthritis Status:Active Comments:Mother. Autoimmune disorder Status:Active Comments:Son . Diabetes Mellitus Type I Status:Active Comment s:Mother. Heart Disease Status:Active Comments:Materna l Grandfather. Hypertension Status:Active Comments:Father. Lung Cancer Status:Active Comments:Materna l Grandmother. Arthritis Status:Active Comments:Mother. Autoimmune disorder Status:Active Comments:Son . Diabetes Mellitus Type I Status:Active Comment s:Mother. Heart Disease Status:Active Comments:Materna l Grandfather. Hypertension Status:Active Comments:Father. Lung Cancer Status:Active Comments:Materna l Grandmother. Arthritis Status:Active Comments:Mother. Autoimmune disorder Status:Active Comments:Son . Diabetes Mellitus Type I Status:Active Comment s:Mother. Heart Disease Status:Active Comments:Materna l Grandfather. Hypertension Status:Active Comments:Father. Lung Cancer Status:Active Comments:Materna l Grandmother. Arthritis Status:Active Comments:Mother. Autoimmune disorder Status:Active Comments:Son . Diabetes Mellitus Type I Status:Active Comment s:Mother. Heart Disease Status:Active Comments:Materna l Grandfather. Hypertension Status:Active Comments:Father. Lung Cancer Status:Active Comments:Materna l Grandmother. Arthritis Status:Active Comments:Mother. Autoimmune disorder Status:Active Comments:Son . Diabetes Mellitus Type I Status:Active Comment s:Mother. Heart Disease Status:Active Comments:Materna l Grandfather. Hypertension Status:Active Comments:Father. Lung Cancer Status:Active Comments:Materna l Grandmother. Arthritis Status:Active Comments:Mother. Autoimmune disorder Status:Active Comments:Son . Diabetes Mellitus Type I Status:Active Comment s:Mother. Heart Disease Status:Active Comments:Materna l Grandfather. Hypertension Status:Active Comments:Father. Lung Cancer Status:Active Comments:Materna l Grandmother. Arthritis Status:Active Comments:Mother. Autoimmune disorder Status:Active Comments:Son . Diabetes Mellitus Type I Status:Active Comment s:Mother. Heart Disease Status:Active Comments:Materna l Grandfather. Hypertension Status:Active Comments:Father. Lung Cancer Status:Active Comments:Materna l Grandmother. Arthritis Status:Active Comments:Mother. Autoimmune disorder Status:Active Comments:Son . Diabetes Mellitus Type I Status:Active Comment s:Mother. Heart Disease Status:Active Comments:Materna l Grandfather. Hypertension Status:Active Comments:Father. Lung Cancer Status:Active Comments:Materna l Grandmother. Arthritis Status:Active Comments:Mother. Autoimmune disorder Status:Active Comments:Son . Diabetes Mellitus Type I Status:Active Comment s:Mother. Heart Disease Status:Active Comments:Materna l Grandfather. Hypertension Status:Active Comments:Father. Lung Cancer Status:Active Comments:Materna l Grandmother. Arthritis Status:Active Comments:Mother. Autoimmune disorder Status:Active Comments:Son . Diabetes Mellitus Type I Status:Active Comment s:Mother. Heart Disease Status:Active Comments:Materna l Grandfather. Hypertension Status:Active Comments:Father. Lung Cancer Status:Active Comments:Materna l Grandmother. Arthritis Status:Active Comments:Mother. Autoimmune disorder Status:Active Comments:Son . Diabetes Mellitus Type I Status:Active Comment s:Mother. Heart Disease Status:Active Comments:Materna l Grandfather. Hypertension Status:Active Comments:Father. Lung Cancer Status:Active Comments:Materna l Grandmother. Arthritis Status:Active Comments:Mother. Autoimmune disorder Status:Active Comments:Son . Diabetes Mellitus Type I Status:Active Comment s:Mother. Heart Disease Status:Active Comments:Materna l Grandfather. Hypertension Status:Active Comments:Father. Lung Cancer Status:Active Comments:Materna l Grandmother. Arthritis Status:Active Comments:Mother. Autoimmune disorder Status:Active Comments:Son . Diabetes Mellitus Type I Status:Active Comment s:Mother. Heart Disease Status:Active Comments:Materna l Grandfather. Hypertension Status:Active Comments:Father. Lung Cancer Status:Active Comments:Materna l Grandmother. Arthritis Status:Active Comments:Mother. Autoimmune disorder Status:Active Comments:Son . Diabetes Mellitus Type I Status:Active Comment s:Mother. Heart Disease Status:Active Comments:Materna l Grandfather. Hypertension Status:Active Comments:Father. Lung Cancer Status:Active Comments:Materna l Grandmother. Arthritis Status:Active Comments:Mother. Autoimmune disorder Status:Active Comments:Son . Diabetes Mellitus Type I Status:Active Comment s:Mother. Heart Disease Status:Active Comments:Materna l Grandfather. Hypertension Status:Active Comments:Father. Lung Cancer Status:Active Comments:Materna l Grandmother. Arthritis Status:Active Comments:Mother. Autoimmune disorder Status:Active Comments:Son . Diabetes Mellitus Type I Status:Active Comment s:Mother. Heart Disease Status:Active Comments:Materna l Grandfather. Hypertension Status:Active Comments:Father. Lung Cancer Status:Active Comments:Materna l Grandmother. Arthritis Status:Active Comments:Mother. Autoimmune disorder Status:Active Comments:Son . Diabetes Mellitus Type I Status:Active Comment s:Mother. Heart Disease Status:Active Comments:Materna l Grandfather. Hypertension Status:Active Comments:Father. Lung Cancer Status:Active Comments:Materna l Grandmother. Arthritis Status:Active Comments:Mother. Autoimmune disorder Status:Active Comments:Son . Diabetes Mellitus Type I Status:Active Comment s:Mother. Heart Disease Status:Active Comments:Materna l Grandfather. Hypertension Status:Active Comments:Father. Lung Cancer Status:Active Comments:Materna l Grandmother. Arthritis Status:Active Comments:Mother. Autoimmune disorder Status:Active Comments:Son . Diabetes Mellitus Type I Status:Active Comment s:Mother. Heart Disease Status:Active Comments:Materna l Grandfather. Hypertension Status:Active Comments:Father. Lung Cancer Status:Active Comments:Materna l Grandmother. Advance Directives No Advanced Directives Records Found Advance Directive Response Recorded Date/ Time Living Will No August 26 4:33am Power of [place]umper [place] No August 26, 2022 4:33am Advance Directive Response Recorded Date/ Time Living Will No February 21, 2023 1:57am Power of [place] No February 21 1:57am Advance Directive Response Recorded Date/ Time Living Will No October 15, 2023 6:47am Power of [place] No October 14 6:47am Advance Directive Response Recorded Date/ Time Living Will No November 22, 2023 5:13pm Power of [place] No November 21 5:13pm Advance Directive Response Recorded Date/ Time Do you have a Healthcare Power of [place]umper [place]? No November 23, 2024 5:43pm Advance Directive Response Recorded Date/ Time Do you have a Healthcare Power of [place]? No November 23, 2024 5:43pm Do you have a Healthcare Power of [place]umper [place]? No December 14, 2024 9:44pm Chief Complaint and Reason for Visit Chief Complaint LEFT SHOULDER PAIN R /T INJURY Chief Complaint CLOSED DISTAL TRNSVR S/L HUMERUS. PT- L SHOULDER. BACK Chief Complaint sob Chief Complaint sob hypertension Chief Complaint Admit Date GEN. ILLNESS November 23, 2024 2:0 2pm Chief Complaint Admit Date GEN. ILLNESS November 23, 2024 2:0 2pm LLE PAIN December 14, 2024 9:29p m Chief Complaint Admit Date GEN. ILLNESS November 23, 2024 2:0 2pm LLE PAIN December 14, 2024 9:29p m LEFT KNEE December 16, 2024 7:58a m Reason for Visit Admit Date Internal derangement of knee, acute December 16, 2024 7:58am Pain and swelling of left knee December 16, 2024 7:58am Chief Complaint Admit Date GEN. ILLNESS November 23, 2024 2:0 2pm LLE PAIN December 14, 2024 9:29p m LEFT KNEE December 16, 2024 7:58a m LEFT KNEE January 07, 2025 8:54a m Chief Complaint Admit Date GEN. ILLNESS November 23, 2024 2:0 2pm LLE PAIN December 14, 2024 9:29p m LEFT KNEE December 16, 2024 7:58a m LEFT KNEE January 07, 2025 8:54a m LEFT KNEE January 21, 2025 8:10 am Reason for Visit Admit Date Internal derangement of knee, acute December 16, 2024 7:58am Pain and swelling of left knee December 16, 2024 7:58am Acute medial meniscus tear January 07 8:54am Internal derangement of knee, acute January 07, 2025 8:54am Pain and swelling of left knee January 07, 2025 8:54am Internal derangement of knee, acute January 21, 2025 8:10am Osteoarthritis of left knee January 21 8:10am Chief Complaint Admit Date GEN. ILLNESS November 23, 2024 2:0 2pm LLE PAIN December 14, 2024 9:29p m LEFT KNEE December 16, 2024 7:58a m LEFT KNEE January 07, 2025 8:54a m LEFT KNEE January 21, 2025 8:10 am LEFT KNEE February 14, 2025 1:43 pm Reason for Visit Admit Date Internal derangement of knee, acute December 16, 2024 7:58am Pain and swelling of left knee December 16, 2024 7:58am Acute medial meniscus tear January 07 8:54am Internal derangement of knee, acute January 07, 2025 8:54am Pain and swelling of left knee January 07, 2025 8:54am Internal derangement of knee, acute January 21, 2025 8:10am Osteoarthritis of left knee January 21 8:10am Osteoarthritis of left knee February 14 1:43pm Tear of medial meniscus of left knee Feb 1:43pm Additional Source Comments INFORMATION SOURCE (unrecogn ized section and content) DATE CREATED AUTHOR 07/13/2018 [facility] DATE CREATED AUTHOR AUTHOR'S ORGANIZ ATION 08/31/2020 [facility] DATE CREATED AUTHOR AUTHOR'S ORGANIZ ATION 02/25/2022 [facility] DATE CREATED AUTHOR AUTHOR'S ORGANIZ ATION 09/25/2024 [facility] DATE CREATED AUTHOR AUTHOR'S ORGANIZ ATION 12/12/2024 [facility] DATE CREATED AUTHOR AUTHOR'S ORGANIZ ATION 01/10/2025 [facility] DATE CREATED AUTHOR AUTHOR'S ORGANIZ ATION 02/20/2025 [facility] DATE CREATED AUTHOR AUTHOR'S ORGANIZ ATION [facility]/04/20[facility] (unrecognized sec tion and content) Team Status: Active Member Role Status Dates No Primary Care Physician Primary Care Provider Active Team Status: Inactive Member Role Status Dates No Primary Care Physician Primary Care Provider Active Dr. Enrique Vasques MD Attending Provider, Referr ing Provider Active Team Status: Inactive Member Role Status Dates No Primary Care Physician Primary Care Provider Active Dr. Braulio Reynolds MD Attending Provider, Emergency Provider Active Team Status: Active Member Role Status Dates No Primary Care Physician Primary Care Provider Active Dr. Enrique Vasques MD Attending Provider, Referr ing Provider Active Team Status: Inactive Member Role Status Dates No Primary Care Physician Primary Care Provider Active Dr. Braulio Reynolds MD Emergency Provider Active Team Status: Inactive Member Role Status Dates Dr. Jose A Renae DO Emergency Provider Active No Primary Care Physician Primary Care Provider Active Team Status: Inactive Member Role Status Dates No Primary Care Physician Primary Care Provider Active Dr. Gordo Viera MD Emergency Provider Active Team Status: Inactive Member Role Status Dates No Primary Care Physician Primary Care Provider Active Dr. Omero Preston DO Emergency Provider Active Team Status: Inactive Member Role Status Dates No Primary Care Physician Primary Care Provider Active Dr. Gordo Viera MD Attending Provider, Emergency Pro vider Active Team Status: Active Member Role Status Dates EZIO Carey Primary Care Provider Active Team Status: Inactive Member Role Status Dates Yahir Gutierrez PA Primary Care Provider Active S tart: November 23, 2024 End: November 23, 2024 Dr. Gordo Viera MD Emergency Provider Active S tart: November 23, 2024 End: November 23, 2024 Team Status: Inactive Member Role Status Dates Yahir Gutierrez PA Primary Care Provider Active S tart: November 23, 2024 End: November 23, 2024 Dr. Gordo Viera MD Attending Provider Active S tart: November 23, 2024 End: November 23, 2024 Dr. Gordo Viera MD Emergency Provider Active S tart: November 23, 2024 End: November 23, 2024 Team Status: Inactive Member Role Status Dates Yahir Gutierrez PA Primary Care Provider Active S tart: December 14, 2024 End: December 14, 2024 Dr. Jose A Renae DO Emergency Provider Active Start : December 14, 2024 End: December 14, 2024 Team Status: Inactive Member Role Status Dates Yahir Gutierrez PA Primary Care Provider Active S tart: December 16, 2024 End: December 16, 2024 EZIO Carey Referring Provider Active Star t: December 16, 2024 End: December 16, 2024 FACUNDO Callahan Attending Provider Active Start: December 16, 2024 End: December 16, 2024 Team Status: Inactive Member Role Status Dates EZIO Carey Primary Care Provider Active S tart: December 14, 2024 End: December 14, 2024 Dr. Jose A Renae DO Attending Provider Active Start : December 14, 2024 End: December 14, 2024 Dr. Jose A Renae DO Emergency Provider Active Start : December 14, 2024 End: December 14, 2024 Team Status: Inactive Member Role Status Dates Yahir Gutierrez , PA Primary Care Provider Active S tart: January 07, 2025 End: January 07, 2025 Yahir Gutierrez , PA Referring Provider Active Star t: January 07, 2025 End: January 07, 2025 FACUNDO Callahan Attending Provider Active Start: January 07, 2025 End: January 07, 2025 Team Status: Inactive Member Role Status Dates Yahir Gutierrez , PA Primary Care Provider Active S tart: January 21, 2025 End: January 21, 2025 Yahir Gutierrez , PA Referring Provider Active Star t: January 21, 2025 End: January 21, 2025 Dr. Maximilian Corrales DO Attending Provider Active Start: January 21, 2025 End: January 21, 2025 Team Status: Active Member Role/Relationship Status Dates Yahir Gutierrez , PA Primary Care Provider Active Team Status: Inactive Member Role/Relationship Status Dates Yahir Gutierrez , PA Primary Care Provider Active S tart: November 23, 2024 End: November 23, 2024 Dr. Gordo Viera MD Attending Provider Active S tart: November 23, 2024 End: November 23, 2024 Dr. Gordo Viera MD Emergency Provider Active S tart: November 23, 2024 End: November 23, 2024 Team Status: Inactive Member Role/Relationship Status Dates Yahir Gutierrez , PA Primary Care Provider Active S tart: December 14, 2024 End: December 14, 2024 Dr. Jose A Renae DO Attending Provider Active Start : December 14, 2024 End: December 14, 2024 Dr. Jose A Renae DO Emergency Provider Active Start : December 14, 2024 End: December 14, 2024 Team Status: Inactive Member Role/Relationship Status Dates Yahir Gutierrez , PA Primary Care Provider Active S tart: December 16, 2024 End: December 16, 2024 Yahir Gutierrez , PA Referring Provider Active Star t: December 16, 2024 End: December 16, 2024 FACUNDO Callahan Attending Provider Active Start: December 16, 2024 End: December 16, 2024 Team Status: Inactive Member Role/Relationship Status Dates EZIO Carey Primary Care Provider Active S tart: January 07, 2025 End: January 07, 2025 EZIO Carey Referring Provider Active Star t: January 07, 2025 End: January 07, 2025 FACUNDO Callahan Attending Provider Active Start: January 07, 2025 End: January 07, 2025 Team Status: Inactive Member Role/Relationship Status Dates EZIO Carey Primary Care Provider Active S tart: January 21, 2025 End: January 21, 2025 EZIO Carey Referring Provider Active Star t: January 21, 2025 End: January 21, 2025 Dr. Maximilian Corrales DO Attending Provider Active Start: January 21, 2025 End: January 21, 2025 Team Status: Inactive Member Role/Relationship Status Dates EZIO Carey Primary Care Provider Active S tart: February 14, 2025 End: February 14, 2025 EZIO Carey Referring Provider Active Star t: February 14, 2025 End: February 14, 2025 Tony Latham MD Attending Provider Active St art: February 14, 2025 End: February 14, 2025 Goals (unrecognized section and content) Goals may be documented in a n alternate sectionGoals may be documented in an alternate sectionGoals may be documented in an alternate sectionGoals may be documented in an alternate sectionGoals may be documented in an alternate sectionGoals may be documented in an alternate sectionGoals may be documented in an alternate sectionGoals may be documented in an alternate sectionGoals may be documented in an alternate sectionGoals may be documented in an alternate sectionGoals may be documented in an alternate section Source Comments (unrecognize d section and content) In the event this informatio n is protected by the Federal Confidentiality of Alcohol and Drug Abuse Patient Records regulations: The Federal rules restrict any use of the information to criminally investigate or prosecute any alcohol or drug abuse patient.[facility] the event this information is protected by the Federal Confidentiality of Alcohol and Drug Abuse Patient Records regulations: The Federal rules restrict any use of the information to criminally investigate or prosecute any alcohol or drug abuse patient.[facility] Reason for Visit (unrecogniz ed section and content) Reason Comments Radiology CT Specialty Diagnoses / Procedures Referred By Mari wilson Referred To Contact RADIO [facility] Diagnoses Unspecified abdominal pain Procedures CT ABD/PEL W/CONTRAST Yahir Gutierrez [address] [place] [address] Phone: tel: fax: [facility] [address] [place] [address] Phone: tel: fax: Referral ID Status Reason Start Date Expiration Date V isits Requested Visits Authorized [id number] Pending Review 11/24/2024 01/23/2025 1 1 FOR RECORDS PERTAINING TO PATIENTS WHO ARE [...] BE BASED ON THE PRIMARY CLINICAL RECORDS. [employer] provides no warranty or guarantee of the accuracy or completeness of information in this document.
--- NOTE | 2025-03-09 06:41 | PRE.ANES_ITS ---
ASA Classification* ASA Classification ASA Classification: 3 Assessment & Plan Anesthesia* Anesthesia Assessment Anesthesia Assessment: Discussed sedation and/or anesthesia options, risks, benefits, and alternatives with patient/parents/legal guardian/POA. Questions invited. The patient/parents/legal guardian/POA seems to understand and agrees to proceed with anesthesia plan. Reviewed the physical assessment, medical history, allergy history and patient home medications list prior to surgery/procedure/anesthetic and documented any changes. Performed airway and anesthesia risk assessments. Anesthesia Type Anesthesia Type: General (consented for block only if needs post op) Anesthesia Focused Assessment* Temperature: 98.2 F Pulse Rate: 82 Blood Pressure: 136/61 Respiratory Rate: 17 Pulse Ox: 96 Airway Assessment Mouth opens: >3 cm Mallampati Score: II Labs Anesthesia Preop lab: CBC WBC 12.0 K/mm3 (4.4-11.0) H 11/23/24 16:54 5 RBC 4.94 M/mm3 (4.2-5.4) 11/23/24 16:54 11/23/24 Hgb 15.2 g/dL (12.0-15.0) H 11/23/24 16:54 5 Hct 43.9 % (37-47) 11/23/24 16:54 11/23/24 Plt Count 320 K/mm3 (150-450) 11/23/24 16:54 11/23/24 CHEMISTRY Potassium 4.3 mmol/L (3.3-5.1) 11/23/24 16:54 11/23/24 Sodium 139 mmol/L (133-145) 11/23/24 16:54 11/23/24 BUN 13 mg/dL (4-19) 11/23/24 16:54 11/23/24 Creatinine 0.68 mg/dL (0.70-1.20) L 11/23/24 16:54 Glucose 119 mg/dL (70-99) H 11/23/24 16:54 11/23/24 COAG PT 12.4 SECONDS (11.7-14.9) 02/24/24 00:30 Pre-Assessment Diagnosis/Proposed Procedure Planned Operative Procedure(s): LEFT KNEE ATHROSCOPY MENSICUS REPAIR Anesthesia History Anesthesia History - chemical analytical sampler: Anesthesia History - chemical analytical sampler Hx Hospitalization No 02/23/25 13:44 Any Problems With Anesthesia No 02/23/25 13:44 Cholinesterase deficiency No 02/23/25 13:44 You/Your Family Experience No 02/23/25 13:44 fever (hyperthermia) with Relationship Recent Exposure to Contagious No 03/09/25 06:29 Disease Does patient have nerve No 02/23/25 13:44 stimulator Patient instructed to have device shut off --Does patient have Pacemaker No 03/09/25 06:29 or ICD? When Was Last Pacemaker Check QUESTION #4 FULL TEXT: You/Your Family Experience fever (hyperthermia) with Anesthesia Last Oral Intake Last Oral intake: Last Oral Intake NPO since 00:00 03/09/25 06:29 Meds taken in AM with sips of No 03/09/25 06:29 water? Meds patient instructed to take am of surgery PONV PONV - chemical analytical sampler: PONV - chemical analytical sampler Female Yes 02/23/25 13:44 HX of Motion Sickness No 02/23/25 13:44 HX of N/V After Surgery No 02/23/25 13:44 Non-Smoker No 02/23/25 13:44 Duration of Surgery greater Yes 02/23/25 13:44 than 60 minutes Number of Risk Factors 2 02/23/25 13:44 PONV Score Moderate Risk 02/23/25 13:44 Height & Weight Height & Weight: Anesthesia: Height & Weight Height 5 ft 2 in 03/09/25 06:29 Weight: 112 kg 03/09/25 06:29 Body Mass Index (BMI) 45.1 03/09/25 06:29 Respiratory Assessment Respiratory Assessment - chemical analytical sampler: Respiratory Tract Infection Hx - chemical analytical sampler Hx Respiratory Tract Infection No 02/23/25 13:44 STOP Sleep Apnea STOP Sleep Apnea - chemical analytical sampler: STOP Sleep Apnea - chemical analytical sampler Hx Hypertension No 02/23/25 13:44 Hx Sleep Apnea No 02/23/25 13:44 CPAP BIPAP Do you snore loudly (louder No 02/23/25 13:44 than talking or can be heard Do you often feel tired/ No 02/23/25 13:44 fatigued/ sleepy during daytime? Has anyone observed you stop No 02/23/25 13:44 breathing during sleep? STOP Results Negative 02/23/25 13:44 QUESTION #5 FULL TEXT : Do you snore loudly (louder than talking or can be heard through closed doors)? Tobacco Use History Tobacco Use History - chemical analytical sampler: Tobacco Use History - chemical analytical sampler Tobacco Use Smoking Status Current every day smoker 02/23/25 13:44 Hx Tobacco Use Yes 02/23/25 13:44 Years Smoking Packs Smoked per Day Smoking Cessation Date was within the last 15 years Hx Smoking Cessation Date Hx Smoking Cessation Counseling Hematologic Medial History Hematologic Hx - chemical analytical sampler: Hematologic Medical Hx - engineering technician Hx of Blood Transfusion No 02/23/25 13:44 Hx of Transfusion in last 3 No 02/23/25 13:44 Months Date of Last Transfusion (if within last 3 months) Ever experience any problems No 02/23/25 13:44 with transfusion(s)? 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 confused, unrespo /Reproduction History /Reproductive History - chemical analytical sampler: /Reproductive Hx- chemical analytical sampler Hx Now No 02/23/25 13:44 Gestational Age (in weeks): EDC: Hx Hx Para Hx Section SAB No 02/23/25 13:44 Active Medications Active Medications: Current Medications Generic Name Dose Route Start Last Admin Trade Name Freq PRN Reason Stop Dose Admin Cefazolin Sodium 2 gm/ Sodium 110 mls @ 200 mls/hr 03/09/25 11:30 Chloride IV 03/09/25 12:02 INTRAOP ONE Lactated Ringer's 1,000 mls @ 15 mls/hr 03/09/25 06:00 IV .Q48H KRISTIAN PFSH Medical History Wears glasses Anxiety Depression Alcohol use History of steroid therapy Arthritis Fatty liver Restless legs History of diverticulitis History of pain when walking History of stress test History of irregular heartbeat Hx of fracture of arm Tear of medial meniscus of left knee Smoker Contusion of left hand Contusion of left wrist Contusion of left forearm Left elbow contusion Asthma Home Medications ?Medication ?Instructions ?Recorded ?Last Taken ?Type albuterol sulfate 90 mcg/actuation 2 inh inhalation Q4 H PRN shortness 10/15/23 Unknown Rx aerosol inhaler (Proventil HFA) of breath or wheezing #8.5 grams ibuprofen 600 mg tablet 600 mg PO Q6-8H PRN pain #90 tabs 01/07/25 Unknown Rx Allergy/AdvReac Type Severity Reaction Status Date / Time amoxicillin Allergy Hives Verified 03/09/25 06:29 latex Allergy Hives Verified 03/09/25 06:29 Sulfa (Sulfonamide Allergy Rash Verified 03/09/25 06:29 Antibiotics) Surgical History Hx of hysterectomy History of endometrial ablation History of hysteroscopy History of tonsillectomy Status post left foot surgery Social History Smoking Status: Current every day smoker tobacco type: cigarettes Review of Systems (Anesthesia) ROS Narrative System reviewed and no additional complaints, except as documented.
--- NOTE | 2025-03-09 07:07 | HP.PCM_ITS ---
HPI - General HPI Narrative JOHNATHAN CAMPUZANO, is a 49 F who presents for left knee arthroscopy, medial meniscus repair (including the root). no change to h and p. rab, post op instructions, narcotic counselling. left knee marked. ok to proceed. no further questions or concerns. MR#: [id number] Acct: [id number] Name: JOHNATHAN CAMPUZANO Rep #: [id number] : 1975 Provider: Dr. Tony Latham MD Age/Sex: 49/F Location: [facility] [place] Status: Signed Intake Vital Signs 01/22/2508:12 02/14/2513:50 Height 5 ft 1 in 5 ft 1 in Weight: 225 lb 225 lb BMI 42.5 42.5 Intake Visit Reasons: LEFT KNEE Chief Complaint: Left knee pain Accompanied by: Is patient in pain?: Yes Pain scale (1-10): 6 Allergies amoxicillin Allergy (Verified 02/14/25 13:53) Hiveslatex Allergy (Verified 02/14/25 13:53) HivesSulfa (Sulfonamide Antibiotics) Allergy (Verified 02/14/25 13:53) Rash Medications ?Medication ?Instructions ?Recorded ?Confirmed ?Type albuterol sulfate 90 mcg/actuation 2 inh inhalation Q4H PRN shortness 10/1402/14/25 Rx aerosol inhaler (Proventil HFA) of breath or wheezing #8.5 grams ibuprofen 600 mg tablet 600 mg PO Q6-8H PRN pain #90 tabs 02/14/25 Rx Have you fallen in the past year?: Yes PFSH Medical History Tear of medial meniscus of left knee Tobacco abuse Desire for detoxification Alcohol abuse Alcohol dependence Chest pain Sleep apnea Former smoker Smoker Contusion of left hand Contusion of left wrist Contusion of left forearm Left elbow contusion Asthma Surgical History History of tonsillectomy Status post left foot surgery Social History Smoking Status: Current every day smoker tobacco type: cigarettes HPI LEFT KNEE Details: This documentation accurately reflects the service provided and the decisions made by me, Dr. Tony Latham MD 02/14/25 1226. Part of today?s visit was documented by [ ], acting as scribe. JOHNATHAN CAMPUZANO is a 49 year old F here today for L knee pain, mild OA and MM root tear. Medial posterior and anterior knee pain. 4 months. 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 does a lot of walking. some mechanical symptoms, positive catching / locking. cortisone made it worse. here with her . PT no. no prior operations on the knee. Using a brace. Supplemental Info [facility] Imaging Services [address], [place] [address] Knee 4 or More Views MR#: [id number] Acct: [id number] Name: JOHNATHAN CAMPUZANO Rep #: [id number] : 1975 F 48 From: Stanislav Sampson MD PCP: EZIO Carey Status: REG ER Study: Knee 4 or More Views Date of Exam: 11/23/24 Exam# [id number] Ordering Dr: Gordo Viera MD PROCEDURE: KNEE 4 OR MORE VIEWS 11/23/2024 REASON FOR EXAM: ATRAUMATIC LEFT KNEE PAIN TECHNIQUE: 4 view(s) of the left knee FINDINGS: Bones: No fracture. No suspicious bone lesion. Joints: Normal alignment. Effusion: No effusion. Soft tissues: Soft tissues are unremarkable. Other: RAD/Knee 4 or More Views IMPRESSION: Normal left knee. Reading Location: [id number] per Dr. Corrales notes... 01/04/2025 MRI left knee: Report from outside facility read as radial tear involving posterior root medial meniscus with diffuse amorphous increased signal within the medial meniscus compatible with intrasubstance degeneration. Medial extrusion of the body of the medial meniscus. Mild degenerative changes of the medial patellofemoral compartment trace joint effusion on spectra system. I independently reviewed the imaging. Concur with radiologist report. Coding Level of Care Code Off vis,est,level 4 Diagnoses Primary osteoarthritis of left knee M17.12 Osteoarthritis type: primary Tear of medial meniscus of left knee S83.242A Assessment and Plan Assessment and Plan (1) Osteoarthritis of left knee: Status: Acute Qualifiers: Osteoarthritis type: primary Qualified Code(s): M17.12 - Unilateral primary osteoarthritis, left knee Plan: 49-year-old female with left knee pain failed conservative management including intra-articular cortisone injection with mild degenerative changes of the medial patellofemoral compartments normal overall alignment medial meniscus tear that involves the posterior horn and the medial meniscus root on the MRI with mild extrusion, I concur with radiologist interpretation the root does appear to be torn. Can consider ongoing conservative management although more recent literature of last 5 years suggest that in this situation patients may do better with medial meniscus repair and specifically root repair to restore the meniscus hoop stresses and that they may protect the cartilage of the medial compartment more effectively and lead to less rapid degenerative changes over the next 2 years. This would require a period of nonweightbearing for 6 weeks generally I put these patients on VTE prophylaxis during that time with hinged knee brace locked in full extension for ambulation but nonweightbearing with crutches for 6 weeks and passive range of motion only with physical therapy during that time for recovery 3 to 6 months for the surgery. The smoking and obesity will increase the chance of complications nonhealing of the tear or other risks associate with surgical management. Patient understands wished to proceed with left knee arthroscopy, medial meniscus repair (including the root). plan to be placed the patient on aspirin twice daily 81 mg postoperatively Pros and cons risks and benefits were discussed with the patient including but not limited to infection, pain, stiffness, bleeding, damage to surrounding structures, neurovascular injury, recurrence or retear, failure or wear of hardware or fixation, instability, fracture, deep vein thrombosis and pulmonary embolism, anesthetic risks, , patient dissatisfaction, need for further surgery and other risks. Patient understood and wished to proceed with surgery, and signed the informed consent documentation. (2) Tear of medial meniscus of left knee: Status: Acute Clinical Quality Measures Falls Risk Screening/Assistive Devices Have you fallen in the past year?: Yes Ortho Exam General General: Yes no acute distress Neurologic: Yes alert and Yes oriented x3 Psychologic: Yes reasonable and appropriate Right Knee Patella Translation: 2 Left Knee Skin/Wound: Yes CDI, No ecchymosis, No erythema and No swelling Examination: Yes med jt line tenderness, No Lat jt line tenderness, No TTP inf pole patella, No Crepitus, Yes Pain with flexion, Yes Kathi's Test, No TTP Patellar tendon, No TTP Tibial tubercle, No TTP Pes Anserine and No Illiotibial band tenderness Quad Atrophy: No Stability: NML: Anterior Drawer, NML: Tina, NML: Posterior Drawer, NML: Valgus 0, NML: Valgus 30, NML: Varus 0 and NML: Varus 30 Apprehension with Lateral Translation: No Patella Translation: 2 Patellar Tilt Normal: Yes Patella Grind: No KNEE: antalgic gait, NVI, normal alignment, rom 0-120. [facility] Medical History Wears glasses Anxiety Depression Alcohol use History of steroid therapy Arthritis Fatty liver Restless legs History of diverticulitis History of pain when walking History of stress test History of irregular heartbeat Hx of fracture of arm Tear of medial meniscus of left knee Smoker Contusion of left hand Contusion of left wrist Contusion of left forearm Left elbow contusion Asthma Home Medications ?Medication ?Instructions ?Recorded ?Last Taken ?Type albuterol sulfate 90 mcg/actuation 2 inh inhalation Q4 H PRN shortness 10/15/23 Unknown Rx aerosol inhaler (Proventil HFA) of breath or wheezing #8.5 grams ibuprofen 600 mg tablet 600 mg PO Q6-8H PRN pain #90 tabs 01/07/25 Unknown Rx Allergy/AdvReac Type Severity Reaction Status Date / Time amoxicillin Allergy Hives Verified 03/09/25 06:29 latex Allergy Hives Verified 03/09/25 06:29 Sulfa (Sulfonamide Allergy Rash Verified 03/09/25 06:29 Antibiotics) Surgical History Hx of hysterectomy History of endometrial ablation History of hysteroscopy History of tonsillectomy Status post left foot surgery Social History Smoking Status: Current every day smoker tobacco type: cigarettes Vital Signs Vital Signs Vital Signs: 03/09/25 06:29 03/09/25 06:29 03/09/25 06:42 Temperature 98.2 F 98.2 F Temperature Source Temporal Pulse Rate 82 82 Respiratory Rate 17 17 Respiratory Pattern Normal Blood Pressure 136/61 H 136/61 H Blood Pressure Mean 86 Blood Pressure Source Monitor Blood Pressure Position Semi-Fowlers Blood Pressure Location Left Arm Pulse Ox 96 96 Oxygen Delivery Method Room Air Weight Weight: 246 lb 14.684 oz Body Mass Index (BMI) 45.1
[2025-03-09] MEDS: Midazolam 2 MG/2 ML Syringe IV (07:28)
[2025-03-09] MEDS: Cefazolin 1 GM/5 ML Vial 2 GM IV (07:28)
[2025-03-09] MEDS: Epinephrine (1 mg/ml) 1 MG/ML VIAL ×2 (07:50→07:51)
[2025-03-09] MEDS: fentaNYL 100 MCG/2 ML Ampul 200 MCG IV (08:28)
--- NOTE | 2025-03-09 08:34 | OP.PCM_ITS ---
Problems Associated Problem List Diagnoses (1) Acute medial meniscus tear: (2) Osteoarthritis of left knee: Procedures Musculoskeletal 20xxx-29xxx: Other Procedure See Report Operative Report (Standard) Operative Information Date of Procedure: 03/09/25 Pre-Operative Diagnosis: L knee medial meniscus tear, root and posterior horn Post-Operative Diagnosis: same Surgery/Procedure Performed: L knee arthroscopy, medial meniscus repair (root and posterior horn) junior web developer: Yes Control Operator: aura Tasks completed by director of first impressions: Retracting Additional executive assistant to president?: No Type of Anesthesia: General and Local RN Documented Start/Stop Times: Operation Date: 03/09/25 07:30 Case Time Into Pre-Op 03/09/25 05:58 Out of Pre-Op 03/09/25 07:23 Anesthesia Start 03/09/25 07:28 Into Room 03/09/25 07:28 Procedure Start 03/09/25 07:49 Procedure Start Time: 07:49 Procedure Stop Time: 08:35 Select all DRAINS/GRAFTS/IMPLANTS that apply: Implanted device Implanted device details: arthrex sutureloc, fiberstitch all inside x 2 Estimated Blood Loss: 10 Specimen collected: No Description of surgery: Patient brought to the operating room theater. Placed supine on the table. General anesthesia induced. 2 g IV Ancef administered prior to the start of the procedure. All bony prominences padded. Tourniquet applied to the left thigh 34 inch appropriately padded. SCD on the nonoperative leg. Stress positioner used to the patient's left side. Operative extremity prepped and draped in the usual sterile fashion allowing over 3 minutes drying time prior to draping. Preoperative timeout performed to confirm the site patient and the surgery. Began by elevating the limb inflating the tourniquet to 250 mmHg. Used standard anterolateral and anteromedial arthroscopy portals. Did a full diagnostic arthroscopy. There is minor amount of synovitis in the prepatellar area I gently debrided that for appropriate visualization. Remove the ligamentum mucosum. The ACL and PCL appeared normal. The patellofemoral joint there was some minor grade 1-2 changes at the patellofemoral joint primarily on the trochlear side no loose bodies. Medial lateral gutters entered no loose bodies. The lateral compartment grade 1 changes both sides and the lateral meniscus appeared normal stable to probing. I then entered the medial compartment. There is minor grade 1 changes on both sides. There is a medial meniscus root tear with elevating of the meniscus as well as a vertical component of the tear at the posterior horn. Did 'pie crust' technique to release the proximal MCL for better visualization of the medial compartment. I elected to do a root repair as well as repair of the vertically orientated tear. I used curette at the medial meniscus root area on the tibia and to remove any cartilage and prepare a bony bleeding bed. I used the shaver at this area as well as a meniscus rasp. I then used the guide for the posterior root and passed the pin up to the posterior root area. I then passed a nitinol wire through the guidepin brought this out the anterior medial portal which I had also placed a passport cannula. I then shuttled the suture lock to below the subchondral bone and deployed to the implant. I then passed the 2 sutures and converted these in a simple fashion to repair the medial meniscus root sequential tensioning as well as doing range of motion testing of the knee and then tensioning after that. I then also used Arthrex all inside fiber stitch implants 1.5 mm in a vertical and horizontal mattress fashion for the vertically orientated tear. This achieved solid purchase of the meniscus good repair of the root and stable meniscus with probing. Final arthroscopy pictures taken and saved onto the system. Tourniquet let down hemostasis achieved. Portal sites closed with 3-0 Monocryl suture. 8 cc of quarter percent bupivacaine instilled in and around the portal sites. Skin cleaned with wet and dry dressing followed application of Steri- Strips Adaptic 4 x 4 gauze ABD dressing loosely wrapped Juan bandage and hinged knee brace locked in full extension. Patient woken up from the general anesthetic transferred off the operating table taken to postanesthetic care unit in stable condition. All sponge needle instrument counts were correct no complications Plan for the patient discharge home according to day surgery criteria nonweightbearing in full extension for the first 6 weeks and ASA 81 mg twice daily for VTE prophylaxis. CPT 89269, 08346 Surgical Findings: as above Complications Complications: No Admit VTE Documentation VTE Present on Admission: No VTE Mechan Device Prophylaxis: SCD's VTE Pharm Prophylaxis ordered?: Yes Reason prophylaxis not ordered: Treatment Not Indicated
--- NOTE | 2025-03-09 08:43 | PCM.POST.ANE ---
Anesthesia: Postop Eval I Current Vital Signs Temperature: 97 F Pulse Rate: 101 Blood Pressure: 141/89 Respiratory Rate: 20 Pulse Ox: 92 Assessment Airway patent: Yes Spontaneous unlabored respirations: Yes nausea: No Vomiting: No Anesthesia Complication: No Fluid Hydration Crystalloid volume administer (ml): 700 Total IV fluid infused: 700 Progress Note Anesthesia document: Postop Eval 1 completed: Yes
--- NOTE | 2025-03-09 08:43 | EX.PCM.DISCH ---
Discharge Instructions Diet Discharge Diet: No restrictions Activity Weight Bearing Status: No weight bearing Keep extremity elevated above heart level: Operative Extremity Dressing / Incision Call your doctor if your incision/area has: Continuous Slow Oozing, Sudden Increased Bleeding, Increased Pain/ Swelling, Increased Redness, Foul Smelling Discharge and Swelling at the incision site Call your doctor if you observe: Fever of 101 or Higher, Coldness, Increased Pain and Numbness or Tingling Change Dressing in: leave in place till F/U Cleanse incision/area with: Do not get Incision Wet Follow Up Care Please Follow Up With: Tony Latham MD When: within 2 weeks Test Results: Test results from this visit will be discussed in further detail at your follow-up appointment, if applicable. Discharge Plan Admission Attending Provider: Tony Latham Primary Care Provider: Jennifer Olsen Instructions Print Language: Yoruba Discharge Orders/Prescriptions Prescriptions: New oxycodone-acetaminophen [Endocet] 5-325 mg tablet 1 tab PO Q4H MDD 6 PRN (Reason: pain) 3 Days Qty: 20 0RF aspirin 81 mg tablet,chewable 81 mg PO BID MDD 2 30 Days Qty: 60 0RF No Action ibuprofen 600 mg tablet 600 mg PO Q6-8H PRN (Reason: pain) Qty: 90 0RF albuterol sulfate [Proventil HFA] 90 mcg/actuation HFA aerosol inhaler 2 inh inhalation Q4H PRN (Reason: shortness of breath or wheezing) Qty: 8.5 1RF Referrals / Follow Up: Tony Latham MD [Med Staff - Active Staff] - Jennifer Olsen PA [Primary Care Provider] - Disposition Disposition (needs filled in before D/C Order can be placed): Home, Self Care
[2025-03-09] MEDS: HYDROcodone Bitartrate/Apap 5/325 Tablet PO (10:08)
--- NOTE | 2025-03-09 14:46 | POSTOPAN2_ITS ---
Anesthesia Postop Eval I Sum Postop Eval Completion status Anesthesia document: Postop Eval 1 completed: Yes Anesthesia Postop Eval I Summary Anesthesia Postop Eval I Summary: Anesthesia Postop Eval I: Assessment Summary Airway patent Yes 03/09/25 08:43 [email or web address] Spontaneous unlabored Yes 03/09/25 08:43 COMPILATION [email or web address] respirations Mental status nausea No 03/09/25 08:43 COMPILATION [email or web address] Vomiting No 03/09/25 08:43 COMPILATION [email or web address] Anesthesia Postop Eval I: Fluid Summary Crystalloid volume administer 700 03/09/25 08:43 COMPILATION [email or web address] (ml) Colloids volume administered ( ml) Blood Product volume administered (ml) Total IV fluid infused 700 03/09/25 08:43 [email or web address] Anesthesia Postop Eval I: Summary Notes Anesthesia Complication No 03/09/25 08:43 [email or web address] Anesthesia Complication Comment: Post-operative progress note Anesthesia: Postop Eval II Evaluation Mental status: Awake Pain Level: 0 nausea: No Vomiting: No
--- NOTE | 2025-03-09 14:46 | PCM.POSTANE2 ---
Anesthesia Postop Eval I Sum Postop Eval Completion status Anesthesia document: Postop Eval 1 completed: Yes Anesthesia Postop Eval I Summary Anesthesia Postop Eval I Summary: Anesthesia Postop Eval I: Assessment Summary Airway patent Yes 03/09/25 08:43 [email or web address] Spontaneous unlabored Yes 03/09/25 08:43 SAND [email or web address] respirations Mental status nausea No 03/09/25 08:43 [email or web address] Vomiting No 03/09/25 08:43 [email or web address] Anesthesia Postop Eval I: Fluid Summary Crystalloid volume administer 700 03/09/25 08:43 SAND [email or web address] (ml) Colloids volume administered ( ml) Blood Product volume administered (ml) Total IV fluid infused 700 03/09/25 08:43 [email or web address] Anesthesia Postop Eval I: Summary Notes Anesthesia Complication No 03/09/25 08:43 [email or web address] Anesthesia Complication Comment: Post-operative progress note Anesthesia: Postop Eval II Evaluation Mental status: Awake Pain Level: 0 nausea: No Vomiting: No
== END 2025-03-09 10:34 | disposition home or self-care (01) ==
LOC: SDC 05:53 → AC 05:54
PROVIDERS: Referring Provider Orthopaedic Surgery Sports Medicine; Visit Provider Orthopaedic Surgery Sports Medicine
PROC: (CPT 29870; principal; 2025-03-09 07:10)
DX: S83.242A Other tear of medial meniscus, current injury, left knee, initial encounter (principal); X58.XXXA Exposure to other specified factors, initial encounter; M17.12 Unilateral primary osteoarthritis, left knee; M65.962 Unspecified synovitis and tenosynovitis, left lower leg; F17.210 Nicotine dependence, cigarettes, uncomplicated; Z79.1 Long term (current) use of non-steroidal anti-inflammatories (NSAID); Z79.899 Other long term (current) drug therapy
CPT/HCPCS: 29882; 64450; 01400; C1713; J2405

== ENCOUNTER → 2025-05-11 | Outpatient (CLI) | payer OTHER, SELFPAY ==
--- NOTE | 2025-05-11 16:18 | RAD_ITS ---
PROCEDURE: CHEST PA AND LATERAL 05/11/2025 REASON FOR EXAM: SOB TECHNIQUE: Procedure Code: RADCXR Modality: DX Procedure: CHEST PA AND LATERAL COMPARISON: None. RAD/Chest PA and Lateral IMPRESSION: Lungs appear clear throughout. No pleural effusion or pneumothorax is noted. The cardiomediastinal silhouette is within the normal range. Mild thoracic spine degenerative changes are seen. No evidence of acute cardiopulmonary disease. Reading Location: [place] [id number]
[2025-05-11 21:40] LABS: D-Dimer Quantitative (DVT/PE) 0.81 FEU/ug/m (0.27-0.49)
== END | disposition home or self-care (01) ==
LOC: MTRAD 16:16
DX: R06.02 Shortness of breath (principal)
CPT/HCPCS: 36415; 71046; 85379

== ENCOUNTER 2025-05-12 21:44 | Emergency (ER) | payer OTHER, SELFPAY ==
[2025-05-12 21:45] VITALS: BP 153/99; PULSE 121; RESP 18; TEMP 36.6; O2SAT 97
[2025-05-12 22:27] VITALS: BMI 47.9
--- NOTE | 2025-05-12 23:33 | CT_ITS ---
PROCEDURE: CTA CHEST W/WO CONTRAST 05/12/2025 REASON FOR EXAM: DYSPNEA TECHNIQUE: Procedure Code: CTCTACHWW Modality: CT Procedure: CTA CHEST W/WO CONTRAST Multiplanar Sagittal and Coronal images were obtained. CONTRAST: Isovue 370 VOLUME: 100 mL One or more dose reduction techniques were used (e.g., Automated exposure control, adjustment of the mA and/or kV according to patient size, use of iterative reconstruction technique). RADIATION DOSE SUMMARY: CTDlvol: 15.3 mGy DLP: 562 mGycm COMPARISON: Chest radiograph on 05/11/2025. FINDINGS: Normal enhancement of the main pulmonary artery and right and left pulmonary arteries. Normal enhancement of the bilateral peripheral pulmonary arteries. There is no demonstrated pulmonary embolism. Normal thoracic aorta and visualized great vessels. There is no demonstrated aortic dissection. Normal heart and pericardium. Normal mediastinum. Normal hilar regions. Normal visualized trachea and bronchi. The lungs are well expanded. Normal pulmonary parenchyma. Normal pleura. Mild diffuse spondylosis. Hepatomegaly with hepatic steatosis. Normal remaining visualized upper abdomen. CT/CTA Chest W/WO Contrast IMPRESSION: No demonstrated pulmonary embolism or arterial dissection. Reading [facility] [address]
[2025-05-12] MEDS: Ketorolac 30 MG/ML Syringe IV (23:41)
[2025-05-12 23:57] LABS: Prothrombin Time (Protime)PT. 12.9 SECONDS (11.7-14.9)
[2025-05-12 23:58] LABS: Partial Thromboplast Time 26.5 Seconds (24.1-36.2)
[2025-05-13 00:13] LABS: Anion Gap 13 (5-15); BUN 11 mg/dL (4-19); BUN/Creat Ratio 14.9 RATIO (10-20); Calcium,Total 9.4 mg/dL (7.6-11.0); Carbon Dioxide 24.1 mmol/L (21.0-32.0); Chloride 104 mmol/L (98-108); Estimated Creatinine Clearance 117.51 ml/min (50-250); Glucose 153 mg/dL (70-99); Hematocrit 43.0 % (37-47); Hemoglobin 14.6 g/dL (12.0-15.0); Immature Granulocytes Count 0.070 X10^3/uL (0.0-0.0); Magnesium 2.3 mg/dL (1.5-2.2); Mean Corp Hgb Conc 34.0 g/dL (32-36); Mean Corpuscular Volume 89.6 fL (81-99); Mean Platelet Vol. 10.4 fl (6.2-12.0); NRBC Flagged by Analyzer 0 % (0-5); Platelet Count 371 K/mm3 (150-450); Potassium 4.0 mmol/L (3.3-5.1); RBC Distribution Width CV 12.6 % (11.6-14.6); RBC Distribution Width SD 41.3 fl (35.1-43.9); Red Blood Count 4.80 M/mm3 (4.2-5.4); White Blood Count 11.1 K/mm3 (4.4-11.0)
--- NOTE | 2025-05-13 01:11 | EX.ED.DYSGE1 ---
HPI History of Present Illness Chief Complaint: Shortness of Breath Informant: patient and spouse/S.O. Narrative Narrative: Patient is a 49-year-old female with past medical history of asthma. She states she has been having mild coughing congestion but over the last week or so has had increased shortness of breath. Her family doctor performed outpatient chest x-ray which reportedly was negative for pneumonia but also did a D-dimer which was reportedly elevated. The patient denies any previous history of DVT or PE. She does admit however to a recent surgery to her left knee roughly 8 weeks ago. She states since that time the left lower leg has been swollen. She states she did not have a venous duplex to assess for potential clot. At this time with her reported worsening shortness of breath and the fact she has an elevated D-dimer there was concern she may have a pulmonary embolus causing her symptoms and therefore was sent in for evaluation. [facility] Medical History Wears glasses Anxiety Depression Alcohol use History of steroid therapy Arthritis Fatty liver Restless legs History of diverticulitis History of pain when walking History of stress test History of irregular heartbeat Hx of fracture of arm Tear of medial meniscus of left knee Smoker Contusion of left hand Contusion of left wrist Contusion of left forearm Left elbow contusion Asthma Home Medications ?Medication ?Instructions ?Recorded ?Last Taken ?Type albuterol sulfate 90 mcg/actuation 2 inh inhalation Q4H PRN shortness 10/15/23 Unknown Rx aerosol inhaler (Proventil HFA) of breath or wheezing #8.5 grams ibuprofen 600 mg tablet 600 mg PO Q6-8H PRN pain #90 tabs 01/07/25 Unknown Rx aspirin 81 mg chewable tablet 81 mg PO BID vte 1 month #60 tabs 03/09/25 Unknown Rx Allergy/AdvReac Type Severity Reaction Status Date / Time amoxicillin Allergy Hives Verified 05/12/25 21:50 latex Allergy Hives Verified 05/12/25 21:50 Sulfa (Sulfonamide Allergy Rash Verified 05/12/25 21:50 Antibiotics) Surgical History Hx of hysterectomy History of endometrial ablation History of hysteroscopy History of tonsillectomy Status post left foot surgery Social History Smoking Status: Current every day smoker tobacco type: cigarettes ROS ROS ED Constitutional Constitutional ED: Denies chills or fever(s) Eyes Eyes: Denies blurry vision or change in vision ENT ENT ED: Denies sore throat Cardiovascular Cardiovascular: Denies chest pain, palpitations or racing heartbeat Respiratory/Chest Respiratory/Chest: Reports cough and dyspnea Gastrointestinal Gastrointestinal: Denies abdominal pain, diarrhea, nausea or vomiting Musculoskeletal Musculoskeletal: Reports other Details: Positive left lower leg swelling Integumentary Denies Abrasions or rash Neurologic Neurologic: Denies headache(s) or paresthesias Hematologic/Lymphatic Hematologic/Lymphatic: Denies easy bleeding or easy bruising Allergic/Immunologic Allergic/Immunologic ED: Denies mouth swelling or tongue swelling EXAM Physical Exam Const Vital Signs: 05/12/25 21:45 05/12/25 22:27 Temperature 97.8 F Temperature Source Temporal Pulse Rate 121 H Respiratory Rate 18 Respiratory Effort Normal Blood Pressure 153/99 H Blood Pressure Mean 117 Pulse Ox 97 Oxygen Delivery Method Room Air Positive well nourished and well developed General Appearance ED: well developed; Negative for pallor HEENT HEENT Narrative: Normocephalic atraumatic No tongue or lip swelling no oral lesions no airway edema or compromise There is mild cobblestoning noted in the posterior pharynx but no secondary findings to suggest infection Eyes PERRL and EOMs intact bilaterally General Eye ED: Negative for scleral icterus Neck supple and no JVD Resp normal respiratory effort Resp Narrative: Breath sounds are slight diminished throughout with faint expiratory wheeze but no signs of respiratory distress Cardio regular rate and regular rhythm Rate: other Other Details: Radial and carotid pulses are equal and symmetric Extremity Extremity Narrative: There is asymmetric swelling of the left lower leg compared to right; however there is no erythema or warmth. Negative Homans' sign. Compartments are soft and compressible going against compartment syndrome. Patient states that the leg has been swollen since surgery. Neuro oriented x3, CN's II-XII intact bilaterally and no sensory deficits noted Sensorium / Orientation: alert Motor Exam: strength 5/5 throughout Psych mental status grossly normal Skin no rashes or lesions noted General Skin Exam: Negative for jaundice or pallor MDM MDM MDM Narrative Medical decision making narrative: Patient arrived to the ER mildly hypertensive but otherwise with stable vitals. With her surgery roughly 8 weeks ago asymmetric leg swelling and reported elevated D-dimer there is concern for DVT versus pulmonary embolus versus pneumonia. I do not have an ability to perform a venous duplex at this time of night but will perform a CTA of the chest to rule out pneumonia pneumothorax pleural effusion or pulmonary embolus. CTA revealed no acute findings. Laboratory studies revealed no signs of acute blood loss anemia electrolyte abnormality or acute kidney injury. On reevaluation she is resting comfortably she is not in respiratory distress her pulse ox is 98 to 100% on room air. Therefore at this time we have ruled out lung pathology such as pneumonia pneumothorax pleural effusion or pulmonary embolus. Her reportedly elevated D-dimer could be from her previous surgery or secondary to a DVT in the left lower leg. Therefore we will order outpatient venous duplex to assess for this. However as she is not hypoxic or in respiratory distress there is no need for further intervention in the ER and she is otherwise safe for discharge. History & Record Review Discussion w/independent historian: Patient and Significant other Lab Data Attestation: I reviewed the patient's lab results. Labs: Laboratory Results - last 24 hr 05/12/25 22:28 WBC 11.1 H RBC 4.80 Hgb 14.6 Hct 43.0 MCV 89.6 MCH 30.4 MCHC 34.0 RDW Std Deviation 41.3 RDW Coeff of Sofiya 12.6 Plt Count 371 MPV 10.4 Immature Gran % (Auto) 0.600 Neut % (Auto) 61.8 Lymph % (Auto) 28.4 [place] % (Auto) 8.0 Eos % (Auto) 0.7 Baso % (Auto) 0.5 Absolute Neuts (auto) 6.9 Absolute Lymphs (auto) 3.16 Nucleated RBC % 0 PT 12.9 INR 1.0 APTT 26.5 Sodium 141 Potassium 4.0 Chloride 104 Carbon Dioxide 24.1 Anion Gap 13 BUN 11 Creatinine 0.71 Estim Creat Clear Calc 117.51 Est GFR (MDRD) Non-Af 104 BUN/Creatinine Ratio 14.9 Glucose 153 H Calcium 9.4 Magnesium 2.3 H Radiography Diagnostic Testing: Clinical Impression(s) from Imaging Studies Chest CTA 05/12/25 23:33 IMPRESSION: No demonstrated pulmonary embolism or arterial dissection. Reading Location: [place] [id number] Discharge Plan Triage Chief Complaint: Shortness of Breath Other Complaint: Lower Extremity Injury ED Provider: Branden Schaffer Dx/Rx/DC Orders Clinical Impression: Dyspnea, Edema of left lower extremity Instructions: ED Dyspnea, ED Peripheral Edema, Unilateral Prescriptions: No Action ibuprofen 600 mg tablet 600 mg PO Q6-8H PRN (Reason: pain) Qty: 90 0RF aspirin 81 mg tablet,chewable 81 mg PO BID MDD 2 30 Days Qty: 60 0RF albuterol sulfate [Proventil HFA] 90 mcg/actuation HFA aerosol inhaler 2 inh inhalation Q4H PRN (Reason: shortness of breath or wheezing) Qty: 8.5 1RF Primary Care Provider: Jennifer Olsen Referrals: Jnenifer Olsen PA [Primary Care Provider, Family Practice] Activity Restrictions/Additional Instructions: The CTA of your chest revealed no pulmonary embolus or lung pathology such as pneumonia. Please obtain your outpatient venous duplex of the left leg to ensure there is no DVT causing the edema. Return to the ER should you have any further concerns Print Language: Ukrainian Disposition Disposition: Home, Self Care Discharge Date/Time: 05/13/25 01:27
[2025-05-13 01:26] VITALS: BP 145/70; PULSE 81; RESP 17; TEMP 36.6; O2SAT 100
== END 2025-05-13 01:27 | disposition home or self-care (01) ==
PROVIDERS: Emergency Provider Emergency Medicine; Visit Provider Emergency Medicine
DX: R60.0 Localized edema (principal); R06.00 Dyspnea, unspecified; J45.909 Unspecified asthma, uncomplicated; F17.210 Nicotine dependence, cigarettes, uncomplicated
CPT/HCPCS: 71275; 80048; 83735; 85025; 85610; 85730; 96374; 96375; 99283; Q9967; A4216; J2405

== ENCOUNTER → 2025-05-13 | Outpatient (CLI) | payer OTHER, SELFPAY ==
--- NOTE | 2025-05-13 13:01 | VDLE_ITS ---
Reason For Study Reason For Study: Swelling LLE RIGHT LEFT CFV is compressible, spontaneous, phasic, competent GSV is normal. and demonstrates normal augmentation. CFV is compressible, spontaneous, phasic, competent, Procedure and demonstrates normal augmentation. This is a venous duplex using B-mode, color flow and FV is compressible, spontaneous, phasic, competent spectral Doppler. and demonstrates normal augmentation. Exam performed in department. POP V is compressible, spontaneous, and phasic. A preliminary report was called and/or faxed to [facility] is compressible. Jennifer HOLGUIN. PTV is compressible. LT PerV is compressible. Lt GastrocV is DILATED and NON COMPRESSIBLE consistent with acute DVT. VL/Venous Duplex US, Unilateral Interpretation Summary Acute deep vein thrombosis is noted in the left gastrocnemius vein. The remaind er of the left lower extremity deep venous system is patent and compressible. Valvular competence appears intact wi thin the proximal deep venous system on the left . The left great saphenous vein appears patent and compressible nelson boo. The right common femoral vein is patent and compressible . Ordering Physician: Branden Schaffer Referring Physician: Jennifer Olsen Performed By: Winter Moody, CHARLIE, RVT
== END | disposition home or self-care (01) ==
LOC: CVS 13:01
PROVIDERS: Referring Provider Emergency Medicine; Visit Provider Emergency Medicine
DX: R60.0 Localized edema (principal)
CPT/HCPCS: 93971

== ENCOUNTER 2025-07-02 15:32 | Emergency (ER) | payer OTHER, SELFPAY ==
[2025-07-02 15:33] VITALS: BP 141/97; PULSE 100; RESP 16; TEMP 36.8; O2SAT 99; BMI 64.3
[2025-07-02 15:52] VITALS: BP 134/78; PULSE 98; RESP 16; TEMP 36.8; O2SAT 99
--- NOTE | 2025-07-02 15:57 | ED.VIS.LOWEX ---
HPI History of Present Illness Chief Complaint: Lower Extremity Injury Informant: patient and spouse/S.O. Narrative Narrative: Patient is a 49-year-old female with a history of DVT and COPD presenting with left leg pain, swelling, chest pain, and dizziness. Patient is accompanied by her who is supplementing history. - Reports burning pain in the lateral aspect of the left calf since last night, similar to previous DVT pain. Developed a DVT just a little more than a month ago after having had left knee surgery. Ever since has been on Eliquis and has been compliant with it. - Associated with worsening swelling in the left foot, which has been chronic but exacerbated today. - Denies erythema or other rash. - Recent improvement in ambulation post-knee surgery. - Also reports a chest pain and dizziness episode last night, described as "fading in and out" briefly while watching TV; improved after drinking some fluids and consuming a sugary snack. No recurrence all day today. - Denies dyspnea or COPD exacerbation. - Denies known cardiac history. [facility] Medical History Wears glasses Anxiety Depression Alcohol use History of steroid therapy Arthritis Fatty liver Restless legs History of diverticulitis History of pain when walking History of stress test History of irregular heartbeat Hx of fracture of arm Tear of medial meniscus of left knee Smoker Contusion of left hand Contusion of left wrist Contusion of left forearm Left elbow contusion Asthma Home Medications Medication Instructions Recorded Last Taken Type albuterol sulfate 90 mcg/actuation 2 inh inhalation Q4H PRN shortness 10/15/23 Unknown Rx aerosol inhaler (Proventil HFA) of breath or wheezing #8.5 grams apixaban 2.5 mg tablet (Eliquis) 2.5 mg PO BID 05/31/25 Unknown History Allergy/AdvReac Type Severity Reaction Status Date / Time amoxicillin Allergy Hives Verified 07/02/25 15:34 latex Allergy Hives Verified 07/02/25 15:34 Sulfa (Sulfonamide Allergy Rash Verified 07/02/25 15:34 Antibiotics) Family History no significant family his Surgical History Hx of hysterectomy History of endometrial ablation History of hysteroscopy History of tonsillectomy Status post left foot surgery Social History Smoking Status: Current every day smoker tobacco type: cigarettes ROS ROS ED Constitutional Constitutional ED: Denies chills or fever(s) Eyes Eyes: Denies change in vision or diplopia ENT ENT ED: Denies rhinorrhea or sore throat Cardiovascular Cardiovascular: Denies chest pain or palpitations Respiratory/Chest Respiratory/Chest: Denies cough or dyspnea Gastrointestinal Gastrointestinal: Denies abdominal pain, diarrhea, nausea or vomiting Genitourinary Genitourinary ED: Denies dysuria or hematuria Musculoskeletal Musculoskeletal: Reports extremity pain; Denies neck pain Integumentary Denies Abrasions, rash or wounds Neurologic Neurologic: Denies paresthesias or weakness Psychiatric Psychiatric: Denies anxiety or suicidal thoughts EXAM Physical Exam Const Vital Signs: 07/02/25 15:33 07/02/25 15:52 Temperature 98.3 F 98.3 F Temperature Source Oral Pulse Rate 100 98 Respiratory Rate 16 16 Blood Pressure 141/97 H 134/78 H Blood Pressure Mean 111 96 Pulse Ox 99 99 Oxygen Delivery Method Room Air Positive well nourished, well developed and obese General Appearance ED: well developed and NAD Nutritional Appearance: obese HEENT Reports moist mucous membranes normocephalic and atraumatic Eyes PERRL and EOMs intact bilaterally Neck full ROM and supple Resp normal respiratory effort Resp Narrative: Slight end expiratory wheezes. Converses in full senses. Otherwise unremarkable exam. Cardio regular rate, regular rhythm and no murmurs Rate: Negative for tachycardic GI non-tender and non-distended Auscultation: normoactive bowel sounds Palpation: soft Back/Spine normal ROM and normal to inspection General Back: other FROM Extremity normal to inspection Extremity Narrative: There is edema in both lower legs, it is a little worse in the left. There is no posterior calf tenderness. All compartments are soft and nondistended. Full range of motion of the knee where there are surgical incisions are well-healed. No effusion. Full range of motion of the ankle and the hip as well. Thigh is nontender. She has some mild tenderness in the lateral aspect of the lower leg more proximally but distally there is no tenderness. There is no objective swelling or rash or other skin changes in the area where she has tenderness. It is normal-appearing and normal feeling to my exam. No palpable cords. General Extremety ED: Yes edema and tenderness; Negative for pulses abnormal General Extremity: edema; Negative for pulses abnormal Neuro oriented x3, no focal motor deficits and no sensory deficits noted Sensorium / Orientation: alert Motor Exam: strength 5/5 throughout Psych mental status grossly normal and thought process normal Skin no wounds Rashes: no rashes MDM MDM MDM Narrative Medical decision making narrative: Patient does have bilateral leg edema, with asymmetric warts on the left where she had the DVT about a month ago, as expected. As I discussed with her, it is possible she is having pain simply from increased edema, or she may have developed another DVT on top of her previously diagnosed DVT, causing more edema and pain. I believe the latter is much less likely since she is anticoagulated on Eliquis and has not missed any doses. I think it is reasonable to obtain an outpatient ultrasound of her left extremity for re-evaluation, as it is not available at this hour on the weekend. It can be done either tomorrow or the next day, depending on availability on Friday. We discussed the relatively brief episode of chest discomfort she experienced 18 to 20 hours ago. She has had no recurrence since, even with walking. I offered an EKG and troponin measurement to rule out or lessen the risk of a cardiac etiology, but she declined, as she feels fine today. She stated it improved after eating or drinking something, and as I discussed with her, it could be esophageal in etiology. Her vital signs are normal at this time, and she is counseled on reasons to return. We will obtain the outpatient DVT scan. 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 Braulio Reynolds Primary Care Provider: Jennifer Olsen Referrals: Jennifer Olsen PA [Primary Care Provider, Family Practice] - 3-5 Days Print Language: Japanese Disposition Disposition: Home, Self Care
--- OUTSIDE RECORDS SUMMARY | 2025-07-02 16:04 | XMS RPT_ITS | CCD ---
Author Organization [facility] Care Team Providers Care Java Websphere Developer Name Role Phone MELQUIADES, KOBE Unavailable Unavailable MELQUIADES, KOBE Unavailable Unavailable MELQUIADES, KOBE Unavailable Unavailable YAMILETH ROSE Unavailable Unavailable MELQUIADES, KOBE Unavailable Unavailable CLARIBEL LU Unavailable Unavailable MELQUIADES, KOBE Unavailable Unavailable GENARO JOHN O Unavailable Unavailable MELQUIADES, KOBE Unavailable Unavailable LISA MCGILL Unavailable Unavailable GARCIA DE LA TORRE NP Attending Unavailable GARCIA DE LA TORRE INSPECTOR WELDED [employer]S Primary Care Unavailable GARCIA DE LA TORRE INSPECTOR [employer]ELD[employer]S Admitting Unavailable Yahir Gutierrez PA-C Unavailable Ingrid Woods MA Unavailable Unavailable Unavailable Unavailable Mami Eubanks LPN Unavailable Unavailabl e Yahir Dahl Primary Care Provider Dr. Gordo Viera MD Emergency Provider Unavailable Primary Care Provider Unavailabl e Physical Therapy Provider Unavailable Unavai YAHIR Yoon Referring Unavailable Dr. Gordo Viera MD Attending Provider Dr. Jose A Renae DO Emergency Provider [phone] Yahir Dahl Referring Provider [phone] Olivia Mooney Attending Provider Dr. Jose A Renae DO Attending Provider OLIVIA STALLINGS Referring Unavailable OLIVIA STALLINGS Attending Unavailable YAHIR GUTIERREZ Primary Care Unavailable Dr. Maximilian Corrales DO Attending Provider Tony Latham MD Attending Provider Tony Latham MD Referring Provider Tony Latham MD Other Provider Gutierrez PA, Yahir Primary Care Provider Gutierrez PA, Yahir Referring Provider Chandrakant INSPECTOR WELDED [employer]S-COlivia Attending Provider Gutierrez PA, Yahir Primary Care Physician Gutierrez PA, Yahir Referring Provider Tony Latham MD Attending Physician Tony Latham MD Nurse Practitioner Gutierrez PA, Yahir Attending Physician Karime GAUTHIER, Dr. Otero Attending Physician Andabram GAUTHIER, Dr. Otero Emergency Department Physic lucy Andabram DO, Dr. Otero Referring Provider Branden Schaffer Attending Unavailable Gutierrez, Yahir Primary Care Unavailable Mollhemal, Tony Attending Unavailable MollTony recio Referring Unavailable Gutierrez, Yahir Primary Care Unavailable Gutierrez, Yahir Referring Unavailable Noa, Tony Attending Unavailable Gutierrez, Yahir Primary Care Unavailable Tony Latham Consulting Unavailable Tony Latham Referring Unavailable Mollhemal, Tony Attending Unavailable Gutierrez, Yahir Primary Care Unavailable Gutierrez, Yahir Referring Unavailable MollTony recio Attending Unavailable Gutierrez, Yahir Primary Care Unavailable Gutierrez, Yahir Referring Unavailable Mollhemal, Tony Attending Unavailable Gutierrez, Yahir Primary Care Unavailable Gutierrez, Yahir Referring Unavailable Mollhemal, Tony Attending Unavailable Gutierrez, Yahir Primary Care Unavailable Gutierrez, Yahir Referring Unavailable Olivia Stallings Attending Unavailable Gutierrez, Yahir Primary Care Unavailable Gordo Viera Attending Unavailable Gutierrez, Yahir Primary Care Unavailable Jose A Renae Attending Unavailable Gutierrez, Yahir Primary Care Unavailable MollTony recio Referring Unavailable Mollhemal, Tony Attending Unavailable Gutierrez, Yahir Primary Care Unavailable Gutierrez, Yahir Referring Unavailable Olivia Stallings Attending Unavailable Gutierrez, Yahir Primary Care Unavailable Gutierrez, Yahir Referring Unavailable Maximilian Corrales Attending Unavailable Gutierrez, Yahir Primary Care Unavailable MollTony recio Attending Unavailable Gutierrez, Yahir Referring Unavailable Gutierrez, Yahir Primary Care Unavailable Gutierrez, Yahir Primary Care Unavailable Gutierrez, Yahir Referring Unavailable Gutierrez, Yahir Attending Unavailable AndBranden valverde Referring Unavailable AndBranden valverde Attending Unavailable Gutierrez, Yahir Primary Care Unavailable Allergies Allergy Classification Reported Allergen(s) Allergy Type Date of Onset Reaction(s) Facility (2 sources) Amoxicillin Drug Allergy 8 [facility] Repository (2 sources) Sulfonamides (Antibiotic) Drug allergy (disorder) 8 [facility] Repository (1 source) Amoxicillin Drug Allergy [facility] Repository (1 source) Sulfonamides (Antibiotic) Drug allergy (disorder) [facility] Repository (20 sources) Amoxicillin Drug Allergy 3 [facility] (16 sources) Sulfonamides (Antibiotic) Allergy to substance 3 [facility] (12 sources) Latex Allergy to substance 4 [facility] (20 sources) [facility]ides ([facility]ibiotic) [facility] ([facility] source) Latex Drug allergy (disorder) 5 [facility] Repository Medications Current Medications Medication Drug Class(es) Dates Sig (Normalized) Sig (Original) [id number] 200 actuat albuterol 0.09 mg/actuat metered dose [...] {Each} Refills: 3 Ordered: 03-Mar-2024 MELY Woods Start: 03-Mar-2024 Start: 11-22-2023 End: 02-24-2024 Albuterol Sulfate (Ventolin Hfa) 90 mcg/actuation HFA aerosol inhaler Discontinued 1 - 2 NMA INHALATION EVERY 6 HOURS as needed for wheezing November 22, 2023 5:28pm February 24, 2024 12:38am Start: 11-22-2023 take 1 puff(s) by in halation every six hours Albuterol Sulfate (Ventolin Hfa) 90 mcg/actuation HFA aerosol inhaler Active 1 - 2 PUFF INHALATION EVERY 6 HOURS 09 02November 22, 2023 5:28pm Start: 10-15-2023 Start: 10-15-2023 Albuterol Sulf ate (Proventil Hfa) 90 mcg/actuation HFA aerosol inhaler Active 2 INH INHALATION Q4H 8.5 October 15, 2023 12:00am aspirin 81 mg chewable tablet (5 sources) Platelet Aggregation Inhibitor, Nonsteroidal Anti-inflammatory Drug Start: 03-09-2025 take 1 tablet by mouth twice daily FLUoxetine 20 mg oral tablet (20 sources) [...] as needed. ibuprofen 600 mg oral tablet (17 sources) Nonsteroidal Anti-inflammatory Drug Start: 12-14-2024 End: 02-14-2025 [place] (Nk) (2 sources) Start: 02-21-2023 [place] (Nk) A ctive February 21, 2023 12:00am Completed/Discontinued Medications Medication Drug Class(es) Dates Sig (Normalized) Sig (Original) acetaminophen 325 mg / HYDROcodone bitartrate 5 mg oral tablet (15 sources) Opioid Agonist Start: 02-21-2023 End: 02-24-2024 Hydrocodone-Acetami nophen 5-325 mg tablet Discontinued 1 [...] HOURS NEEDED 8 2 February 21, 2023 acetaminophen 325 mg / oxyCODONE hydrochloride 5 mg oral tablet (9 sources) Opioid Agonist Start: 03-09-2025 End: 03-22-2025 Oxycodone-Acetaminophen (Endocet) 5-325 mg tablet Discontinued 1 {tbl} PO Q4H as needed for pain 20 3 0 March 11, 2025 March 22, 2025 8:09am Acute medial meniscal tear Other tear of medial meniscus, current injury, left knee, subsequent encounter fluticasone (13 sources) Corticosteroid Start: 10-15-2023 End: 02-24-2024 fluticasone propionate Discontinued INHALATION October 15, 2023 12:00am February 24, 2024 12:36am Start: 10-15-2023 fluticasone pr opionate Active INHALATION October 15, 2023 12:00am gabapentin 300 mg oral capsule (10 sources) Anti-epileptic Agent Start: 12-14-2024 End: 01-21-2025 take 1 capsule by mouth at bedtime Gabapentin 300 mg capsule Discontinued 300 mg PO AT BEDTIME 30 0 December 14, 2024 12:00am January 21, 2025 8:15am Multivitamin (Daily Multi-Vitamin) tablet (13 sources) Start: 10-15-2023 End: 02-24-2024 Multivitamin (Daily Multi-Vitamin) tablet Discontinued 1 {tbl} PO DAILY October 15, 2023 12:00am February 24, 2024 12:36am Start: 10-15-2023 take 1 tablet by ernst th once daily Multivitamin (Daily Multi-Vitamin) tablet Active 1 TABLET PO DAILY October 15, 2023 12:00am naproxen 500 mg oral tablet (15 sources) Nonsteroidal Anti-inflammatory Drug Start: 02-21-2023 End: 02-24-2024 take 1 tablet by mouth twice daily as needed Naproxen 500 mg tablet Discontinued 500 mg PO TWICE DAILY NEEDED 20 0 February 21, 2023 12:00am February 24, 2024 12:36am oxyCODONE hydrochloride 5 mg oral capsule (16 sources) Opioid Agonist Start: 08-26-2022 End: 02-21-2023 [...] not elsewhere classified] 03-03-2024 Chronic Essential hypertension (12 sources) Hypertensive disorder; Translations: [Essential (primary) hypertension] 11-22-2023 Chronic Fracture of upper limb (16 sources) Fracture of shaft of humerus ; Translations: [Unspecified fracture of shaft of humerus, unspecified arm, initial encounter for closed fracture] 08-26-2022 Episodic Genitourinary symptoms and ill-defined conditions (20 sources) Urinary symptoms ; Translations: [Unspecified symptoms and signs involving the genitourinary system] 03-03-2024 Episodic Joint disorders and dislocations; trauma-related (20 sources) Derangement of knee; Translations: [Unspecified internal derangement of unspecified knee] Onset: 01-04-2025 12-16-2024 Chronic Malaise and fatigue (20 sources) Fatigue; Translations: [Other fatigue] 10-19-2024 Episodic Nonspecific chest pain (20 sources) Atypical chest pain; Translations: [Other chest pain] 11-22-2023 Episodic Osteoarthritis (20 sources) Arthritis; Translations: [Osteoarthritis of left knee joint] Onset: 03-14-2025 03-03-2024 Chronic Other hematologic conditions (20 sources) Hematocrit - PCV - high; Translations: [Other abnormality of red blood cells] 10-20-2024 Episodic Other injuries and conditions due to external causes (3 sources) Injury of upper arm; Translations: [Unspecified injury of left shoulder and upper arm, initial encounter] 08-26-2022 Episodic Other injuries and conditions due to external causes (13 sources) Injury of left upper arm; Translations: [Unspecified injury of left shoulder and upper arm, initial encounter] 09-03-2022 Episodic Other lower respiratory disease (13 sources) Wheezing; Translations: [Wheezing] 10-15-2023 Episodic Other lower respiratory disease (1 source) Dyspnea; Translations: [Dyspnea, unspecified] 05-21-2025 Episodic Other lower respiratory disease (1 source) Shortness of breath; Translations: [Shortness of breath] Onset: 05-30-2025 Episodic Other screening for suspected conditions (not mental disorders or infectious disease) (20 sources) Patient encounter status; Translations: [Encounter for screening for diabetes mellitus] 03-03-2024 Episodic Other upper respiratory infections (20 sources) Viral upper respiratory tract infection; Translations: [Acute upper respiratory infection, unspecified] 10-15-2023 Episodic Residual codes; unclassified (20 sources) Colon cancer screening declined; Translations: [Procedure and treatment not carried out because of patient's decision for unspecified reasons] 03-03-2024 Episodic Residual codes; unclassified (11 sources) Tobacco user; Translations: [Tobacco use] 03-06-2024 Episodic Residual codes; unclassified (1 source) Edema of left lower limb; Translations: [Localized edema] 05-21-2025 Episodic Residual codes; unclassified (1 source) Localized edema; Translations: [Localized edema] Onset: 05-31-2025 Episodic Spondylosis; intervertebral disc disorders; other back problems (20 sources) Acute low back pain; Translations: [Acute [...] sleeps 6 hours per night. Note for "Well adult female": Patient is fasting today.She has not been [...] a problem and decided to detox at [facility]. She has been sober for 8 [...] received treatment for either condition. 03-03-2024 Unclassified (15 sources) Follow up for multiple chronic conditions [...] they do not have headaches. Note for "Multiple chronic conditions follow-up": Patient reports that she is feeling well overall.Her anxiety has been well controlled with her current medication. 10-19-2024 Unclassified (15 sources) [ADDITIONAL REASON] Fatigue - The onset [...] runny nose or sore throat. Note for "Fatigue": Patient does report waking often during the [...] a family history of narcolepsy. 10-19-2024 Unclassified (9 sources) Fatigue - The onset of the [...] runny nose or sore throat. Note for "Fatigue": Patient does report waking often during the [...] a family history of narcolepsy. 10-19-2024 Unclassified (9 sources) [ADDITIONAL REASON] Follow up for multiple [...] they do not have headaches. Note for "Multiple chronic conditions follow-up": Patient reports that she is feeling well overall.Her anxiety has been well controlled with her current medication. 10-19-2024 Unclassified (5 sources) Well adult female - The patient [...] sleeps 4 hours per night. Note for "Well adult female": Patient due for mammogram and colon cancer screening. 02-15-2025 Unclassified (3 sources) Osteoarthritis of left knee Unclassified (3 sources) Acute medial meniscal tear Unclassified (4 sources) M17.12 - Unilateral primary osteoarthritis, left knee,S83.242D - Other tear of medial meniscus, current injury, left knee, subsequent encounter Past or Other Problems Problem Classification Problem Date Documented Date Episodic/Chronic Joint disorders and dislocations; trauma-related (20 sources) Acute meniscal tear, medial; Translations: [Other tear of medial meniscus, current injury, unspecified knee, initial encounter] Onset: 03-14-2025 01-07-2025 Episodic Other injuries and conditions due to external causes (2 sources) Unspecified injury of right wrist, hand and finger(s), initial encounter; Translations: [S69.91XA - Unspecified injury of right wrist, hand and finger(s), initial encounter] Onset: 12-12-2017 Episodic Other non-traumatic joint disorders (20 sources) Pain in left knee; Translations: [Pain in joint, lower leg] Onset: 12-20-2024 11-11-2024 Episodic Other non-traumatic joint disorders (3 sources) Effusion, left knee; Translations: [Effusion, left knee] Onset: 12-16-2024 Episodic Unclassified (1 source) Well adult female [...] The patient's libido is normal. 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 Note for Multiple chronic conditions follow-up": Patient is now 50 days sober. 04-14-2024 [...] tonsillectomy or recurrent ear infections. 05-11-2024 Unclassified (20 sources) Knee pain - The onset of [...] pain radiates to the back. 11-17-2024 Unclassified (19 sources) Abdominal pain - The onset of [...] dysuria, heartburn, nausea or vomiting. Note for "Abdominal pain": Patient reports that she has generally not felt well since Friday. She reports having significant fatigue, but denies any runny nose, nasal congestion, sore throat, or cough.Patient is currently taking prednisone and she reports that her knee pain has improved. 11-17-2024 Unclassified (11 sources) Readiness finding 03-06-2024 Unclassified (1 source) [...] The patient's libido is normal. Note for "Well adult female": 03/202402-15-2025 Results Test Name Value Interpretation Reference Range Facility Orthopedic Visit Reporton Orthopedic Visit Report [facility] [address] [place] [address] [id number] OFFICE VISIT Date of Service: 05/31/25 MR#: [id number] Acct: [id number] Name: JOHNATHAN ANTONIO Rep #: [id number] : 1975 Provider: Dr. Tony miller MD Age/Sex: 49/F Location: [facility] Status: Signed Intake Vital Signs 04/19/25 07:56 05/12/25 21:45 05/31/25 07:59 Height 5 ft 2 in 5 ft 2 in 5 ft 2 in Weight: 262 lb BMI 47.9 Intake Visit Reasons: LEFT KNEE Chief Complaint: Left knee 6 week post op Accompanied by: Daughter Is patient in pain?: Yes Pain scale (1-10): 3 Allergies amoxicillin Allergy (Verified 05/31/25 08:00) Hives latex Allergy (Verified 05/31/25 08:00) Hives Sulfa (Sulfonamide Antibiotics) Allergy (Verified 05/31/25 08:00) Rash Medications ???Medication ???Instructions ???Recorded ???Confirmed ???Type albuterol sulfate 90 mcg/actuation 2 inh inhalation Q4H PRN shortne ss 10/15/23 05/31/25 Rx aerosol inhaler (Proventil HFA) of breath or wheezing #8.5 grams apixaban 2.5 mg tablet (Eliquis) 2.5 mg PO BID 05/31/25 05/31/25 Hi story Have you fallen in the past year?: Yes PFSH Medical History Wears glasses Anxiety Depression Alcohol use History of steroid therapy Arthritis Fatty liver Restless legs History of diverticulitis History of pain when walking History of stress test History of irregular heartbeat Hx of fracture of arm Tear of medial meniscus of left knee Smoker Contusion of left hand Contusion of left wrist Contusion of left forearm Left elbow contusion Asthma Surgical History Hx of hysterectomy History of endometrial ablation History of hysteroscopy History of tonsillectomy Status post left foot surgery Social History Smoking Status: Current every day smoker tobacco type: cigarettes HPI LEFT KNEE Details: This documentation accurately reflects the service provided and the decisions made by me, Dr. Tony Latham MD 05/31/25 0754. Part of today???s visit was documented by [ ], acting as scribe. JOHNATHAN ANTONIO is a 49 year old F here today for 3 months postop from left knee arthroscopy medial meniscus repair. Unfortunately despite the patient having been on aspirin for VTE prophylaxis for the first month after surgery about a month ago now the patient had developed some difficulties breathing and increased heart rate with some calf pain was found to have a gastrocnemius VTE on ultrasound CT PE was negative is on Eliquis now for the next 90 days for that it is feeling better no swelling of the knee is doing physical therapy is eager to return back to work but still try and ambulate with 1 crutch at this point. Feels a little weak. Ortho Exam General General: Yes no acute distress Neurologic: Yes alert and Yes oriented x3 Psychologic: Yes reasonable and appropriate Left Knee Skin/Wound: Yes CDI, Yes healed, No ecchymosis, No erythema and No swelling (mild) Knee ROM: Yes ROM-Flexion 0-140 Examination: No med jt line tenderness and No Lat jt line tenderness KNEE: no calf pain, no warmth or redness, mild LE swelling, nvi. Coding Level of Care Code Global Post Op Diagnoses Primary osteoarthritis of left knee M17.12 Osteoarthritis type: primary Acute medial meniscus tear of left knee, subsequent encounter S83.242D Encounter type: subsequent encounter Laterality: left Assessment and Plan Assessment and Plan (1) Osteoarthritis of left knee: Status: Acute Qualifiers: Osteoarthritis type: primary Qualified Code(s): M17.12 - Unilateral primary osteoarthritis, left knee Plan: JOHNATHAN ANTONIO is a 49 year old F here today for 12 weeks FU L knee arthroscopy, medial meniscus repair (root and posterior horn). Doing well. Continue strengthening try to wean off the crutch and will follow-up in 6 weeks time to reassess ability to go back to work as there is no light duties according to the patient. (2) Acute medial meniscus tear: Status: Acute Qualifiers: Encounter type: subsequent encounter Laterality: left Qualified Code(s): S83.242D - Other tear of medial meniscus, current injury, left knee, subsequent encounter Clinical Quality Measures Falls Risk Screening/Assistive Devices Have you fallen in the past year?: Yes 05/31/25 0823 Date Tony Oliveira Signature: Date (if applicable) CC: Normal [facility] Basic Metabolic Profile (BMP )on 05-13-2025 BUN/CRE 14.9 RATIO Normal 05-23 [facility] Comment on above: Performed By: #### L 501.5200, L300.4310, L300.3900, L500.2500 ####[facility] [address] [place], [address] Calcium [Mass/Vol] 9.4 mg/dL Normal 7.6-11.0 [facility] Comment on above: Performed By: #### L 501.5200, L300.4310, L300.3900, L500.2500 ####[facility] [address] [place], [address] Chloride [Moles/Vol] 104 mmol/L Normal 98-108 [facility] Comment on above: Performed By: #### L 501.5200, L300.4310, L300.3900, L500.2500 ####[facility] [address] [place], [address] CO2 [Moles/Vol] 24.1 mmol/L Normal 21.0-32.0 [facility] Comment on above: Performed By: #### L 501.5200, L300.4310, L300.3900, L500.2500 ####[facility] [address] [place], [address] Creatinine [Mass/Vol] 0.71 mg/dL Normal 0.70-1.20 [facility] Comment on above: Performed By: #### L 501.5200, L300.4310, L300.3900, L500.2500 ####[facility] [address] [place], [address] ECRCL 117.51 ml/min Normal 50-250 [facility] Comment on above: Performed By: #### L 501.5200, L300.4310, L300.3900, L500.2500 ####[facility] [address] [place], [address] GAP 13 Normal 5-15 [facility] Comment on above: Performed By: #### L 501.5200, L300.4310, L300.3900, L500.2500 ####[facility] [address] [place], [address] GFR/1.73 sq M.predicted among non-blacks MDRD (S/P/Bld) [Vol rate/Area] 104 mL/min/{1.73_m2} Normal >60 [facility] Comment on above: Result Comment: mL/m in/1.73m2 CKD-EPI Creatinine Equation (2020) Performed By: #### L 501.5200, L300.4310, L300.3900, L500.2500 ####[facility] [address] [place], [address] Glucose [Mass/Vol] 153 mg/dL High 70-99 [facility] Comment on above: Performed By: #### L 501.5200, L300.4310, L300.3900, L500.2500 ####[facility] [address] [place], [address] Potassium [Moles/Vol] 4.0 mmol/L Normal 3.3-5.1 [facility] Comment on above: Performed By: #### L 501.5200, L300.4310, L300.3900, L500.2500 ####[facility] [address] [place], [address] Sodium [Moles/Vol] 141 mmol/L Normal 133-145 [facility] Comment on above: Performed By: #### L 501.5200, L300.4310, L300.3900, L500.2500 ####[facility] [address] [place], [address] Urea nitrogen [Mass/Vol] 11 mg/dL Normal 4-19 [facility] Comment on above: Performed By: #### L 501.5200, L300.4310, L300.3900, L500.2500 ####[facility] [address] [place], [address] CBC W/Diff, Automatedon 10- 0-2024 Absolute Lymph 3.16 X10 3/uL Normal 0.83-4.51 [facility] Comment on above: Performed By: #### L 100.0100 ####[facility] [address] [place], [address] Absolute Neut 6.9 X10 3/uL Normal 2.0-7.7 [facility] Comment on above: Performed By: #### L 100.0100 ####[facility] [address] [place], [address] Basophils/100 WBC (Bld) 0.5 % Normal 0-1 [facility] Comment on above: Performed By: #### L 100.0100 ####[facility] [address] [place], [address] Eosinophils/100 WBC (Bld) 0.7 % Normal 0-5 [facility] Comment on above: Performed By: #### L 100.0100 ####[facility] [address] [place], [address] Erythrocyte distribution width (RBC) [Ratio] 12.6 % Normal 11.6-14.6 [facility] Comment on above: Performed By: #### L 100.0100 ####[facility] [address] [place], [address] Hematocrit (Bld) [Volume fraction] 43.0 % Normal 37-47 [facility] [facility] [place] Comment on above: Performed By: #### L 100.0100 ####[facility] [place] [address] [place], [address] Hemoglobin (Bld) [Mass/Vol] 14.6 g/dL Normal 12.0-15.0 [facility] [place] Comment on above: Performed By: #### L 100.0100 ####[facility] [place] [address] [place], [address] IG% 0.600 Normal 0.0-0.9 [facility] [place] Comment on above: Result Comment: IG% - Immature Granulocytes (promyelocytes, myelocytes and metamyelocytes) > 1% indicates that a LEFT SHIFT is Present. Performed By: #### L 100.0100 ####[facility] [place] [address] [place], [address] Lymphocytes/100 WBC (Bld) 28.4 % Normal 19-41 [facility] [place] Comment on above: Performed By: #### L 100.0100 ####[facility] [place] [address] [place], [address] MCH (RBC) [Entitic mass] 30.4 pg Normal 27.0-32.0 [facility] [place] Comment on above: Performed By: #### L 100.0100 ####[facility] [place] [address] [place], [address] MCHC (RBC) [Mass/Vol] 34.0 g/dL Normal 32-36 [facility] Comment on above: Performed By: #### L 100.0100 ####[facility] [place] [address] [place], [address] MCV (RBC) [Entitic vol] 89.6 fL Normal 81-99 [facility] Comment on above: Performed By: #### L 100.0100 ####[facility] [place] [address] [place], [address] Monocytes/100 WBC (Bld) 8.0 % Normal 0-10 [facility] Comment on above: Performed By: #### L 100.0100 ####[facility] [place] [address] [place], [address] Neutrophils/100 WBC (Bld) 61.8 % Normal 47-70 [facility] [place] Comment on above: Performed By: #### L 100.0100 ####[facility] [place] [address] [place], [address] Nucleated RBC (Bld) [#/Vol] 0 10*3/uL Normal 0-5 [facility] [place] Comment on above: Performed By: #### L 100.0100 ####[facility] [place] [address] [place], [address] Platelet mean volume (Bld) [Entitic vol] 10.4 fL Normal 6.2-12.0 [facility] [place] Comment on above: Performed By: #### L 100.0100 ####[facility] [place] [address] [place], [address] Platelets (Bld) [#/Vol] 371 10*3/uL Normal 150-450 [facility] [place] Comment on above: Performed By: #### L 100.0100 ####[facility] [place] [address] [place], [address] RBC (Bld) [#/Vol] 4.80 10*6/uL Normal 4.2-5.4 [facility] Comment on above: Performed By: #### L 100.0100 ####[facility] [place] [address] [place], [address] RDW SD 41.3 fl Normal 35.1-43.9 [facility] [place] Comment on above: Performed By: #### L 100.0100 ####[facility] [place] [address] [place], [address] WBC (Bld) [#/Vol] 11.1 10*3/uL High 4.4-11.0 [facility] Comment on above: Performed By: #### L 100.0100 ####[facility] [place] [address] [place], [address] Emergency Department Summary on 05-13-2025 Emergency Department Summary [facility] Medical Records Department [address] [place] [address] Emergency Department Summary 05/13/25 MR#: [id number] Acct: [id number] Name: JOHNATHAN ANTONIO Rep #: [id number] : 1975 49 From: Branden Schaffer DO PCP: EZIO Negrete Status:DEP ER Location: ED HPI History of Present Illness Chief Complaint: Shortness of Breath Informant: patient and spouse/S.O. Narrative Narrative: Patient is a 49-year-old female with past medical history of asthma. She states she has been having mild coughing congestion but over the last week or so has had increased shortness of breath. Her family doctor performed outpatient chest x-ray which reportedly was negative for pneumonia but also did a D-dimer which was reportedly elevated. The patient denies any previous history of DVT or PE. She does admit however to a recent surgery to her left knee roughly 8 weeks ago. She states since that time the left lower leg has been swollen. She states she did not have a venous duplex to assess for potential clot. At this time with her reported worsening shortness of breath and the fact she has an elevated D-dimer there was concern she may have a pulmonary embolus causing her symptoms and therefore was sent in for evaluation. [facility] Medical History Wears glasses Anxiety Depression Alcohol use History of steroid therapy Arthritis Fatty liver Restless legs History of diverticulitis History of pain when walking History of stress test History of irregular heartbeat Hx of fracture of arm Tear of medial meniscus of left knee Smoker Contusion of left hand Contusion of left wrist Contusion of left forearm Left elbow contusion Asthma Home Medications ???Medication ???Instructions ???Recorded ???Last Taken ???Type albuterol sulfate 90 mcg/actuation 2 inh inhalation Q4H PRN shortne ss 10/15/23 Unknown Rx aerosol inhaler (Proventil HFA) of breath or wheezing #8.5 grams ibuprofen 600 mg tablet 600 mg PO Q6-8H PRN pain #90 tabs 01/07/25 Unknown Rx aspirin 81 mg chewable tablet 81 mg PO BID vte 1 month #60 tabs 03/09/25 Unknown Rx Allergy/AdvReac Type Severity Reaction Status Date / Time amoxicillin Allergy Hives Verified 05/12/25 21:50 latex Allergy Hives Verified 05/12/25 21:50 Sulfa (Sulfonamide Allergy Rash Verified 05/12/25 21:50 Antibiotics) Surgical History Hx of hysterectomy History of endometrial ablation History of hysteroscopy History of tonsillectomy Status post left foot surgery Social History Smoking Status: Current every day smoker tobacco type: cigarettes ROS ROS ED Constitutional Constitutional ED: Denies chills or fever(s) Eyes Eyes: Denies blurry vision or change in vision ENT ENT ED: Denies sore throat Cardiovascular Cardiovascular: Denies chest pain, palpitations or racing heartbeat Respiratory/Chest Respiratory/Chest: Reports cough and dyspnea Gastrointestinal Gastrointestinal: Denies abdominal pain, diarrhea, nausea or vomiting Musculoskeletal Musculoskeletal: Reports other Details: Positive left lower leg swelling Integumentary Denies Abrasions or rash Neurologic Neurologic: Denies headache(s) or paresthesias Hematologic/Lymphatic Hematologic/Lymphatic: Denies easy bleeding or easy bruising Allergic/Immunologic Allergic/Immunologic ED: Denies mouth swelling or tongue swelling EXAM Physical Exam Const Vital Signs: 05/12/25 21:45 05/12/25 22:27 Temperature 97.8 F Temperature Source Temporal Pulse Rate 121 H Respiratory Rate 18 Respiratory Effort Normal Blood Pressure 153/99 H Blood Pressure Mean 117 Pulse Ox 97 Oxygen Delivery Method Room Air Positive well nourished and well developed General Appearance ED: well developed; Negative for pallor HEENT HEENT Narrative: Normocephalic atraumatic No tongue or lip swelling no oral lesions no airway edema or compromise There is mild cobblestoning noted in the posterior pharynx but no secondary findings to suggest infection Eyes PERRL and EOMs intact bilaterally General Eye ED: Negative for scleral icterus Neck supple and no JVD Resp normal respiratory effort Resp Narrative: Breath sounds are slight diminished throughout with faint expiratory wheeze but no signs of respiratory distress Cardio regular rate and regular rhythm Rate: other Other Details: Radial and carotid pulses are equal and symmetric Extremity Extremity Narrative: There is asymmetric swelling of the left lower leg compared to right; however there is no erythema or warmth. Negative Homans' sign. Compartments are soft and compressi (more content not included)... Normal [facility] [place] Magnesiumon 05-13-2025 Magnesium [Mass/Vol] 2.3 mg/dL High 1.5-2.2 [facility] Comment on above: Performed By: #### L 501.5200, L300.4310, L300.3900, L500.2500 ####[facility] [place] [address] [place], [address] Venous Duplex US, Unilateral on 05-13-2025 Venous Duplex US, Unilateral [facility] [place] [facility] [address] [facility] [place] [address] Venous Duplex US, Unilateral 05/13/25 1313 MR#: [id number] Acct: [id number] Name: JOHNATHAN ANTONIO Rep #: [id number] : 1975 49 From: Hari Billings MD Attending Dr: Branden Schaffer DO Status: REG CLI Ordering Dr: Branden Schaffer DO Date: 05/13/25 Location: CVS Sex: F C Admitted: Reason For Study Reason For Study: Swelling LLE RIGHT LEFT CFV is compressible, spontaneous, phasic, competent GSV is normal. and demonstrates normal augmentation. CFV is compressible, spontaneous, phasic, competent, Procedure and demonstrates normal augmentation. This is a venous duplex using B-mode, color flow and FV is compressible, spontaneous, phasic, competent spectral Doppler. and demonstrates normal augmentation. Exam performed in department. POP V is compressible, spontaneous, and phasic. A preliminary report was called and/or faxed to T/P Trunk is compressible. Yahir HOLGUIN. PTV is compressible. LT PerV is compressible. Lt GastrocV is DILATED and NON COMPRESSIBLE consistent with acute DVT. VL/Venous Duplex US, Unilateral Interpretation Summary Acute deep vein thrombosis is noted in the left gastrocnemius vein. The remainder of the left lower extremity deep venous system is patent and compressible. Valvular competence appears intact within the proximal deep venous system on the left . The left great saphenous vein appears patent and compressible segmentally. The right common femoral vein is patent and compressible . Ordering Physician: Branden Schaffer Referring Physician: Yahir Gutierrez Performed By: Winter Moody, EMILIACS, RVT 05/13/251713 Date Hari Billings MD CC: Branden Schaffer DO; EZIO Negrete Date Dictated: 05/13/25 1313 Date Transcribed: 05/13/251713 Assistant Manager/Embalmer: Signed Normal [facility] [place] Absolute lymphocyte countOrd ered By: Branden Schaffer on 05-12-2025 Lymphocytes Auto (Unsp spec) [#/Vol] 3.16 10*3/uL 0.83-4.51 [facility] [place] Absolute neutrophil countOrd ered By: Branden Schaffer on 05-12-2025 Neutrophils (Bld) [#/Vol] 6.9 10*3/uL 2.0-7.7 [facility] [place] Activated partial thrombopla stin time (aPTT) in platelet poor plasma by coagulation aOrdered By: Branden Schaffer on 05-12-2025 aPTT Coag (PPP) [Time] 26.5 s 24.1-36.2 [facility] Anion gap in Serum or Plasma Ordered By: Branden Schaffer on 05-12-2025 Anion gap [Moles/Vol] 13 mmol/L 12-16 [facility] Automated lymphocyte count a s percentage of total leukocytesOrdered By: Branden Schaffer on 05-12-2025 Lymphocytes/100 WBC Auto (Unsp spec) 28.4 % [facility] [place] BUN/creatinine ratioOrdered By: Branden Schaffer on 05-12-2025 Urea nitrogen/Creatinine [Mass ratio] 14.9 mg/mg 05-23 [facility] [place] Basophil percentageOrdered B y: Branden Schaffer on 05-12-2025 Basophils/100 WBC (Bld) 0.5 % 0-1 [facility] CTA Chest W/WO Contraston CTA Chest W/WO Contrast [facility] Imaging Services [address] [place], [place] [address] CTA Chest W/WO Contrast MR#: [id number] Acct: [id number] Name: JOHNATHAN ANTONIO Rep #: [id number] : 1975 F 49 From: Keven sharma MD PCP: EZIO Negrete Status: REG ER Study: CTA Chest W/WO Contrast Date of Exam: 05/12/25 Exam# [id number] Ordering Dr: Branden Schaffer DO PROCEDURE: CTA CHEST W/WO CONTRAST 05/12/2025 REASON FOR EXAM: DYSPNEA TECHNIQUE: Procedure Code: CTCTACHWW Modality: CT Procedure: CTA CHEST W/WO CONTRAST Multiplanar Sagittal and Coronal images were obtained. CONTRAST: Isovue 370 VOLUME: 100 mL One or more dose reduction techniques were used (e.g., Automated exposure control, adjustment of the mA and/or kV according to patient size, use of iterative reconstruction technique). RADIATION DOSE SUMMARY: CTDlvol: 15.3 mGy DLP: 562 mGycm COMPARISON: Chest radiograph on 05/11/2025. FINDINGS: Normal enhancement of the main pulmonary artery and right and left pulmonary arteries. Normal enhancement of the bilateral peripheral pulmonary arteries. There is no demonstrated pulmonary embolism. Normal thoracic aorta and visualized great vessels. There is no demonstrated aortic dissection. Normal heart and pericardium. Normal mediastinum. Normal hilar regions. Normal visualized trachea and bronchi. The lungs are well expanded. Normal pulmonary parenchyma. Normal pleura. Mild diffuse spondylosis. Hepatomegaly with hepatic steatosis. Normal remaining visualized upper abdomen. CT/CTA Chest W/WO Contrast IMPRESSION: No demonstrated pulmonary embolism or arterial dissection. Reading Location: [place] [address] CC: Branden Schaffer DO; EZIO Negrete Assistant Manager/Embalmer: Signed Normal [facility] [place] Carbon dioxide, total [Moles /volume] in Central venous bloodOrdered By: Branden Schaffer on 05-12-2025 CO2 [Moles/Vol] 24.1 mmol/L 21.0-32.0 [facility] [place] Chloride assayOrdered By: Radha Schaffer on 05-12-2025 Chloride [Moles/Vol] 104 mmol/L 98-108 [facility] Eosinophil percentageOrdered By: Branden Schaffer on 05-12-2025 Eosinophils/100 WBC (Bld) 0.7 % 0-5 [facility] [place] Erythrocyte distribution wid th ratioOrdered By: Branden Schaffer on 05-12-2025 Erythrocyte distribution width (RBC) [Ratio] 12.6 % 11.6-14.6 [facility] [place] Erythrocyte distribution wid th standard deviationOrdered By: Branden Schaffer on 05-12-2025 Erythrocyte distribution width (RBC) [Ratio] 41.3 fl 35.1-43.9 [facility] [place] Glomerular filtration rate ( GFR) estimation/1.73 sq m using serum, plasma, or whole bOrdered By: Branden Schaffer on 05-12-2025 GFR/1.73 sq M.predicted among non-blacks MDRD (S/P/Bld) [Vol rate/Area] 104 mL/min/{1.73_m2} >60 [facility] [place] Comment on above: mL/min/1.73m2 CKD-EP I Creatinine Equation (2020) Hematocrit Auto (Bld) [Volum e fraction]Ordered By: Branden Schaffer on 05-12-2025 Hematocrit (Bld) [Volume fraction] 43.0 % 37-47 [facility] [place] Hemoglobin measurementOrdere d By: Branden Schaffer on 05-12-2025 Hemoglobin (Bld) [Mass/Vol] 14.6 g/dL 12.0-15.0 [facility] [place] Immature granulocytes/100 WB C Auto (Bld)Ordered By: Branden Schaffer on 05-12-2025 Immature granulocytes/100 WBC (Bld) 0.600 % 0.0-0.9 [facility] [place] Comment on above: IG% - Immature Granu locytes (promyelocytes, myelocytes and metamyelocytes) > 1% indicates that a LEFT SHIFT is Present. International normalized rat io (INR) calculationOrdered By: Branden Schaffer on 05-12-2025 INR Coag (Bld) [Relative time] 1.0 {INR} [facility] [place] MCV (mean corpuscular volume ) determinationOrdered By: Branden Schaffer on 05-12-2025 MCV (RBC) [Entitic vol] 89.6 fL 81-99 [facility] Magnesium measurement (mass/ volume)Ordered By: Branden Schaffer on 05-12-2025 Magnesium (Unsp spec) [Mass/Vol] 2.3 mg/dL High 1.5-2.2 [facility] [place] Mean corpuscular hemoglobin (MCH) determinationOrdered By: Branden Schaffer on 05-12-2025 MCH (RBC) [Entitic mass] 30.4 pg 27.0-32.0 [facility] [place] Mean corpuscular hemoglobin concentration (MCHC) determinationOrdered By: Branden Schaffer on 05-12-2025 MCHC (RBC) [Mass/Vol] 34.0 g/dL 32-36 [facility] Mean platelet volume determi nationOrdered By: Branden Schaffer on 05-12-2025 Platelet mean volume (Bld) [Entitic vol] 10.4 fL 6.2-12.0 [facility] [place] Monocyte percentageOrdered B y: Branden Schaffer on 05-12-2025 Monocytes/100 WBC (Bld) 8.0 % 0-10 [facility] Neutrophil percentageOrdered By: Branden Schaffer on 05-12-2025 Neutrophils/100 WBC (Bld) 61.8 % 47-70 [facility] [place] Nucleated red blood cell per centageOrdered By: Branden Schaffer on 05-12-2025 Nucleated RBC/100 WBC (Bld) [Ratio] 0 % 0-5 [facility] [place] Partial Thromboplast Timeon 05-12-2025 aPTT Coag (Bld) [Time] 26.5 s Normal 24.1-36.2 [facility] Comment on above: Performed By: #### L 501.5200, L300.4310, L300.3900, L500.2500 ####[facility] [place] [address] [place], [address] Platelet countOrdered By: Radha Schaffer on 05-12-2025 Platelets (Bld) [#/Vol] 371 10*3/uL 150-450 [facility] [place] Potassium measurement (mass/ volume)Ordered By: Branden Schaffer on 05-12-2025 Potassium (Unsp spec) [Mass/Vol] 4.0 mmol/L 3.3-5.1 [facility] [place] Prothrombin Time w/INRon INR Coag (PPP) [Relative time] 1.0 {INR} Normal [facility] [place] Comment on above: Performed By: #### L 501.5200, L300.4310, L300.3900, L500.2500 #### [facility] [place] Laboratory [address] [place], [address] PT Coag (PPP) [Time] 12.9 s Normal 11.7-14.9 [facility] Comment on above: Performed By: #### L 501.5200, L300.4310, L300.3900, L500.2500 #### [facility] [place] Laboratory [address] [place], [address] Prothrombin timeOrdered By: Branden Schaffer on 05-12-2025 PT Coag (PPP) [Time] 12.9 s 11.7-14.9 [facility] RBC Auto (Bld) [#/Vol]Ordere d By: Branden Schaffer on 05-12-2025 RBC (Bld) [#/Vol] 4.80 10*6/uL 4.2-5.4 [facility] Serum creatinine measurement (mass/volume)Ordered By: Branden Schaffer on 05-12-2025 Creatinine [Mass/Vol] 0.71 mg/dL 0.70-1.20 [facility] Serum glucose measurement (m ass/volume)Ordered By: Branden Schaffer on 05-12-2025 Glucose [Mass/Vol] 153 mg/dL High 70-99 [facility] Serum or plasma calcium ludin urement (mass/volume)Ordered By: Branden Schaffer on 05-12-2025 Calcium [Mass/Vol] 9.4 mg/dL 7.6-11.0 [facility] Serum or plasma urea nitroge n measurement (mass/volume)Ordered By: Branden Schaffer on 05-12-2025 Urea nitrogen [Mass/Vol] 11 mg/dL 4-19 [facility] [place] Sodium levelOrdered By: Chato Schaffer on 05-12-2025 Sodium [Moles/Vol] 141 mmol/L 133-145 [facility] White blood cell (WBC) count Ordered By: Branden Schaffer on 05-12-2025 WBC (Bld) [#/Vol] 11.1 10*3/uL High 4.4-11.0 [facility] Chest PA and Lateralon 05-[address] L[address] [facility] Imaging Services [address] [place], [place] [address] Chest PA and Lateral MR#: [id number] Acct: [id number] Name: TATIANNAJOHNATHAN K Rep #: [id number] : 1975 F 49 From: Claribel Kennedy PCP: EZIO Negrete Status: REG CLI Study: Chest PA and Lateral Date of Exam: 05/11/25 Exam# [id number] Ordering Dr: Yahir Gutierrez PROCEDURE: CHEST PA AND LATERAL 05/11/2025 REASON FOR EXAM: SOB TECHNIQUE: Procedure Code: RADCXR Modality: DX Procedure: CHEST PA AND LATERAL COMPARISON: None. RAD/Chest PA and Lateral IMPRESSION: Lungs appear clear throughout. No pleural effusion or pneumothorax is noted. The cardiomediastinal silhouette is within the normal range. Mild thoracic spine degenerative changes are seen. No evidence of acute cardiopulmonary disease. Reading Location: [facility] CC: EZIO Negrete Assistant Manager/Embalmer: Signed Normal [facility] [place] D-Dimer Quantitative (DVT/PE )on 05-11-2025 D-DIMER QUANT 0.81 FEU/ug/m Invalid Interpretation Code 0.27-0.49 [facility] [place] Comment on above: Result Comment: D-Di cesilia ELEVATED (>0.49): Additional studies and clinical assessments are indicated to conclude diagnosis of: Deep Vein Thrombosis (DVT) or Pulmonary Embolism (PE) CRITICAL VALUE ATTEMPTED TO BE CALLED TO DOCTOR PLASTER MECHANIC FOR Cherrie NEGRETE DOCTOR NEVER CALLED BACK. 05/11/252136 Annamarie De La Cruz. Performed By: #### L 300.8000 ####[facility] [place] [address] [place], [place], [address] Orthopedic Visit Reporton Orthopedic Visit Report [facility] [address] [place] [address] [address] [place], [place] [address] OFFICE VISIT Date of Service: 04/19/25 MR#: [id number] Acct: [id number] Name: JOHNATHAN ANTONIO Rep #: [id number] : 1975 Provider: Dr. Tony miller MD Age/Sex: 49/F Location: [facility] Status: Signed Intake Vital Signs 03/22/25 08:04 04/19/25 07:56 Height 5 ft 2 in 5 ft 2 in Weight: 240 lb 240 lb BMI 43.9 43.9 Intake Visit Reasons: LEFT KNEE Chief Complaint: Left knee 6 week post op Accompanied by: Is patient in pain?: Yes Pain scale (1-10): 2 Allergies amoxicillin Allergy (Verified 04/19/25 08:01) Hives latex Allergy (Verified 04/19/25 08:01) Hives Sulfa (Sulfonamide Antibiotics) Allergy (Verified 04/19/25 08:01) Rash Medications ???Medication ???Instructions ???Recorded ???Confirmed ???Type albuterol sulfate 90 mcg/actuation 2 inh inhalation Q4H PRN shortne ss 10/15/23 04/19/25 Rx aerosol inhaler (Proventil HFA) of breath or wheezing #8.5 grams ibuprofen 600 mg tablet 600 mg PO Q6-8H PRN pain #90 tabs 01/07/25 04/19/25 Rx aspirin 81 mg chewable tablet 81 mg PO BID vte 1 month #60 tabs 03/09/25 04/19/25 Rx Have you fallen in the past year?: Yes PFSH Medical History Wears glasses Anxiety Depression Alcohol use History of steroid therapy Arthritis Fatty liver Restless legs History of diverticulitis History of pain when walking History of stress test History of irregular heartbeat Hx of fracture of arm Tear of medial meniscus of left knee Smoker Contusion of left hand Contusion of left wrist Contusion of left forearm Left elbow contusion Asthma Surgical History Hx of hysterectomy History of endometrial ablation History of hysteroscopy History of tonsillectomy Status post left foot surgery Social History Smoking Status: Current every day smoker tobacco type: cigarettes HPI LEFT KNEE Details: This documentation accurately reflects the service provided and the decisions made by me, Dr. Tony Latham MD 04/19/25 0756. Part of today???s visit was documented by [ ], acting as scribe. JOHNATHAN ANTONIO is a 49 year old F here today for 6 weeks FU L knee arthroscopy, medial meniscus repair (root and posterior horn). doing well, no concerns. doing PT. Ortho Exam General General: Yes no acute distress Neurologic: Yes alert and Yes oriented x3 Psychologic: Yes reasonable and appropriate Left Knee Skin/Wound: Yes CDI, Yes healed, No ecchymosis, No erythema and No swelling (mild) KNEE: ROM 0-90. nvi. Coding Level of Care Code Global Post Op Diagnoses Primary osteoarthritis of left knee M17.12 Osteoarthritis type: primary Acute medial meniscus tear of left knee, subsequent encounter S83.242D Encounter type: subsequent encounter Laterality: left Assessment and Plan Assessment and Plan (1) Osteoarthritis of left knee: Status: Acute Qualifiers: Osteoarthritis type: primary Qualified Code(s): M17.12 - Unilateral primary osteoarthritis, left knee Plan: JOHNATHAN ANTONIO is a 49 year old F here today for 6 weeks FU L knee arthroscopy, medial meniscus repair (root and posterior horn). Doing well. DC crutches and brace, progress WBAT and ROM, no pivoting or twisting. FU 6 weeks. (2) Acute medial meniscus tear: Status: Acute Qualifiers: Encounter type: subsequent encounter Laterality: left Qualified Code(s): S83.242D - Other tear of medial meniscus, current injury, left knee, subsequent encounter Clinical Quality Measures Falls Risk Screening/Assistive Devices Have you fallen in the past year?: Yes 04/19/25 0808 Date Tony Latham MD Cosigner Signature: Date (if applicable) CC: Normal [facility] Inital Evaluation (1) - PTon 03-24-2025 Inital Evaluation (1) - PT [facility] Physical Therapy Health[address] [place] [address] / REHABILITATION SERVICES INITIAL EVALUATION MR#: [id number] Acct: [id number] Name: JOHNATHAN ANTONIO Rep #: [id number] : 1975 49 From: Rachel QUINN Referring Dr.: Dr. Tony Latham MD Status: R EG RCR Insurance: [employer] SELF [employer]URANCE Patient's Visit Information Visit Information Visit Information: JOHNATHAN ANTONIO is a 49 year old F referred to Physical Therapy by Dr. Tony Latham MD with a diagnosis of S/P L arthroscopy medial meniscus Repair (DOS 04/09/25). Date of Evaluation: 03/23/25 Physical Therapist: CHEYENNE Lee Visit Plan Frequency: 2x /Week Duration: 3 Months Plan: 2X/ week for 12 weeks (20 visits) for 0-90 degrees PROM ONLY per note X 6 weeks (WORK on getting ext ROM), hip and core strength, gait training NWB L LE X 6 weeks, transfer training with HEP Brace locked in extension No isometric HS X 7 weeks Suggestions: QS with and without towel under heel or knee if needed at first PROM knee flexion in supine to [address]LR TKE Subjective Subjective: Pt reports that her L ankle is really swollen since yesterday since told her to put it down and not have it elevated all the time. She came in without her brace in a wheelchair with he knee slightly bent. DOS 04-09-25. 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 Pain L knee pain: Pain Intensity (Out of 10): 7 Objective Objective: Pt came in a wheelchair with no brace. Encouraged her to wear her brace when up or out of the house to ensure keep extension Gait: Pt able to use crutches with NWB sherrie the L LE. She was quite fatigued and not 100% steady going about 30 feet. Had her try using a standard walker and she was a little more steady. L knee PROM -10 and 56 Girth measurements: L mid patella 45 L tib tub 41.1 L supra patella 47.6 R mid patella 41 R tib tub 38 R supra patella 46 Pt has very limited Quad contraction with QS. PROM into flexion was tight and painful. Pt was able to do X 10 AA SLR (AA due to slight extensor lag) Balance/Special Test Scores Lower Extremity Functional Score: 5 Goals Goal 1:: I HEP Goal Time Frame: 8-12 Weeks Goal 2:: Be able to walk by DC with equal stance time on B LE's Goal Time Frame: 8-12 Weeks Goal 3:: Increase L knee AROM 0-130 by DC Goal Time Frame: 8-12 Weeks Goal 4:: Good Quad control with SLR Rehabilitation Potential Rehabilitation Potential: Good Anticipated Interventions Patient/Client Instruction: Educate patient on: Condition and Plan of Care For the Purpose of:: To decrease pain, To decrease swelling/inflammation, To increase ROM, To improve nutrient delivery to tissue, To improve muscle performance and motor function, To improve ability to perform ADL's, To increase tolerance to activity/condition/pos ition, To improve performance and independence with ADL's, To decrease level of supervision to perform tasks, To improve ability of physical actions for home/community/work/le isure, To improve gait and locomotor functions, To improve health of tissue, To decrease soft tissue restriction, To increase flexibility/ROM, To improve endurance and To improve balance Therapeutic Exercise to Include: Strength training, Endurance training, Balance training, Flexibilty training, Gait and locomotor training, Neuromotor development, Passive ROM, Active ROM and Dynamic Lumbar Stabilization For the Purpose of:: To decrease pain, To increase ROM, To improve nutrient delivery to tissue, To improve muscle performance and motor function, To improve ability to perform ADL's, To increase tolerance to activity/condition/pos ition, To improve performance and independence with ADL's, To decrease level of supervision to perform tasks, To improve ability of physical actions for home/community/work/le isure, To improve gait and locomotor functions, To improve health of tissue, To decrease soft tissue restriction, To increase flexibility/ROM, To improve balance and To improve safety with gait Functional Training to Include: Gait training For the Purpose of:: To improve gait and locomotor functions and To improve safety with gait Manual Therapy Techniques to Include: Passive ROM and Soft tissue mobilization For the Purpose of:: To decrease pain, To decrease swelling/inflammation, To increase ROM, To improve nutrient delivery to tissue, To increase oxygenation perfusion, To improve muscle performance and motor function, To improve ability to perform ADL's, To decrease level of supervision to perform tasks, To improve ability of physical actions for home/community/work/le isure, To improve gait and locomotor functions, To improve health of tissue, To decrease soft tissue restriction and To increase flexibility/ROM Cryotherapy (ice pack, ice massage): Yes For the Purpo (more content not included)... Normal [facility] Orthopedic Visit Reporton Orthopedic Visit Report [facility] [address] [place] [address] OFFICE VISIT Date of Service: 03/22/25 MR#: [id number] Acct: [id number] Name: JOHNATHAN ANTONIO Rep #: [id number] : 1975 Provider: Dr. Tony miller MD Age/Sex: 49/F Location: [facility] Status: Signed Intake Vital Signs 02/14/25 13:50 03/14/25 08:31 03/22/25 08:04 Height 5 ft 1 in 5 ft 2 in 5 ft 2 in Weight: 240 lb BMI 43.9 Intake Visit Reasons: left knee Chief Complaint: Left knee 2 week post op Accompanied by: Is patient in pain?: Yes Pain scale (1-10): 7 Allergies amoxicillin Allergy (Verified 03/22/25 08:08) Hives latex Allergy (Verified 03/22/25 08:08) Hives Sulfa (Sulfonamide Antibiotics) Allergy (Verified 03/22/25 08:08) Rash Medications ???Medication ???Instructions ???Recorded ???Confirmed ???Type albuterol sulfate 90 mcg/actuation 2 inh inhalation Q4H PRN shortne ss 10/15/23 03/22/25 Rx aerosol inhaler (Proventil HFA) of breath or wheezing #8.5 grams ibuprofen 600 mg tablet 600 mg PO Q6-8H PRN pain #90 tabs 01/07/25 03/22/25 Rx aspirin 81 mg chewable tablet 81 mg PO BID vte 1 month #60 tabs 03/09/25 03/22/25 Rx Have you fallen in the past year?: Yes PFSH Medical History Wears glasses Anxiety Depression Alcohol use History of steroid therapy Arthritis Fatty liver Restless legs History of diverticulitis History of pain when walking History of stress test History of irregular heartbeat Hx of fracture of arm Tear of medial meniscus of left knee Smoker Contusion of left hand Contusion of left wrist Contusion of left forearm Left elbow contusion Asthma Surgical History Hx of hysterectomy History of endometrial ablation History of hysteroscopy History of tonsillectomy Status post left foot surgery Social History Smoking Status: Current every day smoker tobacco type: cigarettes HPI left knee Details: This documentation accurately reflects the service provided and the decisions made by , Dr. Tony Latham MD 03/22/25 0804. Part of today???s visit was documented by [ ], acting as scribe. JOHNATHAN ANTONIO is a 49 year old F here today for 2 weeks FU L knee arthroscopy, medial meniscus repair (root and posterior horn). doing well. no concerns. has PT booked this week. Ortho Exam General General: Yes no acute distress Neurologic: Yes alert and Yes oriented x3 Psychologic: Yes reasonable and appropriate Left Knee Skin/Wound: Yes CDI, Yes healed, No ecchymosis, No erythema and No swelling (mild) KNEE: ROM 10-80. a bit stiff. no crepitus. nvi. Coding Level of Care Code Global Post Op Diagnoses Primary osteoarthritis of left knee M17.12 Osteoarthritis type: primary Tear of medial meniscus of left knee S83.242A Assessment and Plan Assessment and Plan (1) Osteoarthritis of left knee: Status: Acute Qualifiers: Osteoarthritis type: primary Qualified Code(s): M17.12 - Unilateral primary osteoarthritis, left knee Plan: JOHNATHAN ANTONIO is a 49 year old F here today for 2 weeks FU L knee arthroscopy, medial meniscus repair (root and posterior horn). NWB. OK to shower over incisions. FU 4 weeks. Start PT passive ROM 0-90 only. (2) Tear of medial meniscus of left knee: Status: Acute Clinical Quality Measures Falls Risk Screening/Assistive Devices Have you fallen in the past year?: Yes 03/22/25 0818 Date Tony Latham MD Cosigner Signature: Date (if applicable) CC: Normal [facility] Orthopedic Visit Reporton Orthopedic Visit Report [facility] [address] [place] [address] OFFICE VISIT Date of Service: 03/14/25 MR#: [id number] Acct: [id number] Name: JOHNATHAN ANTONIO Rep #: [id number] : 1975 Provider: Dr. Tony miller MD Age/Sex: 49/F Location: [facility] Status: Signed Intake Vital Signs 02/14/25 13:50 03/09/25 06:29 03/14/25 08:31 Height 5 ft 1 in 5 ft 2 in 5 ft 2 in Weight: 240 lb BMI 43.9 Intake Visit Reasons: left knee Chief Complaint: Left knee post op Accompanied by: Is patient in pain?: Yes Pain scale (1-10): 5 Allergies amoxicillin Allergy (Verified 03/14/25 08:37) Hives latex Allergy (Verified 03/14/25 08:37) Hives Sulfa (Sulfonamide Antibiotics) Allergy (Verified 03/14/25 08:37) Rash Medications ???Medication ???Instructions ???Recorded ???Confirmed ???Type albuterol sulfate 90 mcg/actuation 2 inh inhalation Q4H PRN shortne ss 10/15/23 03/14/25 Rx aerosol inhaler (Proventil HFA) of breath or wheezing #8.5 grams ibuprofen 600 mg tablet 600 mg PO Q6-8H PRN pain #90 tabs 01/07/25 03/14/25 Rx aspirin 81 mg chewable tablet 81 mg PO BID vte 1 month #60 tabs 03/09/25 03/14/25 Rx oxycodone-acetaminophe n 5 mg-325 1 tab PO Q4H PRN pain 3 days #20 0 03/11/25 03/14/25 Rx mg tablet (Endocet) tabs Have you fallen in the past year?: Yes PFSH Medical History Wears glasses Anxiety Depression Alcohol use History of steroid therapy Arthritis Fatty liver Restless legs History of diverticulitis History of pain when walking History of stress test History of irregular heartbeat Hx of fracture of arm Tear of medial meniscus of left knee Smoker Contusion of left hand Contusion of left wrist Contusion of left forearm Left elbow contusion Asthma Surgical History Hx of hysterectomy History of endometrial ablation History of hysteroscopy History of tonsillectomy Status post left foot surgery Social History Smoking Status: Current every day smoker tobacco type: cigarettes HPI left knee Details: This documentation accurately reflects the service provided and the decisions made by me, Dr. Tony Latham MD 03/14/25 0831. Part of today???s visit was documented by [ ], acting as scribe. JOHNATHAN ANTONIO is a 49 year old F here today for 5 days FU L knee arthroscopy, medial meniscus repair (root and posterior horn). well. pain settling down now over the weekend. here with her HB. Ortho Exam General General: Yes no acute distress Neurologic: Yes alert and Yes oriented x3 Psychologic: Yes reasonable and appropriate Left Knee Skin/Wound: Yes CDI, Yes healing, No ecchymosis, No erythema and Yes swelling (mild) KNEE: nvi. trace numbness subjective dorsum of foot. but normal motor function. good DP pulse. Coding Level of Care Code Global Post Op Diagnoses Acute medial meniscus tear of left knee, subsequent encounter S83.242D Encounter type: subsequent encounter Laterality: left Primary osteoarthritis of left knee M17.12 Osteoarthritis type: primary Assessment and Plan Assessment and Plan (1) Acute medial meniscus tear: Status: Acute Qualifiers: Encounter type: subsequent encounter Laterality: left Qualified Code(s): S83.242D - Other tear of medial meniscus, current injury, left knee, subsequent encounter Plan: JOHNATHAN ANTONIO is a 49 year old F here today for 5 days FU L knee arthroscopy, medial meniscus repair (root and posterior horn). NWB 6 weeks. Passive ROM 0-90. ASA 81 BID for VTE. PT referral. mepilex dressings, change q1-2 days. FU 2 weeks. (2) Osteoarthritis of left knee: Status: Acute Qualifiers: Osteoarthritis type: primary Qualified Code(s): M17.12 - Unilateral primary osteoarthritis, left knee Orders: Referrals PT Referral M17.12 - Unilateral primary osteoarthritis, left knee, S83.242D - Other tear of medial meniscus, current injury, left knee, subsequent encounter Clinical Quality Measures Falls Risk Screening/Assistive Devices Have you fallen in the past year?: Yes 03/14/25 0851 Date [facility] Latham MD [facility] Signature: Date (if applicable) CC: Normal [facility] Discharge Instructionon Discharge Instruction [facility] Medical Records Department [address] [place] [address] Instructions for Home/Discharge Instructions 03/09/25 0843 MR#: [id number] Acct: [id number] Name: JOHNATHAN ANTONIO Rep #: [id number] : 1975 49 From: Tony Latham MD PCP: EZIO Negrete Status:REG [facility] Discharge Instructions Diet Discharge Diet: No restrictions Activity Weight Bearing Status: No weight bearing Keep extremity elevated above heart level: Operative Extremity Dressing / Incision Call your doctor if your incision/area has: Continuous Slow Oozing, Sudden Increased Bleeding, Increased Pain/ Swelling, Increased Redness, Foul Smelling Discharge and Swelling at the incision site Call your doctor if you observe: Fever of 101 or Higher, Coldness, Increased Pain and Numbness or Tingling Change Dressing in: leave in place till F/U Cleanse incision/area with: Do not get Incision Wet Follow Up Care Please Follow Up With: Tony Latham MD When: within 2 weeks Test Results: Test results from this visit will be discussed in further detail at your follow-up appointment, if applicable. Discharge Plan Admission Attending Provider: Tony Latham Primary Care Provider: Yahir Gutierrez Print Language: Zimbabwean Discharge Orders/Prescriptions Prescriptions: New oxycodone-acetaminophe n [Endocet] 5-325 mg tablet 1 tab PO Q4H MDD 6 PRN (Reason: pain) 3 Days Qty: 20 0RF aspirin 81 mg tablet,chewable 81 mg PO BID MDD 2 30 Days Qty: 60 0RF No Action ibuprofen 600 mg tablet 600 mg PO Q6-8H PRN (Reason: pain) Qty: 90 0RF albuterol sulfate [Proventil HFA] 90 mcg/actuation HFA aerosol inhaler 2 inh inhalation Q4H PRN (Reason: shortness of breath or wheezing) Qty: 8.5 1RF Referrals / Follow Up: Tony Latham MD [Med Staff - Active Staff] - Yahir Gutierrez PA [Primary Care Provider] - Disposition Disposition (needs filled in before D/C Order can be placed): Home, Self Care 03/09/25 0846 Tony Latham MD CC: EZIO Negrete Signed [facility] MR/POSTOP.ANE 03-09-2025 MR/POSTOP.[facility] Medical Records Department [address] [place] [address] Anesthesia Postop Eval I 03/09/2543 MR#: [id number] Acct: [id number] Name: JOHNATHAN ANTONIO Rep #: [id number] : 1975 49 From: Ankit Balderas CRNA PCP: EZIO Negrete Status:REG [facility] Y Race: C Location: [place] [address] Anesthesia: Postop Eval I Current Vital Signs Temperature: 97 F Pulse Rate: 101 Blood Pressure: 141/89 Respiratory Rate: 20 Pulse Ox: 92 Assessment Airway patent: Yes Spontaneous unlabored respirations: Yes nausea: No Vomiting: No Anesthesia Complication: No Fluid Hydration Crystalloid volume administer (ml): 700 Total IV fluid infused: 700 Progress Note Anesthesia document: Postop Eval 1 completed: Yes 03/09/2544 Date Ankit Balderas FILM WRITER Cosigner Signature: Date CC: Signed [facility] MR/[id number] 03-09-2025 MR/POST[address] Medical Records Department [address] [facility] [address] Anesthesia Postop Eval II 03/09/25 1446 MR#: [id number] Acct: [id number] Name: JOHNATHAN ANTONIO Rep #: [id number] : 1975 49 From: Parveen Evans MD PCP: EZIO Negrete Status:DEP [facility] Y Race: C Location: [facility] Anesthesia Postop Eval I Sum Postop Eval Completion status Anesthesia document: Postop Eval 1 completed: Yes Anesthesia Postop Eval I Summary Anesthesia Postop Eval I Summary: Anesthesia Postop Eval I: Assessment Summary Airway patent Yes 03/09/25 08:43 [email or web address] Spontaneous unlabored Yes 03/09/25 08:43 [email or web address] respirations Mental status nausea No 03/09/25 08:43 [email or web address] Vomiting No 03/09/25 08:43 [email or web address] Anesthesia Postop Eval I: Fluid Summary Crystalloid volume administer 700 03/09/25 08:43 [email or web address] (ml) Colloids volume administered ( ml) Blood Product volume administered (ml) Total IV fluid infused 700 03/09/25 08:43 [email or web address] Anesthesia Postop Eval I: Summary Notes Anesthesia Complication No 03/09/25 08:43 [email or web address] Anesthesia Complication Comment: Post-operative progress note Anesthesia: Postop Eval II Evaluation Mental status: Awake Pain Level: 0 nausea: No Vomiting: No 03/09/25 1446 Date Parveen Evans MD Cosigner Signature: Date CC: Signed Normal [facility] Operative Reporton 5 Operative Report [facility] Medical Records Department [address] [place] [address] Operative Report 03/09/25 0834 MR#: [id number] Acct: [id number] Name: JOHNATHAN ANTONIO Rep #: [id number] : 1975 49 From: Tony Latham MD PCP: EZIO Negrete Status:REG [facility] Location: [place] [address] Problems Associated Problem List Diagnoses (1) Acute medial meniscus tear: (2) Osteoarthritis of left knee: Procedures Musculoskeletal 20xxx-29xxx: Other Procedure See Report Operative Report (Standard) Operative Information Date of Procedure: 03/09/25 Pre-Operative Diagnosis: L knee medial meniscus tear, root and posterior horn Post-Operative Diagnosis: same Surgery/Procedure Performed: L knee arthroscopy, medial meniscus repair (root and posterior horn) director of dietary: Yes Engine Cleaner: gordo Tasks completed by assistant real estate manager: Retracting Additional marketing support assistant?: No Type of Anesthesia: General and Local RN Documented Start/Stop Times: Operation Date: 03/09/25 07:30 Case Time Into Pre-Op 03/09/25 05:58 Out of Pre-Op 03/09/25 07:23 Anesthesia Start 03/09/25 07:28 Into Room 03/09/25 07:28 Procedure Start 03/09/25 07:49 Procedure Start Time: 07:49 Procedure Stop Time: 08:35 Select all DRAINS/GRAFTS/IMPLANTS that apply: Implanted device Implanted device details: arthrex sutureloc, fiberstitch all inside x 2 Estimated Blood Loss: 10 Specimen collected: No Description of surgery: Patient brought to the operating room theater. Placed supine on the table. General anesthesia induced. 2 g IV Ancef administered prior to the start of the procedure. All bony prominences padded. Tourniquet applied to the left thigh 34 inch appropriately padded. SCD on the nonoperative leg. Stress positioner used to the patient's left side. Operative extremity prepped and draped in the usual sterile fashion allowing over 3 minutes drying time prior to draping. Preoperative timeout performed to confirm the site patient and the surgery. Began by elevating the limb inflating the tourniquet to 250 mmHg. Used standard anterolateral and anteromedial arthroscopy portals. Did a full diagnostic arthroscopy. There is minor amount of synovitis in the prepatellar area I gently debrided that for appropriate visualization. Remove the ligamentum mucosum. The ACL and PCL appeared normal. The patellofemoral joint there was some minor grade 1-2 changes at the patellofemoral joint primarily on the trochlear side no loose bodies. Medial lateral gutters entered no loose bodies. The lateral compartment grade 1 changes both sides and the lateral meniscus appeared normal stable to probing. I then entered the medial compartment. There is minor grade 1 changes on both sides. There is a medial meniscus root tear with elevating of the meniscus as well as a vertical component of the tear at the posterior horn. Did 'pie crust' technique to release the proximal MCL for better visualization of the medial compartment. I elected to do a root repair as well as repair of the vertically orientated tear. I used curette at the medial meniscus root area on the tibia and to remove any cartilage and prepare a bony bleeding bed. I used the shaver at this area as well as a meniscus rasp. I then used the guide for the posterior root and passed the pin up to the posterior root area. I then passed a nitinol wire through the guidepin brought this out the anterior medial portal which I had also placed a passport cannula. I then shuttled the suture lock to below the subchondral bone and deployed to the implant. I then passed the 2 sutures and converted these in a simple fashion to repair the medial meniscus root sequential tensioning as well as doing range of motion testing of the knee and then tensioning after that. I then also used Arthrex all inside fiber stitch implants 1.5 mm in a vertical and horizontal mattress fashion for the vertically orientated tear. This achieved solid purchase of the meniscus good repair of the root and stable meniscus with probing. Final arthroscopy pictures taken and saved onto the system. Tourniquet let down hemostasis achieved. Portal sites closed with 3-0 Monocryl suture. 8 cc of quarter percent bupivacaine instilled in and around the portal sites. Skin cleaned with wet and dry dressing followed application of Steri-Strips Adaptic 4 x 4 gauze ABD dressing loosely wrapped Juan bandage and hinged knee brace locked in full extension. Patient woken up from the general anesthetic transferred off the operating table taken to postanesthetic care unit in stable condition. All sponge needle instrument counts were correct no complications Plan for the patient discharge home according to day surgery criteria nonweightbearing in full extension for the first 6 weeks and ASA 81 mg twice daily for VTE prophylaxis. CPT 00124, [address]754 Surgical Findings: as abo (more content not included)... [facility] (INCLUDES DIFF/PLT)on Basophils (Bld) [#/Vol] 0.055 10*3/uL Normal 0-200 [facility] Comment on above: Performed By: #### 6 399 #### [facility] of [place] [address] Roller Skater: Eduardo Fernandez MD Basophils/100 WBC (Bld) 0.5 % Normal [facility] Comment on above: Performed By: #### 6 399 #### [facility] of [address], [address] [place] [address] Roller Skater: Eduardo Fernandez MD Eosinophils (Bld) [#/Vol] 0.187 10*3/uL Normal 15-500 [facility] Comment on above: Performed By: #### 6 399 #### [facility] of [place] [address] Roller Skater: Eduardo Fernandez MD Eosinophils/100 WBC (Bld) 1.7 % Normal [facility] Comment on above: Performed By: #### 6 399 #### [facility] of [place] [address] Roller Skater: Eduardo Fernandez MD Erythrocyte distribution width (RBC) [Ratio] 12.8 % Normal 11.0-15.0 [facility] Comment on above: Performed By: #### 6 399 #### [facility] of [place] [address] Roller Skater: Eduardo Fernandez MD Hematocrit (Bld) [Volume fraction] 45.7 % High 35.0-45.0 [facility] Comment on above: Performed By: #### 6 399 #### [facility] [place] [address] Roller Skater: Eduardo Fernandez MD Hemoglobin (Bld) [Mass/Vol] 14.8 g/dL Normal 11.7-15.5 [facility] Comment on above: Performed By: #### 6 399 #### [facility] of [address] Roller Skater: Eduardo Fernandez MD Lymphocytes (Bld) [#/Vol] 3.817 10*3/uL Normal 850-3900 [facility] Comment on above: Performed By: #### 6 399 #### [facility] [place] [address] Roller Skater: Eduardo Fernandez MD Lymphocytes/100 WBC (Bld) 34.7 % Normal [facility] Comment on above: Performed By: #### 6 399 #### [facility] [place] [address] Roller Skater: Eduardo Fernandez MD MCH (RBC) [Entitic mass] 30.7 pg Normal 27.0-33.0 [facility] Comment on above: Performed By: #### 6 399 #### [facility] [place] [address] Roller Skater: Eduardo Fernandez MD MCHC (RBC) [Mass/Vol] 32.4 [...] #### 6 399 #### [facility] [place] [address] Roller Skater: Eduardo Fernandez MD MCV (RBC) [Entitic vol] 94.8 fL Normal 80.0-100.0 [facility] Comment on above: Performed By: #### 6 399 #### [facility] [place] [address] Roller Skater: Eduardo Fernandez MD Monocytes (Bld) [#/Vol] 0.737 10*3/uL Normal 200-950 [facility] Comment on above: Performed By: #### 6 399 #### [facility] of [address] [address] Roller Skater: Eduardo Fernandez MD Monocytes/100 WBC (Bld) 6.7 % Normal [facility] Comment on above: Performed By: #### 6 399 #### [facility] [place] [address] Roller Skater: Eduardo Fernandez MD Neutrophils (Bld) [#/Vol] 6.204 10*3/uL Normal 9855-7940 [facility] Comment on above: Performed By: #### 6 399 #### [facility] [place] [address] Roller Skater: Eduardo Fernandez MD Neutrophils/100 WBC (Bld) 56.4 % Normal [facility] Comment on above: Performed By: #### 6 399 #### [facility] [place] [address] Roller Skater: Eduardo Fernandez MD Platelet mean volume (Bld) [Entitic vol] 10.1 fL Normal 7.5-12.5 [facility] Comment on above: Performed By: #### 6 399 #### [facility] of [place] [address] Roller Skater: Eduardo Fernandez MD Platelets (Bld) [#/Vol] 345 10*3/uL Normal 140-400 [facility] Comment on above: Performed By: #### 6 399 #### [facility] [place] [address] Roller Skater: Eduardo Fernandez MD RBC (Bld) [#/Vol] 4.82 10*6/uL Normal 3.80-5.10 [facility] Comment on above: Performed By: #### 6 399 #### [facility] [place] [address] Roller Skater: Eduardo Fernandez MD WBC (Bld) [#/Vol] 11.0 10*3/uL High 3.8-10.8 [facility] Comment on above: Performed By: #### 6 399 #### [facility] [place] [address], [address] [place] [address] Roller Skater: Eduardo Fernandez MD Laboratory - Hematology and Cell countson 02-15-2025 Basophils (Bld) [#/Vol] 0.055 10*3/uL Normal 0 - 200 {cells/uL} [place] [employer] Basophils/100 WBC (Bld) 0.5 % Normal H [facility] [employer] Eosinophils (Bld) [#/Vol] 0.187 10*3/uL Normal 15 - 500 {cells/uL} [employer] Eosinophils/100 WBC (Bld) 1.7 % Normal [place] [employer] Erythrocyte distribution width (RBC) [Ratio] 12.8 % Normal 11.0 - 15.0 % [place] [employer] Hematocrit (Bld) [Volume fraction] 45.7 % Abnormal 35.0 - 45.0 % [place] [employer] Hemoglobin (Bld) [Mass/Vol] 14.8 g/dL Normal 11.7 - 15.5 g/dL [place] [employer] Lymphocytes (Bld) [#/Vol] 3.817 10*3/uL Normal 850 - 3900 {cells/uL} [employer] Lymphocytes/100 WBC (Bld) 34.7 % Normal [employer] MCH (RBC) [Entitic mass] 30.7 pg Normal 27.0 - 33.0 pg [employer] MCHC (RBC) [Mass/Vol] 32.4 g/dL Normal 32.0 - 36.0 g/dL [place] [employer] MCV (RBC) [Entitic vol] 94.8 fL Normal 80.0 - 100.0 fL [place] [employer] Monocytes (Bld) [#/Vol] 0.737 10*3/uL Normal 200 - 950 {cells/uL} [facility]. Monocytes/100 WBC (Bld) 6.7 % Normal [facility] [place] [employer]. Neutrophils (Bld) [#/Vol] 6.204 10*3/uL Normal 1500 - 7800 {cells/uL} [facility]. Neutrophils/100 WBC (Bld) 56.4 % Normal [place] [employer] [facility] [facility]. Platelet mean volume (Bld) [Entitic vol] 10.1 fL Normal 7.5 - 12.5 fL [place] [employer] [place] [employer]. Platelets (Bld) [#/Vol] 345 10*3/uL Normal 140 - 400 [place] [employer] [facility]. RBC (Bld) [#/Vol] 4.82 10*6/uL Normal 3.80 - 5.1 0 {Million/uL } [facility]. WBC (Bld) [#/Vol] 11.0 10*3/uL Abnormal 3.8 - 10.8 [facility] [employer] [facility]. Orthopedic Visit Reporton Orthopedic Visit Report [facility] [address] [place] [address] OFFICE VISIT Date of Service: 02/14/25 MR#: [id number] Acct: [id number] Name: JOHNATHAN ANTONIO Rep #: [id number] : 1975 Provider: Dr. Tony miller MD Age/Sex: 49/F Location: [facility] Status: Signed Intake Vital Signs 01/21/25 08:12 [...] by me, Dr. Tony Latham MD 02/14/25 6006. Part of today???s visit was documented by [ ], acting as scribe. JOHNATHAN ANTONIO is a 49 year old F here today for L knee pain, mild OA and MM root tear. Medial posterior and anterior knee pain. 4 months. 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 some mechanical symptoms, positive catching / locking. cortisone made it worse. here with her . PT no. no prior operations on the knee. Using a brace. Supplemental Info [facility] [address] [place], [place] [id number] Knee 4 or More Views MR#: [id number] Acct: [id number] Name: JOHNATHAN ANTONIO Rep #: [id number] : 1975 F 48 From: Stanislav Sampson MD PCP: EZIO Negrete Status: REG ER Study: Knee 4 or More Views Date of Exam: 11/23/24 Exam# [id number] Ordering Dr: Gordo Viera MD PROCEDURE: KNEE 4 OR MORE VIEWS 11/23/2024 REASON FOR EXAM: ATRAUMATIC LEFT KNEE PAIN TECHNIQUE: 4 view(s) of the left knee FINDINGS: Bones: No fracture. No suspicious bone lesion. Joints: Normal alignment. Effusion: No effusion. Soft tissues: Soft tissues are unremarkable. Other: RAD/Knee 4 or More Views IMPRESSION: Normal left knee. Reading Location: [id number] per Dr. Corrales notes... 01/04/2025 MRI left [...] of last (more content not included)... Normal [facility] Orthopedic Visit Reporton Orthopedic Visit Report [facility] [address] [place] [address] OFFICE VISIT Date of Service: 01/21/25 MR#: [id number] Acct: [id number] Name: JOHNATHAN ANTONIO Rep #: [id number] : 1975 Provider: Dr. Maximilian wallace DO Age/Sex: 49/F Location: [facility] Status: Signed Intake Vital Signs 01/07/25 08:56 [...] the past year?: Yes PFSH Medical History Tobacco abuse Desire for [...] the decisions made by me, Dr. Maximilian Corrales DO 01/21/25 0748. Part of today???s visit was documented by [...] Lot Numb (more content not included)... Normal [facility] Orthopedic Visit Reporton Orthopedic Visit Report [facility] [address] [place] [address] [address] [place] [address] OFFICE VISIT Date of Service: 01/07/25 MR#: [id number] Acct: [id number] Name: JOHNATHAN ANTONIO Rep #: [id number] : 1975 Provider: FACUNDO greene Age/Sex: 49/F Location: [facility] Status: Signed Intake Vital Signs 12/16/24 08:04 [...] the past year?: Yes PFSH Medical History Tobacco abuse Desire for [...] provided and the decisions made by me, RUY CallaahnC 01/07/25 0856. Part of today???s visit was [...] review M (more content not included)... Normal [facility] MR KNEE LEFT WITHOUT CONTRAS Ton 01-04-2025 [...] 4. Small to moderately sized Dumont's cyst. [facility] Workstation ID: [id number] Dictated by: SALVADOR EVANGELISTA on FriJan 05, 2025 2:30:25 PM EDT Transcribed by: VITA SMITH on FriJan 05, 2025 2:53:48 PM EDT Finalized by: SALVADOR EVANGELISTA on FriJan 06, 2025 8:53:59 AM EDT [facility] Comment on above: Order Comment: Fax Injury/Trauma or Illness?:Illness/Other How long have you had these symptoms (acute/chronic)?:Acute Reason for exam?:Unspecified internal derangement of left knee Type of Exam?:Initial Additional signs and symptoms?:nki Orthopedic Visit Reporton Orthopedic Visit Report [facility] [address] [place] [address] OFFICE VISIT Date of Service: 12/16/24 MR#: [id number] Acct: [id number] Name: JOHNATHAN ANTONIO Rep #: [id number] : 1975 Provider: FACUNDO greene Age/Sex: 48/F Location: [facility] Status: Signed Intake Vital Signs 12/14/24 21:30 [...] went ot the ER the Friday after Easter, the did xrays, and they couldn't see any thing. [...] to start physical therapy on 12/30/2024 at [facility]. Patient denies any diabetes, or blood thinners.Patient [...] activities prior to onset. Painful and loud "pop" yesterday, been using crutches Worse with trying bear wt, in and out of car, putting shoes and socks, any rotation on the knee. Sx progressively worsening. 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 Normal [facility] Emergency Department Summary on 12-14-2024 Emergency Department Summary [facility] Medical Records Department [address] [place] [address] Emergency Department Summary 12/14/24 MR#: [id number] Acct: [id number] Name: JOHNATHAN ANTONIO Rep #: [id number] : 1975 48 From: Jose A Espinal PCP: EZIO Negrete Status:DEP ER Location: ED HPI History of [...] do no (more content not included)... Normal [facility] CT ABD/PEL W IVCONon 025 CT ABD/PEL W IVCON * * *Final Report* * * DATE OF EXAM: Dec 07 2024 8:48AM [facility] 0530 - CT ABD/PEL W IVCON / [...] IMPRESSION: Sigmoid diverticulosis without diverticulitis. Hepatic steatosis. Assistant Manager/Embalmer: JEANNIE Transcribe Date/Time: Dec 11 2024 1:14P Dictated by : BRIGIDO TRAN MD This examination was interpreted and the report reviewed and electronically signed by: BRIGIDO TRAN MD on Dec 11 2024 1:23PM EST [id number] Normal [facility] Absolute lymphocyte countOrd ered By: Gordo Viera on 11-23-2024 Lymphocytes Auto (Unsp spec) [#/Vol] 3.59 10*3/uL 0.83-4.51 [facility] Absolute neutrophil countOrd ered By: Gordo Viera on 11-23-2024 Neutrophils (Bld) [#/Vol] 7.2 10*3/uL 2.0-7.7 [facility] Anion gap in Serum or Plasma Ordered By: Gordo Viera on 11-23-2024 Anion gap [Moles/Vol] 10 mmol/L 5-15 [facility] Automated lymphocyte count a s percentage of total leukocytesOrdered By: Gordo Viera on 11-23-2024 Lymphocytes/100 WBC Auto (Unsp spec) 29.8 % 19-41 [facility] BUN/creatinine ratioOrdered By: Godro Viera on 11-23-2024 Urea nitrogen/Creatinine [Mass ratio] 18.4 mg/mg 10-20 [facility] Basophil percentageOrdered B y: Gordo Viera on 11-23-2024 Basophils/100 WBC (Bld) 0.5 % 0-1 [facility] Bilirubin, totalOrdered By: Gordo Viera on 11-23-2024 Bilirubin [Mass/Vol] 0.18 mg/dL 0.00-1.30 [facility] CBC W/Diff, Automatedon 11-03 Absolute Lymph 3.59 X10 3/uL Normal 0.83-4.51 [facility] Comment on above: Performed By: #### L 100.0100 #### [facility] Laboratory [address] [place], [address] Absolute Neut 7.2 X10 3/uL Normal 2.0-7.7 [facility] Comment on above: Performed By: #### L 100.0100 #### [facility] Laboratory [address] [place], [address] Basophils/100 WBC (Bld) 0.5 % Normal 0-1 [facility] Comment on above: Performed By: #### L 100.0100 #### [facility] Laboratory [address] [place], [address] Eosinophils/100 WBC (Bld) 1.2 % Normal 0-5 [facility] Comment on above: Performed By: #### L 100.0100 #### [facility] Laboratory [address] [place], [address] Erythrocyte distribution width (RBC) [Ratio] 12.8 % Normal 11.6-14.6 [facility] Comment on above: Performed By: #### L 100.0100 #### [facility] Laboratory [address] [place], [address] Hematocrit (Bld) [Volume fraction] 43.9 % Normal 37-47 [facility] Comment on above: Performed By: #### L 100.0100 #### [facility] Laboratory [address] [place], [address] Hemoglobin (Bld) [Mass/Vol] 15.2 g/dL High 12.0-15.0 [facility] Comment on above: Performed By: #### L 100.0100 #### [facility] Laboratory [address] [place], [address] IG% 0.700 Normal 0.0-0.9 [facility] Comment on above: Result Comment: IG% - Immature Granulocytes (promyelocytes, myelocytes and metamyelocytes) > 1% indicates that a LEFT SHIFT is Present. Performed By: #### L 100.0100 #### [place] [facility] [address] [place], [address] Lymphocytes/100 WBC (Bld) 29.8 % Normal 19-41 [facility] Comment on above: Performed By: #### L 100.0100 #### [facility] Laboratory [address] [place], [address] MCH (RBC) [Entitic mass] 30.8 pg Normal 27.0-32.0 [facility] Comment on above: Performed By: #### L 100.0100 #### [facility] Laboratory [address] [place], [address] MCHC (RBC) [Mass/Vol] 34.6 g/dL Normal 32-36 [facility] Comment on above: Performed By: #### L 100.0100 #### [facility] Laboratory [address] [place], [address] MCV (RBC) [Entitic vol] 88.9 fL Normal 81-99 [facility] Comment on above: Performed By: #### L 100.0100 #### [facility] Laboratory [address] [place], [address] Monocytes/100 WBC (Bld) 7.8 % Normal 0-10 [facility] Comment on above: Performed By: #### L 100.0100 #### [facility] Laboratory [address] [place], [address] Neutrophils/100 WBC (Bld) 60.0 % Normal 47-70 [facility] Comment on above: Performed By: #### L 100.0100 #### [facility] Laboratory [address] [place], [address] Nucleated RBC (Bld) [#/Vol] 0 10*3/uL Normal 0-5 [facility] Comment on above: Performed By: #### L 100.0100 #### [facility] Laboratory [address] [place], [address] Platelet mean volume (Bld) [Entitic vol] 9.8 fL Normal 6.2-12.0 [facility] Comment on above: Performed By: #### L 100.0100 #### [facility] Laboratory [address] [place], [address] Platelets (Bld) [#/Vol] 320 10*3/uL Normal 150-450 [facility] Comment on above: Performed By: #### L 100.0100 #### [facility] Laboratory [address] [place], [address] RBC (Bld) [#/Vol] 4.94 10*6/uL Normal 4.2-5.4 [facility] Comment on above: Performed By: #### L 100.0100 #### [facility] Laboratory [address] [place], [address] RDW SD 41.4 fl Normal 35.1-43.9 [facility] Comment on above: Performed By: #### L 100.0100 #### [facility] Laboratory [address] [place], [address] WBC (Bld) [#/Vol] 12.0 10*3/uL High 4.4-11.0 [facility] Comment on above: Performed By: #### L 100.0100 #### [facility] Laboratory [address] [place], [address] Carbon dioxide, total [Moles /volume] in Central venous bloodOrdered By: Gordo Viera on 11-23-2024 CO2 [Moles/Vol] 25.8 mmol/L 21.0-32.0 [facility] Chloride assayOrdered By: Dalton Viera on 11-23-2024 Chloride [Moles/Vol] 103 mmol/L 98-108 [facility] Comprehensive Metabolic Prof ilon 11-23-2024 Albumin [Mass/Vol] 4.1 g/dL Normal 3.5-5.0 [facility] Comment on above: Performed By: #### L 500.4050 #### [facility] Laboratory [address] [place], [address] Albumin/Globulin [Mass ratio] 1.5 {ratio} Normal 0.9-2.4 [facility] Comment on above: Performed By: #### L 500.4050 #### [facility] Laboratory [address] [place], [address] ALK PHOS 77 U/L Normal 35-104 [facility] Comment on above: Performed By: #### L 500.4050 #### [facility] Laboratory [address] [place], [address] ALT [Catalytic activity/Vol] 29 U/L Normal <=34 [facility] Comment on above: Performed By: #### L 500.4050 #### [facility] Laboratory [address] [place], [address] AST [Catalytic activity/Vol] 27 U/L Normal <=31 [facility] Comment on above: Result Comment: Hemo lysis present, Results??could be affected. ?? Performed By: #### L 500.4050 #### [facility] Laboratory [address] [place], [address] Bilirubin [Mass/Vol] 0.18 mg/dL Normal 0.00-1.30 [facility] Comment on above: Performed By: #### L 500.4050 #### [facility] Laboratory [address] [place], [address] BUN/CRE 18.4 RATIO Normal 10-20 [facility] Comment on above: Performed By: #### L 500.4050 #### [facility] Laboratory [address] [place], [address] Calcium [Mass/Vol] 9.2 mg/dL Normal 7.6-11.0 [facility] Comment on above: Performed By: #### L 500.4050 #### [facility] Laboratory [address] [place], [address] Chloride [Moles/Vol] 103 mmol/L Normal 98-108 [facility] Comment on above: Performed By: #### L 500.4050 #### [facility] Laboratory [address] [place], [address] CO2 [Moles/Vol] 25.8 mmol/L Normal 21.0-32.0 [facility] Comment on above: Performed By: #### L 500.4050 #### [facility] Laboratory [address] [place], [address] Creatinine [Mass/Vol] 0.68 mg/dL Low 0.70-1.20 [facility] Comment on above: Performed By: #### L 500.4050 #### [facility] Laboratory [address] [place], [address] ECRCL 112.00 ml/min Normal 50-250 [facility] Comment on above: Performed By: #### L 500.4050 #### [facility] Laboratory [address] [place], [address] GAP 10 Normal 5-15 [facility] Comment on above: Performed By: #### L 500.4050 #### [facility] Laboratory [address] [place], [address] GFR/1.73 sq M.predicted among non-blacks MDRD (S/P/Bld) [Vol rate/Area] 107 mL/min/{1.73_m2} Normal >60 [facility] Comment on above: Result Comment: mL/m in/1.73m2 CKD-EPI Creatinine Equation (2020) Performed By: #### L 500.4050 #### [facility] Laboratory [address] [place], [address] Globulin (S) [Mass/Vol] 2.7 g/dL Normal 2.2-4.2 [facility] Comment on above: Performed By: #### L 500.4050 #### [facility] Laboratory [address] [place], [address] Glucose [Mass/Vol] 119 mg/dL High 70-99 [facility] Comment on above: Performed By: #### L 500.4050 #### [facility] Laboratory [address] [place], [address] Potassium [Moles/Vol] 4.3 mmol/L Normal 3.3-5.1 [facility] Comment on above: Result Comment: Hemo lysis present, Results??could be affected. ?? Performed By: #### L 500.4050 #### [facility] Laboratory [address] [place], [address] Sodium [Moles/Vol] 139 mmol/L Normal 133-145 [facility] Comment on above: Performed By: #### L 500.4050 #### [facility] Laboratory [address] [place], [address] T PROT 6.8 g/dL Normal 5.9-8.4 [facility] Comment on above: Performed By: #### L 500.4050 #### [facility] Laboratory [address] [place], [address] Urea nitrogen [Mass/Vol] 13 mg/dL Normal 4-19 [facility] Comment on above: Performed By: #### L 500.4050 #### [facility] Laboratory [address] [place], [address] Emergency Department Summary on 11-23-2024 Emergency Department Summary [facility] Medical Records Department [address] [address] Emergency Department Summary 11/23/24 MR#: [id number] Acct: [id number] Name: JOHNATHAN ANTONIO Rep #: [id number] : 1975 48 From: Gordo Viera MD PCP: EZIO Negrete Status:DEP ER Location: ED HPI History of [...] Room Air (more content not included)... Normal [facility] Eosinophil percentageOrdered By: Gordo Viera on 11-23-2024 Eosinophils/100 WBC (Bld) 1.2 % 0-5 [facility] Erythrocyte distribution wid th (RBC) [Ratio]Ordered By: Gordo Viera on 11-23-2024 Erythrocyte distribution width (RBC) [Entitic vol] 41.4 fL 35.1-43.9 [facility] Erythrocyte distribution wid th ratioOrdered By: Gordo Viera on 11-23-2024 Erythrocyte distribution width (RBC) [Ratio] 12.8 % 11.6-14.6 [facility] [place] Erythrocyte distribution wid th standard deviationOrdered By: Gordo Viera on 11-23-2024 Erythrocyte distribution width (RBC) [Ratio] 41.4 fl 35.1-43.9 [facility] Estimation of creatinine pranav aranceOrdered By: Gordo Viera on 11-23-2024 Estimated Creatinine Clearance Calc 112.00 ml/min 50-250 [facility] GFR/1.73 sq M.predicted gaby g non-blacks MDRD (S/P/Bld) [Vol rate/Area]Ordered By: Gordo Viera on 11-23-2024 Estimated GFR (MDRD) Non-Af Amer 107 >60 [facility] Comment on above: mL/min/1.73m2 CKD-EP I Creatinine Equation (2020) Glomerular filtration rate ( GFR) estimation/1.73 sq m using serum, plasma, or whole bOrdered By: Gordo Viera on 11-23-2024 GFR/1.73 sq M.predicted among non-blacks MDRD (S/P/Bld) [Vol rate/Area] 107 mL/min/{1.73_m2} >60 [facility] Comment on above: mL/min/1.73m2 CKD-EP I Creatinine Equation (2020) Hematocrit Auto (Bld) [Volum e fraction]Ordered By: Gordo Viera on 11-23-2024 Hematocrit (Bld) [Volume fraction] 43.9 % 37-47 [facility] Hemoglobin measurementOrdere d By: Gordo Viera on 11-23-2024 Hemoglobin (Bld) [Mass/Vol] 15.2 g/dL High 12.0-15.0 [facility] Immature granulocytes/100 WB C Auto (Bld)Ordered By: Gordo Viera on 11-23-2024 Immature granulocytes/100 WBC (Bld) 0.700 % 0.0-0.9 [facility] Comment on above: IG% - Immature Granu locytes (promyelocytes, myelocytes and metamyelocytes) > 1% indicates that a LEFT SHIFT is Present. Knee 4 or More Viewson 11-[address] [facility] Services [address] [place], [place] [address] Knee 4 or More Views MR#: [id number] Acct: [id number] Name: JOHNATHAN ANTONIO Rep #: [id number] : 1975 F 48 From: Stanislav Sampson MD PCP: EZIO Negrete Status: REG ER Study: Knee 4 or More Views Date of Exam: 11/23/24 Exam# [id number] Ordering Dr: Gordo Viera MD PROCEDURE: KNEE 4 OR MORE VIEWS 11/23/2024 REASON FOR EXAM: ATRAUMATIC LEFT KNEE PAIN TECHNIQUE: 4 view(s) of the left knee FINDINGS: Bones: No fracture. No suspicious bone lesion. Joints: Normal alignment. Effusion: No effusion. Soft tissues: Soft tissues are unremarkable. Other: RAD/Knee 4 or More Views IMPRESSION: Normal left knee. Reading Location: [facility] CC: Dr. Gordo Viera MD; EZIO Negrete Assistant Manager/Embalmer: Signed Normal [facility] Laboratory - Chemistry and C hemistry - challengeOrdered By: Gordo Viera on 11-23-2024 AST [Catalytic activity/Vol] 27 U/L <32 [facility] Comment on above: Hemolysis present, R esults could be affected. Lymphocytes Auto (Unsp spec) [#/Vol]Ordered By: Gordo Viera on 11-23-2024 Lymphocytes (Bld) [#/Vol] 3.59 10*3/uL 0.83-4.51 [facility] Lymphocytes/100 WBC Auto (Un sp spec)Ordered By: Gordo Viera on 11-23-2024 Lymphocytes/100 WBC (Bld) 29.8 % 19-41 [facility] MCV (mean corpuscular volume ) determinationOrdered By: Gordo Viera on 11-23-2024 MCV (RBC) [Entitic vol] 88.9 fL 81-99 [facility] Mean corpuscular hemoglobin (MCH) determinationOrdered By: Gordo Viera on 11-23-2024 MCH (RBC) [Entitic mass] 30.8 pg 27.0-32.0 [facility] [place] Mean corpuscular hemoglobin concentration (MCHC) determinationOrdered By: Gordo Viera on 11-23-2024 MCHC (RBC) [Mass/Vol] 34.6 g/dL 32-36 [facility] Mean platelet volume determi nationOrdered By: Gordo Viera on 11-23-2024 Platelet mean volume (Bld) [Entitic vol] 9.8 fL 6.2-12.0 [facility] Monocyte percentageOrdered B y: Gordo Viera on 11-23-2024 Monocytes/100 WBC (Bld) 7.8 % 0-10 [facility] Neutrophil percentageOrdered By: Gordo Viera on 11-23-2024 Neutrophils/100 WBC (Bld) 60.0 % 47-70 [facility] Nucleated red blood cell per centageOrdered By: Gordo Viera on 11-23-2024 Nucleated RBC/100 WBC (Bld) [Ratio] 0 % 0-5 [facility] Platelet countOrdered By: Dalton Viera on 11-23-2024 Platelets (Bld) [#/Vol] 320 10*3/uL 150-450 [facility] Potassium (Unsp spec) [Mass/ Vol]Ordered By: Gordo Viera on 11-23-2024 Potassium [Moles/Vol] 4.3 mmol/L 3.3-5.1 [facility] Comment on above: Hemolysis present, R esults could be affected. Potassium measurement (mass/ volume)Ordered By: Gordo Viera on 11-23-2024 Potassium (Unsp spec) [Mass/Vol] 4.3 mmol/L 3.3-5.1 [facility] Comment on above: Hemolysis present, R esults could be affected. RBC Auto (Bld) [#/Vol]Ordere d By: Gordo Viera on 11-23-2024 RBC (Bld) [#/Vol] 4.94 10*6/uL 4.2-5.4 [facility] Serum creatinine measurement (mass/volume)Ordered By: Gordo Viera on 11-23-2024 Creatinine [Mass/Vol] 0.68 mg/dL Low 0.70-1.20 [facility] Serum globulin measurementOr dered By: Gordo Viera on 11-23-2024 Globulin (S) [Mass/Vol] 2.7 g/dL 2.2-4.2 [facility] Serum glucose measurement (m ass/volume)Ordered By: Gordo Viera on 11-23-2024 Glucose [Mass/Vol] 119 mg/dL High 70-99 [facility] Serum or plasma alanine todd otransferase (ALT) measurementOrdered By: Gordo Viera on 11-23-2024 ALT [Catalytic activity/Vol] 29 U/L <35 [facility] Serum or plasma albumin ludin urement (mass/volume)Ordered By: Gordo Viera on 11-23-2024 Albumin [Mass/Vol] 4.1 g/dL 3.5-5.0 [facility] Serum or plasma albumin/glob ulin mass ratioOrdered By: Gordo Viera on 11-23-2024 Albumin/Globulin [Mass ratio] 1.5 {ratio} 0.9-2.4 [facility] Serum or plasma alkaline storm sphatase measurementOrdered By: Gordo Viera on 11-23-2024 ALP [Catalytic activity/Vol] 77 U/L 35-104 [facility] Serum or plasma calcium ludin urement (mass/volume)Ordered By: Gordo Viera on 11-23-2024 Calcium [Mass/Vol] 9.2 mg/dL 7.6-11.0 [facility] Serum or plasma urea nitroge n measurement (mass/volume)Ordered By: Gordo Viera on 11-23-2024 Urea nitrogen [Mass/Vol] 13 mg/dL 4-19 [facility] Sodium levelOrdered By: Gordo Viera on 11-23-2024 Sodium [Moles/Vol] 139 mmol/L 133-145 [facility] Total proteinOrdered By: Kyle Viera on 11-23-2024 Protein [Mass/Vol] 6.8 g/dL 5.9-8.4 [facility] White blood cell (WBC) count Ordered By: Gordo Viera on 11-23-2024 WBC (Bld) [#/Vol] 12.0 10*3/uL High 4.4-11.0 [facility] AMYLASEon 11-18-2024 Amylase [Catalytic activity/Vol] 43 U/L Normal 21-101 [facility] Comment on above: Performed By: #### 6 399, 606, 31071 #### [facility] of [address], [address] [place] [address] Roller Skater: Eduardo Fernandez MD CBC (INCLUDES DIFF/PLT)on Basophils (Bld) [#/Vol] 0.047 10*3/uL Normal 0-200 [facility] Comment on above: Performed By: #### 6 399, 606, 56348 #### [facility] of [place] [address] [employer] Skater: Eduardo Fernandez MD Basophils/100 WBC (Bld) 0.3 % Normal [facility] Comment on above: Performed By: #### 6 399, 606, 59230 #### [facility] of [place] [address] [employer]: Eduardo Fernandez MD Eosinophils (Bld) [#/Vol] 0.016 10*3/uL Normal 15-500 [facility] Comment on above: Performed By: #### 6 399, 606, 64984 #### [facility] of [place] [address] [employer] Skater: Eduardo Fernandez MD Eosinophils/100 WBC (Bld) 0.1 % Normal [facility] Comment on above: Performed By: #### 6 399, 606, 31588 #### [facility] of [place] [address] [employer] Sk[employer]: Eduardo Fernandez MD Erythrocyte distribution width (RBC) [Ratio] 12.4 % Normal 11.0-15.0 [facility] Comment on above: Performed By: #### 6 399, 606, 19999 #### [facility] of [place] [address] [employer] Skater: Eduardo Fernandez MD Hematocrit (Bld) [Volume fraction] 47.3 % High 35.0-45.0 [facility] Comment on above: Performed By: #### 6 399, 606, 08013 #### [facility] of [place] [address] [employer] Skater: Eduardo Fernandez MD Hemoglobin (Bld) [Mass/Vol] 16.1 g/dL High 11.7-15.5 [facility] Comment on above: Performed By: #### 6 399, 606, 65698 #### [facility] of [place] [address] Rol[employer] Skater: Eduardo Fernandez MD Lymphocytes (Bld) [#/Vol] 2.558 10*3/uL Normal 850-3900 [facility] Comment on above: Performed By: #### 6 399, 606, 22802 #### [facility] of [place] [address] Rol[employer] Skater: Eduardo Fernandez MD Lymphocytes/100 WBC (Bld) 16.4 % Normal [facility] Comment on above: Performed By: #### 6 399, 606, 66506 #### [facility] [place] [address] Rol[employer] Skater: Eduardo Fernandez MD MCH (RBC) [Entitic mass] 30.5 pg Normal 27.0-33.0 [facility] Comment on above: Performed By: #### 6 399, 606, 23713 #### [facility] of [place] [address] Rol[employer] Skater: Eduardo Fernandez MD MCHC (RBC) [Mass/Vol] 34.0 [...] condition. Performed By: #### 6 399, 606, 38844 #### [facility] of [place] [address] [employer] Skater: Eduardo Fernandez MD MCV (RBC) [Entitic vol] 89.6 fL Normal 80.0-100.0 [facility] Comment on above: Performed By: #### 6 399, 606, 39538 #### [facility] of [address], [address] [place] [address] Roller Skater: Eduardo Fernandez MD Monocytes (Bld) [#/Vol] 0.608 10*3/uL Normal 200-950 [facility] Comment on above: Performed By: #### 6 399, 606, 87188 #### [facility] of [place] [address] Rol[employer] Skater: Eduardo Fernandez MD Monocytes/100 WBC (Bld) 3.9 % Normal [facility] Comment on above: Performed By: #### 6 399, 606, 40996 #### [facility] of [place] [address] Rol[employer] Skater: Eduardo Fernandez MD Neutrophils (Bld) [#/Vol] 12.371 10*3/uL High 1659-4001 [facility] Comment on above: Performed By: #### 6 399, 606, 81424 #### [facility] of [place] [address] Rol[employer] Skater: Eduardo Fernandez MD Neutrophils/100 WBC (Bld) 79.3 % Normal [facility] Comment on above: Performed By: #### 6 399, 606, 20310 #### [facility] of [place] [address] Roller Skater: Eduardo Fernandez MD Platelet mean volume (Bld) [Entitic vol] 10.3 fL Normal 7.5-12.5 [facility] Comment on above: Performed By: #### 6 399, 606, 63779 #### [facility] of [address] [place] [address] Roller Skater: Eduardo Fernandez MD Platelets (Bld) [#/Vol] 408 10*3/uL High 140-400 [facility] Comment on above: Performed By: #### 6 399, 606, 97476 #### [facility] of [address], [address] [place] [address] Roller Skater: Eduardo Fernandez MD RBC (Bld) [#/Vol] 5.28 10*6/uL High 3.80-5.10 [facility] Comment on above: Performed By: #### 6 399, 606, 74462 #### [facility] of [place] [address] Rol[employer] Skater: Eduardo Fernandez MD WBC (Bld) [#/Vol] 15.6 10*3/uL High 3.8-10.8 [facility] Comment on above: Performed By: #### 6 399, 606, 42045 #### [facility] of [place] [address] Roller Skater: Eduardo Fernandez MD COMPREHENSIVE METABOLIC PANE [facility] 11-18-2024 Albumin [Mass/Vol] 4.8 g/dL Normal 3.6-5.1 [facility] Comment on above: Performed By: #### 6 399, 606, 90308 #### [facility] of [place] [address] Roller Skater: Eduardo Fernandez MD Albumin/Globulin [Mass ratio] 1.8 {ratio} Normal 1.0-2.5 [facility] Comment on above: Performed By: #### 6 399, 606, 18393 #### [facility] of [place] [address] Roller Skater: Eduardo Fernandez MD ALP [Catalytic activity/Vol] 67 U/L Normal 31-125 [facility] Comment on above: Performed By: #### 6 399, 606, 04585 #### [facility] of [address] Roller Skater: Eduardo Fernandez MD ALT [Catalytic activity/Vol] 25 U/L Normal 6-29 [facility] Comment on above: Performed By: #### 6 399, 606, 48769 #### [facility] of [place] [address] Roller Skater: Eduardo Fernandez MD AST [Catalytic activity/Vol] 13 U/L Normal 10-35 [facility] Comment on above: Performed By: #### 6 399, 606, 29329 #### [facility] of [place] [address] Roller Skater: Eduardo Fernandez MD Bilirubin [Mass/Vol] 0.3 mg/dL Normal 0.2-1.2 [facility] Comment on above: Performed By: #### 6 399, 606, 64455 #### [facility] of [place] [address] Roller Skater: Eduardo Fernandez MD BUN/CREATININE RATIO SEE NOTE: Normal 6-22 [facility] Comment on above: Result Comment: Not Reported: BUN and Creatinine are within reference range. Performed By: #### 6 399, 606, 53406 #### [facility] of [place] [address] Rol[employer] Skater: Eduardo Fernandez MD Calcium [Mass/Vol] 10.0 mg/dL Normal 8.6-10.2 [facility] Comment on above: Performed By: #### 6 399, 606, 76186 #### [facility] of [place] [address] Rol[employer] Skater: Eduardo Fernandez MD Chloride [Moles/Vol] 105 mmol/L Normal 98-110 [facility] Comment on above: Performed By: #### 6 399, 606, 68843 #### [facility] [place] [address] Roller Skater: Eduardo Fernandez MD CO2 [Moles/Vol] 24 mmol/L Normal 20-32 [facility] Comment on above: Performed By: #### 6 399, 606, 71007 #### [facility] [place] [address] Rol[employer] Skater: Eduardo Fernandez MD Creatinine [Mass/Vol] 0.61 mg/dL Normal 0.50-0.[address] [facility] Comment on above: Performed By: #### 6 399, 606, 85130 #### [facility] [place] [address] Roller Skater: Eduardo Fernandez MD GFR/1.73 sq M.predicted among non-blacks MDRD (S/P/Bld) [Vol rate/Area] 110 mL/min/{1.73_m2} Normal > OR = 60 [facility] Comment on above: Performed By: #### 6 399, 606, 47960 #### [facility] [place] [address] Roller Skater: Eduardo Fernandez MD Globulin (S) [Mass/Vol] 2.6 g/dL Normal 1.9-3.7 [facility] Comment on above: Performed By: #### 6 399, 606, 91472 #### [facility] [place] [address] Roller Skater: Eduardo Fernandez MD Glucose [Mass/Vol] 107 mg/dL High 65-99 [facility] Comment on above: Result Comment: Fasting reference interval For someone without known diabetes, a glucose value between 100 and 125 mg/dL is consistent with prediabetes and should be confirmed with a follow-up test. Performed By: #### 6 399, 606, 93506 #### [facility] [place] [address] Roller Skater: Eduardo Fernandez MD Potassium [Moles/Vol] 4.4 mmol/L Normal 3.5-5.[address] [facility] Comment on above: Performed By: #### 6 399, 606, 18063 #### [facility] [address] [address] Roller Skater: Eduardo Fernandez MD Protein [Mass/Vol] 7.4 g/dL Normal 6.1-8.1 [facility] Comment on above: Performed By: #### 6 399, 606, 61741 #### [facility] [address], [address] [place] [address] Roller Skater: Eduardo Fernandez MD Sodium [Moles/Vol] 139 mmol/L Normal 135-146 [facility] Comment on above: Performed By: #### 6 399, 606, 99090 #### [facility] [address], [address] [place] [address] Roller Skater: Eduardo Fernandez MD Urea nitrogen [Mass/Vol] 12 mg/dL Normal 7-25 [facility] Comment on above: Performed By: #### 6 399, 606, 00778 #### [facility] [place] [address] Roller Skater: Eduardo Fernandez MD LIPASEon 11-18-2024 Lipase [Catalytic activity/Vol] 38 U/L Normal 7-60 [facility] Comment on above: Performed By: #### 6 399, 606, 63416 #### [facility] [place] [address] Roller Skater: Eduardo Fernandez MD Laboratory - Chemistry and C hemistry - challengeon 11-17-2024 Albumin [Mass/Vol] 4.8 g/dL Normal 3.6 - 5.1 g/dL [facility], [facility].; [place] [employer] [facility] Albumin/Globulin [Mass ratio] 1.8 {ratio} Normal 1.0 - 2.5 [facility], [facility].; [employer] [facility] ALP [Catalytic activity/Vol] 67 U/L Normal 31 - 125 U/L [facility], [facility].; [place] [employer] [facility] ALT [Catalytic activity/Vol] 25 U/L Normal 6 - 29 U/L [facility], [facility].; [employer] [facility] Amylase [Catalytic activity/Vol] 43 U/L Normal 21 - 101 U/L [facility], [facility]. AST [Catalytic activity/Vol] 13 U/L Normal 10 - 35 U/L [facility].; [facility], [facility]. Bilirubin [Mass/Vol] 0.3 mg/dL Normal 0.2 - 1 .2 mg/dL [facility], [facility].; [facility], [facility]. Calcium [Mass/Vol] 10.0 mg/dL Normal 8.6 - 10. 2 mg/dL [facility], [facility].; [facility], [facility]. Chloride [Moles/Vol] 105 mmol/L Normal 98 - 11 0 mmol/L [facility].; [facility], [facility]. CO2 [Moles/Vol] 24 mmol/L Normal 20 - 32 mmol/L [facility].; [facility], [facility]. Creatinine [Mass/Vol] 0.61 mg/dL Normal 0.50 - 0.99 mg/dL [facility].; [facility], [facility]. GFR/1.73 sq M.predicted among non-blacks MDRD (S/P/Bld) [Vol rate/Area] 110 mL/min/{1.73_m2} Normal [facility], [facility]. Glucose [Mass/Vol] 107 mg/dL Abnormal 65 - 99 mg/dL [facility], [facility].; [facility], [facility]. Lipase [Catalytic activity/Vol] 38 U/L Normal 7 - 60 U/L [facility].; [facility], [facility]. Potassium [Moles/Vol] 4.4 mmol/L Normal 3.5 - 5.3 mmol/L [facility], [facility].; [facility], [facility]. Protein [Mass/Vol] 7.4 g/dL Normal 6.1 - 8.1 g/dL [facility], [facility].; [facility], [facility]. Sodium [Moles/Vol] 139 mmol/L Normal 135 - 146 mmol/L [facility], [facility].; [facility], [facility]. Urea nitrogen [Mass/Vol] 12 mg/dL Normal 7 - 25 mg/dL [facility], [facility].; [facility], [facility]. Laboratory - Hematology and Cell countson 11-17-2024 Basophils (Bld) [#/Vol] 0.047 10*3/uL Normal 0 - 200 {cells/uL} [facility].; [facility] Basophils/100 WBC (Bld) 0.3 % Normal H [facility], [facility] Eosinophils (Bld) [#/Vol] 0.016 10*3/uL Normal 15 - 500 {cells/uL} [facility].; [facility] Eosinophils/100 WBC (Bld) 0.1 % Normal [facility]; [facility] Erythrocyte distribution width (RBC) [Ratio] 12.4 % Normal 11.0 - 15.0 % [facility]; [place] [employer] [facility], [facility] Hematocrit (Bld) [Volume fraction] 47.3 % Abnormal 35.0 - 45.0 % [facility].; [place] [employer] [facility], [facility] Hemoglobin (Bld) [Mass/Vol] 16.1 g/dL Abnormal 11.7 - 15.5 g/dL [facility].; [facility], [facility]. Lymphocytes (Bld) [#/Vol] 2.558 10*3/uL Normal 850 - 3900 {cells/uL} [facility].; [place] [employer] [facility], [facility] Lymphocytes/100 WBC (Bld) 16.4 % Normal [facility].; [place] [employer], [place] [employer] MCH (RBC) [Entitic mass] 30.5 pg Normal 27.0 - 33.[address] [facility].; [place] [employer], [facility]. MCHC (RBC) [Mass/Vol] 34.0 g/dL Normal 32.0 - 36.0 g/dL [facility].; [place] [employer] [facility], [facility]. MCV (RBC) [Entitic vol] 89.6 fL Normal 80.0 - 100.[address] [facility].; [place] [employer] [facility], [facility]. Monocytes (Bld) [#/Vol] 0.608 10*3/uL Normal 200 - 950 {cells/uL} [facility].; [place] [employer] Monocytes/100 WBC (Bld) 3.9 % Normal H [facility].; [facility], [facility]. Neutrophils (Bld) [#/Vol] 12.371 10*3/uL Abnormal 1500 - 7800 {cells/uL} [facility], [facility].; [place] [employer], [facility]. Neutrophils/100 WBC (Bld) 79.3 % Normal [facility].; [place] [employer] [facility], [facility]. Platelet mean volume (Bld) [Entitic vol] 10.3 fL Normal 7.5 - 12.[address] [facility].; [place] [employer], [facility]. Platelets (Bld) [#/Vol] 408 10*3/uL Abnormal 140 - 400 [facility].; [place] [employer] [facility], [facility]. RBC (Bld) [#/Vol] 5.28 10*6/uL Abnormal 3.80 - 5.1 0 {Million/uL } [facility].; [facility], [facility]. WBC (Bld) [#/Vol] 15.6 10*3/uL Abnormal 3.8 - 10.8 [facility].; [place] [employer], [employer]. No Panel Informationon 11-17 BUN/CREATININE RATIO SEE NOTE: Normal 6 - 22 [facility].; [place] [employer], [facility]. GLOBULIN 2.6 Normal 1.9 - 3.7 [place] [employer] [facility].; [place] [employer], [employer]. CBC (INCLUDES DIFF/PLT)on Basophils (Bld) [#/Vol] 0.053 10*3/uL Normal 0-200 [facility] Comment on above: Performed By: #### 1 0231, 9612, 0500 #### [facility] [address] , [address] [place] [id number] [employer]: Eduardo Fernandez MD Basophils/100 WBC (Bld) 0.6 % Normal [facility] Comment on above: Performed By: #### 1 0231, 7803, 6330 #### [facility] [address] , [address] [place] [address] [employer] Skater: Eduardo Fernandez MD Eosinophils (Bld) [#/Vol] 0.214 10*3/uL Normal 15-500 [facility] Comment on above: Performed By: #### 1 023, 63, 7600 #### [facility] [place] [address] [employer] Sk[employer]: Eduardo Fernandez MD Eosinophils/100 WBC (Bld) 2.4 % Normal [facility] Comment on above: Performed By: #### 1 023, 63, 7600 #### [facility] [place] [address] [employer]: Eduardo Fernandez MD Erythrocyte distribution width (RBC) [Ratio] 12.5 % Normal 11.0-15.0 [facility] Comment on above: Performed By: #### 1 023, 63, 7600 #### [facility] [place] [address] [employer] Sk[employer]: Eduardo Fernandez MD Hematocrit (Bld) [Volume fraction] 46.6 % High 35.0-45.0 [facility] Comment on above: Performed By: #### 1 230, 63, 7600 #### [facility] [place] [address] [employer] Skater: Eduardo Fernandez MD Hemoglobin (Bld) [Mass/Vol] 15.6 g/dL High 11.7-15.5 [facility] Comment on above: Performed By: #### 1 230, 63, 7600 #### [facility] [place] [address] [employer] Sk[employer]: Eduardo Fernandez MD Lymphocytes (Bld) [#/Vol] 3.106 10*3/uL Normal 850-3900 [facility] Comment on above: Performed By: #### 1 023, 63, 7600 #### [facility] [place] [address] [employer] Skater: Eduardo Fernandez MD Lymphocytes/100 WBC (Bld) 34.9 % Normal [facility] Comment on above: Performed By: #### 1 023, 63, 7600 #### [facility] [place] [address] [employer] Sk[employer]: Eduardo Fernandez MD MCH (RBC) [Entitic mass] 30.8 pg Normal 27.0-33.0 [facility] Comment on above: Performed By: #### 1 023, 63, 7600 #### [facility] [place] [address] [employer] Sk[employer]: Eduardo Fernandez MD MCHC (RBC) [Mass/Vol] 33.5 [...] patient's clinical condition. Performed By: #### 1 023, 63, 7600 #### [facility] [place] [address] [employer]: Eduardo Fernandez MD MCV (RBC) [Entitic vol] 91.9 fL Normal 80.0-100.0 [facility] Comment on above: Performed By: #### 1 230, 63, 7600 #### [facility] [place] [address] [employer] Skater: Eduardo Fernandez MD Monocytes (Bld) [#/Vol] 0.596 10*3/uL Normal 200-950 [facility] Comment on above: Performed By: #### 1 023, 63, 7600 #### [facility] [place] [address] [employer] Skater: Eduardo Fernandez MD Monocytes/100 WBC (Bld) 6.7 % Normal [facility] Comment on above: Performed By: #### 1 023, 63, 7600 #### [facility] of [address] [place] [address] [employer] Sk[employer]: Eduardo Fernandez MD Neutrophils (Bld) [#/Vol] 4.931 10*3/uL Normal 9360-0246 [facility] Comment on above: Performed By: #### 1 0231, 6399, 7600 #### [facility] of [address], [address] [place] [address] [employer] Sk[employer]: Eduardo Fernandez MD Neutrophils/100 WBC (Bld) 55.4 % Normal [facility] Comment on above: Performed By: #### 1 0231, 6399, 7600 #### [facility] of [address], [address] [place] [address] [employer] Skater: Eduardo Fernandez MD Platelet mean volume (Bld) [Entitic vol] 10.8 fL Normal 7.5-12.5 [facility] Comment on above: Performed By: #### 1 0231, 63, 7600 #### [facility] of [address], [address] [place] [address] [employer] Skater: Eduardo Fernandez MD Platelets (Bld) [#/Vol] 376 10*3/uL Normal 140-400 [facility] Comment on above: Performed By: #### 1 0231, 63, 7600 #### [facility] of [address], [address] [place] [address] [employer] Skater: Eduardo Fernandez MD RBC (Bld) [#/Vol] 5.07 10*6/uL Normal 3.80-5.10 [facility] Comment on above: Performed By: #### 1 0231, 6399, 7600 #### [facility] of [address], [address] [place] [address] [employer] Skater: Eduardo Fernandez MD WBC (Bld) [#/Vol] 8.9 10*3/uL Normal 3.8-10.8 [facility] Comment on above: Performed By: #### 1 0231, 6399, 7600 #### [facility] of [address], [address] [place] [address] [employer] Skater: Eduardo Fernandez MD [facility] 10-20-2024 Albumin [Mass/Vol] 4.6 g/dL Normal 3.6-5.1 [facility] Comment on above: Performed By: #### 1 0231, 6399, 7600 #### [facility] of [address], [address] [place] [address] [employer] Skater: Eduardo Fernandez MD Albumin/Globulin [Mass ratio] 1.9 {ratio} Normal 1.0-2.5 [facility] Comment on above: Performed By: #### 1 0231, 6399, 7600 #### [facility] of [address], [address] [place] [address] [employer] Skater: Eduardo Fernandez MD ALP [Catalytic activity/Vol] 68 U/L Normal 31-125 [facility] Comment on above: Performed By: #### 1 0231, 63, 7600 #### [facility] of [address], [address] [place] [address] [employer] Skater: Eduardo Fernandez MD ALT [Catalytic activity/Vol] 22 U/L Normal 6-29 [facility] Comment on above: Performed By: #### 1 0231, 6399, 7600 #### [facility] [place] [address] [employer] Sk[employer]: Eduardo Fernandez MD AST [Catalytic activity/Vol] 16 U/L Normal 10-35 [facility] Comment on above: Performed By: #### 1 0231, 6399, 7600 #### [facility] [place] [address] [employer]: Eduardo Fernandez MD Bilirubin [Mass/Vol] 0.4 mg/dL Normal 0.2-1.2 [facility] Comment on above: Performed By: #### 1 0231, 6399, 7600 #### [facility] of [address], [address] [place] [address] [employer] Sk[employer]: Eduardo Fernandez MD BUN/CREATININE RATIO SEE NOTE: Normal 6-22 [facility] Comment on above: Result Comment: Not Reported: BUN and Creatinine are within reference range. Performed By: #### 1 0231, 63, 7600 #### [facility] [place] [address] [employer]: Eduardo Fernandez MD Calcium [Mass/Vol] 9.4 mg/dL Normal 8.6-10.2 [facility] Comment on above: Performed By: #### 1 0231, 63, 7600 #### [facility] [place] [address] [employer] Sk[employer]: Eduardo Fernandez MD Chloride [Moles/Vol] 105 mmol/L Normal 98-110 [facility] Comment on above: Performed By: #### 1 023, 63, 7600 #### [facility] [place] [address] [employer]: Eduardo Fernandez MD CO2 [Moles/Vol] 24 mmol/L Normal 20-32 [facility] Comment on above: Performed By: #### 1 023, 63, 7600 #### [facility] [place] [address] [employer] Skater: Eduardo Fernandez MD Creatinine [Mass/Vol] 0.66 mg/dL Normal 0.50-0.[address] [facility] [address] [facility] [address] [facility] Comment on above: Performed By: #### 1 023, 63, 7600 #### [facility] [place] [address] [employer] Skater: Eduardo Fernandez MD GFR/1.73 sq M.predicted among non-blacks MDRD (S/P/Bld) [Vol rate/Area] 108 mL/min/{1.73_m2} Normal > OR = 60 [facility] Comment on above: Performed By: #### 1 0231, 63, 7600 #### [facility] [place] [address] [employer] Sk[employer]: Eduardo Fernandez MD Globulin (S) [Mass/Vol] 2.4 g/dL Normal 1.9-3.7 [facility] Comment on above: Performed By: #### 1 0231, 63, 7600 #### [facility] [address], [address] [place] [address] [employer] Skater: Eduardo Fernandez MD Glucose [Mass/Vol] 116 mg/dL High 65-99 [facility] Comment on above: Result Comment: Fasting reference interval For someone without known diabetes, a glucose value between 100 and 125 mg/dL is consistent with prediabetes and should be confirmed with a follow-up test. Performed By: #### 1 0231, 63, 7600 #### [facility] [place] [address] [employer] Sk[employer]: Eduardo Fernandez MD Potassium [Moles/Vol] 4.2 mmol/L Normal 3.5-5.[address] [facility] Comment on above: Performed By: #### 1 023, 63, 7600 #### [facility] of [address], [address] [place] [address] Rol[employer] Skater: Eduardo Fernandez MD Protein [Mass/Vol] 7.0 g/dL Normal 6.1-8.1 [facility] Comment on above: Performed By: #### 1 0231, 63, 7600 #### [facility] of [address], [address] [place] [address] [employer] Skater: Eduardo Fernandez MD Sodium [Moles/Vol] 140 mmol/L Normal 135-146 [facility] Comment on above: Performed By: #### 1 0231, 63, 7600 #### [facility] of [address], [address] [place] [address] [employer] Skater: Eduardo Fernandez MD Urea nitrogen [Mass/Vol] 12 mg/dL Normal 7-25 [facility] Comment on above: Performed By: #### 1 0231, 63, 7600 #### [facility] [place] [address] Rol[employer] Skater: Eduardo Fernandez MD LIPID PANEL, [facility] 03- Cholesterol [Mass/Vol] 210 mg/dL High <200 [facility] Comment on above: Performed By: #### 1 0231, 2845, 5810 #### [facility] [place] [address] [employer] Skater: Eduardo Fernandez MD Cholesterol in HDL [Mass/Vol] 46 mg/dL Low > OR = 50 [facility] Comment on above: Performed By: #### 1 0231, 0127, 0910 #### [facility] [address], [address] [place] [address] [employer] Skater: Eduardo Fernandez MD Cholesterol in LDL [Mass/Vol] [...] equation in the estimation of LDL-C. Rajesh SS et al. KEMI. 2013;310(19): 5308-0118 (http://education.YCD Multimedia.Diamond Kinetics/faq/HWH967) Performed By: #### 1 0231, 3885, 4290 #### [facility] [place] [address] Rol[employer] Skater: Eduardo Fernandez MD Cholesterol.total/Cande sterol in HDL [Mass ratio] 4.6 {ratio} Normal <5.0 [facility] Comment on above: Performed By: #### 1 0231, 7601, 7420 #### [facility] [place] [address] [employer] Skater: Eduardo Fernandez MD NON HDL CHOLESTEROL 164 mg/dL (calc) High <130 [facility] Comment on above: Result Comment: For patients with diabetes plus 1 major ASCVD risk factor, treating to a non-HDL-C goal of <100 mg/dL (LDL-C of <70 mg/dL) is considered a therapeutic option. Performed By: #### 1 0231, 6399, 7600 #### [facility] [address], [address] [place] [address] [employer] Sk[employer]: Eduardo Fernandez MD Triglyceride [Mass/Vol] 171 mg/dL High <150 [facility] Comment on above: Performed By: #### 1 0231, 6399, 7600 #### [facility] [address], [address] [place] [address] [employer] Skater: Eduardo Fernandez MD TSH W/REFLEX TO FT4on 2024 TSH W/REFLEX TO FT4 1.10 mIU/L Normal [facility] Comment on above: Result Comment: Refe rence Range > or = 20 Years 0.40-4.50 Ranges First trimester 0.26-2.66 Second trimester 0.55-2.73 Third trimester 0.43-2.91 Performed By: #### 1 0231, 6301, 4770 #### [facility] [address], [address] [place] [address] [employer] Skater: Eduardo Fernandez MD Laboratory - Chemistry and C hemistry - challengeon 10-19-2024 Albumin [Mass/Vol] 4.6 g/dL Normal 3.6 - 5.1 g/dL [facility], [facility].; [employer] [facility], [facility]. Albumin/Globulin [Mass ratio] 1.9 {ratio} Normal 1.0 - 2.5 [facility], [facility].; [facility], [facility]. ALP [Catalytic activity/Vol] 68 U/L Normal 31 - 125 U/L [facility], [facility].; [employer] [facility], [facility]. ALT [Catalytic activity/Vol] 22 U/L Normal 6 - 29 U/L [facility], [facility].; [place] [employer] [facility], [facility]. AST [Catalytic activity/Vol] 16 U/L Normal 10 - 35 U/L [facility], [facility].; [employer], [facility]. Bilirubin [Mass/Vol] 0.4 mg/dL Normal 0.2 - 1 .2 mg/dL [facility], [facility].; [place] [employer] [facility] Calcium [Mass/Vol] 9.4 mg/dL Normal 8.6 - 10. 2 mg/dL [facility], [facility].; [facility], [facility]. Chloride [Moles/Vol] 105 mmol/L Normal 98 - 11 0 mmol/L [facility], [facility].; [place] [employer] [facility], [facility] Cholesterol [Mass/Vol] 210 mg/dL Abnormal [facility], [facility].; [facility], [place] [employer] Cholesterol in HDL [Mass/Vol] 46 mg/dL Abnormal [facility], [facility].; [facility] Cholesterol in LDL [Mass/Vol] 133 mg/dL Abnormal [facility], [facility].; [facility], [facility]. CO2 [Moles/Vol] 24 mmol/L Normal 20 - 32 mmol/L [facility], [facility].; [place] [employer] [facility], [facility]. Creatinine [Mass/Vol] 0.66 mg/dL Normal 0.50 - 0.99 mg/dL [facility], [facility].; [facility], [facility]. GFR/1.73 sq M.predicted among non-blacks MDRD (S/P/Bld) [Vol rate/Area] 108 mL/min/{1.73_m2} Normal [facility], [facility].; [facility] Glucose [Mass/Vol] 116 mg/dL Abnormal 65 - 99 mg/dL [facility], [facility].; [place] [employer] [facility] Potassium [Moles/Vol] 4.2 mmol/L Normal 3.5 - 5.3 mmol/L [facility], [facility].; [place] [employer] [facility], [facility] Protein [Mass/Vol] 7.0 g/dL Normal 6.1 - 8.1 g/dL [facility], [facility].; [place] [employer] Sodium [Moles/Vol] 140 mmol/L Normal 135 - 146 mmol/L [facility], [facility].; [place] [employer] [facility], [facility]. Triglyceride [Mass/Vol] 171 mg/dL Abnormal [facility], [facility].; [place] [employer] [facility] Urea nitrogen [Mass/Vol] 12 mg/dL Normal 7 - 25 mg/dL [facility], [facility].; [place] [employer], [facility]. Laboratory - Hematology and Cell countson 10-19-2024 Basophils (Bld) [#/Vol] 0.053 10*3/uL Normal 0 - 200 {cells/uL} [facility] [place] [facility] Basophils/100 WBC (Bld) 0.6 % Normal [facility].; [facility], [place] [facility] [employer] Eosinophils (Bld) [#/Vol] 0.214 10*3/uL Normal 15 - 500 {cells/uL} [facility].; [facility], [place] [facility] [employer] Eosinophils/100 WBC (Bld) 2.4 % Normal [facility]; [facility], [facility] [employer] Erythrocyte distribution width (RBC) [Ratio] 12.5 % Normal 11.0 - 15.0 % [facility]; [facility], [place] [facility] [employer] Hematocrit (Bld) [Volume fraction] 46.6 % Abnormal 35.0 - 45.0 % [facility], [facility] [employer] [facility]; [facility], [place] [facility] [employer] Hemoglobin (Bld) [Mass/Vol] 15.6 g/dL Abnormal 11.7 - 15.5 g/dL [facility].; [facility], [facility] [employer] Lymphocytes (Bld) [#/Vol] 3.106 10*3/uL Normal 850 - 3900 {cells/uL} [facility].; [facility], [facility] [employer] Lymphocytes/100 WBC (Bld) 34.9 % Normal [facility]; [facility], [facility] [employer] [facility] MCH (RBC) [Entitic mass] 30.8 pg Normal 27.0 - 33.[address] [facility].; [facility], [facility]. MCHC (RBC) [Mass/Vol] 33.5 g/dL Normal 32.0 - 36.0 g/dL [facility], [facility].; [facility], [facility]. MCV (RBC) [Entitic vol] 91.9 fL Normal 80.0 - 100.[address] [facility], [facility].; [facility], [facility]. Monocytes (Bld) [#/Vol] 0.596 10*3/uL Normal 200 - 950 {cells/uL} [facility], [facility].; [facility], [facility]. Monocytes/100 WBC (Bld) 6.7 % Normal [facility].; [facility] Neutrophils (Bld) [#/Vol] 4.931 10*3/uL Normal 1500 - 7800 {cells/uL} [facility]; [facility] [place] [facility] Neutrophils/100 WBC (Bld) 55.4 % Normal [facility]; [facility] [place] [facility] Platelet mean volume (Bld) [Entitic vol] 10.8 fL Normal 7.5 - 12.5 fL [facility]; [facility] [place] [facility] Platelets (Bld) [#/Vol] 376 10*3/uL Normal 140 - 400 [facility]; [facility] [place] [facility] RBC (Bld) [#/Vol] 5.07 10*6/uL Normal 3.80 - 5.1 0 {Million/uL } [facility]; [facility], [facility] WBC (Bld) [#/Vol] 8.9 10*3/uL Normal 3.8 - 10.8 [facility]; [facility] [place] [facility] No Panel Informationon 10-19 BUN/CREATININE RATIO SEE NOTE: Normal 6 - 22 [facility]; [facility]. CHOL/HDLC RATIO 4.6 Normal [facility]; [facility], [facility]. GLOBULIN 2.4 Normal 1.9 - 3.7 [facility]; [facility] [place] [facility] NON HDL CHOLESTEROL 164 Abnormal [facility]; [facility] [place] [facility] TSH W/REFLEX TO FT4 1.10 {mIU/L} Normal [facility]; [place] [employer] [facility] [place] [facility] FOOT RIGHT COMPLETEon 2024 FOOT RIGHT COMPLETE EXAM: FOOT RIGHT COMPLETE REASON FOR EXAM: Sprain of right foot COMPARISON: None TECHNIQUE: 3 views FINDINGS: No fractures. 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 Plantar calcaneal enthesophyte. No aggressive osseous lesions or bony demineralization. Normal soft tissues. IMPRESSION: No fracture or traumatic malalignment. Normal [facility] Laboratory - Microbiology an d Antimicrobial susceptibilityon 05-11-2024 S. pyogenes Ag EIA Ql (Throat) Negative Normal [facility].; [facility], [facility]. COMPREHENSIVE METABOLIC PANE Ru[facility] 03-04-2024 Albumin [Mass/Vol] 4.5 g/dL Normal 3.6-5.1 [facility] Comment on above: Performed By: #### 1 0231, 6399, 7600 #### [facility] [place] [address] [employer]: Eduardo Fernandez MD Albumin/Globulin [Mass ratio] 1.7 {ratio} Normal 1.0-2.5 [facility] Comment on above: Performed By: #### 1 0231, 6399, 7600 #### [facility] [place] [address] [employer] Sk[employer]: Eduardo Fernandez MD ALP [Catalytic activity/Vol] 74 U/L Normal 31-125 [facility] Comment on above: Performed By: #### 1 0231, 63, 7600 #### [facility] [place] [address] [employer] Skater: Eduardo Fernandez MD ALT [Catalytic activity/Vol] 42 U/L High 6-29 [facility] Comment on above: Performed By: #### 1 0231, 6399, 7600 #### [facility] [place] [address] Rol[employer] Skater: Eduardo Fernandez MD AST [Catalytic activity/Vol] 29 U/L Normal 10-35 [facility] Comment on above: Performed By: #### 1 0231, 6399, 7600 #### [facility] [place] [address] [employer] Sk[employer]: Eduardo Fernandez MD Bilirubin [Mass/Vol] 0.4 mg/dL Normal 0.2-1.2 [facility] Comment on above: Performed By: #### 1 0231, 6399, 7600 #### [facility] [place] [address] [employer] Sk[employer]: Eduardo Fernandez MD BUN/CREATININE RATIO SEE NOTE: Normal 6-22 [facility] Comment on above: Result Comment: Not Reported: BUN and Creatinine are within reference range. Performed By: #### 1 0231, 63, 7600 #### [facility] of [address], [address] [place] [address] [employer] Skater: Eduardo Fernandez MD Calcium [Mass/Vol] 9.5 mg/dL Normal 8.6-10.2 [facility] Comment on above: Performed By: #### 1 0231, 63, 7600 #### [facility] of [address], [address] [place] [address] [employer] Skater: Eduardo Fernandez MD Chloride [Moles/Vol] 101 mmol/L Normal 98-110 [facility] Comment on above: Performed By: #### 1 0231, 63, 7600 #### [facility] of [address], [address] [place] [address] Rol[employer] Skater: Eduardo Fernandez MD CO2 [Moles/Vol] 22 mmol/L Normal 20-32 [facility] Comment on above: Performed By: #### 1 0231, 63, 7600 #### [facility] of [address], [address] [place] [address] [employer] Skater: Eduardo Fernandez MD Creatinine [Mass/Vol] 0.83 mg/dL Normal 0.50-0.[address] [facility] [address] [facility] Comment on above: Performed By: #### 1 0231, 63, 7600 #### [facility] of [address], [address] [place] [address] [employer] Skater: Eduardo Fernandez MD GFR/1.73 sq M.predicted among non-blacks MDRD (S/P/Bld) [Vol rate/Area] 87 mL/min/{1.73_m2} Normal > OR = 60 [facility] Comment on above: Performed By: #### 1 0231, 63, 7600 #### [facility] of [address], [address] [place] [address] [employer] Skater: Eduardo Fernandez MD Globulin (S) [Mass/Vol] 2.6 g/dL Normal 1.9-3.7 [facility] Comment on above: Performed By: #### 1 0231, 63, 7600 #### [facility] [place] [address] [employer]: Eduardo Fernandez MD Glucose [Mass/Vol] 123 mg/dL High 65-99 [facility] Comment on above: Result Comment: Fasting reference interval For someone without known diabetes, a glucose value between 100 and 125 mg/dL is consistent with prediabetes and should be confirmed with a follow-up test. Performed By: #### 1 0231, 63, 7600 #### [facility] [place] [address] [employer]: Eduardo Fernandez MD Potassium [Moles/Vol] 4.2 mmol/L Normal 3.5-5.[address] [facility] Comment on above: Performed By: #### 1 0231, 63, 7600 #### [facility] [place] [address] [employer]: Eduardo Fernandez MD Protein [Mass/Vol] 7.1 g/dL Normal 6.1-8.1 [facility] Comment on above: Performed By: #### 1 0231, 63, 7600 #### [facility] [place] [address] [employer] Sk[employer]: Eduardo Fernandez MD Sodium [Moles/Vol] 138 mmol/L Normal 135-146 [facility] Comment on above: Performed By: #### 1 0231, 6399, 7600 #### [facility] of [place] [address] [employer]: Eduardo Fernandez MD Urea nitrogen [Mass/Vol] 12 mg/dL Normal 7-25 [facility] Comment on above: Performed By: #### 1 0231, 6399, 7600 #### [facility] of [address] [place] [address] [employer]: Eduardo Fernandez MD LIPID PANEL, [facility] 08-0 Cholesterol [Mass/Vol] 200 mg/dL High <200 [facility] Comment on above: Performed By: #### 1 0231, 7600 #### [facility] [address], [address] [place] [address] [employer] Sk[employer]: Eduardo Fernandez MD Cholesterol in HDL [Mass/Vol] 61 mg/dL Normal > OR = 50 [facility] Comment on above: Performed By: #### 1 0231, 7600 #### [facility] [place] [address] [employer]: Eduardo Fernandez MD Cholesterol in LDL [Mass/Vol] 110 mg/dL High [facility] Comment on above: Result Comment: Refe rence range: <100 Desirable range <100 mg/dL for primary prevention; <70 mg/dL for patients with CHD or diabetic patients with > or = 2 CHD risk factors. LDL-C is now calculated using the Rajesh-Gio calculation, which is a validated novel method providing better accuracy than the Friedewald equation in the estimation of LDL-C. Rajesh SS et al. KEMI. 2013;310(19): 7646-3513 (http://education.[employer]CD [employer] Kinetics/faq/FKA410) Performed By: #### 1 023, 7600 #### [facility] [place] [address] [employer]: Eduardo Fernandez MD Cholesterol.total/Cande sterol in HDL [Mass ratio] 3.3 {ratio} Normal <5.0 [facility] Comment on above: Performed By: #### 1 0231, 7600 #### [facility] [place] [address] [employer]: Eduardo Fernandez MD NON HDL CHOLESTEROL 139 mg/dL (calc) High <130 [facility] Comment on above: Result Comment: For patients with diabetes plus 1 major ASCVD risk factor, treating to a non-HDL-C goal of <100 mg/dL (LDL-C of <70 mg/dL) is considered a therapeutic option. Performed By: #### 1 0231, 7600 #### [facility] [address], [address] [place], [place] [id number] Roller Skater: Eduardo Fernandez MD Triglyceride [Mass/Vol] 169 mg/dL High <150 [facility] Comment on above: Performed By: #### 1 0231, 7600 #### [facility] [address], [address] [place], [place] [id number] Roller Skater: Eduardo Fernandez MD Laboratory - Chemistry and C hemistry - challengeon 03-03-2024 Albumin [Mass/Vol] 4.5 g/dL Normal 3.6 - 5.1 g/dL [facility], [facility]. Albumin/Globulin [Mass ratio] 1.7 {ratio} Normal 1.0 - 2.5 [facility], [facility].; [facility], [facility]. ALP [Catalytic activity/Vol] 74 U/L Normal 31 - 125 U/L [facility].; [facility], [facility]. ALT [Catalytic activity/Vol] 42 U/L Abnormal 6 - 29 U/L [facility].; [facility], [facility]. AST [Catalytic activity/Vol] 29 U/L Normal 10 - 35 U/L [facility], [facility].; [facility], [facility]. Bilirubin [Mass/Vol] 0.4 mg/dL Normal 0.2 - 1 .2 mg/dL [facility], [facility].; [facility], [facility]. Bilirubin Ql (U) Negative Normal [facility], [facility]. Calcium [Mass/Vol] 9.5 mg/dL Normal 8.6 - 10. 2 mg/dL [facility], [facility].; [facility], [facility]. Chloride [Moles/Vol] 101 mmol/L Normal 98 - 11 0 mmol/L [facility], [facility].; [facility], [facility]. Cholesterol [Mass/Vol] 200 mg/dL Abnormal [facility], [facility].; [facility], [employer] [facility] [employer] [facility] Cholesterol in HDL [Mass/Vol] 61 mg/dL Normal [facility].; [place] [employer] [facility]. Cholesterol in LDL [Mass/Vol] 110 mg/dL Abnormal [facility].; [facility]. CO2 [Moles/Vol] 22 mmol/L Normal 20 - 32 mmol/L [facility].; [facility]. Creatinine [Mass/Vol] 0.83 mg/dL Normal 0.50 - 0.99 mg/dL [facility].; [facility]. GFR/1.73 sq M.predicted among non-blacks MDRD (S/P/Bld) [Vol rate/Area] 87 mL/min/{1.73_m2} Normal [facility].; [place] [employer] [facility], [facility]. Glucose [Mass/Vol] 123 mg/dL Abnormal 65 - 99 mg/dL [facility], [facility].; [place] [employer] [facility], [facility]. Ketones Ql (U) Negative Normal [facility].; [place] [employer] [facility], [employer]. pH (U) 7.0 [pH] Normal [facility].; [place] [employer], [facility]. Potassium [Moles/Vol] 4.2 mmol/L Normal 3.5 - 5.3 mmol/L [facility].; [place] [employer] [facility], [employer]. Protein [Mass/Vol] 7.1 g/dL Normal 6.1 - 8.1 g/dL [facility], [facility].; [place] [employer], [employer]. Sodium [Moles/Vol] 138 mmol/L Normal 135 - 146 mmol/L [facility].; [place] [employer] [facility]. Specific gravity (U) [Rel density] 1.[address] [facility].; [place] [employer], [employer]. Triglyceride [Mass/Vol] 169 mg/dL Abnormal H [facility] Naples[facility].; [place] [employer] [facility], [facility]. Urea nitrogen [Mass/Vol] 12 mg/dL Normal 7 - 25 mg/dL [facility].; [place] [employer], [employer]. Urobilinogen Qn (U) 0.2 mg/dL Normal [facility].; [place] [employer]. Laboratory - Hematology and Cell countson 03-03-2024 Hemoglobin Ql (U) Negative Normal [place] [employer].; [employer] Laboratory - Specimen inform ationon 03-03-2024 Appearance (U) clear Normal [facility].; [facility] [facility]. Color (U) dark Yellow Normal [place] [employer].; [employer] Laboratory - Urinalysison Glucose Test strip (U) [Mass/Vol] Negative Normal [place] [employer].; [facility] [facility]. Leukocyte esterase Test strip Ql (U) trace Normal [place] [employer].; [facility] [facility]. Nitrite Ql (U) Negative Normal [facility] [place] [facility]. Protein Ql (U) Negative Normal [facility].; [facility]. No Panel Informationon 03-03 BUN/CREATININE RATIO SEE NOTE: Normal 6 - 22 [facility] [employer] [facility]. CHOL/HDLC RATIO 3.3 Normal [facility] [employer].; [facility]. GLOBULIN 2.6 Normal 1.9 - 3.7 [place] [employer].; [facility]. NON HDL CHOLESTEROL 139 Abnormal [facility] [employer].; [facility] [facility]. Absolute lymphocyte countOrd ered By: Sivan Garces on 11-22-2023 Lymphocytes Auto (Unsp spec) [#/Vol] 3.22 10*3/uL 0.83-4.51 [facility] Automated lymphocyte count a s percentage of total leukocytesOrdered By: Sivan Garces on 11-22-2023 Lymphocytes/100 WBC Auto (Unsp spec) 26.5 % 19-41 [facility] Basophil percentageOrdered B y: Sivan Garces on 11-22-2023 Basophils/100 WBC (Bld) 0.6 % 0-1 [facility] Chloride [Moles/Vol] 108 mmol/L 98-107 [facility] Eosinophils/100 WBC (Bld) 1.0 % 0-5 [facility] Glucose [Mass/Vol] 97 mg/dL 74-106 [facility] Hemoglobin (Bld) [Mass/Vol] 15.7 g/dL 12.0-15.0 [facility] Monocytes/100 WBC (Bld) 7.5 % 0-10 [facility] Neutrophils (Bld) [#/Vol] 7.8 10*3/uL 2.0-7.7 [facility] Neutrophils/100 WBC (Bld) 63.8 % 47-70 [facility] Potassium [Moles/Vol] 3.7 mmol/L 3.5-5.1 [facility] Sodium [Moles/Vol] 141 mmol/L 136-145 [facility]BC (Bld) [#/Vol] 12.2 10*3/uL 4.4-11.0 [facility] Blood platelet adequacy dete ction by light microscopyOrdered By: Sivan Garces on 11-22-2023 Platelets LM Ql (Bld) ADEQUATE ADEQ [facility] Blood platelet morphology de termination (nominal result)Ordered By: Sivan Garces on 11-22-2023 Platelet morphology finding Nom (Bld) LARGE [facility] Determination of erythrocyte mean corpuscular volume (MCV)Ordered By: Sivan Garces on 11-22-2023 MCV (RBC) [Entitic vol] 93.7 fL 81-99 [facility] Erythrocyte distribution wid th ratioOrdered By: Sivan Garces on 11-22-2023 Erythrocyte distribution width (RBC) [Ratio] 13.1 % 11.6-14.6 [facility] Erythrocyte distribution wid th standard deviationOrdered By: Sivan Garces on 11-22-2023 Erythrocyte distribution width (RBC) [Entitic vol] 44.5 fL 35.1-43.9 [facility] Hematocrit Auto (Bld) [Volum e fraction]Ordered By: Sivan Garces on 11-22-2023 Hematocrit (Bld) [Volume fraction] 47.2 % 37-47 [facility] Immature granulocytes/100 WB C Auto (Bld)Ordered By: Sivan Garces on 11-22-2023 Immature granulocytes/100 WBC (Bld) 0.600 % 0.0-0.9 [facility] Comment on above: IG% - Immature Granu locytes (promyelocytes, myelocytes and metamyelocytes) > 1% indicates that a LEFT SHIFT is Present. Laboratory - Chemistry and C hemistry - challengeOrdered By: Sivan Garces on 11-22-2023 CO2 [Moles/Vol] 27.0 mmol/L 21.0-32.0 [facility] Urea nitrogen/Creatinine [Mass ratio] 16.4 mg/mg 10-20 [facility] Laboratory - Hematology and Cell countsOrdered By: Sivan Garces on 11-22-2023 Anisocytosis Ql (Bld) [facility] MCH (RBC) [Entitic mass] 31.2 pg 27.0-32.0 [facility] MCHC (RBC) [Mass/Vol] 33.3 g/dL 32-36 [facility] Nucleated RBC/100 WBC (Bld) [Ratio] 0 % 0-5 [facility] Platelet mean volume (Bld) [Entitic vol] 10.8 fL 6.2-12.0 [facility] Platelets (Bld) [#/Vol] 244 10*3/uL 150-450 [facility] Macrocytes detectionOrdered By: Sivan Garces on 11-22-2023 Macrocytes Ql (Bld) [facility] No Panel InformationOrdered By: Sivan Garces on 11-22-2023 Estimated Creatinine Clearance Calc 106.58 ml/min [facility] Estimated GFR (MDRD) Amer 109 mL/min >60 [facility] Comment on above: GFR Calc Estimated GFR (MDRD) Non-Af Amer 90 mL/min >60 [facility] Comment on above: Non- GFR Calc Troponin I High Sensitivity 5 pg/mL 3.0-54.0 [facility] Comment on above: Please Note: [place] t Units and Gender Specific Reference Ranges. For more information see Policy Stat Procedure [place] High Sensitivity Troponin (TNIH) and attachments. RBC Auto (Bld) [#/Vol]Ordere d By: Sivan Garces on 11-22-2023 RBC (Bld) [#/Vol] 5.04 10*6/uL 4.2-5.4 [facility] RBC morphologyOrdered By: Marcelina Garces on 11-22-2023 RBC morphology finding Nom (Bld) N CHROM NORMAL NORM C&C [facility] Serum or plasma calcium ludin urement (mass/volume)Ordered By: Sivan Garces on 11-22-2023 Calcium [Mass/Vol] 9.1 mg/dL 8.5-10.1 [facility] Serum or plasma creatinine m easurement (mass/volume)Ordered By: Sivan Garces on 11-22-2023 Creatinine [Mass/Vol] 0.73 mg/dL 0.55-1.02 [facility] Comment on above: The validity of the calculated GFR & GFRAA in patients over 70 years has not been determined. Clinical correlation is essential. Serum or plasma urea nitroge n measurement (mass/volume)Ordered By: Sivan Garces on 11-22-2023 Urea nitrogen [Mass/Vol] 12 mg/dL 7-18 [facility] Thin prep Papanicolaou smear with manual screeningOrdered By: Sivan Garces on 11-22-2023 Thin prep Papanicolaou smear with manual screening 6 5-15 [facility] Basophil percentageOrdered B y: Braulio Reynolds on 02-21-2023 Basophil percentage 0-5 SEEN /hpf 0-5 [facility] Bilirubin Test strip Ql (U)O rdered By: Braulio Reynolds on 02-21-2023 Bilirubin Ql (U) 3 mg/dL Negative [facility] Comment on above: COLOR OF URINE MAY A FFECT DIPSTICK RESULTS. Ketones Test strip Ql (U)Ord ered By: Braulio Reynolds on 02-21-2023 Ketones Ql (U) Negative Negative [facility] Mucus LM Ql (Urine sed)Order ed By: Braulio Reynolds on 02-21-2023 Mucus Ql (Urine sed) 0 SEEN /hpf [facility] Nitrite Test strip Ql (U)Ord ered By: Braulio Reynolds on 02-21-2023 Nitrite Ql (U) Positive Negative [facility] Protein Test strip Ql (U)Ord ered By: Braulio Reynolds on 02-21-2023 Protein Ql (U) Negative Negative [facility] Squamous epithelial cells de tection in urine sediment by light microscopyOrdered By: Braulio Reynolds on 02-21-2023 Epithelial cells.squamous LM Ql (Urine sed) 5-10 SEEN /hpf 5-10 [facility] Urine blood detectionOrdered By: Braulio Reynolds on 02-21-2023 RBC Ql (U) Negative Negative [facility] RBC Ql (U) 0 SEEN /hpf 0-5 [facility] Urine clarityOrdered By: Teddy Reynolds on 02-21-2023 Clarity (U) Clear Clear [facility] Urine color determinationOrd ered By: Braulio Reynolds on 02-21-2023 Color (U) Yellow Yellow [facility] Urine glucose detectionOrder ed By: Braulio Reynolds on 02-21-2023 Glucose Ql (U) Normal mg/dl Normal [facility] Urine leukocyte esterase det ection by dipstickOrdered By: Braulio Reynolds on 02-21-2023 Leukocyte esterase Test strip Ql (U) 25 /ul Negative [facility] Urine pHOrdered By: Brauloi Reynolds on 02-21-2023 pH (U) 6.0 [pH] 5.0 - 8.0 [facility] Urine sediment bacteria coun t by microscopy (number/high power field)Ordered By: Braulio Reynolds on 02-21-2023 Bacteria LM.HPF (Urine sed) [#/Area] 1 /[HPF] None Seen [facility] Urine specific gravity measu rementOrdered By: Braulio Reynolds on 02-21-2023 Specific gravity (U) [Rel density] 1.010 1.002-1.030 [facility] Urobilinogen Auto test strip Ql (U)Ordered By: Braulio Reynolds on 02-21-2023 Urobilinogen Ql (U) 8 mg/dl Normal [facility] CORONAVIRUS PCR - [facility] 02-22-2022 SARS-CoV-2 (COVID-19) RNA LENA+probe Ql (Unsp spec) Positive Abnormal NORMAL: NEGATIVE [facility] Comment on above: Result Comment: { CA LLED TO ALEXIS,02/22/22,16:41,KLS { READ BACK BY ALEXIS Performed By: #### 2 [id number] #### [facility],[address] [place] [address] SEND TO IC? YES Normal [facility] Comment on above: Result Comment: RESU LTS FAXED TO INFECTION CONTROL. SARS-CoV-2 THIS TEST IS BEING USED UNDER THE FDA EUA PROCEDURE. THIS ASSAY HAS BEEN VALIDATED IN THE [facility] FOR USE WITH NASOPHARYNGEAL SPECIMENS IN [facility]. INTERPRETIVE DATA LABORATORY TEST RESULTS [...] PUBLIC HEALTH AUTHORITIES. Performed By: #### 2 [id number] #### [facility],[address] [place] [address] Coronavirus 2019on 1 COVID 19 Result [employer] Normal Negative for COVID19 (SARS CoV2) by PCR. [facility] Comment on above: Result Comment: Nega tive for This test was developed and its performance characteristics determined by [facility] [place]. This test has been authorized by FDA under an Emergency Use Authorization (EUA). This test has been validated in accordance with the FDA's Guidance Document "Policy for Diagnostics Testing in Laboratories Certified to Perform High Complexity Testing under CLIA prior to Emergency use Authorization for Coronavirus Disease 2019 during the Public Health Emergency" issued on October 02, 2019. COVID19 (SARS This test was developed and its performance characteristics determined by [facility]'s [facility] [place]. This test has been authorized by FDA under an Emergency Use Authorization (EUA). This test has been validated in accordance with the FDA's Guidance Document "Policy for Diagnostics Testing in Laboratories Certified to Perform High Complexity Testing under CLIA prior to Emergency use Authorization for Coronavirus Disease 2019 during the Public Health Emergency" issued on October 02, 2019. CoV2) by PCR. This test was developed and its performance characteristics determined by [facility] [place]. This test has been authorized by FDA under an Emergency Use Authorization (EUA). This test has been validated in accordance with the FDA's Guidance Document "Policy for Diagnostics Testing in Laboratories Certified to Perform High Complexity Testing under CLIA prior to Emergency use Authorization for Coronavirus Disease 2019 during the Public Health Emergency" issued on October 02, 2019. COVID 19 Source [employer] Normal [facility] Comment on above: Result Comment: Naso pharyngeal Corrected on 08/30 AT 0134: Previously reported as [employer] SWAB Swab Corrected on 08/30 AT 0134: Previously reported as [employer] SWAB XR Hand 3 Views Righton 12-02 XR Hand 3 Views Right [facility] [place] Name: JOHNATHAN ANTONIO [address] [place] [address] Phys: [place] [address] : 1975 Age: 41 Acct: [id number] Loc: P/PHYSCARE MRN/Unit No.: [id number] Status: DEP ER Exam Date: 12/12/17 Accession Number: [id number] Exam: [id number] RAD/XR Hand 3 Views Right XR Hand [...] Signed Date/Time: 12/12/17, 2031 Dictated Date/Time: 12/12/171947 Assistant Manager/Embalmer: MIREYA THAO Printed Date/Time: , This report was electronically signed in another vendor system Normal [facility] Basic Metabolic Panelon 04-0 Anion gap 3 molar conc 13 mmol/L Normal - [facility] Comment on above: Performed By: #### C HEM7, MG, TPNT, TSH ####[facility] [address] [place] [address] ,Tristan Traylor M.D. FCAP, FASCP Calcium mass conc 9.0 mg/dL Normal 8.6-10.0 [facility] Comment on above: Performed By: #### C HEM7, MG, TPNT, TSH ####[facility] [address] [place], [place] [id number] ,Tristan Traylor M.D. FCAP, FASCP Chloride molar conc 101 mmol/L Normal 98-107 [facility] Comment on above: Performed By: #### C HEM7, MG, TPNT, TSH ####[facility] [address] [place], [place] [id number] ,Tristan Traylor M.D. FCAP, FASCP CO2 molar conc 24 mmol/L Normal 22-29 [facility] Comment on above: Performed By: #### C HEM7, MG, TPNT, TSH ####[facility] [address] [place] [address] ,Tristan Traylor M.D. FCAP, FASCP Creatinine mass conc 0.65 mg/dL Normal 0.51-0.95 [facility] Comment on above: Performed By: #### C HEM7, MG, TPNT, TSH ####[facility] [address] [place], [place] [id number] ,Muna Lane, FASCP GFR/1.73 sq M predicted among non-blacks MDRD vol rate/area (S/P/Bld) mL/min/{1.73_m2} Normal [facility] Comment on above: Result Comment: THE GFR IS ESTIMATED USING THE MDRD STUDY EQUATION.*NOTE* IF THE RACE OF THE PATIENT WAS UNKNOWN AT THE TIME OFREGISTRATION, AND THE PATIENT IS , MULTIPLYTHE EGFR RESULT PROVIDED BY 1.21.NORMAL: EGFR >60.0 Performed By: #### C HEM7, MG, TPNT, TSH ####[facility] [address] [place], [place] [id number] ,Tristan Traylor M.D. FCAP, FASCP Glucose mass conc 91 mg/dL Normal 70-100 [facility] Comment on above: Result Comment: INTR EPRETATION FOR FASTING BLOOD GLUCOSE:70-100 mg/dl NORMAL GLUCOSE [id number] mg/dl IMPAIRED FASTING GLUCOSE (PRE-DIABETES)>125 mg/dl DIABETES - ON MORE THAN ONE TESTING Performed By: #### C HEM7, MG, TPNT, TSH ####[facility] [address] [place], [place] [id number] ,Muna LaneAP, FASCP Potassium molar conc 4.0 mmol/L Normal 3.6-5.0 [facility] Comment on above: Performed By: #### C HEM7, MG, TPNT, TSH ####[facility] [address] [place], [place] [id number] ,Tristan Traylor M.D. FCAP, FASCP Sodium molar conc 138 mmol/L Normal 136-145 [facility] Comment on above: Performed By: #### C HEM7, MG, TPNT, TSH ####[facility] [address] [place], [place] [id number] ,Tristan Traylor M.D. FCAP, FASCP Urea nitrogen mass conc (Bld) 8.3 mg/dL Normal 6-20 [facility] Comment on above: Performed By: #### C HEM7, MG, TPNT, TSH ####[facility] [place], [place] [phone] ,Tristan Traylor M.D. FCAP, FASCP CBC With Differentialon 04-0 2018 Basophils Auto #/vol (Bld) 0.06 10:3/uL Normal 0.02-0.2 [facility] Comment on above: Performed By: #### C BCD ####[address] [id number] ,Tristan Traylor M.D. FCAP, FASCP Basophils/100 WBC Auto (Bld) 0.7 % Normal 0-1.0 [facility] Comment on above: Performed By: #### C BCD ####[facility] [place] [id number] ,Tristan Traylor M.D. FCAP, FASCP CBC Manual Diff NO Normal [facility] Comment on above: Performed By: #### C BCD ####[facility] [address] [place] [address] ,Tristan Traylor M.D. FCAP, FASCP Eosinophils Auto #/vol (Bld) 0.18 10:3/uL Normal 0-0.5 [facility] Comment on above: Performed By: #### C BCD ####[facility] [address] [place] [address] ,Tristan Traylor M.D. FCAP, FASCP Eosinophils/100 WBC Auto (Bld) 2.0 % Normal 1.0-3.0 [facility] Comment on above: Performed By: #### C BCD ####[facility] [address] [place], [place] [id number] ,Tristan Traylor M.D. FCAP, FASCP Hematocrit Auto Volume Fraction (Bld) 41.6 % Normal 35.0-47.0 [facility] Comment on above: Performed By: #### C BCD ####[facility] [place], [place] [phone] ,Tristan Traylor M.D. FCAP, FASCP Hemoglobin mass conc (Bld) 14.4 g/dL Normal 11.7-15.7 [facility] Comment on above: Performed By: #### C BCD ####[address] [id number] ,Tristan Traylor M.D. FCAP, FASCP Lymphocytes Auto #/vol (Bld) 3.42 10:3/uL Normal 1.5-4.0 [facility] Comment on above: Performed By: #### C BCD ####[facility] [place] [id number] ,Tristan Traylor M.D. FCAP, FASCP Lymphocytes/100 WBC Auto (Bld) 37.4 % Normal 20.0-40.0 [facility] Comment on above: Performed By: #### C BCD ####[facility] [place] [id number] ,Tristan Traylor M.D. FCAP, FASCP MCH Auto Entitic mass (RBC) 31.4 pg Normal 27.0-40.0 [facility] Comment on above: Performed By: #### C BCD ####[facility] [place] [id number] ,Tristan Traylor M.D. FCAP, FASCP MCV Auto Entitic volume (RBC) 90.6 CU uM Normal 80.0-100.0 [facility] Comment on above: Performed By: #### C BCD ####[address], [place] [phone] ,Tristan Traylor M.D. FCAP, FASCP Mean Corpusc Hgb Concentration 34.6 G/DL Normal 31.0-36.0 [facility] Comment on above: Performed By: #### C BCD ####[facility] [place], [place] [phone] ,Tristan Traylor M.D. FCAP, FASCP Monocytes Auto #/vol (Bld) 0.65 10:3/uL Normal 0.2-0.8 [facility] Comment on above: Performed By: #### C BCD ####[facility] [place], [place] [id number] ,Tristan Traylor M.D. FCAP, FASCP Monocytes/100 WBC Auto (Bld) 7.1 % Normal 4.0-10.0 [facility] Comment on above: Performed By: #### C BCD ####[facility] Fmm[address] [place], [place] [phone] ,Tristan Traylor M.D. FCAP, FASCP Neutrophils, Absolute 4.79 10:3/uL Normal 2.0-7.0 [facility] Comment on above: Performed By: #### C BCD ####[facility] [address] [place] [address] [id number] ,Tristan Traylor M.D. FCAP, FASCP Neutrophils/100 WBC Auto (Bld) 52.4 % Low 54.0-62.0 [facility] Comment on above: Performed By: #### C BCD ####[facility] Cnt[address] [place], [place] [id number] ,Tristan Traylor M.D. FCAP, FASCP Nucleated RBC #/vol (Bld) 0 10:3/uL Normal -0 [facility] Comment on above: Performed By: #### C BCD ####[facility] [address] [place], [place] [phone] ,Tristan Traylor M.D. FCAP, FASCP Nucleated RBC/100 WBC Ratio (Bld) 0 /100WBC Normal -0 [facility] Comment on above: Performed By: #### C BCD ####[facility] Qdf[address] [place], [place] [id number] ,Tristan Traylor M.D. FCAP, FASCP Platelets Auto #/vol (Bld) 305 10:3/uL Normal 130-440 [facility] Comment on above: Performed By: #### C BCD ####[facility] [place], [place] [id number] ,Tristan Traylor M.D. FCAP, FASCP RBC Auto #/vol (Bld) 4.59 10:6/uL Normal 3.80-5.20 [facility] Comment on above: Performed By: #### C BCD ####[facility] Vtn[address] [place], [place] 9346450 ,Tristan Traylor M.D. FCAP, FASCP Red Cell Distribution 12.8 Normal 11.5-14.5 [facility] Comment on above: Performed By: #### C BCD ####[facility] Ihf[address] [place], [place] [phone] ,Tristan Traylor M.D. FCAP, FASCP WBC Auto #/vol (Bld) 9.1 10:3/uL Normal 3.5-11.0 [facility] Comment on above: Performed By: #### C BCD ####[facility] Lzo[address] [place], [place] 1566950 ,Tristan Traylor M.D. FCAP, FASCP Cardiac Troponin Ton 018 Troponin T.cardiac mass conc ug/L Normal 0-0.15116 [facility] Comment on above: Result Comment: Less than measurable range Performed By: #### C HEM7, MG, TPNT, TSH ####[facility] Ony[address] [place], [place] 2524250 ,Tristan Traylor M.D. FCAP, FASCP Group A Strep NAATon 018 Group A Strep NAAT S pyo DNA Throat Ql PCR: GAS NOT DETECTED Normal [facility] Comment on above: Order Comment: NEGAT MARLIN for: Group A Strep by NAATNote: Negative results should be followed up with a CULTUREfor patients when clinical symptoms persist or during anoutbreak of Acute Rheumatic Fever. Performed By: #### A YESSENIA SANCHEZ ####[facility] Nni[address] [place], [place] 6821250 ,Muna [address], FASCP Magnesium Bloodon 11-09-2017 Magnesium mass conc 1.9 MG/DL Normal 1.6-2.6 [facility] Comment on above: Performed By: #### C HEM7, MG, TPNT, TSH ####[facility] Zoz[address] [place], [place] 8807450 ,Muna LaneAP, FASCP Test Urineon 11-09 HCG ( test) Ql (U) Negative Normal NEGATIVE [facility] Comment on above: Order Comment: Sourc e Of Urine Specimen? Clean Catch` Performed By: #### P TU, U REFLEX ####[facility] Z[address] [place], [place] [phone] ,Muna aLneAP, FASCP Thyroid Stimulating Hormoneo n 11-09-2017 Thyrotropin Qn 1.9600 uIU/mL Normal 0.270-4.200 [facility] Comment on above: Performed By: #### A YESSENIA SANCHEZ ####[facility] Amf[address] [facility] [place] [address] ,Tristan Traylor M.D. FCAP, FASCP Urinalysis with Reflex Cultu reon 11-09-2017 Character Urine CLEAR Normal [facility] Comment on above: Order Comment: Sourc e Of Urine Specimen? Clean Catch` Performed By: #### P TU, U REFLEX ####[facility] [address] [place] [address] [place] [address] ,Tristan Traylor M.D. FCAP, FASCP Is a Culture Indicated? NO CULTURE ORDERED Normal [facility] Comment on above: Order Comment: Sourc e Of Urine Specimen? Clean Catch` Performed By: #### P TU, U REFLEX ####[facility] [address] [place] [address] ,Tristan Traylor M.D. FCAP, FASCP Epithelial Cell 0-2 Normal 0-2 [facility] Comment on above: Order Comment: Sourc e Of Urine Specimen? Clean Catch` Performed By: #### P TU, U REFLEX ####[facility] [address] [place] [address] ,Tristan Traylor M.D. FCJOLLY, FASCP RBC Test strip #/vol (U) 5-10 Abnormal 0-2 [facility] Comment on above: Order Comment: Sourc e Of Urine Specimen? Clean Catch` Performed By: #### P TU, U REFLEX ####[facility] Aq[address] [facility] [place] [address] ,Tristan Traylor M.D. FCAP, FASCP WBC #/vol (U) 0-2 Normal 0-5 [facility] Comment on above: Order Comment: Sourc e Of Urine Specimen? Clean Catch` Performed By: #### P TU, U REFLEX ####[facility] Flq[address] [place], [place] [phone] ,Tristan Traylor M.D. FCAP, FASCP Bilirubin Ql (U) Negative Normal NEGATIVE [facility] Comment on above: Order Comment: Sourc e Of Urine Specimen? Clean Catch` Performed By: #### P TU, U REFLEX ####[facility] K[address] [place] [address] ,Tristan Tralyor M.D. FCAP, FASCP Color Nom (U) YELLOW Normal [facility] Comment on above: Order Comment: Sourc e Of Urine Specimen? Clean Catch` Performed By: #### P TU, U REFLEX ####[facility] [address] [place] [address] ,Tristan Traylor M.D. FCAP, FASCP Glucose Ql (U) Negative Normal NEGATIVE [facility] Comment on above: Order Comment: Sourc e Of Urine Specimen? Clean Catch` Performed By: #### P TU, U REFLEX ####[facility] [address] [place] [address] ,Tristan Traylor M.D. FCAP, FASCP Hemoglobin Test strip Ql (U) Negative Normal NEGATIVE [facility] Comment on above: Order Comment: Sourc e Of Urine Specimen? Clean Catch` Performed By: #### P TU, U REFLEX ####[facility] [place] [address] ,Tristan Traylor M.D. FCAP, FASCP Ketones Ql (U) Negative Normal NEGATIVE [facility] Comment on above: Order Comment: Sourc e Of Urine Specimen? Clean Catch` Performed By: #### P TU, U REFLEX ####[facility] [address] [place] [address] ,Tristan Traylor M.D. FCAP, FASCP Leukocyte Esterase Negative Normal NEGATIVE [facility] Comment on above: Order Comment: Sourc e Of Urine Specimen? Clean Catch` Performed By: #### P TU, U REFLEX ####[facility] Fgg[address] [place], [place] 1116850 ,Tristan Traylor M.D. FCAP, FASCP Nitrite Test strip Ql (U) Negative Normal NEGATIVE [facility] Comment on above: Order Comment: Sourc e Of Urine Specimen? Clean Catch` Performed By: #### P TU, U REFLEX ####[facility] [address] [place] [address] [id number] ,Tristan Traylor M.D. FCAP, FASCP pH Test strip (U) 6.0 [pH] Normal 5.0-8.5 [facility] Comment on above: Order Comment: Sourc e Of Urine Specimen? Clean Catch` Performed By: #### P TU, U REFLEX ####[facility] [place] [id number] ,[address], FASCP Protein Test strip Ql (U) Negative Normal NEGATIVE [facility] Comment on above: Order Comment: Sourc e Of Urine Specimen? Clean Catch` Performed By: #### P TU, U REFLEX ####[facility] [place] [address] [id number] ,Tristan Traylor M.D. FCAP, FASCP Specific [place] 1.016 Normal 1.005-1.035 [facility] Comment on above: Order Comment: Sourc e Of Urine Specimen? Clean Catch` Performed By: #### P TU, U REFLEX ####[facility] [address] [place] [address] [id number] ,Tristan Traylor M.D. FCAP, FASCP Urobilinogen Test strip Qn (U) 0.2 {Dmitry'U}/dL Normal 0-1.0 [facility] Comment on above: Order Comment: Sourc e Of Urine Specimen? Clean Catch` Performed By: #### P TU, U REFLEX ####[facility] [address] [place] [address] ,Tristan Traylor M.D. FCAP, FASCP XR Foot 3 Views Righton 10-03 XR Foot 3 Views Right [facility] Name: JOHNATHAN ANTONIO [address] [place] [address] Phys: [place] [address] : 1975 Age: 41 Acct: [id number] Loc: P/PHYSCARE MRN/Unit No.: [id number] Status: REG ER Exam Date: 10/29/17 Accession Number: [id number] Exam: [id number] RAD/XR Foot 3 Views Right XR Foot [...] joint with narrowing and spurring. CC: YAMILETH ROSE; KOBE ARNETT Technologist: CHRISTINE FLOREZ Dictated By: PAMELLA RANDALL Signed Date/Time: 10/29/17, 1053 Dictated Date/Time: 10/29/17 1053 Assistant Manager/Embalmer: MIREYA THAO Printed Date/Time: , This report was electronically signed in an other vendor system Normal [facility] Complete Blood Counton 08-15 Hematocrit Auto Volume Fraction (Bld) 46.8 % Normal 35.0-47.0 [facility] Comment on above: Performed By: #### C BC ####[facility] [address] [place] [address] ,Tristan Traylor M.D. FCAP, FASCP Hemoglobin mass conc (Bld) 15.8 g/dL High 11.7-15.7 [facility] Comment on above: Performed By: #### C BC ####[facility] C[address] [place], [place] 9250350 ,Tristan Traylor M.D. FCAP, FASCP MCH Auto Entitic mass (RBC) 32.0 pg Normal 27.0-40.0 [facility] Comment on above: Performed By: #### C BC ####[facility] [place] [address] [id number] ,Tristan Traylor M.D. FCAP, FASCP MCV Auto Entitic volume (RBC) 94.7 CU uM Normal 80.0-100.0 [facility] Comment on above: Performed By: #### C BC ####[facility] [place] [address] [id number] ,Tristan Traylor M.D. FCAP, FASCP Mean Corpusc Hgb Concentration 33.8 G/DL Normal 31.0-36.0 [facility] Comment on above: Performed By: #### C BC ####[facility] [place] [address] [phone] ,Tristan Traylor M.D. FCAP, FASCP Platelets Auto #/vol (Bld) 301 10:3/uL Normal 130-440 [facility] Comment on above: Performed By: #### C BC ####[facility] I[address] [place], [place] [id number] ,Tristan Traylor M.D. FCAP, FASCP RBC Auto #/vol (Bld) 4.94 10:6/uL Normal 3.80-5.20 [facility] Comment on above: Performed By: #### C BC ####[facility] [address] [place], [place] 9943850 ,Tristan Traylor M.D. FCAP, FASCP Red Cell Distribution 12.8 Normal 11.5-14.5 [facility] Comment on above: Performed By: #### C BC ####[facility] Q[address] [place], [place] 1586550 ,Tristan Traylor M.D. FCAP, FASCP WBC Auto #/vol (Bld) 9.0 10:3/uL Normal 3.5-11.0 [facility] Comment on above: Performed By: #### C BC ####[facility] [address] [place] [address] [id number] ,Tristan Traylor M.D. FCAP, FASCP Comprehensive Metabolic Pane ruperto 08-15-2017 Albumin mass conc 4.3 g/dL Normal 4.0-4.9 [facility] Comment on above: Performed By: #### A YESSENIA SANCHEZ ####[address] [id number] ,Tristan Traylor M.D. FCAP, FASCP ALP enzyme act/vol 57 U/L Normal 35-104 [facility] Comment on above: Performed By: #### A YESSENIA SANCHEZ ####[facility] [place] [address] [id number] ,[address], FASCP ALT Alanine Transamine 19 U/L Normal 5-33 [facility] Comment on above: Performed By: #### A STEVEN SANCHEZ1 ####[facility] [address] [place] [address] [id number] ,Muna LaneAP, FASCP Anion gap 3 molar conc 14 mmol/L Normal 9-18 [facility] Comment on above: Performed By: #### A STEVEN SANCHEZ1 ####[facility] Xlx[address] [place], [place] [id number] ,Tristan Traylor M.D. FCAP, FASCP AST Aspartate Transaminase 16 U/L Normal 5-32 [facility] Comment on above: Performed By: #### A STEVEN SANCHEZ1 ####[facility] [place] [address] ,Tristan Traylor M.D. FCAP, FASCP Bilirubin mass conc 0.4 mg/dL Normal 0.15-1.2 [facility] Comment on above: Performed By: #### A STEVEN SANCHEZ1 ####[address] [address] ,Tristan Traylor M.D. FCAP, FASCP Calcium mass conc 9.1 mg/dL Normal 8.6-10.0 [facility] Comment on above: Performed By: #### A STEVEN SANCHEZ1 ####[facility] [place] [address] ,[address], FASCP Chloride molar conc 98 mmol/L Normal 98-107 [facility] Comment on above: Performed By: #### A STEVEN SANCHEZ1 ####[facility] [place] [address] [id number] ,[address], FASCP CO2 molar conc 24 mmol/L Normal 22-29 [facility] Comment on above: Performed By: #### A STEVEN SANCHEZ1 ####[facility] [place] [address] ,Tristan Traylor M.D. FCAP, FASCP Creatinine mass conc 0.65 mg/dL Normal 0.51-0.95 [facility] Comment on above: Performed By: #### A STEVEN SANCHEZ1 ####[facility] [place] [address] [id number] ,Tristan Traylor M.D. FCAP, FASCP GFR/1.73 sq M predicted among non-blacks MDRD vol rate/area (S/P/Bld) mL/min/{1.73_m2} Normal [facility] Comment on above: Result Comment: THE GFR IS ESTIMATED USING THE MDRD STUDY EQUATION.*NOTE* IF THE RACE OF THE PATIENT WAS UNKNOWN AT THE TIME OFREGISTRATION, AND THE PATIENT IS , MULTIPLYTHE EGFR RESULT PROVIDED BY 1.21.NORMAL: EGFR >60.0 Performed By: #### A LAURA, CP1 ####[facility] [place] [address] [phone] ,Tristan Traylor M.D. FCAP, FASCP Glucose mass conc 120 mg/dL High 70-100 [facility] Comment on above: Result Comment: INTR EPRETATION FOR FASTING BLOOD GLUCOSE:70-100 mg/dl NORMAL GLUCOSE [id number] mg/dl IMPAIRED FASTING GLUCOSE (PRE-DIABETES)>125 mg/dl DIABETES - ON MORE THAN ONE TESTING Performed By: #### A LAURA, CP1 ####[facility] [place] [address] [phone] ,Tristan Traylor M.D. FCAP, FASCP Potassium molar conc 4.4 mmol/L Normal 3.6-5.0 [facility] Comment on above: Performed By: #### A LAURA, CP1 ####[facility] [address] [place] [address] [phone] ,Tristan Traylor M.D. FCAP, FASCP Protein mass conc 6.8 g/dL Normal 6.4-8.3 [facility] Comment on above: Performed By: #### A LAURA, STEVEN1 ####[facility] [address] [place] [address] [id number] ,Tristan Traylor M.D. FCAP, FASCP Sodium molar conc 136 mmol/L Normal 136-145 [facility] Comment on above: Performed By: #### A LAURA, CP1 ####[facility] [address] [place] [address] [id number] ,Tristan Traylor M.D. FCAP, FASCP Urea nitrogen mass conc (Bld) 10.8 mg/dL Normal 6-20 [facility] Comment on above: Performed By: #### A LAURA, CP1 ####[facility] P[address] [place], [place] [phone] ,Tristan Traylor M.D. FCAP, FASCP Lipid Profileon 08-15-2017 Cholesterol in HDL mass conc 55 mg/dL Low >65 [facility] Comment on above: Performed By: #### A STEVEN SANCHEZ1 ####[facility] [address] [place] [address] ,[address], FASCShantel Cholesterol mass conc 200 mg/dL High 0-199 [facility] Comment on above: Performed By: #### A LAURA, STEVEN1 ####[facility] [address] [place] [address] ,[address], FASCP LDL Cholesterol calculated 129 mg/dl High <100 [facility] Comment on above: Performed By: #### A LAURA, CP1 ####[facility] [address] [place] [address] ,Tristan Traylor M.D. FCAP, FASCP Risk Ratio 3.61 Normal [facility] Comment on above: Result Comment: RISK NORMALS MEN WOMEN1/[address] 23[address]39 11.04TRIGLYCERIDES >400 MG/DL MAY CAUSE INCONSISTENCIESIN THE LDL. Performed By: #### A LAURA, CP1 ####[facility] [address] [place], [place] [id number] ,Muna LaneAP, FASCP Triglyceride mass conc 79 mg/dL Normal <150 [facility] Comment on above: Performed By: #### A LAURA, CP1 ####[facility] [address] [place] [phone] ,Tristan Traylor M.D. FCAP, FASCP Vital Signs Date Time Vital Sign Value Performing Clinician Facility 05-13-2025 01:26-0400 Body temperature 97.9 [degF] Yahir Gutierrez PA Work Phone: [phone])133-094975 [place] [address] 05-13-2025 01:26-0400 Diastolic blood pressure 70 mm[Hg] Yahir Gutierrez PA Work Phone: 9(470)610-281775 [place] [address] 05-13-2025 01:26-0400 Heart rate 81 /min Yahir Gutierrez PA Work Phone: 2(097)517-188775 [place] [address] 05-13-2025 01:26-0400 Respiratory rate 17 /min Yahir Gutierrez PA Work Phone: 3(952)987-474075 [place] [address] 05-13-2025 01:26-0400 SaO2% (BldA) [Mass fraction] 100 % Yahir Gutierrez PA Work Phone: 8(441)361-544075 [place] [address] 05-13-2025 01:26-0400 Systolic blood pressure 145 mm[Hg] Yahir Gutierrez PA Work Phone: 5(216)376-901475 [place] [address] 05-12-2025 22:27-0400 Body mass index (BMI) [Ratio] 47.9 kg/m2 Yahir Gutierrez PA Work Phone: [phone])900-218175 [place] [address] 05-12-2025 22:27-0400 Body weight 119 kg Yahir Gutierrez PA Work Phone: 3(765)310-852275 [place] [address] 05-12-2025 21:45-0400 Body height 157.48 cm Yahir Gutierrez PA Work Phone: 2(017)005-743975 [place] [address] 04-19-2025 07:56-0400 Body height 157.48 cm Yahir Gutierrez PA Work Phone: 4(943)737-204575 [place] [address] 04-19-2025 07:56-0400 Body mass index (BMI) [Ratio] 43.9 kg/m2 Yahir Gutierrez PA Work Phone: [facility] 04-19-2025 07:56-0400 Body weight 108.86 kg Yahir Gutierrez PA Work Phone: [facility] 03-22-2025 08:04-0400 Body height 157.48 cm Yahir Gutierrez PA Work Phone: [facility] 03-22-2025 08:04-0400 Body mass index (BMI) [Ratio] 43.9 kg/m2 Yahir Gutierrez PA Work Phone: [facility] 03-22-2025 08:04-0400 Body weight 108.86 kg Yahir Gutierrez PA Work Phone: [facility] 03-14-2025 08:31-0400 Body height 157.48 cm Yahir Gutierrez PA Work Phone: [phone])430-637740 [place] [address] 03-14-2025 08:31-0400 Body mass index (BMI) [Ratio] 43.9 kg/m2 Yahir Gutierrez PA Work Phone: 1(200)614-882140 [place] [address] 03-14-2025 08:31-0400 Body weight 108.86 kg Yahir Gutierrez PA Work Phone: [facility] 03-09-2025 09:45-0400 Body temperature 97.3 [degF] Yahir Gutierrez PA Work Phone: [facility] 03-09-2025 09:45-0400 Diastolic blood pressure 86 mm[Hg] Yahir Gutierrez PA Work Phone: [facility] 03-09-2025 09:45-0400 Heart rate 91 /min Yahir Gutierrez PA Work Phone: [facility] 03-09-2025 09:45-0400 Respiratory rate 16 /min Yahir Gutierrez PA Work Phone: [facility] 03-09-2025 09:45-0400 SaO2% (BldA) [Mass fraction] 99 % Yahir Gutierrez PA Work Phone: [facility] 03-09-2025 09:45-0400 Systolic blood pressure 144 mm[Hg] Yahir Gutierrez PA Work Phone: [facility] 03-09-2025 09:15-0400 Inhaled oxygen flow rate 2 L/min Yahir Gutierrez PA Work Phone: [facility] 03-09-2025 06:29-0400 Body height 157.48 cm Yahir Gutierrez PA Work Phone: [facility] 03-09-2025 06:29-0400 Body mass index (BMI) [Ratio] 45.1 kg/m2 Yahir Gutierrez PA Work Phone: [facility] 03-09-2025 06:29-0400 Body weight 112 kg Yahir Gutierrez PA Work Phone: [facility] 02-15-2025 08:24-0400 Body height 158.75 cm In[address] Woods MA [facility], [facility].; [facility], [facility]. 02-15-2025 08:24-0400 Body mass index (BMI) [Ratio] 43.77 kg/m2 Ingrid Woods MA [facility], [facility].; [facility], [facility]. 02-15-2025 08:24-0400 Body surface area Derived from formula 2.09 m[address] [facility], [facility].; [facility]. 02-15-2025 08:24-0400 Body weight 110.31 [address] [facility], [facility].; [facility]. 02-15-2025 08:24-0400 Diastolic blood pressure 84 mm[Hg] Ingrid Woods MA [facility], [facility].; [facility], [facility]. Comment on above: Patient Position: Sitting; Cuff Location : Left Arm; Cuff Size: Standard 02-15-2025 08:24-0400 Heart rate 82 /min Ingrid Woods MA [facility], [facility].; [facility], [facility]. Comment on above: Pattern: Regular 02-15-2025 08:24-0400 Systolic blood pressure 136 mm[Hg] Ingrid Woods MA [facility] Comment on above: Patient Position: Sitting; Cuff Location : Left Arm; Cuff Size: Standard 02-14-2025 13:50-0400 Body height 154.94 cm Yahir Gutierrez PA Work Phone: [phone] [address] 02-14-2025 13:50-0400 Body mass index (BMI) [Ratio] 42.5 kg/m2 Yahir Gutierrez PA Work Phone: [phone])868-185375 [place] [address] 02-14-2025 13:50-0400 Body weight 102.05 kg Yahir Gutierrez PA Work Phone: 5(269)439-205775 [place] [address] 01-21-2025 08:12-0400 Body height 154.94 cm Yahir Gutierrez PA Work Phone: 2(067)722-332075 [place] [address] 01-21-2025 08:12-0400 Body mass index (BMI) [Ratio] 42.5 kg/m2 Yahir Gutierrez PA Work Phone: 5(418)285-627505 [address] 01-21-2025 08:12-0400 Body weight 102.05 kg Yahir Gutierrez PA Work Phone: 1(473)690-260875 [place] [address] 01-07-2025 08:56-0400 Body height 154.94 cm Yahir Gutierrez PA Work Phone: [phone])000-762675 [place] [address] 01-07-2025 08:56-0400 Body mass index (BMI) [Ratio] 42.5 kg/m2 Yahir Gutierrez PA Work Phone: 7(036)868-373175 [place] [address] 01-07-2025 08:56-0400 Body weight 102.05 kg Yahir Gutierrez PA Work Phone: 3(286)456-263375 [place] [address] 12-16-2024 08:04-0400 Body height 154.94 cm Yahir Gutierrez PA Work Phone: 8(677)190-834575 [place] [address] 12-16-2024 08:04-0400 Body mass index (BMI) [Ratio] 42.5 kg/m2 Yahir Gutierrez PA Work Phone: 3(452)609-178875 [place] [address] 12-16-2024 08:04-0400 Body weight 102.05 kg Yahir Gutierrez PA Work Phone: [facility] 12-14-2024 22:46-0400 Body temperature 97.9 [degF] Yahir Gutierrez PA Work Phone: [facility] 12-14-2024 22:46-0400 Diastolic blood pressure 72 mm[Hg] Yahir Gutierrez PA Work Phone: [facility] [facility] [place] 12-14-2024 22:46-0400 Heart rate 88 /min Yahir Gutierrez PA Work Phone: [facility] [place] 12-14-2024 22:46-0400 Respiratory rate 18 /min Yahir Gutierrez PA Work Phone: [facility] [place] 12-14-2024 22:46-0400 SaO2% (BldA) [Mass fraction] 100 % Yahir Gutierrez PA Work Phone: [phone] [place] [address] 12-14-2024 22:46-0400 Systolic blood pressure 138 mm[Hg] Yahir Gutierrez PA Work Phone: [phone] [place] [address] 12-14-2024 21:30-0400 Body height 154.94 cm Yahir Gutierrez PA Work Phone: [facility] [place] 12-14-2024 21:30-0400 Body mass index (BMI) [Ratio] 44 kg/m2 Yahir Gutierrez PA Work Phone: [facility] [place] 12-14-2024 21:30-0400 Body weight 105.7 kg Yahir Gutierrez PA Work Phone: [facility] [place] 11-23-2024 18:00-0400 Diastolic blood pressure 72 mm[Hg] Yahir Gutierrez PA Work Phone: [facility] [place] 11-23-2024 18:00-0400 Heart rate 74 /min Yahir Gutierrez PA Work Phone: [facility] [place] 11-23-2024 18:00-0400 Respiratory rate 20 /min Yahir Gutierrez PA Work Phone: [facility] [place] 11-23-2024 18:00-0400 SaO2% (BldA) [Mass fraction] 100 % Yahir Gutierrez PA Work Phone: [facility] [place] 11-23-2024 18:00-0400 Systolic blood pressure 128 mm[Hg] Yahir Gutierrez PA Work Phone: [facility] [place] 11-23-2024 14:03-0400 Body height 154.94 cm Yahir Gutierrez PA Work Phone: [facility] [place] 11-23-2024 14:03-0400 Body mass index (BMI) [Ratio] 43.1 kg/m2 Yahir Gutierrez PA Work Phone: [facility] [place] 11-23-2024 14:03-0400 Body temperature 97.4 [degF] Yahir Gutierrez PA Work Phone: [facility] [place] 11-23-2024 14:03-0400 Body weight 103.6 kg Yahir Gutierrez PA Work Phone: [facility] [place] 11-17-2024 13:04-0400 Body height 158.75 cm Ingrid Woods MA [facility], [facility].; [facility], [facility]. 11-17-2024 13:04-0400 Body mass index (BMI) [Ratio] 40.5 kg/m2 Ingrid Woods MA [facility], [facility]. 11-17-2024 13:04-0400 Body surface area Derived from formula 2.02 m2 [address] Woods MA [facility], [facility].; [facility], [facility]. 11-17-2024 13:04-0400 Body temperature 98.4 [degF] Ingrid Woods MA [facility], [facility].; [facility], [facility]. 11-17-2024 13:04-0400 Body weight 102.06 kg Ingrid Woods MA [facility], [facility].; [facility], [facility]. 11-17-2024 13:04-0400 Diastolic blood pressure 93 mm[Hg] Ingrid Woods MA [facility], [facility].; [facility] Comment on above: Patient Position: Sitting; Cuff Location : Left Arm; Cuff Size: Standard 11-17-2024 13:04-0400 Heart rate 101 /min Ingrid Woods MA [facility], [facility].; [employer] [employer]. Comment on above: Pattern: Regular 11-17-2024 13:04-0400 Systolic blood pressure 154 mm[Hg] Ingrid Woods MA [facility].; [place] [employer]. Comment on above: Patient Position: Sitting; Cuff Location : Left Arm; Cuff Size: Standard 11-11-2024 14:03-0400 Body height 158.75 cm Mami Eubanks ACCOUNTS RECEIVABLE MANAGER [facility], [facility].; [facility], [facility]. 11-11-2024 14:03-0400 Body mass index (BMI) [Ratio] 40.5 kg/m2 Mami Eubanks ACCOUNTS RECEIVABLE MANAGER [facility], [facility].; [place] [employer] [facility] [employer]. 11-11-2024 [id number] Body surface area Derived from formula 2.02 m2 Mami Eubanks [facility].; [place] [employer] [facility]. 11-11-2024 14:03-0400 Body temperature 99.2 [degF] [facility], [facility].; [employer]. Comment on above: Method: Tympanic 11-11-2024 14:03-0400 Body weight 102.06 kg Mami Eubanks ACCOUNTS RECEIVABLE MANAGER [facility], [facility].; [place] [employer] [facility] 11-11-2024 14:03-0400 Diastolic blood pressure 85 mm[Hg] Mamierika Eubanks ACCOUNTS RECEIVABLE MANAGER [facility].; [employer]. Comment on above: Patient Position: Sitting; Cuff Location : Left Arm; Cuff Size: Standard 11-11-2024 14:03-0400 Heart rate 85 /min Mami Eubanks ACCOUNTS RECEIVABLE MANAGER [facility], [facility].; [employer]. Comment on above: Pattern: Regular 11-11-2024 14:03-0400 Systolic blood pressure 141 mm[Hg] Mami Eubanks [facility] [employer]. Comment on above: Patient Position: Sitting; Cuff Location : Left Arm; Cuff Size: Standard 10-19-2024 09:48-0400 Diastolic blood pressure 85 mm[Hg] Yahir Gutierrez PA-C Work Phone: [facility].; [facility]. Comment on above: Patient Position: Sitting; Cuff Location : Left Arm; Cuff Size: Standard 10-19-2024 09:48-0400 Systolic blood pressure 131 mm[Hg] Yahir HOLGUIN-Flaquito Work Phone: [facility].; [place] [employer] [facility]. Comment on above: Patient Position: Sitting; Cuff Location : Left Arm; Cuff Size: Standard 10-19-2024 08:29-0400 Body height 158.75 cm Ingrid Woods MA [facility].; [facility]. 10-19-2024 08:29-0400 Body mass index (BMI) [Ratio] 40.58 kg/m2 Ingrid Wodos MA [facility].; [facility]. 10-19-2024 08:29-0400 Body surface area Derived from formula 2.02 m2 Ingrid Woods MA [facility].; [facility]. 10-19-2024 08:29-0400 Body weight 102.26 kg Ingrid Woods MA [facility].; [facility]. 10-19-2024 08:29-0400 Diastolic blood pressure 85 mm[Hg] Ingrid Woods MA [facility].; [facility]. Comment on above: Patient Position: Sitting; Cuff Location : Left Arm; Cuff Size: Standard 10-19-2024 08:29-0400 Heart rate 91 /min Ingrid Woods MA [facility].; [place] [employer]. Comment on above: Pattern: Regular 10-19-2024 08:29-0400 Systolic blood pressure 144 mm[Hg] Ingrid Woods MA [facility].; [place] [employer]. Comment on above: Patient Position: Sitting; Cuff Location : Left Arm; Cuff Size: Standard 05-11-2024 10:24-0400 Body height 158.75 cm In[address] Hood M[address] [facility].; [employer]. 05-11-2024 10:24-0400 Body mass index (BMI) [Ratio] 38.58 kg/m2 Ingridkade Woods MELY [facility].; [employer] 05-11-2024 10:24-0400 Body surface area Derived from formula 1.[address] [facility].; [employer]. 05-11-2024 10:24-0400 Body temperature 97.5 [degF] Ingridkade Woods MA [facility].; [employer]. 05-11-2024 10:24040 Body weight 97.24 kg Ingridkade Woods MA [facility].; [employer]. 05-11-2024 10:24-0400 Diastolic blood pressure 73 mm[Hg] Ingrid Woods MA [facility].; [employer]. Comment on above: Patient Position: Sitting; Cuff Location : Left Arm; Cuff Size: Standard 05-11-2024 10:24-0400 Heart rate 73 /min Ingridkade Woods MA [facility].; [employer]. Comment on above: Pattern: Regular 05-11-2024 10:24-0400 Systolic blood pressure 137 mm[Hg] Ingrid Hood MELY [facility].; [employer]. Comment on above: Patient Position: Sitting; Cuff Location : Left Arm; Cuff Size: Standard 04-14-2024 07:58-0400 Body height 158.[address] [facility].; [employer]. 04-14-2024 07:58-0400 Body mass index (BMI) [Ratio] 39.06 kg/m2 Ingrid Chuck BOONE [place] [employer] [facility].; [employer]. 04-14-2024 07:58-0400 Body surface area Derived from formula 1.99 m2 Ingrid Woods MA [place] [employer] [facility].; [employer]. 04-14-2024 07:58-0400 Body weight 98.[address] [facility].; [employer]. 04-14-2024 07:58-0400 Diastolic blood pressure 82 mm[Hg] Ingrid Woods MA [facility].; [employer] [employer]. Comment on above: Patient Position: Sitting; Cuff Location : Left Arm; Cuff Size: Standard 04-14-2024 07:58-0400 Heart rate 79 /min Ingrid Woods MA [facility].; [employer]. Comment on above: Pattern: Regular 04-14-2024 07:58-0400 Systolic blood pressure 128 mm[Hg] Ingrid Woods MA [facility].; [employer]. Comment on above: Patient Position: Sitting; Cuff Location : Left Arm; Cuff Size: Standard 03-03-2024 11:01-0400 Body height 158.75 [address] [facility].; [employer]. 03-03-2024 11:01-0400 Body mass index (BMI) [Ratio] 40.94 kg/m2 Ingrid Woods MA [facility].; [employer]. 03-03-2024 11:01-0400 Body surface area Derived from formula 2.03 m2 [address] Woods MA [facility].; [employer], [facility]. 03-03-2024 11:01-0400 Body weight 103.[address] [facility].; [employer] [facility]. 03-03-2024 11:01-0400 Diastolic blood pressure 88 mm[Hg] Ingrid Woods MA [place] [employer] [facility].; [employer]. Comment on above: Patient Position: Sitting; Cuff Location : Left Arm; Cuff Size: Standard 03-03-2024 11:01-0400 Heart rate 86 /min Ingrid Woods MA [place] [employer] [facility].; [employer]. Comment on above: Pattern: Regular 03-03-2024 11:01-0400 Inhaled oxygen concentration 21 % Ingrid Woods MA [place] [employer] [facility].; [employer]. Comment on above: Room air 03-03-2024 11:01-0400 SaO2% (BldA) [Mass fraction] 96 % Ingrid Woods MA [facility], [facility].; [facility]. 03-03-2024 11:01-0400 Systolic blood pressure 137 mm[Hg] Ingrid Woods MA [facility].; [facility], [facility]. Comment on above: Patient Position: Sitting; Cuff Location : Left Arm; Cuff Size: Standard 11-22-2023 17:29-0400 Body temperature 97.6 [degF] [facility] 11-22-2023 17:29-0400 Diastolic blood pressure 78 mm[Hg] [facility] [place] 11-22-2023 17:29-0400 Heart rate 60 /min [facility] 11-22-2023 17:29-0400 Respiratory rate 14 /min [facility] 11-22-2023 17:29-0400 SaO2% (BldA) [Mass fraction] 99 % [facility] [place] 11-22-2023 17:29-0400 Systolic blood pressure 145 mm[Hg] [facility] [place] 11-22-2023 15:34-0400 Body height 157.48 cm [facility] 11-22-2023 15:34-0400 Body mass index (BMI) [Ratio] 41.1 kg/m2 [facility] [place] 11-22-2023 15:34-0400 Body weight 102.01 kg [facility] 10-15-2023 08:02-0400 Body temperature 98.8 [degF] [facility] 10-15-2023 08:02-0400 Diastolic blood pressure 84 mm[Hg] [facility] [place] 10-15-2023 08:02-0400 Heart rate 107 /min [facility] 10-15-2023 08:02-0400 Respiratory rate 19 /min [facility] 10-15-2023 08:02-0400 SaO2% (BldA) [Mass fraction] 96 % [facility] [place] 10-15-2023 08:02-0400 Systolic blood pressure 139 mm[Hg] [facility] [place] 10-15-2023 06:32-0400 Body height 154.94 cm [facility] 10-15-2023 06:32-0400 Body mass index (BMI) [Ratio] 42.5 kg/m2 [facility] [place] 10-15-2023 06:32-0400 Body weight 102.2 kg [facility] 02-21-2023 03:18-0400 Heart rate 78 /min [facility] 02-21-2023 03:18-0400 Respiratory rate 18 /min [facility] 02-21-2023 03:18-0400 SaO2% (BldA) [Mass fraction] 97 % [facility] [place] 02-21-2023 01:57-0400 Body height 157.48 cm [facility] 02-21-2023 01:57-0400 Body mass index (BMI) [Ratio] 42.4 kg/m2 [facility] [place] 02-21-2023 01:57-0400 Body temperature 97.9 [degF] [facility] 02-21-2023 01:57-0400 Body weight 105.3 kg [facility] 02-21-2023 01:57-0400 Diastolic blood pressure 82 mm[Hg] [facility] [place] 02-21-2023 01:57-0400 Systolic blood pressure 141 mm[Hg] [facility] [place] 08-26-2022 04:28-0500 Body height 154.94 cm [facility] 08-26-2022 04:28-0500 Body mass index (BMI) [Ratio] 37.8 kg/m2 [facility] [place] 08-26-2022 04:28-0500 Body temperature 96.8 [degF] [facility] 08-26-2022 04:28-0500 Body weight 90.71 kg [facility] 08-26-2022 04:28-0500 Diastolic blood pressure 101 mm[Hg] [facility] [place] 08-26-2022 04:28-0500 Heart rate 132 /min [facility] 08-26-2022 04:28-0500 Respiratory rate 18 /min [facility] 08-26-2022 04:28-0500 SaO2% (BldA) [Mass fraction] 99 % [facility] [place] 08-26-2022 04:28-0500 Systolic blood pressure 181 mm[Hg] [facility] [place] Encounters Encounter Date Encounter Type Care Provider Facility Start: 06-14[facility] [place] Start: 05-31-2025 End: 05-31-2025 [facility] Start: 05-13-2025 Patient encounter procedure Branden Schaffer DO -Cardiovascular Services Work Phone: Start: 05-13-2025 End: 05-13-2025 ambulatory Branden Schaffer Facility:[facility] [place] Start: 05-12-2025 End: 05-13-2025 Emergency department patient visit Branden Schaffer DO -Emergency Department Work Phone: Start: 05-11-2025 End: 05-11-2025 Patient encounter procedure Yahir Gutierrez PA -Radiology [place] Work Phone: Start: 05-11-2025 End: 05-11-2025 ambulatory Yahir Gutierrez Facility:[facility] [place] Start: 04-19-2025 End: 04-19-[address] Tony Latham MD -[facility] Work Phone: Start: 04-19-2025 End: 04-19-2025 ambulatory Yahir Gutierrez PA Work Phone: -[facility] Start: 04-18-[address] Tony Latham MD -Physical Therapy Work Phone: Start: 03-22-2025 End: 03-22-[address] Tony Latham MD -[facility] Work Phone: Start: 03-22-2025 End: 03-22-2025 ambulatory Yahir Gutierrez PA Work Phone: -[facility] Start: 03-14-2025 End: 03-14-[address] Tony Latham MD -[facility] Work Phone: Start: 03-14-2025 End: 03-14-2025 ambulatory Yahir Gutierrez PA Work Phone: -[facility] Start: 03-09-2025 ambulatory Tony Latham Facility :[facility] Start: 03-09-2025 Non-patient / Non-visit Dr. Son Latham MD -[facility] Start: 03-09-2025 End: 03-09-2025 Admission to same day surgery center Dr. Tony Latham MD -[facility] Start: 03-09-2025 End: 03-09-2025 ambulatory Yahir Gutierrez PA Work Phone: -[facility] Start: 02-15-2025 End: 02-15-2025 Periodic preventive med est patient 40-64yrs Yahir Gutierrez PA-C [facility] Start: 02-15-2025 End: 02-15-2025 Physical examination Yahir J Gutierrez PA-C [facility] Start: 02-14-2025 End: 02-14-[address] Tony Latham MD -[facility] Work Phone: Start: 02-14-2025 End: 02-14-2025 ambulatory Yahir Gutierrez PA Work Phone: -[facility] Start: 01-21-2025 End: 01-21-[address] Maximilian Corrales DO -[facility] Work Phone: Start: 01-21-2025 End: 01-21-2025 ambulatory Yahir Gutierrez PA Work Phone: [facility] Work Phone: Start: 01-07-2025 End: 01-07-2025 Patient encounter procedure Olivia LOREDO -[facility] Work Phone: Start: 01-07-2025 End: 01-07-2025 ambulatory Yahir Gutierrez PA Work Phone: [facility] Work Phone: Start: 01-04-2025 End: 01-04-2025 ambulatory OLIVIA STALLINGS [facility] Start: 12-16-2024 End: 12-16-2024 ambulatory Yahir Gutierrez PA Work Phone: [facility] Work Phone: Start: 12-16-2024 End: 12-16-2024 Patient encounter procedure Olivia Stallings [employer] -[facility] Work Phone: Start: 12-14-2024 End: 12-14-2024 Emergency department patient visit Yahir Gutierrez PA Work Phone: -Emergency Department Work Phone: Start: 12-10-2024 End: 12-10-2024 Patient encounter procedure Yahir Gutierrez PA-C Work Phone: [employer] Start: 12-07-2024 ambulatory YAHIR GUTIERREZ Facility:[facility] Start: 12-07-2024 End: 12-07-2024 Subsequent hospital visit by physician [facility] ([facility]) Work Phone: [facility] Start: 11-23-2024 End: 11-23-2024 Emergency department patient visit Yahir Gutierrez PA Work Phone: -Emergency Department Work Phone: Start: 11-18-2024 End: 11-18-2024 Orders Yahir Gutierrez PA-C Work Phone: [employer] Start: 11-17-2024 End: 11-17-2024 Office outpatient visit 25 minutes Yahir Gutierrez PA-C Work Phone: [employer] Start: 11-17-2024 Review Yahir Gutierrez P A-C Work Phone: [employer] Start: 11-15-2024 End: 11-15-2024 Medication Yahir Gutierrez PA-C Work Phone: [employer] Start: 11-11-2024 End: 11-11-2024 Office outpatient visit 15 minutes Yahir Gutierrez PA-C Work Phone: [employer] Start: 10-20-2024 End: 10-20-2024 Orders Yahir Gutierrez PA-C Work Phone: [employer] Start: 10-19-2024 End: 10-19-2024 Office outpatient visit 25 minutes Yahir Gutierrez PA-C Work Phone: [employer]. Start: 05-11-2024 End: 05-11-2024 Office outpatient visit 15 minutes Yahir Gutierrez PA-C Work Phone: [employer] Start: 04-14-2024 End: 04-14-2024 Office outpatient visit 25 minutes Yahir Gutierrez PA-C Work Phone: [employer] Start: 03-03-2024 End: 03-03-2024 Initial preventive medicine new patient 40-64yrs Yahir Gutierrez PA-C Work Phone: [employer]. Start: 03-03-2024 Patient encounter procedure Yahir Gutierrez PA-C Work Phone: [employer]. Start: 03-03-2024 End: 03-03-2024 Physical examination Yahir J Gutierrez PA-C Work Phone: [employer]; [employer] Start: 11-22-2023 End: 11-22-2023 Emergency department patient visit [facility] [place]-[facility] Work Phone: Start: 10-15-2023 End: 10-15-2023 Emergency department patient visit [facility] [place] Work Phone: Start: 02-21-2023 End: 02-21-2023 Emergency department patient visit [facility] [place] Work Phone: Start: 01-22-2023 End: 01-22-2023 ambulatory [facility] [place] Work Phone: Start: 01-22-2023 End: 01-22-2023 Discharged Recurring [facility] [place]-Physical Therapy Work Phone: Start: 01-22-2023 Registered Recurring [facility]-Physical Therapy Work Phone: Start: 08-26-2022 End: 08-26-2022 Emergency department patient visit [facility] [place]-[facility]gency Department Start: 02-22-2022 End: 02-22-2022 ambulatory GARCIA LABOY DE LA TORRE [facility] Start: 12-12-2017 End: 12-12-2017 Emergency department patient visit KOBE TORRESLTON Facility:[facility] Start: 11-09-2017 End: 11-09-2017 Emergency department patient visit KOBE ARNETT Facility:[facility] Start: 11-09-2017 End: 11-09-2017 Emergency department patient visit KOBE ARNETT Facility:[facility] Start: 10-29-2017 End: 10-29-2017 Emergency department patient visit KOBE ARNETT Facility:[facility] Start: 08-15-2017 End: 08-15-2017 Patient encounter procedure KOBE MELQUIADES Facility:[facility] Physical examination Ingrid Woods MA [facility], [facility].; [facility] Physical examination Ingrid Woods MA [facility], [facility] [employer]; [facility] Procedures Date Procedure Procedure Detail Performing Clinician Start: 05-12-2025 CT angiography of ch est with contrast Yahirwesley Gutierrez PA Work Phone: Start: 05-12-2025 Estimated creatinine clearance Yahir Gutierrez PA Work Phone: Start: 05-11-2025 D-dimer assay, quantitative Yahir Gutierrez PA Work Phone: Comment on above: D-Dimer ELEVATED (>0 .49): Additional studies and clinicalassessments are indicated to conclude diagnosis of:Deep Vein Thrombosis (DVT) or Pulmonary Embolism (PE)CRITICAL VALUE ATTEMPTED TO BE CALLED TO DOCTOR PLASTER MECHANIC FOR Cherrie NEGRETE DOCTOR NEVER CALLED BACK.[id number]/[id number] Annamarie De La Cruz. Start: 05-11-2025 Radiologic exam chest 2 views Yahir Gutierrez PA Work Phone: Start: 03-09-2025 Arthroscopy of knee Tiny ecca Gutierrez PA Work Phone: Start: 02-15-2025 End: 02-14-2025 Depression screening Yahir Gutierrez PA-C Work Phone: Start: 02-15-2025 End: 02-14-2025 Pos clin depres scrn f/u doc Yahir Nguyen Meseret kamila PA-C Work Phone: Start: 02-15-2025 End: 02-14-2025 Scr dep neg, no plan reqd Yahir Wendy Gutierrez PA-C Work Phone: Start: 11-23-2024 X-ray of knee, four or more views Yahir Gutierrez PA Work Phone: Start: 11-23-2024 Estimated creatinine clearance Yahir Gutierrez PA Work Phone: Start: 11-18-2024 End: 12-13-2024 Ct abdomen & pelvis w/contrast material Yahir Nguyen Gutierrez PA-C Work Phone: Start: 11-17-2024 End: 11-22-2024 Ecg routine ecg w/least 12 lds w/i&r Yahir Nguyen Gutierrez PA-C Work Phone: Start: 11-15-2024 End: 12-09-2024 Radiologic exam knee complete 4/more views Yahir Nguyen Gutierrez PA-C Work Phone: Start: 03-03-2024 End: 04-09-2024 Brncdilat rspse spmtry pre&post-brncdilat admn Yahir Nguyen Gutierrez PA-C Work Phone: Start: 03-03-2024 End: 03-02-2024 Depression screening Yahir Wendy Gutierrez PA-C Work Phone: Start: 03-03-2024 End: 03-02-2024 Scr dep neg, no plan reqd Yahir Nguyen Gutierrez PA-C Work Phone: Start: 03-03-2024 End: 03-17-2024 Screening mammography bi 2-view breast inc cad Yahir J Gutierrez PA-C Work Phone: Start: 11-22-2023 Plain chest X-ray Start: 10-15-2023 Plain chest X-ray Start: 08-26-2022 Plain x-ray of humerus Start: 08-04-2022 End: 08-04-2022 Left arm Ingrid Woods MA Start: 08-04-2002 End: 08-04-2002 Tonsillectomy Ingrid Woods MELY Start: 08-04-1990 End: 08-04-1990 left foot Ingrid Woods MA Plan of Treatment Date Care Activity Detail Author Start: 05-25-2025 Registered Recurring Registered Recurring -Physical Therapy Work Phone: Start: 05-13-2025 [facility] Start: 04-04-2025 Influenza vaccination Influenza Vaccine (Season Ended) [facility] Start: 03-09-2025 Anes open/surg arthroscopic proc knee joint nos ANESTH KNEE JOINT SURGERY [facility] Start: 03-09-2025 Arthroscopy knee w/meniscus rpr medial/lateral KNEE ARTHROSCOPY/SURGERY [facility] Start: 03-09-2025 Arthroscopy of knee with meniscus repair KNEE ARTHROSCOPY/SURGERY [facility] Start: 03-09-2025 Injection aa&/strd other peripheral nerve/branch NJX AA&/STRD OTHER PN/BRANCH [facility] Start: 03-09-2025 Patient discharge [facility] Start: 03-09-2025 Gait training procedure [facility] Start: 03-09-2025 Application of ice collar, cap or bag [facility] Start: 03-09-2025 Assessment of risk of venous thromboembolism [facility] Start: 03-09-2025 Catheterization of vein [facility] Start: 03-09-2025 Continuous positive airway pressure ventilation treatment [facility] Start: 03-09-2025 Elevation of affected extremity [facility] Start: 03-09-2025 Following clinical pathway protocol [facility] Start: 03-09-2025 Incentive spirometry [facility] Start: 03-09-2025 Introduction of urinary catheter [facility] Start: 03-09-2025 Vital signs measurements [facility] Start: 03-09-2025 [facility] Start: 02-15-2025 Screening mammography bi 2-view breast inc cad Mammogram Bilateral Screening Digital w/CAD (97236) with 3D (tomosynthesis), bilateral (52388) Start: 15-Feb-[address] [facility] Start: 02-15-2025 Blood count complete auto&auto difrntl wbc CBC, PLATELETS & AUT DIFF (F) (50442) Start: 15-Feb-2025 08:35-04:00 Request [facility] [email or web address] [employer] [place]. Start: 02-15-2025 Patient encounter procedure Medical; PHYSICAL - [facility] Start: 15-Feb-2025 08:30-04:00 DELIA Gutierrez Appointment Request [place] [facility] [employer] Start: 12-20-2024 Blood count complete auto&auto difrntl wbc CBC, PLATELETS & AUT DIFF (F) (85698) Start: 20-Dec-2024 Request [facility] [email or web address] [place]. Start: 12-20-2024 Nursing evaluation of patient and report Medical; Nurse visit - CBC- RJB [place] [employer] Start: 20-Dec-2024 10:20-04:00 NURSE, FLOAT Appointment Request [facility] [place]. Start: 12-14-2024 [facility] Start: 11-23-2024 [facility] Start: 11-18-2024 End: 11-18-2024 Ct abdomen & pelvis w/contrast material [place] [employer] Start: 11-17-2024 Assay of lipase LIPASE (48027) Start: 17-Nov-2024 13:31-04:00 [facility] [employer] [employer]. Start: 11-17-2024 Assay of amylase AMYLASE (77257) Start: 17-Nov-2024 13:31-04:00 Request [facility] [email or web address] Start: 11-17-2024 Comprehensive metabolic panel CMP w/ GFR* (51597) Start: 17-Nov-2024 13:31-04:00 [facility] [email or web address] Start: 11-17-2024 Blood count complete auto&auto difrntl wbc CBC, PLATELETS & AUT DIFF (F) (14227) Start: 17-Nov-2024 13:31-04:00 Request [employer]; [employer] Start: 11-17-2024 End: 11-17-2024 Ecg routine ecg w/least 12 lds w/i&r ELECTROCARDIOGRAM WITH INTERPRETATION (61287) Date: 17-Nov-2024 [employer]; [employer] Start: 11-15-2024 Radiologic exam knee complete 4/more views Knee x-ray, Left Complete (16362) Start: 15-Nov-2024 Intent [employer]; [employer] Start: 10-19-2024 Lipid panel LIPID PANEL (03983) Start: 19-Oct-2024 08:43-04:00 Request [employer]; [employer] Start: 10-19-2024 Assay of thyroid stimulating hormone tsh TSH W/ REFL FREE T4 (11379,53473) (12332) Start: 19-Oct-2024 08:41-04:00 Request [employer]; [employer] Start: 10-19-2024 Comprehensive metabolic panel CMP w/ GFR* (12152) Start: 19-Oct-2024 08:41-04:00 Request [employer]; [employer] Start: 10-19-2024 Blood count complete auto&auto difrntl wbc CBC, PLATELETS & AUT DIFF (F) (95178) Start: 19-Oct-2024 08:41-04:00 Request [employer]; [employer] Start: 07-14-2024 Patient encounter procedure Medical; EXTENDED RTN - 3 MO RTN [employer]. Start: 14-Jul-2024 08:20-05:00 DELIA Gutierrez Appointment Request [employer] Start: 05-11-2024 [employer] streptococcus group a Rapid Strep Test (22560) Start: 11-May-2024 Request [employer]; [employer] Start: 04-14-2024 Follow-up encounter Medical; EXTENDED RTN - followup [employer]. Start: 14-Apr-2024 08:00-04:00 DELIA Gutierrez Appointment Request [employer] Start: 04-04-2024 Covid-19 Vaccine () Covid-19 Vaccine () [facility] Start: 03-03-2024 Brncdilat rspse spmtry pre&post-brncdilat admn PFT Protocol (44414) -- not in office Start: 03-Mar-2024 Intent [employer] Start: 03-03-2024 Screening mammography bi 2-view breast inc cad Mammogram Bilateral Screening Digital w/CAD (05735) with 3D (tomosynthesis), bilateral (39054) Start: 03-Mar-2024 Intent [employer]. Start: 03-03-2024 Lipid panel LIPID PANEL (28873) Start: 03-Mar-2024 11:44-04:00 Request [employer] Start: 03-03-2024 Comprehensive metabolic panel CMP w/ GFR* (25137) Start: 03-Mar-2024 11:44-04:00 Request [employer]. Start: 03-03-2024 Urnls dip stick/tablet rgnt auto w/o microscopy Urinalysis, Automated w/o micro (in house)* (14731) Start: 03-Mar-2024 11:30-04:00 Request [employer]. Start: 11-22-2023 [facility] Start: 10-15-2023 End: 10-15-2023 [facility] Start: 12-20-2020 Diabetes Screening Diabetes Screening [facility] Start: 12-20-2020 Lipid panel Lipid Screening [facility] Start: 12-20-2020 Screening for malignant neoplasm of colon [facility] Start: 2015 Screening for malignant neoplasm of breast Mammogram Screening [facility] Start: 12-20-1996 Screening for malignant neoplasm of cervix Cervical Cancer Screening [facility] Start: 12-20-1994 Hepatitis B Vaccine (1 of 3 - 19+ 3-dose series) Hepatitis B Vaccine (1 of 3 - + 3-dose series) [facility] Start: 12-20-1994 Urine microalbumin profile DTaP,Tdap,Td Vaccine (1 - Tdap) [facility] Start: 12-20-1993 Anxiety Screening Anxiety Screening [facility] Start: 12-20-1993 Depression Screening Depression Screening [facility] Start: 12-20-1993 Hepatitis C screening Hepatitis C Screening [facility] Start: 12-20-1993 HIV screening HIV Screening [facility] MR Lower Extremity [facility] MR Lower Extremity [facility] Patient Education [facility] Work Phone: Patient referral [facility] Work Phone: Immunizations Immunization Date Immunization Notes Care Provider [facility] 08-25-2021 Covid (Pfizer) Yahir HOLGUIN Work Phone: [facility] 08-01-2021 Covid (Pfizer) Yahir HOLGUIN Work Phone: [facility] Payers Date Payer Category Payer Private Health Insurance [employer] [id number] 2023 Private Health Insurance [id number] 2017 Self-pay 2017 Unknown [id number] 1975 Unknown [id number] [id number] .2.651 1975 Unknown [id number] 2.16.840.1.134966.3.579 .2.902 Unknown [id number] 2.16.840.1.137578.3.579 .2.512 Unknown [id number] 2.16.840.1.624397.3.579 .2.512 Unknown [id number] 2.840.1.751429.3.579 .2.512 Unknown [id number] 2.840.1.379315.3.579 .2.512 Unknown [id number] 2.840.1.941803.3.579 .2.512 Unknown [id number] Unknown [employer] Unknown [id number] 2.840.1.003950.3.579 .2.462 Unknown [id number] 2.840.1.282264.3.579 .2.462 Unknown [id number] 2.840.1.639528.3.579 .2.462 Unknown [id number] 2.840.1.316629.3.579 .2.462 Unknown [id number] 2.840.1.313003.3.579 .2.462 Unknown [id number] 2.840.1.880836.3.579 .2.462 Unknown [id number] 2.840.1.762556.3.579 .2.462 Unknown [id number] 2.840.1.131079.3.579 .2.462 Unknown [id number] 2.16.840.1.355784.3.579 .2.462 Unknown [id number] 2.16840.1.821907.3.579 .2.462 Unknown [id number] 2.16.840.1.150899.3.579 .2.462 Unknown [id number] 2.840.1.230088.3.579 .2.462 Unknown [id number] 2..840.1.740933.3.579 .2.462 Unknown [id number] 2.16.840.1.324242.3.579 .2.462 Unknown [id number] 2.16.840.1.546936.3.579 .2.462 Unknown [id number] 2..840.1.774621.3.579 .2.462 Social History Date Type Detail Facility Start: 08-26-2022 End: 11-22-2023 Tobacco smoking status NYIS Unknown if ever smoked [facility] Start: 1975 Sex Assigned At Female [facility] Current Work/Study Status: Current Work/Study Status: ; Full-time. [employer] Spouse Spouse [employer]; [employer] Full-time [employer] Work Phone: Start: 11-23-2024 End: 05-12-2025 Tobacco smoking status NYIS Smokes tobacco daily (finding) [facility] Start: 11-23-2024 Sex Female (finding) [facility] Start: 1975 Sex assigned at Not on file [facility] Gender identity Not on file [facility] NEGATED: Highlighted row [facility] Medical Equipment Procedure Code Equipment Code Equipment Origin al Text Equipment Identifier Dates Arthroscopy, knee FIBERLINK [id number] FDA Start: 03-09-2025 Arthroscopy, knee FIBERSTITCH FDA Start: 03-09-2025 Arthroscopy, knee FIBERSTITCH FDA Start: 03-09-2025 Arthroscopy, knee FIBERSTITCH FDA Start: 03-09-2025 Arthroscopy, knee FIBERSTITCH FDA Start: 03-09-2025 Arthroscopy, knee Tendon/ligamen t bone anchor, non-bioabsorbable [id number] FDA Start: 03-09-2025 Arthroscopy, knee FIBERLINK [id number] FDA Start: 03-09-2025 Arthroscopy, knee FIBERSTITCH FDA Start: 03-09-2025 Arthroscopy, knee FIBERSTITCH FDA Start: 03-09-2025 Arthroscopy, knee FIBERSTITCH FDA Start: 03-09-2025 Arthroscopy, knee FIBERSTITCH FDA Start: 03-09-2025 Arthroscopy, knee FIBERLINK [id number] FDA Start: 03-09-2025 Arthroscopy, knee FIBERSTITCH FDA Start: 03-09-2025 Arthroscopy, knee FIBERSTITCH FDA Start: 03-09-2025 Arthroscopy, knee FIBERSTITCH FDA Start: 03-09-2025 Arthroscopy, knee FIBERSTITCH FDA Start: 03-09-2025 Arthroscopy, knee FIBERLINK [id number] FDA Start: 03-09-2025 Arthroscopy, knee FIBERSTITCH FDA Start: 03-09-2025 Arthroscopy, knee FIBERSTITCH FDA Start: 03-09-2025 Arthroscopy, knee FIBERSTITCH FDA Start: 03-09-2025 Arthroscopy, knee FIBERSTITCH FDA Start: 03-09-2025 Goals Date Patient Goal Desired Activity /State Mental Status Date Assessment Result Facility 03-09-2025 Cognitive function Level Of Cons ciousness Awake;Follows Commands;Restless [facility] Work Phone: 03-09-2025 Cognitive function Voice/Name [facility] Work Phone: 11-23-2024 Cognitive function Level Of Cons ciousness Awake;Alert;Appropriate;Follow s Commands [facility] Work Phone: 11-22-2023 Cognitive function Level Of Cons ciousness Awake;Alert;Appropriate;Follow s Commands [facility] Work Phone: Clinical Notes 03-07-2023 to 05-13-2025 Note Date & Type Note Facility 05-13-2025 Discharge summary [facility] 05-13-2025 Radiology Diagnostic study note [facility] Services [address] [place] [address] CTA Chest W/WO Contrast MR#: [id number] Acct: [id number] Name: JOHNATHAN ANTONIO Rep #: [id number] : 1975 F 49 From: Lb Joy MD PCP: EZIO Negrete Status: REG ER Study:CTA Chest W/WO Contrast Date of Exam: 05/12/25 Exam# [id number] Ordering Dr: Radha Schaffer DO PROCEDURE: CTA CHEST W/WO CONTRAST 05/12/2025 REASON FOR EXAM: DYSPNEA TECHNIQUE: Procedure Code: CTCTACHWW Modality: CT Procedure: CTA CHEST W/WO CONTRAST Multiplanar Sagittal and Coronal images were obtained. CONTRAST: [employer] 370 VOLUME: 100 mL One or more dose reduction techniques were used (e.g., Automated exposure control, adjustment of the mA and/or kV according to patient size, use of iterative reconstruction technique). RADIATION DOSE SUMMARY: CTDlvol: 15.3 mGy DLP: 562 mGycm COMPARISON: Chest radiograph on 05/11/2025. FINDINGS: Normal enhancement of the main pulmonary artery and right and left pulmonary arteries. Normal enhancement of the bilateral peripheral pulmonary arteries. There is no demonstrated pulmonary embolism. Normal thoracic aorta and visualized great vessels. There is no demonstrated aortic dissection. Normal heart and pericardium. Normal mediastinum. Normal hilar regions. Normal visualized trachea and bronchi. The lungs are well expanded. Normal pulmonary parenchyma. Normal pleura. Mild diffuse spondylosis. Hepatomegaly with hepatic steatosis. Normal remaining visualized upper abdomen. CT/CTA Chest W/WO Contrast IMPRESSION: No demonstrated pulmonary embolism or arterial dissection. Reading [facility] CC: Branden Schaffer DO; EZIO Negrete ~ Assistant Manager/Embalmer: Signed [facility] 04-19-2025 Progress note [facility] 04-19-2025 Progress note Note Date/Time April 19, 2025 8:08am [facility] [address] [place] [address] [address] [place] [address] OFFICE VISIT Date of Service: 04/19/25 MR#: [id number] Acct: [id number] Name: JOHNATHAN ANTONIO Rep #: [id number] : 1975 Provider: Dr. Cyrus Latham MD Age/Sex: 49/F Location: [facility] Status: Signed Intake Vital Signs 03/22/25 08:04 04/19/25 07:56 Height 5 ft 2 in 5 ft 2 in Weight: 240 lb 240 lb BMI 43.9 43.9 Intake Visit Reasons: LEFT KNEE Chief Complaint: Left knee 6 week post op Accompanied by: Is patient in pain?: Yes Pain scale (1-10): 2 Allergies amoxicillin Allergy (Verified 04/19/25 08:01) Hives latex Allergy (Verified 04/19/25 08:01) Hives Sulfa (Sulfonamide Antibiotics) Allergy (Verified 04/19/25 08:01) Rash Medications ?Medication ?Instructions ?Recorded ?Confirmed ?Type albuterol sulfate 90 mcg/actuation 2 inh inhalation Q4 H PRN shortness 10/15/23 04/19/25 Rx aerosol inhaler (Proventil HFA) of breath or wheezing #8.5 grams ibuprofen 600 mg tablet 600 mg PO Q6-8H PRN pain #90 tabs 01/07/25 04/19/25 Rx aspirin 81 mg chewable tablet 81 mg PO BID vte 1 month #60 tabs 03/09/25 04/19/25 Rx Have you fallen in the past year?: Yes PFSH Medical History Wears glasses Anxiety Depression Alcohol use History of steroid therapy Arthritis Fatty liver Restless legs History of diverticulitis History of pain when walking History of stress test History of irregular heartbeat Hx of fracture of arm Tear of medial meniscus of left knee Smoker Contusion of left hand Contusion of left wrist Contusion of left forearm Left elbow contusion Asthma Surgical History Hx of hysterectomy History of endometrial ablation History of hysteroscopy History of tonsillectomy Status post left foot surgery Social History Smoking Status: Current every day smoker tobacco type: cigarettes HPI LEFT KNEE Details: This documentation accurately reflects the service provided and the decisions made by me, Dr. Tony Latham MD 04/19/25 1152. Part of today?s visit was documented by [ ], acting as scribe. JOHNATHAN ANTONIO is a 49 year old F here today for 6 weeks FU L knee arthroscopy, medial meniscus repair (root and posterior horn). doing well, no concerns. doingPT. Ortho Exam General General: Yes no acute distress Neurologic: Yes alert and Yes oriented x3 Psychologic: Yes reasonable and appropriate Left Knee Skin/Wound: Yes CDI, Yes healed, No ecchymosis, No erythema and No swelling (mild) KNEE: ROM 0-90. nvi. Coding Level of Care Code Global Post Op Diagnoses Primary osteoarthritis of left knee M17.12 Osteoarthritis type: primary Acute medial meniscus tear of left knee, subsequent encounter S83.242D Encounter type: subsequent encounter Laterality: left Assessment and Plan Assessment and Plan (1) Osteoarthritis of left knee: Status: Acute Qualifiers: Osteoarthritis type: primary Qualified Code(s): M17.12 - Unilateral primary osteoarthritis, left knee Plan: JOHNATHAN ANTONIO is a 49 year old F here today for 6 weeks FU L knee arthroscopy, medial meniscus repair (root and posterior horn). Doing well. DC crutches and brace, progress WBAT and ROM, no pivoting or twisting. FU 6 weeks. (2) Acute medial meniscus tear: Status: Acute Qualifiers: Encounter type: subsequent encounter Laterality: left Qualified Code(s): S83.242D - Other tear of medial meniscus, current injury, left knee, subsequent encounter Clinical Quality Measures Falls Risk Screening/Assistive Devices Have you fallen in the past year?: Yes 04/19/25 0808 <Electronically signed by Tony sharma MD> Date _ Tony Oliveira Signature: Date (if applicable) CC: ~ [facility] Work Phone: 1(735) 916-388108-19-2025 Progress [facility] [address] [place] [address] OFFICE VISIT Date of Service: 03/22/25 MR#: [id number] Acct: [id number] Name: JOHNATHAN ANTONIO Rep #: [id number] : 1975 Provider: Dr. Cyrus Latham MD Age/Sex: 49/F Location: [facility] Status: Signed Intake Vital Signs 02/14/25 13:50 03/14/25 08:31 03/22/25 08:04 Height 5 ft 1 in 5 ft 2 in 5 ft 2 in Weight: 240 lb BMI 43.9 Intake Visit Reasons: left knee Chief Complaint: Left knee 2 week post op Accompanied by: Is patient in pain?: Yes Pain scale (1-10): 7 Allergies amoxicillin Allergy (Verified 03/22/25 08:08) Hives latex Allergy (Verified 03/22/25 08:08) Hives Sulfa (Sulfonamide Antibiotics) Allergy (Verified 03/22/25 08:08) Rash Medications ?Medication ?Instructions ?Recorded ?Confirmed ?Type albuterol sulfate 90 mcg/actuation 2 inh inhalation Q4 H PRN shortness 10/15/23 03/22/25 Rx aerosol inhaler (Proventil HFA) of breath or wheezing #8.5 grams ibuprofen 600 mg tablet 600 mg PO Q6-8H PRN pain #90 tabs 01/07/25 03/22/25 Rx aspirin 81 mg chewable tablet 81 mg PO BID vte 1 month #60 tabs 03/09/25 03/22/25 Rx Have you fallen in the past year?: Yes PFSH Medical History Wears glasses Anxiety Depression Alcohol use History of steroid therapy Arthritis Fatty liver Restless legs History of diverticulitis History of pain when walking History of stress test History of irregular heartbeat Hx of fracture of arm Tear of medial meniscus of left knee Smoker Contusion of left hand Contusion of left wrist Contusion of left forearm Left elbow contusion Asthma Surgical History Hx of hysterectomy History of endometrial ablation History of hysteroscopy History of tonsillectomy Status post left foot surgery Social History Smoking Status: Current every day smoker tobacco type: cigarettes HPI left knee Details: This documentation accurately reflects the service provided and the decisions made by me, Dr. Kory MD 03/22/25 0804. Part of today?s visit was documented by [ ], acting as scribe. JOHNATHAN ANTONIO is a 49 year old F here today for 2 weeks FU L knee arthroscopy, medial meniscus repair (root and posterior horn). doing well. no concerns. has PT booked this week. Ortho Exam General General: Yes no acute distress Neurologic: Yes alert and Yes oriented x3 Psychologic: Yes reasonable and appropriate Left Knee Skin/Wound: Yes CDI, Yes healed, No ecchymosis, No erythema and No swelling (mild) KNEE: ROM 10-80. a bit stiff. no crepitus. nvi. Coding Level of Care Code Global Post Op Diagnoses Primary osteoarthritis of left knee M17.12 Osteoarthritis type: primary Tear of medial meniscus of left knee S83.242A Assessment and Plan Assessment and Plan (1) Osteoarthritis of left knee: Status: Acute Qualifiers: Osteoarthritis type: primary Qualified Code(s): M17.12 - Unilateral primary osteoarthritis, left knee Plan: JOHNATHAN ANTONIO is a 49 year old F here today for 2 weeks FU L knee arthroscopy, medial meniscus repair (root and posterior horn). NWB. OK to shower over incisions. FU 4 weeks. Start PT passive ROM 0-90 only. (2) Tear of medial meniscus of left knee: Status: Acute Clinical Quality Measures Falls Risk Screening/Assistive Devices Have you fallen in the past year?: Yes 03/22/25 0818 edith CARL> Date _ Tony Latham MD Cosigner Signature: Date (if applicable) CC: ~ [facility]08-19-2025 Progress note Author Tony Latham [facility] Note Date/Time March 22, 2025 8: 18am [facility] [address] [place] [address] OFFICE VISIT Date of Service: 03/22/25 MR#: [id number] Acct: [id number] Name: JOHNATHAN ANTONIO Rep #: [id number] : 1975 Provider: Dr. Cyrus Latham MD Age/Sex: 49/F Location: [facility] Status: Signed Intake Vital Signs 02/14/25 13:50 03/14/25 08:31 03/22/25 08:04 Height 5 ft 1 in 5 ft 2 in 5 ft 2 in Weight: 240 lb BMI 43.9 Intake Visit Reasons: left knee Chief Complaint: Left knee 2 week post op Accompanied by: Is patient in pain?: Yes Pain scale (1-10): 7 Allergies amoxicillin Allergy (Verified 03/22/25 08:08) Hives latex Allergy (Verified 03/22/25 08:08) Hives Sulfa (Sulfonamide Antibiotics) Allergy (Verified 03/22/25 08:08) Rash Medications ?Medication ?Instructions ?Recorded ?Confirmed ?Type albuterol sulfate 90 mcg/actuation 2 inh inhalation Q4 H PRN shortness 10/15/23 03/22/25 Rx aerosol inhaler (Proventil HFA) of breath or wheezing #8.5 grams ibuprofen 600 mg tablet 600 mg PO Q6-8H PRN pain #90 tabs 01/07/25 03/22/25 Rx aspirin 81 mg chewable tablet 81 mg PO BID vte 1 month #60 tabs 03/09/25 03/22/25 Rx Have you fallen in the past year?: Yes PFSH Medical History Wears glasses Anxiety Depression Alcohol use History of steroid therapy Arthritis Fatty liver Restless legs History of diverticulitis History of pain when walking History of stress test History of irregular heartbeat Hx of fracture of arm Tear of medial meniscus of left knee Smoker Contusion of left hand Contusion of left wrist Contusion of left forearm Left elbow contusion Asthma Surgical History Hx of hysterectomy History of endometrial ablation History of hysteroscopy History of tonsillectomy Status post left foot surgery Social History Smoking Status: Current every day smoker tobacco type: cigarettes HPI left knee Details: This documentation accurately reflects the service provided and the decisions made by me, Dr. Tony Latham MD 03/22/25 0804. Part of today?s visit was documented by [ ], acting as scribe. JOHNATHAN ANTONIO is a 49 year old F here today for 2 weeks FU L knee arthroscopy, medial meniscus repair (root and posterior horn). doing well. no concerns. has PT booked this week. Ortho Exam General General: Yes no acute distress Neurologic: Yes alert and Yes oriented x3 Psychologic: Yes reasonable and appropriate Left Knee Skin/Wound: Yes CDI, Yes healed, No ecchymosis, No erythema and No swelling (mild) KNEE: ROM 10-80. a bit stiff. no crepitus. nvi. Coding Level of Care Code Global Post Op Diagnoses Primary osteoarthritis of left knee M17.12 Osteoarthritis type: primary Tear of medial meniscus of left knee S83.242A Assessment and Plan Assessment and Plan (1) Osteoarthritis of left knee: Status: Acute Qualifiers: Osteoarthritis type: primary Qualified Code(s): M17.12 - Unilateral primary osteoarthritis, left knee Plan: JOHNATHAN ANTONIO is a 49 year old F here today for 2 weeks FU L knee arthroscopy, medial meniscus repair (root and posterior horn). NWB. OK to shower over incisions. FU 4 weeks. Start PT passive ROM 0-90 only. (2) Tear of medial meniscus of left knee: Status: Acute Clinical Quality Measures Falls Risk Screening/Assistive Devices Have you fallen in the past year?: Yes 03/22/25 0818 <Electronically signed by Tony sharma MD> Date _ Tony Latham MD Cosigner Signature: Date (if applicable) CC: ~ [facility] Work Phone: 1(138) 882-818408-11-2025 Progress [facility] [address] [place] [id number] OFFICE VISIT Date of Service: 03/14/25 MR#: [id number] Acct: [id number] Name: JOHNATHAN ANTONIO Rep #: [id number] : 1975 Provider: Dr. Cyrus Latham MD Age/Sex: 49/F Location: [facility] Status: Signed Intake Vital Signs 02/14/25 13:50 03/09/25 06:29 03/14/25 08:31 Height 5 ft 1 in 5 ft 2 in 5 ft 2 in Weight: 240 lb BMI 43.9 Intake Visit Reasons: left knee Chief Complaint: Left knee post op Accompanied by: Is patient in pain?: Yes Pain scale (1-10): 5 Allergies amoxicillin Allergy (Verified 03/14/25 08:37) Hives latex Allergy (Verified 03/14/25 08:37) Hives Sulfa (Sulfonamide Antibiotics) Allergy (Verified 03/14/25 08:37) Rash Medications ?Medication ?Instructions ?Recorded ?Confirmed ?Type albuterol sulfate 90 mcg/actuation 2 inh inhalation Q4 H PRN shortness 10/15/23 03/14/25 Rx aerosol inhaler (Proventil HFA) of breath or wheezing #8.5 grams ibuprofen 600 mg tablet 600 mg PO Q6-8H PRN pain #90 tabs 01/07/25 03/14/25 Rx aspirin 81 mg chewable tablet 81 mg PO BID vte 1 month #60 tabs 03/09/25 03/14/25 Rx oxycodone-acetaminophen 5 mg-325 1 tab PO Q4H PRN pain 3 days #20 03/11/25 03/14/25 Rx mg tablet (Endocet) tabs Have you fallen in the past year?: Yes PFSH Medical History Wears glasses Anxiety Depression Alcohol use History of steroid therapy Arthritis Fatty liver Restless legs History of diverticulitis History of pain when walking History of stress test History of irregular heartbeat Hx of fracture of arm Tear of medial meniscus of left knee Smoker Contusion of left hand Contusion of left wrist Contusion of left forearm Left elbow contusion Asthma Surgical History Hx of hysterectomy History of endometrial ablation History of hysteroscopy History of tonsillectomy Status post left foot surgery Social History Smoking Status: Current every day smoker tobacco type: cigarettes HPI left knee Details: This documentation accurately reflects the service provided and the decisions made by me, Dr. Kory MD 03/14/25 0831. Part of today?s visit was documented by [ ], acting as scribe. JOHNATHAN ANTONIO is a 49 year old F here today for 5 days FU L knee arthroscopy, medial meniscus repair (root and posterior horn). well. pain settling down now over the weekend. here with her HB. Ortho Exam General General: Yes no acute distress Neurologic: Yes alert and Yes oriented x3 Psychologic: Yes reasonable and appropriate Left Knee Skin/Wound: Yes CDI, Yes healing, No ecchymosis, No erythema and Yes swelling (mild) KNEE: nvi. trace numbness subjective dorsum of foot. but normal motor function. good DP pulse. Coding Level of Care Code Global Post Op Diagnoses Acute medial meniscus tear of left knee, subsequent encounter S83.242D Encounter type: subsequent encounter Laterality: left Primary osteoarthritis of left knee M17.12 Osteoarthritis type: primary Assessment and Plan Assessment and Plan (1) Acute medial meniscus tear: Status: Acute Qualifiers: Encounter type: subsequent encounter Laterality: left Qualified Code(s): S83.242D - Other tear of medial meniscus, current injury, left knee, subsequent encounter Plan: JOHNATHAN ANTONIO is a 49 year old F here today for 5 days FU L knee arthroscopy, medial meniscus repair (root and posterior horn). NWB 6 weeks. Passive ROM 0-90. ASA 81 BID for VTE. PT referral. mepilex dressings, change q1-2 days. FU 2 weeks. (2) Osteoarthritis of left knee: Status: Acute Qualifiers: Osteoarthritis type: primary Qualified Code(s): M17.12 - Unilateral primary osteoarthritis, left knee Orders: Referrals PT Referral M17.12 - Unilateral primary osteoarthritis, left knee, S83.242D - Other tear of medial meniscus, current injury, left knee, subsequent encounter Clinical Quality Measures Falls Risk Screening/Assistive Devices Have you fallen in the past year?: Yes 03/14/25 0851 n MD> Date _ Tony Latham MD Cosigner Signature: Date (if applicable) CC: ~ [facility]08-11-2025 Progress note Author Tony Latham [facility] Note Date/Time March 14, 2025 8: 51am [facility] [address] [place] [address] OFFICE VISIT Date of Service: 03/14/25 MR#: [id number] Acct: [id number] Name: JOHNATHNA ANTONIO Rep #: [id number] : 1975 Provider: Dr. Cyrus Latham MD Age/Sex: 49/F Location: [facility] Status: Signed Intake Vital Signs 02/14/25 13:50 03/09/25 06:29 03/14/25 08:31 Height 5 ft 1 in 5 ft 2 in 5 ft 2 in Weight: 240 lb BMI 43.9 Intake Visit Reasons: left knee Chief Complaint: Left knee post op Accompanied by: Is patient in pain?: Yes Pain scale (1-10): 5 Allergies amoxicillin Allergy (Verified 03/14/25 08:37) Hives latex Allergy (Verified 03/14/25 08:37) Hives Sulfa (Sulfonamide Antibiotics) Allergy (Verified 03/14/25 08:37) Rash Medications ?Medication ?Instructions ?Recorded ?Confirmed ?Type albuterol sulfate 90 mcg/actuation 2 inh inhalation Q4 H PRN shortness 10/15/23 03/14/25 Rx aerosol inhaler (Proventil HFA) of breath or wheezing #8.5 grams ibuprofen 600 mg tablet 600 mg PO Q6-8H PRN pain #90 tabs 01/07/25 03/14/25 Rx aspirin 81 mg chewable tablet 81 mg PO BID vte 1 month #60 tabs 03/09/25 03/14/25 Rx oxycodone-acetaminophen 5 mg-325 1 tab PO Q4H PRN pain 3 days #20 03/11/25 03/14/25 Rx mg tablet (Endocet) tabs Have you fallen in the past year?: Yes PFSH Medical History Wears glasses Anxiety Depression Alcohol use History of steroid therapy Arthritis Fatty liver Restless legs History of diverticulitis History of pain when walking History of stress test History of irregular heartbeat Hx of fracture of arm Tear of medial meniscus of left knee Smoker Contusion of left hand Contusion of left wrist Contusion of left forearm Left elbow contusion Asthma Surgical History Hx of hysterectomy History of endometrial ablation History of hysteroscopy History of tonsillectomy Status post left foot surgery Social History Smoking Status: Current every day smoker tobacco type: cigarettes HPI left knee Details: This documentation accurately reflects the service provided and the decisions made by me, Dr. Tony Latham MD 03/14/25 0831. Part of today?s visit was documented by [ ], acting as scribe. JOHNATHAN ANTONIO is a 49 year old F here today for 5 days FU L knee arthroscopy, medial meniscus repair (root and posterior horn). well. pain settling down now over the weekend. here with her HB. Ortho Exam General General: Yes no acute distress Neurologic: Yes alert and Yes oriented x3 Psychologic: Yes reasonable and appropriate Left Knee Skin/Wound: Yes CDI, Yes healing, No ecchymosis, No erythema and Yes swelling (mild) KNEE: nvi. trace numbness subjective dorsum of foot. but normal motor function. good DP pulse. Coding Level of Care Code Global Post Op Diagnoses Acute medial meniscus tear of left knee, subsequent encounter S83.242D Encounter type: subsequent encounter Laterality: left Primary osteoarthritis of left knee M17.12 Osteoarthritis type: primary Assessment and Plan Assessment and Plan (1) Acute medial meniscus tear: Status: Acute Qualifiers: Encounter type: subsequent encounter Laterality: left Qualified Code(s): S83.242D - Other tear of medial meniscus, current injury, left knee, subsequent encounter Plan: JOHNATHAN ANTONIO is a 49 year old F here today for 5 days FU L knee arthroscopy, medial meniscus repair (root and posterior horn). NWB 6 weeks. Passive ROM 0-90. ASA 81 BID for VTE. PT referral. mepilex dressings, change q1-2 days. FU 2 weeks. (2) Osteoarthritis of left knee: Status: Acute Qualifiers: Osteoarthritis type: primary Qualified Code(s): M17.12 - Unilateral primary osteoarthritis, left knee Orders: Referrals PT Referral M17.12 - Unilateral primary osteoarthritis, left knee, S83.242D - Other tear of medial meniscus, current injury, left knee, subsequent encounter Clinical Quality Measures Falls Risk Screening/Assistive Devices Have you fallen in the past year?: Yes 03/14/25 0851 <Electronically signed by Tony sharma MD> Date _ Tony Latham MD Cosigner Signature: Date (if applicable) CC: ~ [facility] Work Phone: 1(938) 197-524308-06-2025 History and physical note Author Tony Latham [facility] Note Date/Time March 09, 2025 7:0 8am [facility] Medical Records Department [address] [place] [address] History & Physical Exam 03/09/25 0707 MR#: [id number] Acct: [id number] Name: JOHNATHAN ANTONIO Rep #:[id number] : 1975 49 From: Tony Latham MD PCP: EZIO Negrete Status:[facility] Location: AC01-1 HPI - General HPI Narrative JOHNATHAN ANTONIO, is a 49 F who presents for left knee arthroscopy, medial meniscus repair (including the root). no change to h and p. rab, post op instructions, narcotic counselling. left knee marked. ok to proceed. no further questions or concerns. MR#: [id number] Acct: [id number] Name: JOHNATHAN ANTONIO Rep #: [id number] : 1975 Provider: Dr. Tony Latham MD Age/Sex: 49/F Location: [facility] Status: Signed Intake Vital Signs 01/22/2508:12 02/14/2513:50 Height 5 ft 1 in 5 ft 1 in Weight: 225 lb 225 lb BMI 42.5 42.5 Intake Visit Reasons: LEFT KNEE Chief Complaint: Left knee pain Accompanied by: Is patient in pain?: Yes Pain scale (1-10): 6 Allergies amoxicillin Allergy (Verified 02/14/25 13:53) Hiveslatex Allergy (Verified 02/14/25 13:53) HivesSulfa (Sulfonamide Antibiotics) Allergy (Verified 02/14/25 13:53) Rash Medications ?Medication ?Instructions ?Recorded ?Confirmed ?Type albuterol sulfate 90 mcg/actuation 2 inh inhalation Q4H PRN shortness 10/1402/14/25 Rx aerosol inhaler (Proventil HFA) of breath or wheezing #8.5 grams ibuprofen 600 mg tablet 600 mg PO Q6-8H PRN pain #90 tabs 02/14/25 Rx Have you fallen in the [...] by me, Dr. Tony Latham MD 02/14/25 7074. Part of today?s visit was documented by [ ], acting as scribe. JOHNATHAN ANTONIO is a 49 year old F here today for L knee pain, mild OA and MM root tear. Medial posterior and anterior knee pain. 4 months. 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 does a lot of walking. some mechanical symptoms, positive catching / locking. cortisone made it worse. here with her . PT no. no prior operations on the knee. Using a brace. Supplemental Info [facility] Imaging Services [address] [place] [address] Knee 4 or More Views MR#: [id number] Acct: [id number] Name: JOHNATHAN ANTONIO Rep #: [id number] : 1975 F 48 From: Stanislav Sampson MD PCP: EZIO Negrete Status: REG ER Study: Knee 4 or More Views Date of Exam: 11/23/24 Exam# [id number] Ordering Dr: Gordo Viera MD PROCEDURE: KNEE 4 OR MORE VIEWS 11/23/2024 REASON FOR EXAM: ATRAUMATIC LEFT KNEE PAIN TECHNIQUE: 4 view(s) of the left knee FINDINGS: Bones: No fracture. No suspicious bone lesion. Joints: Normal alignment. Effusion: No effusion. Soft tissues: Soft tissues are unremarkable. Other: RAD/Knee 4 or More Views IMPRESSION: Normal left knee. Reading Location: [id number] per Dr. Corrales notes... 01/04/2025 MRI left [...] type: primary Qualified Code(s): M17.12 - Unilateral p rimary osteoarthritis, left knee Plan: 49-year-old female with [...] antalgic gait, NVI, normal alignment, rom 0-120. [facility] Medical History Wears glasses Anxiety Depression Alcohol use History of steroid therapy Arthritis Fatty liver Restless legs History of diverticulitis History of pain when walking History of stress test History of irregular heartbeat Hx of fracture of arm Tear of medial meniscus of left knee Smoker Contusion of left hand Contusion of left wrist Contusion of left forearm Left elbow contusion Asthma Home Medications ?Medication ?Instructions ?Recorded ?Last Taken ?Type albuterol sulfate 90 mcg/actuation 2 inh inhalation Q4 H PRN shortness 10/15/23 Unknown Rx aerosol inhaler (Proventil HFA) of breath or wheezing #8.5 grams ibuprofen 600 mg tablet 600 mg PO Q6-8H PRN pain #90 tabs 01/07/25 Unknown Rx Allergy/AdvReac Type Severity Reaction Status Date / Time amoxicillin Allergy Hives Verified 03/09/25 06:29 latex Allergy Hives Verified 03/09/25 06:29 Sulfa (Sulfonamide Allergy Rash Verified 03/09/25 06:29 Antibiotics) Surgical History Hx of hysterectomy History of endometrial ablation History of hysteroscopy History of tonsillectomy Status post left foot surgery Social History Smoking Status: Current every day smoker tobacco type: cigarettes Vital Signs Vital Signs Vital Signs: 03/09/25 06:29 03/09/25 06:29 03/09/25 06:42 Temperature 98.2 F 98.2 F Temperature Source Temporal Pulse Rate 82 82 Respiratory Rate 17 17 Respiratory Pattern Normal Blood Pressure 136/61 H 136/61 H Blood Pressure Mean 86 Blood Pressure Source Monitor Blood Pressure Position Semi-Fowlers Blood Pressure Location Left Arm Pulse Ox 96 96 Oxygen Delivery Method Room Air Weight Weight: 246 lb 14.684 oz Body Mass Index (BMI) 45.1 03/09/25 0708 <Electronically signed by Tony Latham MD> Cosigner Signature (if applicable): CC: Dr. Tony Latham MD; EZIO Negrete~ Signed [facility] Work Phone: 1(250) 708-221708-06-2025 Discharge summary [facility] Medical Records Department [address] [place] [address] Instructions for Home/Discharge Instructions 03/09/25 0843 MR#: [id number] Acct: [id number] Name: JOHNATHAN ANTONIO Rep #:[id number] : 1975 49 From: Tony Latham MD PCP: EZIO Negrete Status:REG [facility] Discharge Instructions Diet Discharge Diet: No restrictions Activity Weight Bearing Status: No weight bearing Keep extremity elevated above heart level: Operative Extremity Dressing / Incision Call your doctor if your incision/area has: Continuous Slow Oozing, Sudden Increased Bleeding, Increased Pain/ Swelling, Increased Redness, Foul Smelling Discharge and Swelling at the incision site Call your doctor if you observe: Fever of 101 or Higher, Coldness, Increased Pain and Numbness or Tingling Change Dressing in: leave in place till F/U Cleanse incision/area with: Do not get Incision Wet Follow Up Care Please Follow Up With: Tony Latham MD When: within 2 weeks Test Results: Test results from this visit will be discussed in further detail at your follow- up appointment, if applicable. Discharge Plan Admission Attending Provider: Tony Latham Primary Care Provider: Yahir Gutierrez Print Language: [place]an Discharge Orders/Prescriptions Prescriptions: New oxycodone-acetaminophen [Endocet] 5-325 mg tablet 1 tab PO Q4H MDD 6 PRN (Reason: pain) 3 Days Qty: 20 0RF aspirin 81 mg tablet,chewable 81 mg PO BID MDD 2 30 Days Qty: 60 0RF No Action ibuprofen 600 mg tablet 600 mg PO Q6-8H PRN (Reason: pain) Qty: 90 0RF albuterol sulfate [Proventil HFA] 90 mcg/actuation HFA aerosol inhaler 2 inh inhalation Q4H PRN (Reason: shortness of breath or wheezing) Qty: 8.5 1RF Referrals / Follow Up: Tony Latham MD [Med Staff - Active Staff] - Yahir Gutierrez PA [Primary Care Provider] - Disposition Disposition (needs filled in before D/C Order can be placed): Home, Self Care 03/09/25 0846Tony Latham MD CC: EZIO Negrete ~ Signed [facility]08-06-[address] [facility] Medical Records Department [address] [place] [address] Anesthesia Postop Eval I 03/09/25 0843 MR#: [id number] Acct: [id number] Name: JOHNATHAN ANTONIO Adri Rep #:[id number] : 1975 49 From: Ankit RODGERS PCP: EZIO Negrete Status:REG SD Y Race: C Location: [place] [address] Anesthesia: Postop Eval I Current Vital Signs Temperature: 97 F Pulse Rate: 101 Blood Pressure: 141/89 Respiratory Rate: 20 Pulse Ox: 92 Assessment Airway patent: Yes Spontaneous unlabored respirations: Yes nausea: No Vomiting: No Anesthesia Complication: No Fluid Hydration Crystalloid volume administer (ml): 700 Total IV fluid infused: 700 Progress Note Anesthesia document: Postop Eval 1 completed: Yes 03/09/25 0844 FILM WRITER> Date _ Ankit Balderas FILM WRITER Cosigner Signature: Date CC: ~ Signed [facility]08-06-2025 Consult note Author Parveen Evans [facility] Note Date/Time March 09, 2025 6:[address] [facility] Medical Records Department [address] [place] [address] Pre-Anesthesia Evaluation 03/09/25 0641 MR#: [id number] Acct: [id number] Name: JOHNATHAN ANTONIO Rep #:[id number] : 1975 49 From: Parveen Evans MD PCP: EZIO Negrete Status:REG SDC Y Race: C Location: [place] [address]-1 ASA Classification* ASA Classification ASA Classification: 3 Assessment & Plan Anesthesia* Anesthesia Assessment Anesthesia Assessment: Discussed sedation and/or anesthesia options, risks, benefits, and alternatives with patient/parents/legal guardian/POA. Questions invited. The patient/parents/legal guardian/POA seems to understand and agrees to proceedwith anesthesia plan. Reviewed the physical assessment, medical history, allergy history and patient home medications list prior to surgery/procedure/anesthetic and documented any changes. Performed airway and anesthesia risk assessments. Anesthesia Type Anesthesia Type: General (consented for block only if needs post op) Anesthesia Focused Assessment* Temperature: 98.2 F Pulse Rate: 82 Blood Pressure: 136/61 Respiratory Rate: 17 Pulse Ox: 96 Airway Assessment Mouth opens: >3 cm Mallampati Score: II Labs Anesthesia Preop lab: CBC WBC 12.0 K/mm3 (4.4-11.0) H 11/23/24 16:54 5 RBC 4.94 M/mm3 (4.2-5.4) 11/23/24 16:54 11/23/24 Hgb 15.2 g/dL (12.0-15.0) H 11/23/24 16:54 5 Hct 43.9 % (37-47) 11/23/24 16:54 11/23/24 Plt Count 320 K/mm3 (150-450) 11/23/24 16:54 11/23/24 CHEMISTRY Potassium 4.3 mmol/L (3.3-5.1) 11/23/24 16:54 11/23/24 Sodium 139 mmol/L (133-145) 11/23/24 16:54 11/23/24 BUN 13 mg/dL (4-19) 11/23/24 16:54 11/23/24 Creatinine 0.68 mg/dL (0.70-1.20) L 11/23/24 16:54 Glucose 119 mg/dL (70-99) H 11/23/24 16:54 11/23/24 COAG PT 12.4 SECONDS (11.7-14.9) 02/24/24 00:30 Pre-Assessment Diagnosis/Proposed Procedure Planned Operative Procedure(s): LEFT KNEE ATHROSCOPY MENSICUS REPAIR Anesthesia History Anesthesia History - food handler: Anesthesia History - food handler Hx Hospitalization No 02/23/25 13:44 Any Problems With Anesthesia No 02/23/25 13:44 Cholinesterase deficiency No 02/23/25 13:44 You/Your Family Experience No 02/23/25 13:44 fever (hyperthermia) with Relationship Recent Exposure to Contagious No 03/09/25 06:29 Disease Does patient have nerve No 02/23/25 13:44 stimulator Patient instructed to have device shut off --Does patient have Pacemaker No 03/09/25 06:29 or ICD? When Was Last Pacemaker Check QUESTION #4 FULL TEXT: You/Your Family Experience fever (hyperthermia) with Anesthesia Last Oral Intake Last Oral intake: Last Oral Intake NPO since 00:00 03/09/25 06:29 Meds taken in AM with sips of No 03/09/25 06:29 water? Meds patient instructed to take am of surgery PONV PONV - food handler: PONV - food handler Female Yes 02/23/25 13:44 HX of Motion Sickness No 02/23/25 13:44 HX of N/V After Surgery No 02/23/25 13:44 Non-Smoker No 02/23/25 13:44 Duration of Surgery greater Yes 02/23/25 13:44 than 60 minutes Number of Risk Factors 2 02/23/25 13:44 PONV Score Moderate Risk 02/23/25 13:44 Height & Weight Height & Weight: Anesthesia: Height & Weight Height 5 ft 2 in 03/09/25 06:29 Weight: 112 kg 03/09/25 06:29 Body Mass Index (BMI) 45.1 03/09/25 06:29 Respiratory Assessment Respiratory Assessment - food handler: Respiratory Tract Infection Hx - food handler Hx Respiratory Tract Infection No 02/23/25 13:44 STOP Sleep Apnea STOP Sleep Apnea - food handler: STOP Sleep Apnea - food handler Hx Hypertension No 02/23/25 13:44 Hx Sleep Apnea No 02/23/25 13:44 CPAP BIPAP Do you snore loudly (louder No 02/23/25 13:44 than talking or can be heard Do you often feel tired/ No 02/23/25 13:44 fatigued/ sleepy during daytime? Has anyone observed you stop No 02/23/25 13:44 breathing during sleep? STOP Results Negative 02/23/25 13:44 QUESTION #5 FULL TEXT : Do you snore loudly (louder than talking or can be heard through closed doors)? Tobacco Use History Tobacco Use History - food handler: Tobacco Use History - food handler Tobacco Use Smoking Status Current every day smoker 02/23/25 13:44 Hx Tobacco Use Yes 02/23/25 13:44 Years Smoking Packs Smoked per Day Smoking Cessation Date was within the last 15 years Hx Smoking Cessation Date Hx Smoking Cessation Counseling Hematologic Medial History Hematologic Hx - food handler: Hematologic Medical Hx - documentation writer Hx of Blood Transfusion No 02/23/25 13:44 Hx of Transfusion in last 3 No 02/23/25 13:44 Months Date of Last Transfusion (if within last 3 months) Ever experience any problems No 02/23/25 13:44 with transfusion(s)? 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 Hx Now No 02/23/25 13:44 Gestational Age (in weeks): EDC: Hx Hx Para Hx Section SAB No 02/23/25 13:44 Active Medications Active Medications: Current Medications Generic Name Dose Route Start Last Admin Trade Name Freq PRN Reason Stop Dose Admin Cefazolin Sodium 2 gm/ Sodium 110 mls @ 200 mls/hr 03/09/25 11:30 Chloride IV 08/06/25 12:02 INTRAOP ONE Lactated Ringer's 1,000 mls @ 15 mls/hr 03/09/25 06:00 IV .Q48H [facility] PFSH Medical History Wears glasses Anxiety Depression Alcohol use History of steroid therapy Arthritis Fatty liver Restless legs History of diverticulitis History of pain when walking History of stress test History of irregular heartbeat Hx of fracture of arm Tear of medial meniscus of left knee Smoker Contusion of left hand Contusion of left wrist Contusion of left forearm Left elbow contusion Asthma Home Medications ?Medication ?Instructions ?Recorded ?Last Taken ?Type albuterol sulfate 90 mcg/actuation 2 inh inhalation Q4 H PRN shortness 10/15/23 Unknown Rx aerosol inhaler (Proventil HFA) of breath or wheezing #8.5 grams ibuprofen 600 mg tablet 600 mg PO Q6-8H PRN pain #90 tabs 01/07/25 Unknown Rx Allergy/AdvReac Type Severity Reaction Status Date / Time amoxicillin Allergy Hives Verified 03/09/25 06:29 latex Allergy Hives Verified 03/09/25 06:29 Sulfa (Sulfonamide Allergy Rash Verified 03/09/25 06:29 Antibiotics) Surgical History Hx of hysterectomy History of endometrial ablation History of hysteroscopy History of tonsillectomy Status post left foot surgery Social History Smoking Status: Current every day smoker tobacco type: cigarettes Review of Systems (Anesthesia) ROS Narrative System reviewed and no additional complaints, except as documented. 03/09/25641 <Electronically signed by Parveen Evans MD > Date _ Parveen Evans MD Cosigner Signature: Date CC: ~ Signed [facility] [place] Work Phone: 1(271) 484-704108-06-2025 Procedure note [facility] Medical Records Department [address] [place] [address] Operative Report 03/09/25 0834 MR#: [id number] Acct: [id number] Name: JOHNATHAN ANTONIO Rep #:[id number] : 1975 49 From: Tony Latham MD PCP: EZIO Negrete Status:REG [facility] Location: [place] [address] Problems Associated Problem List Diagnoses (1) Acute medial meniscus tear: (2) Osteoarthritis of left knee: Procedures Musculoskeletal 20xxx-29xxx: Other Procedure See Report Operative Report (Standard) Operative Information Date of Procedure: 03/09/25 Pre-Operative Diagnosis: L knee medial meniscus tear, root and posterior horn Post-Operative Diagnosis: same Surgery/Procedure Performed: L knee arthroscopy, medial meniscus repair (root and posterior horn) director of dietary: Yes Engine Cleaner: gordo Tasks completed by assistant real estate manager: Retracting Additional marketing support assistant?: No Type of Anesthesia: General and Local RN Documented Start/Stop Times: Operation Date: 03/09/25 07:30 Case Time Into Pre-Op 03/09/25 05:58 Out of Pre-Op 03/09/25 07:23 Anesthesia Start 03/09/25 07:28 Into Room 03/09/25 07:28 Procedure Start 03/09/25 07:49 Procedure Start Time: 07:49 Procedure Stop Time: 08:35 Select all DRAINS/GRAFTS/IMPLANTS that apply: Implanted device Implanted device details: arthrex sutureloc, fiberstitch all inside x 2 Estimated Blood Loss: 10 Specimen collected: No Description of surgery: Patient brought to the operating room theater. Placed supine on the table. General anesthesia induced. 2 g IV Ancef administered prior to the start of theprocedure. All bony prominences padded. Tourniquet applied to the left thigh 34 inch appropriately padded. SCD on the nonoperative leg. Stress positioner used to the patient's left side. Operative extremity prepped and draped in the usual sterile fashion allowing over 3 minutes drying time prior to draping. Preoperative timeout performed to confirm the site patient and the surgery. Began by elevating the limb inflating the tourniquet to 250 mmHg. Used standardanterolateral and anteromedial arthroscopy portals. Did a full diagnostic arthroscopy. There is minor amount of synovitis in the prepatellar area I gently debrided that for appropriate visualization. Remove the ligamentum mucosum. The ACL and PCL appeared normal. The patellofemoral joint there was some minor grade 1-2 changes at the patellofemoral joint primarily on the trochlear side no loose bodies. Medial lateral gutters entered no loose bodies. The lateral compartment grade 1 changes both sides and the lateral meniscus appeared normal stable to probing. I then entered the medial compartment. There is minor grade 1 changes on both sides. There is a medial meniscus root tear with elevating of the meniscus as well as a vertical component of the tear atthe posterior horn. Did 'pie crust' technique to release the proximal MCL for better visualization of the medial compartment. I elected to do a root repair as well as repair of the vertically orientated tear. I used curette at the medial meniscus root area on the tibia and to remove any cartilage and prepare a bony bleeding bed. I used the shaver at this area as well as a meniscus rasp. I then used the guide for the posterior root and passed the pin up to the posterior root area. I then passed a nitinol wire through the guidepin brought this out the anterior medial portal which I had also placed a passport cannula. I then shuttled the suture lock to below the subchondral bone and deployed to the implant. I then passed the 2 sutures and converted these in a simple fashion to repair the medial meniscus root sequential tensioning as well as doing range of motion testing of the knee and then tensioning after that. I then also used Arthrex all inside fiber stitch implants 1.5 mm in a vertical and horizontal mattress fashion for the vertically orientated tear. This achieved solid purchaseof the meniscus good repair of the root and stable meniscus with probing. Final arthroscopy pictures taken and saved onto the system. Tourniquet let down hemostasis achieved. Portal sites closed with 3-0 Monocryl suture. 8 cc of quarter percent bupivacaine instilled in and around the portal sites. Skin cleaned with wet and dry dressing followed application of Steri- Strips Adaptic 4 x 4 gauze ABD dressing loosely wrapped Juan bandage and hinged knee brace locked in full extension. Patient woken up from the general anesthetic transferred off the operating tabletaken to postanesthetic care unit in stable condition. All sponge needle instrument counts were correct no complications Plan for the patient discharge home according to day surgery criteria nonweightbearing in full extension for the first 6 weeks and ASA 81 mg twice daily for VTE prophylaxis. CPT 36987, 75764 Surgical Findings: as above Complications Complications: No Admit VTE Documentation VTE Present on Admission: No VTE Mechan Device Prophylaxis: SCD's VTE Pharm Prophylaxis ordered?: Yes Reason prophylaxis not ordered: Treatment Not Indicated 03/09/25 0842 Cosigner Signature (if applicable): CC: Dr. Tony Latham MD; EZIO Negrete~ Signed [facility] [place]08-06-2025 History and physical note [facility] Medical Records Department [address] [place] [address] History & Physical Exam 03/09/25 0707 MR#: [id number] Acct: [id number] Name: JOHNATHAN ANTONIO Rep #:[id number] : 1975 49 From: Tony Latham MD PCP: EZIO Negrete Status:[facility] Location: [place] [address] HPI - General HPI Narrative JOHNATHAN ANTONIO, is a 49 F who presents for left knee arthroscopy, medial meniscus repair (including theroot). no change to h and p. rab, post op instructions, narcotic counselling. left knee marked. ok to proceed. no further questions or concerns. MR#: [id number] Acct: [id number] Name: JOHNATHAN ANTONIO Rep #: [id number] : 1975 Provider: Dr. Tony Latham MD Age/Sex: 49/F Location: [facility] Status: Signed Intake Vital Signs 01/22/2508:12 02/14/2513:50 Height 5 ft 1 in 5 ft 1 in Weight: 225 lb 225 lb BMI 42.5 42.5 Intake Visit Reasons: LEFT KNEE Chief Complaint: Left knee pain Accompanied by: Is patient in pain?: Yes Pain scale (1-10): 6 Allergies amoxicillin Allergy (Verified 02/14/25 13:53) Hiveslatex Allergy (Verified 02/14/25 13:53) HivesSulfa (Sulfonamide Antibiotics) Allergy (Verified 02/14/25 13:53) Rash Medications ?Medication ?Instructions ?Recorded ?Confirmed ?Type albuterol sulfate 90 mcg/actuation 2 inh inhalation Q4H PRN shortness 10/1402/14/25 Rx aerosol inhaler (Proventil HFA) of breath or wheezing #8.5 grams ibuprofen 600 mg tablet 600 mg PO Q6-8H PRN pain #90 tabs 02/14/25 Rx Have you fallen in the [...] and the decisions made by me, Dr. Kory MD 02/14/25 6361. Part of today?s visit was documented by [ ], acting as scribe. JOHNATHAN ANTONIO is a 49 year old F here today for L knee pain, mild OA and MM root tear. Medial posterior and anterior knee pain. 4 months. 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 some mechanical symptoms, positive catching / locking. cortisone made it worse. here with her . PT no. no prior operations on the knee. Using a brace. Supplemental Info [facility] Imaging Services [address] [place] [address] Knee 4 or More Views MR#: [id number] Acct: [id number] Name: JOHNATHAN ANTONIO Rep #: [id number] : 1975 F 48 From: Stanislav Sampson MD PCP: EZIO Negrete Status: REG ER Study: Knee 4 or More Views Date of Exam: 11/23/24 Exam# [id number] Ordering Dr: Gordo Viera MD PROCEDURE: KNEE 4 OR MORE VIEWS 11/23/2024 REASON FOR EXAM: ATRAUMATIC LEFT KNEE PAIN TECHNIQUE: 4 view(s) of the left knee FINDINGS: Bones: No fracture. No suspicious bone lesion. Joints: Normal alignment. Effusion: No effusion. Soft tissues: Soft tissues are unremarkable. Other: RAD/Knee 4 or More Views IMPRESSION: Normal left knee. Reading Location: [id number] per Dr. Corrales notes... 01/04/2025 MRI left [...] type: primary Qualified Code(s): M17.12 - Unilateral p rimary osteoarthritis, left knee Plan: 49-year-old female with [...] wear of hardware or fixation, instability, fracture, deepvein thrombosis and pulmonary embolism, anesthetic risks, , [...] antalgic gait, NVI, normal alignment, rom 0-120. [facility] Medical History Wears glasses Anxiety Depression Alcohol use History of steroid therapy Arthritis Fatty liver Restless legs History of diverticulitis History of pain when walking History of stress test History of irregular heartbeat Hx of fracture of arm Tear of medial meniscus of left knee Smoker Contusion of left hand Contusion of left wrist Contusion of left forearm Left elbow contusion Asthma Home Medications ?Medication ?Instructions ?Recorded ?Last Taken ?Type albuterol sulfate 90 mcg/actuation 2 inh inhalation Q4 H PRN shortness 10/15/23 Unknown Rx aerosol inhaler (Proventil HFA) of breath or wheezing #8.5 grams ibuprofen 600 mg tablet 600 mg PO Q6-8H PRN pain #90 tabs 01/07/25 Unknown Rx Allergy/AdvReac Type Severity Reaction Status Date / Time amoxicillin Allergy Hives Verified 03/09/25 06:29 latex Allergy Hives Verified 03/09/25 06:29 Sulfa (Sulfonamide Allergy Rash Verified 03/09/25 06:29 Antibiotics) Surgical History Hx of hysterectomy History of endometrial ablation History of hysteroscopy History of tonsillectomy Status post left foot surgery Social History Smoking Status: Current every day smoker tobacco type: cigarettes Vital Signs Vital Signs Vital Signs: 03/09/25 06:29 03/09/25 06:29 03/09/25 06:42 Temperature 98.2 F 98.2 F Temperature Source Temporal Pulse Rate 82 82 Respiratory Rate 17 17 Respiratory Pattern Normal Blood Pressure 136/61 H 136/61 H Blood Pressure Mean 86 Blood Pressure Source Monitor Blood Pressure Position Semi-Fowlers Blood Pressure Location Left Arm Pulse Ox 96 96 Oxygen Delivery Method Room Air Weight Weight: 246 lb 14.684 oz Body Mass Index (BMI) 45.1 03/09/25 0708 Cosigner Signature (if applicable): CC: Dr. Tony Latham MD; EZIO Negrete~ Signed [facility]08-06-2025 [facility] Medical Records Department [address] [place] [address] History Physical Exam 03/09/25 0707 MR#: [id number] Acct: [id number] Name: JOHNATHAN ANTONIO Rep #: [id number] : 1975 49 From: Tony Latham MD PCP: EZIO Negrete Status:[facility] Location: [place] [address] HPI - General HPI Narrative JOHNATHAN ANTONIO, is a 49 F who presents for left knee arthroscopy, medial meniscus repair (including the root). no change to h and p. rab, post op instructions, narcotic counselling. left knee marked. ok to proceed. no further questions or concerns. MR#: [id number] Acct: [id number] Name: JOHNATHAN ANTONIO Rep #: [id number] : 1975 Provider: Dr. Tony Latham MD Age/Sex: 49/F Location: [facility] Status: Signed Intake Vital Signs 01/22/2508:12 02/14/2513:50 Height 5 ft 1 in 5 ft 1 in Weight: 225 lb 225 lb BMI 42.5 42.5 Intake Visit Reasons: LEFT KNEE Chief Complaint: Left knee pain Accompanied by: Is patient in pain?: Yes Pain scale (1-10): 6 Allergies amoxicillin Allergy (Verified 02/14/25 13:53) Hiveslatex Allergy (Verified 02/14/25 13:53) HivesSulfa (Sulfonamide Antibiotics) Allergy (Verified 02/14/25 13:53) Rash Medications ???Medication ???Instructions ???Recorded ???Confirmed ???Type albuterol sulfate 90 mcg/actuation 2 inh inhalation Q4H PRN shortness 10/15/23 Rx aerosol inhaler (Proventil HFA) of breath or wheezing #8.5 grams ibuprofen 600 mg tablet 600 mg PO Q6-8H PRN pain #90 tabs 01/07/25 5 Rx Have you fallen in the past [...] 4 months. 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 some mechanical symptoms, positive catching / locking. cortisone made it worse. here with her . PT no. no prior operations on the knee. Using a brace. Supplemental Info [facility] Imaging Services [address] [place] [address] Knee 4 or More Views MR#: [id number] Acct: [id number] Name: JOHNATHAN ANTONIO Rep #: [id number] : 1975 F 48 From: Stanislav Sampson MD PCP: EZIO Negrete Status: REG ER Study: Knee 4 or More Views Date of Exam: 11/23/24 Exam# [id number] Ordering Dr: Gordo Viera MD PROCEDURE: KNEE 4 OR MORE VIEWS 11/23/2024 REASON FOR EXAM: ATRAUMATIC LEFT KNEE PAIN TECHNIQUE: 4 view(s) of the left knee FINDINGS: Bones: No fracture. No suspicious bone lesion. Joints: Normal alignment. Effusion: No effusion. Soft tissues: Soft tissues are unremarkable. Other: RAD/Knee 4 or More Views IMPRESSION: Normal left knee. Reading Location: [id number] per Dr. Corrales notes... 01/04/2025 MRI left [...] knee: Status: Acute Qualifiers: Osteoarthritis type: primary Andrew (more content not included)...[facility]08-06-[address] [facility] Medical Records Department [address] [place] [address] Pre-Anesthesia Evaluation 03/09/25 0641 MR#: [id number] Acct: [id number] Name: JOHNATHAN ANTONIO Rep #:[id number] : 1975 49 From: Parveen Evans MD PCP: EZIO Negrete Status:REG SDC Y Race: C Location: [facility] ASA Classification* ASA Classification ASA Classification: 3 Assessment & Plan Anesthesia* Anesthesia Assessment Anesthesia Assessment: Discussed sedation and/or anesthesia options, risks, benefits, and alternatives with patient/parents/legal guardian/POA. Questions invited. The patient/parents/legal guardian/POA seems to understand and agrees to proceedwith anesthesia plan. Reviewed the physical assessment, medical history, allergy history and patient home medications list prior to surgery/procedure/anesthetic and documented any changes. Performed airway and anesthesia risk assessments. Anesthesia Type Anesthesia Type: General (consented for block only if needs post op) Anesthesia Focused Assessment* Temperature: 98.2 F Pulse Rate: 82 Blood Pressure: 136/61 Respiratory Rate: 17 Pulse Ox: 96 Airway Assessment Mouth opens: >3 cm Mallampati Score: II Labs Anesthesia Preop lab: CBC WBC 12.0 K/mm3 (4.4-11.0) H 11/23/24 16:54 5 RBC 4.94 M/mm3 (4.2-5.4) 11/23/24 16:54 11/23/24 Hgb 15.2 g/dL (12.0-15.0) H 11/23/24 16:54 5 Hct 43.9 % (37-47) 11/23/24 16:54 11/23/24 Plt Count 320 K/mm3 (150-450) 11/23/24 16:54 11/23/24 CHEMISTRY Potassium 4.3 mmol/L (3.3-5.1) 11/23/24 16:54 11/23/24 Sodium 139 mmol/L (133-145) 11/23/24 16:54 11/23/24 BUN 13 mg/dL (4-19) 11/23/24 16:54 11/23/24 Creatinine 0.68 mg/dL (0.70-1.20) L 11/23/24 16:54 Glucose 119 mg/dL (70-99) H 11/23/24 16:54 11/23/24 COAG PT 12.4 SECONDS (11.7-14.9) 02/24/24 00:30 Pre-Assessment Diagnosis/Proposed Procedure Planned Operative Procedure(s): LEFT KNEE ATHROSCOPY MENSICUS REPAIR Anesthesia History Anesthesia History - food handler: Anesthesia History - food handler Hx Hospitalization No 02/23/25 13:44 Any Problems With Anesthesia No 02/23/25 13:44 Cholinesterase deficiency No 02/23/25 13:44 You/Your Family Experience No 02/23/25 13:44 fever (hyperthermia) with Relationship Recent Exposure to Contagious No 03/09/25 06:29 Disease Does patient have nerve No 02/23/25 13:44 stimulator Patient instructed to have device shut off --Does patient have Pacemaker No 03/09/25 06:29 or ICD? When Was Last Pacemaker Check QUESTION #4 FULL TEXT: You/Your Family Experience fever (hyperthermia) with Anesthesia Last Oral Intake Last Oral intake: Last Oral Intake NPO since 00:00 03/09/25 06:29 Meds taken in AM with sips of No 03/09/25 06:29 water? Meds patient instructed to take am of surgery PONV PONV - food handler: PONV - food handler Female Yes 02/23/25 13:44 HX of Motion Sickness No 02/23/25 13:44 HX of N/V After Surgery No 02/23/25 13:44 Non-Smoker No 02/23/25 13:44 Duration of Surgery greater Yes 02/23/25 13:44 than 60 minutes Number of Risk Factors 2 02/23/25 13:44 PONV Score Moderate Risk 02/23/25 13:44 Height & Weight Height & Weight: Anesthesia: Height & Weight Height 5 ft 2 in 03/09/25 06:29 Weight: 112 kg 03/09/25 06:29 Body Mass Index (BMI) 45.1 03/09/25 06:29 Respiratory Assessment Respiratory Assessment - food handler: Respiratory Tract Infection Hx - food handler Hx Respiratory Tract Infection No 02/23/25 13:44 STOP Sleep Apnea STOP Sleep Apnea - food handler: STOP Sleep Apnea - food handler Hx Hypertension No 02/23/25 13:44 Hx Sleep Apnea No 02/23/25 13:44 CPAP BIPAP Do you snore loudly (louder No 02/23/25 13:44 than talking or can be heard Do you often feel tired/ No 02/23/25 13:44 fatigued/ sleepy during daytime? Has anyone observed you stop No 02/23/25 13:44 breathing during sleep? STOP Results Negative 02/23/25 13:44 QUESTION #5 FULL TEXT : Do you snore loudly (louder than talking or can be heard through closeddoors)? Tobacco Use History Tobacco Use History - food handler: Tobacco Use History - food handler Tobacco Use Smoking Status Current every day smoker 02/23/25 13:44 Hx Tobacco Use Yes 02/23/25 13:44 Years Smoking Packs Smoked per Day Smoking Cessation Date was within the last 15 years Hx Smoking Cessation Date Hx Smoking Cessation Counseling Hematologic Medial History Hematologic Hx - food handler: Hematologic Medical Hx - documentation writer Hx of Blood Transfusion No 02/23/25 13:44 Hx of Transfusion in last 3 No 02/23/25 13:44 Months Date of Last Transfusion (if within last 3 months) Ever experience any problems No 02/23/25 13:44 with transfusion(s)? 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 Hx Now No 02/23/25 13:44 Gestational Age (in weeks): EDC: Hx Hx Para Hx Section SAB No 02/23/25 13:44 Active Medications Active Medications: Current Medications Generic Name Dose Route Start Last Admin Trade Name Freq PRN Reason Stop Dose Admin Cefazolin Sodium 2 gm/ Sodium 110 mls @ 200 mls/hr 03/09/25 11:30 Chloride IV 03/09/25 12:02 INTRAOP ONE Lactated Ringer's 1,000 mls @ 15 mls/hr 03/09/25 06:00 IV .Q48H KRISTIAN PFSH Medical History Wears glasses Anxiety Depression Alcohol use History of steroid therapy Arthritis Fatty liver Restless legs History of diverticulitis History of pain when walking History of stress test History of irregular heartbeat Hx of fracture of arm Tear of medial meniscus of left knee Smoker Contusion of left hand Contusion of left wrist Contusion of left forearm Left elbow contusion Asthma Home Medications ?Medication ?Instructions ?Recorded ?Last Taken ?Type albuterol sulfate 90 mcg/actuation 2 inh inhalation Q4 H PRN shortness 10/15/23 Unknown Rx aerosol inhaler (Proventil HFA) of breath or wheezing #8.5 grams ibuprofen 600 mg tablet 600 mg PO Q6-8H PRN pain #90 tabs 01/07/25 Unknown Rx Allergy/AdvReac Type Severity Reaction Status Date / Time amoxicillin Allergy Hives Verified 03/09/25 06:29 latex Allergy Hives Verified 03/09/25 06:29 Sulfa (Sulfonamide Allergy Rash Verified 03/09/25 06:29 Antibiotics) Surgical History Hx of hysterectomy History of endometrial ablation History of hysteroscopy History of tonsillectomy Status post left foot surgery Social History Smoking Status: Current every day smoker tobacco type: cigarettes Review of Systems (Anesthesia) ROS Narrative System reviewed and no additional complaints, except as documented. 03/09/25 0642 > Date _ Parveen Evans MD Cosigner Signature: Date CC: ~ Signed [facility]07-14-2025 Evaluation note* Diagnosis Onset Date Resolution Status Admit Date Osteoarthritis of left knee acute February 14, 2025 1:43pm Tear of medial meniscus of l eft knee acute February 14, 2025 1:43pm Acute medial meniscus tear acute March 09, 2025 5:52am Osteoarthritis of left knee acute March 09, 2025 5:52am Acute medial meniscus tear acute March 14, 2025 8:31am Osteoarthritis of left knee acute March 14, 2025 8:31am Osteoarthritis of left knee acute March 22, 2025 8:01am Tear of medial meniscus of l eft knee acute March 22 8:01am Acute medial meniscus tear acute April 19, 2025 7:47am Osteoarthritis of left knee acute April 19, 2025 7:47am [facility] Work Phone: 1(818) 295-145707-14-2025 [facility] [address] [place] [address] [address] [place] [id number] OFFICE VISIT Date of Service: 02/14/25 MR#: [id number] Acct: [id number] Name: JOHNATHAN ANTONIO Rep #: [id number] : 1975 Provider: Dr. Cyrus Latham MD Age/Sex: 49/F Location[facility] Status: Signed Intake Vital Signs 01/21/25 08:12 [...] and the decisions made by me, Dr. Kory MD 02/14/25 1226. Part of today?s visit was documented by [ ], acting as scribe. JOHNATHAN ANTONIO is a 49 year old F here today for L knee pain, mild OA and MM root tear. Medial posterior and anterior knee pain. 4 months. 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 some mechanical symptoms, positive catching / locking. cortisone made it worse. here with her . PT no. no prior operations on the knee. Using a brace. Supplemental Info [facility] [address] [place] [address] Knee 4 or More Views MR#: [id number] Acct: [id number] Name: JOHNATHAN ANTONIO Rep #: [id number] : 1975 F 48 From: Stanislav Sampson MD PCP: EZIO Negrete Status: REG ER Study: Knee 4 or More Views Date of Exam: 11/23/24 Exam# [id number] Ordering Dr: Gordo Viera MD PROCEDURE: KNEE 4 OR MORE VIEWS 11/23/2024 REASON FOR EXAM: ATRAUMATIC LEFT KNEE PAIN TECHNIQUE: 4 view(s) of the left knee FINDINGS: Bones: No fracture. No suspicious bone lesion. Joints: Normal alignment. Effusion: No effusion. Soft tissues: Soft tissues are unremarkable. Other: RAD/Knee 4 or More Views IMPRESSION: Normal left knee. Reading Location: [id number] per Dr. Corrales notes... 01/04/2025 MRI left knee: Report from outside facility read as radial tear involving posterior root medial meniscus with diffuse amorphous increased signal within the medial meniscus compatible with intrasubstance degeneration. Medial extrusion of the body of the medial menisc us. Mild degenerative changes of the medial patellofemoral [...] motion only with physical therapy during that timefor recovery 3 to 6 months for the surgery. The smoking and obesity will increase the chance of complications nonhealing of the tear or other risks associate with surgical management. Patient understands wished to proceed with left knee arthroscopy, medial meniscus repair (includingthe root). plan to be placed the patient [...] NVI, normal alignment, rom 0-120. 02/14/25 1426 n MD> Date _ Tony Latham MD Cosigner Signature: Date (if applicable) CC: ~ [facility]07-14-2025 Progress note Author Tony Latham [facility] Note Date/Time February 14, 2025 2:26 pm [facility] [address] [place] [address] [address] [place] [place] [address] OFFICE VISIT Date of Service: 02/14/25 MR#: [id number] Acct: [id number] Name: JOHNATHAN ANTONIO Rep #: [id number] : 1975 Provider: Dr. Cyrus Latham MD Age/Sex: 49/F Location: [facility] Status: Signed Intake Vital Signs 01/21/25 08:12 [...] you fallen in the past year?: Yes [facility] Medical History Tear of medial meniscus of [...] Tony Latham MD 02/14/25 1226. Part of today?s visit was documented by [ ], acting as scribe. JOHNATHAN ANTONIO is a 49 year old F here today for L knee pain, mild OA and MM root tear. Medial posterior and anterior knee pain. 4 months. 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 some mechanical symptoms, positive catching / locking. cortisone made it worse. here with her . PT no. no prior operations on the knee. Using a brace. Supplemental Info [facility] Imaging Services [address] [place] [address] Knee 4 or More Views MR#: [id number] Acct: [id number] Name: JOHNATHAN ANTONIO Rep #: [id number] : 1975 F 48 From: Stanislav Sampson MD PCP: EZIO Negrete Status: REG ER Study: Knee 4 or More Views Date of Exam: 11/23/24 Exam# [id number] Ordering Dr: Gordo Viera MD PROCEDURE: KNEE 4 OR MORE VIEWS 11/23/2024 REASON FOR EXAM: ATRAUMATIC LEFT KNEE PAIN TECHNIQUE: 4 view(s) of the left knee FINDINGS: Bones: No fracture. No suspicious bone lesion. Joints: Normal alignment. Effusion: No effusion. Soft tissues: Soft tissues are unremarkable. Other: RAD/Knee 4 or More Views IMPRESSION: Normal left knee. Reading Location: [id number] per Dr. Corrales notes... 01/04/2025 MRI left [...] Cosigner Signature: Date (if applicable) CC: ~ [employer] Work Phone: 1(732) 610-788106-06-2025 Evaluation note* Diagnosis Onset Date Resolution Status Admit Date Acute medial meniscus tear acute January 07, [...] eft knee acute February 14, 2025 1:43pm Acute medial meniscus tear acute March 09, 2025 5:52am Osteoarthritis of left knee acute March 09, 2025 5:52am Acute medial meniscus tear acute March 14, 2025 8:31am Osteoarthritis of left knee acute March 14, 2025 8:31am Osteoarthritis of left knee acute March 22, 2025 8:01am Tear of medial meniscus of l eft knee acute March 22 8:01am Acute medial meniscus tear acute April 19, 2025 7:47am Osteoarthritis of left knee acute April 19, 2025 7:47am [facility] [employer] Work Phone: 1(407) 934-980105-15-2025 Evaluation note* Diagnosis Onset Date Resolution Status Admit Date Internal derangement of knee , acute acute December 16, 2024 7 :58am Pain and swelling of left knee acute December 16, 2024 7:58am [facility] [employer] Work Phone: 1(545) 791-531105-15-2025 Evaluation note* Diagnosis Onset Date Resolution Status [...] left knee acute January 21, 2025 8:10am [employer] Work Phone: 1(323) 311-657205-15-2025 Evaluation note* Diagnosis Onset Date Resolution Status [...] eft knee acute February 14, 2025 1:43pm [facility] [employer] Work Phone: 1(728) 878-720005-15-2025 Evaluation note* Diagnosis Onset Date Resolution Status [...] eft knee acute February 14, 2025 1:43pm Acute medial meniscus tear acute March 09, 2025 5:52am Osteoarthritis of left knee acute March 09, 2025 5:52am [facility] Work Phone: 1(649) 364-926405-15-2025 Evaluation note* Diagnosis Onset Date Resolution Status [...] eft knee acute February 14, 2025 1:43pm Acute medial meniscus tear acute March 09, 2025 5:52am Osteoarthritis of left knee acute March 09, 2025 5:52am Acute medial meniscus tear acute March 14, 2025 8:31am Osteoarthritis of left knee acute March 14, 2025 8:31am [facility] Work Phone: 1(267) 425-201005-15-2025 Evaluation note* Diagnosis Onset Date Resolution Status [...] eft knee acute February 14, 2025 1:43pm Acute medial meniscus tear acute March 09, 2025 5:52am Osteoarthritis of left knee acute March 09, 2025 5:52am Acute medial meniscus tear acute March 14, 2025 8:31am Osteoarthritis of left knee acute March 14, 2025 8:31am Osteoarthritis of left knee acute March 22, 2025 8:01am Tear of medial meniscus of l eft knee acute March 22 8:01am [facility] Work Phone: 1(165) 887-189605-06-2025 History of Present illness Narrative* Christine Mosley RT(R) - 12/07/2024 9:00 AM EDT Radiology [...] PATIENT PRESENTS WITH AN IMPLANTABLE OR ATTACHED BUTT TRIMMER: No ALLERGIES: Reviewed and unchanged CONTRAST ALLERGY: NO. EXAM: CT -CONTRAST INDUCED NEPHROPATHY RISK FACTORS: Not applicable CREATININE: No results found for: "CREAT", "EGFROTH", "EGFRAA" P.O.C.T. RESULTS: POC done: Yes, See Lab Tab December 07, 2024 TREATMENT: N/A PERIPHERAL IV DATA: Ambulatory: A peripheral IV was started in the Left antecubital site with a Angio cath: 22 gauge. RADIOLOGY DEPARTMENT: CT; Exam(s) Completed: Abdomen/Pelvis SIGNATURE: RT Shiva(R) PATIENT NAME: Johnathan Antonio DATE: December 07, 2024 TIME: 3:21 PM [facility] NoteHNO ID: [id number] Author: CHRISTINE MOSLEY RT(R) Service: ? Author Type: Grab Driver Type: Progress Notes Filed: 12/07/2024 15:21 Note [...] PATIENT PRESENTS WITH AN IMPLANTABLE OR ATTACHED BUTT TRIMMER: No ALLERGIES: Reviewed and unchanged CONTRAST ALLERGY: NO. EXAM: CT -CONTRAST INDUCED NEPHROPATHY RISK FACTORS: Not applicable CREATININE: No results found for: "CREAT", "EGFROTH", "EGFRAA" P.O.C.T. RESULTS: POC done: Yes, See Lab Tab December 07, 2024 TREATMENT: N/A PERIPHERAL IV DATA: Ambulatory: A peripheral IV was started in the Left antecubital site with a Angio cath: 22 gauge. RADIOLOGY DEPARTMENT: CT; Exam(s) Completed: Abdomen/Pelvis SIGNATURE: RT Shiva(R) PATIENT NAME: Johnathan Antonio DATE: December 07, 2024 TIME: 3:21 [facility]04-22-2025 Radiology Diagnostic study note [facility] Imaging Services [address] [place] [id number] Knee 4 or More Views MR#: [id number] Acct: [id number] Name: JOHNATHAN ANTONIO Rep #: [id number] : 1975 F 48 From: Andrei Sampson MD PCP: EZIO Negrete Status: REG ER Study:Knee 4 or More Views Date of Exam: 11/23/24 Exam# [id number] Ordering Dr: Wendy Viera MD PROCEDURE: KNEE 4 OR MORE VIEWS 11/23/2024 REASON FOR EXAM: ATRAUMATIC LEFT KNEE PAIN TECHNIQUE: 4 view(s) of the left knee FINDINGS: Bones: No fracture. No suspicious bone lesion. Joints: Normal alignment. Effusion: No effusion. Soft tissues: Soft tissues are unremarkable. Other: RAD/Knee 4 or More Views IMPRESSION: Normal left knee. Reading Location: [id number] CC: Dr. Gordo Viera MD; EZIO Negrete ~ Assistant Manager/Embalmer: Signed [facility]08-04-2023 Discharge summary Author Omero Zapata [facility] March 07, 2023 2:39pm Note Date/Time March 07, 2023 2:3 9pm [facility] Physical Therapy [facility] [address] [place] [address] / REHABILITATION SERVICES DISCHARGE SUMMARY MR#: [id number] Acct: [id number] Name: JOHNATHAN ANTONIO Rep #: [id number] : 1975 47 From: Omero Zapata DPT, OCS, CSCS Referring Dr.: Dr. Enrique Vasques MD Stat us: REG R Insurance: T SELF PAY INSURANCE Patient Information Patient Information: [...] appropriate by the physician. Thank you! Omero Zapata DPT, OCS, CSCS Balance/Gait/Functional tests Balance/Special Test Scores Quick DASH Score: 11.3625 <Electronically signed by Omero Zapata DPT, OCS, CSCS> 03/07/23 1439 CC: Dr. Enrique Vasques MD; No Primary Care Physician ~ EBG Signed [facility] Work Phone: Consult note Author Ankit Balderas [facility] Note Date/Time March 09, 2025 8:[address] [facility] Medical Records Department [address] [place] [address] Anesthesia Postop Eval I 03/09/25 0843 MR#: [id number] Acct: [id number] Name: JOHNATHAN ANTONIO Adri Rep #:[id number] : 1975 49 From: Ankit RODGERS PCP: EZIO Negrete Status:REG SDC Y Race: C Location: [place] [address] Anesthesia: Postop Eval I Current Vital Signs Temperature: 97 F Pulse Rate: 101 Blood Pressure: 141/89 Respiratory Rate: 20 Pulse Ox: 92 Assessment Airway patent: Yes Spontaneous unlabored respirations: Yes nausea: No Vomiting: No Anesthesia Complication: No Fluid Hydration Crystalloid volume administer (ml): 700 Total IV fluid infused: 700 Progress Note Anesthesia document: Postop Eval 1 completed: Yes 03/09/25 0844 <Electronically signed by Ankit [place] FILM WRITER> Date _ Ankit Sherrie FILM WRITER Cosigner Signature: Date CC: ~ Signed [facility] Work Phone: Discharge summary Author Braulio Reynolds [facility] February 21, 2023 3:10am Note Date/Time February 21, 2023 2:08 am [facility] Medical Records Department [address] [place] [address] Emergency Department Summary 02/21/23 MR#: [id number] Acct: [id number] Name: JOHNATHAN ANTONIO Rep #:[id number] : 1975 47 From: Braulio Reynolds MD PCP: Care Physician,No Primary Status [...] she think she had pain like this. [facility] Medical History Asthma Contusion of left forearm [...] form of Toradol injection and an oral [place]. Lab Data Attestation: I reviewed the patient's lab results. Labs: Laboratory Results - last 24 hr 02/21/23 02:15 Urine Color Yellow Urine Clarity Clear Urine pH 6.0 Ur Specific [place] 1.010 Urine Protein Negative Urine Glucose (UA) [...] your Primary Care Provider. Call [facility] ([phone]) or report to the closest Emergency Room. Call 911 if necessary. 02/21/23 0310 <Electronically signed by Braulio Reynolds MD> Cosigner Signature (if applicable): CC: No Primary Care Physician ~ Signed [facility] Work Phone: Discharge summary Author Tony Latham [facility] Note Date/Time March 09, 2025 8:4 6am [facility] Medical Records Department [address] [place] [address] Instructions for Home/Discharge Instructions 03/09/25 0843 MR#: [id number] Acct: [id number] Name: JOHNATHAN ANTONIO Rep #:[id number] : 1975 49 From: Tony Latham MD PCP: EZIO Negrete Status:REG [facility] Discharge Instructions Diet Discharge Diet: No restrictions Activity Weight Bearing Status: No weight bearing Keep extremity elevated above heart level: Operative Extremity Dressing / Incision Call your doctor if your incision/area has: Continuous Slow Oozing, Sudden Increased Bleeding, Increased Pain/ Swelling, Increased Redness, Foul Smelling Discharge and Swelling at the incision site Call your doctor if you observe: Fever of 101 or Higher, Coldness, Increased Pain and Numbness or Tingling Change Dressing in: leave in place till F/U Cleanse incision/area with: Do not get Incision Wet Follow Up Care Please Follow Up With: Tony Latham MD When: within 2 weeks Test Results: Test results from this visit will be discussed in further detail at your follow- up appointment, if applicable. Discharge Plan Admission Attending Provider: Tony Latham Primary Care Provider: Yahir Gutierrez Instructions Print Language: Zimbabwean Discharge Orders/Prescriptions Prescriptions: New oxycodone-acetaminophen [Endocet] 5-325 mg tablet 1 tab PO Q4H MDD 6 PRN (Reason: pain) 3 Days Qty: 20 0RF aspirin 81 mg tablet,chewable 81 mg PO BID MDD 2 30 Days Qty: 60 0RF No Action ibuprofen 600 mg tablet 600 mg PO Q6-8H PRN (Reason: pain) Qty: 90 0RF albuterol sulfate [Proventil HFA] 90 mcg/actuation HFA aerosol inhaler 2 inh inhalation Q4H PRN (Reason: shortness of breath or wheezing) Qty: 8.5 1RF Referrals / Follow Up: Tony Latham MD [Med Staff - Active Staff] - Yahir Gutierrez PA [Primary Care Provider] - Disposition Disposition (needs filled in before D/C Order can be placed): Home, Self Care 03/09/25 0846<Electronically signed by Tony Latham MD>Tony Latham MD CC: EZIO Negrete ~ Signed [facility] Work Phone: Discharge summary Author Branden [facility] Note Date/Time May 13, 2025 1 :27am [facility] Medical Records Department [address] [place] [address] Emergency Department Summary 05/13/25 MR#: [id number] Acct: [id number] Name: JOHNATHAN ANTONIO Rep #:[id number] : 1975 49 From: Branden Schaffer DO PCP: EZIO Negrete Status:DEP ER Location: ED HPI History of Present Illness Chief Complaint: Shortness of Breath Informant: patient and spouse/S.O. Narrative Narrative: Patient is a 49-year-old female with past medical history of asthma. She statesshe has been having mild coughing congestion but over the last week or so has had increased shortness of breath. Her family doctor performed outpatient chest x- ray which reportedly was negative for pneumonia but also did a D-dimer which was reportedly elevated. The patient denies any previous history of DVT or PE. She does admit however to a recent surgery to her left knee roughly 8 weeks ago. She states since that time the left lower leg has been swollen. She states shedid not have a venous duplex to assess for potential clot. At this time with her reported worsening shortness of breath and the fact she has an elevated D-dimer there was concern she may have a pulmonary embolus causing her symptoms and therefore was sent in for evaluation. [facility] Medical History Wears glasses Anxiety Depression Alcohol use History of steroid therapy Arthritis Fatty liver Restless legs History of diverticulitis History of pain when walking History of stress test History of irregular heartbeat Hx of fracture of arm Tear of medial meniscus of left knee Smoker Contusion of left hand Contusion of left wrist Contusion of left forearm Left elbow contusion Asthma Home Medications ?Medication ?Instructions ?Recorded ?Last Taken ?Type albuterol sulfate 90 mcg/actuation 2 inh inhalation Q4 H PRN shortness 10/15/23 Unknown Rx aerosol inhaler (Proventil HFA) of breath or wheezing #8.5 grams ibuprofen 600 mg tablet 600 mg PO Q6-8H PRN pain #90 tabs 01/07/25 Unknown Rx aspirin 81 mg chewable tablet 81 mg PO BID vte 1 month #60 tabs 03/09/25 Unknown Rx Allergy/AdvReac Type Severity Reaction Status Date / Time amoxicillin Allergy Hives Verified 05/12/25 21:50 latex Allergy Hives Verified 05/12/25 21:50 Sulfa (Sulfonamide Allergy Rash Verified 05/12/25 21:50 Antibiotics) Surgical History Hx of hysterectomy History of endometrial ablation History of hysteroscopy History of tonsillectomy Status post left foot surgery Social History Smoking Status: Current every day smoker tobacco type: cigarettes ROS ROS ED Constitutional Constitutional ED: Denies chills or fever(s) Eyes Eyes: Denies blurry vision or change in vision ENT ENT ED: Denies sore throat Cardiovascular Cardiovascular: Denies chest pain, palpitations or racing heartbeat Respiratory/Chest Respiratory/Chest: Reports cough and dyspnea Gastrointestinal Gastrointestinal: Denies abdominal pain, diarrhea, nausea or vomiting Musculoskeletal Musculoskeletal: Reports other Details: Positive left lower leg swelling Integumentary Denies Abrasions or rash Neurologic Neurologic: Denies headache(s) or paresthesias Hematologic/Lymphatic Hematologic/Lymphatic: Denies easy bleeding or easy bruising Allergic/Immunologic Allergic/Immunologic ED: Denies mouth swelling or tongue swelling EXAM Physical Exam Const Vital Signs: 05/12/25 21:45 10/09/25 22:27 Temperature 97.8 F Temperature Source Temporal Pulse Rate 121 H Respiratory Rate 18 Respiratory Effort Normal Blood Pressure 153/99 H Blood Pressure Mean 117 Pulse Ox 97 Oxygen Delivery Method Room Air Positive well nourished and well developed General Appearance ED: well developed; Negative for pallor HEENT HEENT Narrative: Normocephalic atraumatic No tongue or lip swelling no oral lesions no airway edema or compromise There is mild cobblestoning noted in the posterior pharynx but no secondary findings to suggest infection Eyes PERRL and EOMs intact bilaterally General Eye ED: Negative for scleral icterus Neck supple and no JVD Resp normal respiratory effort Resp Narrative: Breath sounds are slight diminished throughout with faint expiratory wheeze but no signs of respiratory distress Cardio regular rate and regular rhythm Rate: other Other Details: Radial and carotid pulses are equal and symmetric Extremity Extremity Narrative: There is asymmetric swelling of the left lower leg compared to right; however there is no erythema or warmth. Negative Homans' sign. Compartments are soft and compressible going against compartment syndrome. Patient states that the leg has been swollen since surgery. Neuro oriented x3, CN's II-XII intact bilaterally and no sensory deficits noted Sensorium / Orientation: alert Motor Exam: strength 5/5 throughout Psych mental status grossly normal Skin no rashes or lesions noted General Skin Exam: Negative for jaundice or pallor MDM MDM MDM Narrative Medical decision making narrative: Patient arrived to the ER mildly hypertensive but otherwise with stable vitals. With her surgery roughly 8 weeks ago asymmetric leg swelling and reported elevated D- dimer there is concern for DVT versus pulmonary embolus versus pneumonia. I do not have an ability to perform a venous duplex at this time of night but will perform a CTA of the chest to rule out pneumonia pneumothorax pleural effusion or pulmonary embolus. CTA revealed no acute findings. Laboratory studies revealed no signs of acute blood loss anemia electrolyte abnormality or acute kidney injury. On reevaluation she is resting comfortably she is not in respiratory distress her pulse ox is 98 to 100% on room air. Therefore at this time we have ruled out lung pathology such as pneumonia pneumothorax pleural effusion or pulmonary embolus. Her reportedly elevated D- dimer could be from her previous surgery or secondary to a DVT in the left lowerleg. Therefore we will order outpatient venous duplex to assess for this. However as she is not hypoxic or in respiratory distress there is no need for further intervention in the ER and she is otherwise safe for discharge. History & Record Review Discussion w/independent historian: Patient and Significant other Lab Data Attestation: I reviewed the patient's lab results. Labs: Laboratory Results - last 24 hr 05/12/25 22:28 WBC 11.1 H RBC 4.80 Hgb 14.6 Hct 43.0 MCV 89.6 MCH 30.4 MCHC 34.0 RDW Std Deviation 41.3 RDW Coeff of Sofiya 12.6 Plt Count 371 MPV 10.4 Immature Gran % (Auto) 0.600 Neut % (Auto) 61.8 Lymph % (Auto) 28.4 [place] % (Auto) 8.0 Eos % (Auto) 0.7 Baso % (Auto) 0.5 Absolute Neuts (auto) 6.9 Absolute Lymphs (auto) 3.16 Nucleated RBC % 0 PT 12.9 INR 1.0 APTT 26.5 Sodium 141 Potassium 4.0 Chloride 104 Carbon Dioxide 24.1 Anion Gap 13 BUN 11 Creatinine 0.71 Estim Creat Clear Calc 117.51 Est GFR (MDRD) Non-Af 104 BUN/Creatinine Ratio 14.9 Glucose 153 H Calcium 9.4 Magnesium 2.3 H Radiography Diagnostic Testing: Clinical Impression(s) from Imaging Studies Chest CTA 05/12/25 23:33 IMPRESSION: No demonstrated pulmonary embolism or arterial dissection. Reading Location: [place] [address] Discharge Plan Triage Chief Complaint: Shortness of Breath Other Complaint: Lower Extremity Injury ED Provider: Branden Schaffer Dx/Rx/DC Orders Clinical Impression: Dyspnea, Edema of left lower extremity Instructions: ED Dyspnea, ED Peripheral Edema, Unilateral Prescriptions: No Action ibuprofen 600 mg tablet 600 mg PO Q6-8H PRN (Reason: pain) Qty: 90 0RF aspirin 81 mg tablet,chewable 81 mg PO BID MDD 2 30 Days Qty: 60 0RF albuterol sulfate [Proventil HFA] 90 mcg/actuation HFA aerosol inhaler 2 inh inhalation Q4H PRN (Reason: shortness of breath or wheezing) Qty: 8.5 1RF Primary Care Provider: Yahir Gutierrez Referrals: Yahir Gutierrez PA [Primary Care Provider, Family Practice] Activity Restrictions/Additional Instructions: The CTA of your chest revealed no pulmonary embolus or lung pathology such as pneumonia. Please obtain your outpatient venous duplex of the left leg to ensure there is no DVT causing the edema. Return to the ER should you have any further concerns Print Language: Zimbabwean Disposition Disposition: Home, Self Care Discharge Date/Time: 05/13/25 01:27 What to do if you have Problems For any increased pain, shortness of breath, bleeding, nausea or vomiting, chestpain, or any unexpected problems, contact your Primary Care Provider. Call [facility] ([phone]) or report to the closest Emergency Room. Call 911 if necessary. 05/14/252307 <Electronically signed by Branden Schaffer DO> Cosigner Signature (if applicable): CC: EZIO Negrete ~ Signed [facility] Work Phone: Evaluation noteNo assessment information available [facility] Work Phone: Evaluation note* Diagnosis Onset Date Resolution Status Admit Date Internal derangement of knee , acute acute December 16, 2024 7 :58am Pain and swelling of left knee acute December 16, 2024 7:58am [facility] Work Phone: Hospital Discharge instructions Additional Instructions Maintain splint and sling for comfort. Pain medicine as prescribed will likely need surgery. Dr. Corrales's office will reach out to you to be seen.[facility] Work Phone: Hospital Discharge instructions Additional Instructions We sent a culture of your urine, if it returns consistent with infection, you will be contacted about starting an antibiotic.[facility] Work Phone: Hospital Discharge instructions Additional Instructions Prednisone 40 mg/day with for the next 10 days. Albuterol inhaler 2 puffs every 2 hours as needed for wheezing or shortness of breath. Follow-up with a local primary care physician. Return if worse. Long-term try to stop smoking.[facility] Work Phone: Hospital Discharge instructions Additional Instructions Your screening blood work and testing looks normal today. I recommend getting a blood pressure cuff and checking the reading on your upper arm once a day. Take it after you have been calm and sitting for about 5 minutes. Keep a daily log and follow-up with a primary care doctor. [facility] Work Phone: Hospital Discharge instructions Additional Instructions Ice to your knee to decrease pain and swelling. Motrin for pain and swelling. Follow-up if not improving for further evaluation. Your x-ray today and labs were good. Your liver enzymes were normal.[facility] Work Phone: Hospital Discharge instructions Additional Instructions Take medications as prescribed. Follow-up with orthopedics for your knee pain. Follow-up with your doctor for sciatica symptoms. Follow through with your physical therapy.[facility] Work Phone: Hospital Discharge instructionsAmbulatory Orders* PT Referral Location: None [facility] Work Phone: Hospital Discharge instructionsAdditional Instructions The CTA of your chest revealed no pulmonary embolus or lung pathology such as pneumonia. Please obtain your outpatient venous duplex of the left leg to ensure there is no DVT causing the edema. Return to the ER should you have any further [facility] Work Phone: Reason for referral (narrative)No reason for referral information availableWUniversity Hospitals [facility] Work Phone: Summary Purpose Family History No [...] Will No August 26 4:33am Power of Cooling Pipe Inspector No August 26, 2022 4:33am Advance Directive Response Recorded Date/ Time Living Will No February 21, 2023 1:57am Power of Cooling Pipe Inspector No February 21 1:57am Advance Directive Response Recorded Date/ Time Living Will No October 15, 2023 6:47am Power of Cooling Pipe Inspector No October 14 6:47am Advance Directive Response Recorded Date/ Time Living Will No November 22, 2023 5:13pm Power of Cooling Pipe Inspector No November 21 5:13pm Advance Directive Response Recorded Date/ Time Do you have a Healthcare Power of Cooling Pipe Inspector? No November 23, 2024 5:43pm Advance Directive Response Recorded Date/ Time Do you have a Healthcare Power of Cooling Pipe Inspector? No November 23, 2024 5:43pm Do you have a Healthcare Power of Cooling Pipe Inspector? No December 14, 2024 9:44pm Advance Directive Response Recorded Date/ Time Do you have a Healthcare Power of Cooling Pipe Inspector? No February 23, 2025 1:44pm Do you have a Healthcare Power of Cooling Pipe Inspector? No November 23, 2024 5:43pm Do you have a Healthcare Power of Cooling Pipe Inspector? No December 14, 2024 9:44pm Advance Directive Response Recorded Date/ Time Do you have a Healthcare Power of Cooling Pipe Inspector? No February 23, 2025 1:44pm Advance Directive Response Recorded Date/ Time Do you have a Healthcare Power of Cooling Pipe Inspector? No February 23, 2025 1:44pm Do you have a Healthcare Power of Cooling Pipe Inspector? No May 12, 2025 10:21pm Chief Complaint and Reason for Visit Chief [...] medial meniscus of left knee Feb 1:43pm Chief Complaint Admit Date GEN. ILLNESS November 23, 2024 2:0 2pm LLE PAIN December 14, 2024 9:29p m LEFT KNEE December 16, 2024 7:58a m LEFT KNEE January 07, 2025 8:54a m LEFT KNEE January 21, 2025 8:10 am LEFT KNEE February 14, 2025 1:43 pm Left knee Arthroscopy, medial meniscus r epair March 09, 2025 5:52am Left knee Arthroscopy, medial meniscus r epair March 09, 2025 7:07am Reason for Visit Admit Date Internal derangement [...] medial meniscus of left knee Feb 1:43pm Acute medial meniscus tear March 09 5:52am Osteoarthritis of left knee March 09, 2025 5:52am Chief Complaint Admit Date GEN. ILLNESS November 23, 2024 2:0 2pm LLE PAIN December 14, 2024 9:29p m LEFT KNEE December 16, 2024 7:58a m LEFT KNEE January 07, 2025 8:54a m LEFT KNEE January 21, 2025 8:10 am LEFT KNEE February 14, 2025 1:43 pm Left knee Arthroscopy, medial meniscus r epair March 09, 2025 5:52am Left knee Arthroscopy, medial meniscus r epair March 09, 2025 7:07am left knee March 14, 2025 8: 31am Reason for Visit Admit Date Internal derangement [...] medial meniscus of left knee Feb 1:43pm Acute medial meniscus tear March 09 5:52am Osteoarthritis of left knee March 09, 2025 5:52am Acute medial meniscus tear March 14, 2025 8:31am Osteoarthritis of left knee March 14, 2025 8:31am Chief Complaint Admit Date GEN. ILLNESS November 23, 2024 2:0 2pm LLE PAIN December 14, 2024 9:29p m LEFT KNEE December 16, 2024 7:58a m LEFT KNEE January 07, 2025 8:54a m LEFT KNEE January 21, 2025 8:10 am LEFT KNEE February 14, 2025 1:43 pm Left knee Arthroscopy, medial meniscus r epair March 09, 2025 5:52am Left knee Arthroscopy, medial meniscus r epair March 09, 2025 7:07am left knee March 14, 2025 8: 31am left knee March 22, 2025 8: 01am Reason for Visit Admit Date Internal derangement [...] medial meniscus of left knee Feb 1:43pm Acute medial meniscus tear March 09 5:52am Osteoarthritis of left knee March 09, 2025 5:52am Acute medial meniscus tear March 14, 2025 8:31am Osteoarthritis of left knee March 14, 2025 8:31am Osteoarthritis of left knee March 22, 2025 8:01am Tear of medial meniscus of left knee Mar us2024 8:01am Chief Complaint Admit Date LEFT KNEE January 07, 2025 8:54a m LEFT KNEE January 21, 2025 8:10 am LEFT KNEE February 14, 2025 1:43 pm Left knee Arthroscopy, medial meniscus r epair March 09, 2025 5:52am Left knee Arthroscopy, medial meniscus r epair March 09, 2025 7:07am left knee March 14, 2025 8: 31am left knee March 22, 2025 8: 01am MED MENISCUS TEAR. S/P SURGERY. RX HERE April 18, 2025 6:00pm LEFT KNEE April 19, 2025 7:47am Reason for Visit Admit Date Acute medial meniscus tear January 07 8:54am Internal derangement of knee, acute January 07, 2025 8:54am Pain and swelling of left knee January 07, 2025 8:54am Internal derangement of knee, acute January 21, 2025 8:10am Osteoarthritis of left knee January 21 8:10am Osteoarthritis of left knee February 14 1:43pm Tear of medial meniscus of left knee Feb 1:43pm Acute medial meniscus tear March 09 5:52am Osteoarthritis of left knee March 09, 2025 5:52am Acute medial meniscus tear March 14, 2025 8:31am Osteoarthritis of left knee March 14, 2025 8:31am Osteoarthritis of left knee March 22, 2025 8:01am Tear of medial meniscus of left knee Mar 8:01am Acute medial meniscus tear April 7:47am Osteoarthritis of left knee April 192024 7:47am Chief Complaint Admit Date LEFT KNEE February 14, 2025 1:43 pm Left knee Arthroscopy, medial meniscus r epair March 09, 2025 5:52am Left knee Arthroscopy, medial meniscus r epair March 09, 2025 7:07am left knee March 14, 2025 8: 31am left knee March 22, 2025 8: 01am LEFT KNEE April 19, 2025 7:47am CHEST May 11, 2025 4: 14pm SOB, Leg pain May 12, 2025 9: 44pm SWELLING May 13, 2025 1 :00pm MED MENISCUS TEAR. S/P SURGERY. RX HERE May 25, 2025 12:00pm Reason for Visit Admit Date Osteoarthritis of left knee February 14 1:43pm Tear of medial meniscus of left knee Yves y 2024 1:43pm Acute medial meniscus tear March 09 025 5:52am Osteoarthritis of left knee March 09, 2025 5:52am Acute medial meniscus tear March 14, 2025 8:31am Osteoarthritis of left knee March 14, 2025 8:31am Osteoarthritis of left knee March 22, 2025 8:01am Tear of medial meniscus of left knee Mar ust 2024 8:01am Acute medial meniscus tear April 7:47am Osteoarthritis of left knee April 192024 7:47am Additional Source Comments INFORMATION SOURCE (unrecogn ized section and content) DATE CREATED AUTHOR 07/13/2018 [facility] DATE CREATED AUTHOR AUTHOR'S ORGANIZ ATION 08/31/2020 [facility] DATE CREATED AUTHOR AUTHOR'S ORGANIZ ATION 02/25/2022 [facility] DATE CREATED AUTHOR AUTHOR'S ORGANIZ ATION 09/25/[address] [facility] DATE CREATED AUTHOR AUTHOR'S ORGANIZ ATION 12/12/2024 [facility] DATE CREATED AUTHOR AUTHOR'S ORGANIZ ATION 01/10/2025 [facility] DATE CREATED AUTHOR AUTHOR'S ORGANIZ ATION 02/20/2025 [facility] DATE CREATED AUTHOR AUTHOR'S ORGANIZ ATION 06/15/2025 [facility] Care Teams (unrecognized sec tion and content) [...] Status: Active Member Role Status Dates EZIO Negrete Primary Care Provider Active Team Status: Inactive Member Role Status Dates EZIO Negrete Primary Care Provider Active S tart: November 23, 2024 End: November 23, 2024 Dr. Gordo Viera MD Emergency Provider Active S tart: November 23, 2024 End: November 23, 2024 Team Status: Inactive Member Role Status Dates EZIO Negrete Primary Care Provider Active S tart: November [...] 16, 2024 End: December 16, 2024 EZIO Negrete Referring Provider Active Star t: December 16, 2024 End: December 16, 2024 FACUNDO Callahan Attending Provider Active Start: December 16, 2024 End: December 16, 2024 Team Status: Inactive Member Role Status Dates Yahirwesley Gutierrez , PA Primary Care Provider Active [...] 2024 End: December 16, 2024 Yahir Gutierrez PA Referring Provider Active Star t: December 16, 2024 End: December 16, 2024 FACUNDO Callahan Attending Provider Active Start: December 16, 2024 End: December 16, 2024 Team Status: Inactive Member Role/Relationship Status Dates Yahir Gutierrez PA Primary Care Provider Active S tart: January 07, 2025 End: January 07, 2025 Yahir Gutierrez PA Referring Provider Active Star t: January 07, 2025 End: January 07, 2025 FACUNDO Callahan Attending Provider Active Start: January 07, 2025 End: January 07, 2025 Team Status: Inactive Member Role/Relationship Status Dates Yahirwesley Gutierrez PA Primary Care Provider Active S tart: January 21, 2025 End: January 21, 2025 Yahir Raúl PA Referring Provider Active Star t: January 21, 2025 End: January 21, 2025 Dr. Maximilian Corrales DO Attending Provider Active Start: January 21, 2025 End: January 21, 2025 Team Status: Inactive Member Role/Relationship Status Dates Yahirwesley Gutierrez PA Primary Care Provider Active S tart: February 14, 2025 End: February 14, 2025 Yahirwesley Gutierrez , PA Referring Provider Active Star t: February 14, 2025 End: February 14, 2025 Tony Latham MD Attending Provider Active St art: February 14, 2025 End: February 14, 2025 Team Status: Inactive Member Role/Relationship Status Dates Yahir Gutierrez PA Primary Care Provider Active S tart: March 09, 2025 End: March 09, 2025 Tony Latham MD Attending Provider Active St art: March 09, 2025 End: March 09, 2025 Tony Latham MD Referring Provider Active St art: March 09, 2025 End: March 09, 2025 Team Status: Active Member Role/Relationship Status Dates EZIO Negrete Primary Care Provider Active S tart: March 09, 2025 Tony Latham MD Attending Provider Active St art: March 09, 2025 Tony Latham MD Referring Provider Active St art: March 09, 2025 Tony Latham MD Other Provider Active Start: March 09, 2025 Team Status: Inactive Member Role/Relationship Status Dates Yahir Gutierrez PA Primary Care Provider Active S tart: March 14, 2025 End: March 14, 2025 Yahir Gutierrez PA Referring Provider Active Star t: March 14, 2025 End: March 14, 2025 Tony Latham MD Attending Provider Active St art: March 14, 2025 End: March 14, 2025 Team Status: Inactive Member Role/Relationship Status Dates Yahirwesley Gutierrez , PA Primary Care Provider Active S tart: March 22, 2025 End: March 22, 2025 Yahir Gutierrez PA Referring Provider Active Star t: March 22, 2025 End: March 22, 2025 Tony Latham MD Attending Provider Active St art: March 22, 2025 End: March 22, 2025 Team Status: Inactive Member Role/Relationship Status Dates Yahirwesley Gutierrez , PA Primary Care Provider Active S tart: January 07, 2025 End: January 07, 2025 Yahirwesley Gutierrez , PA Referring Provider Active Star [...] PA Primary Care Provider Active S tart: February 14, 2025 End: February 14, 2025 Yahir Gutierrez , PA Referring Provider Active Star t: February 14, 2025 End: February 14, 2025 Tony Latham MD Attending Provider Active St art: February 14, 2025 End: February 14, 2025 Team Status: Inactive Member Role/Relationship Status Dates Yahirwesley Gutierrez , PA Primary Care Provider Active S tart: March 09, 2025 End: March 09, 2025 Tony Latham MD Attending Provider Active St art: March 09, 2025 End: March 09, 2025 Tony Latham MD Referring Provider Active St art: March 09, 2025 End: March 09, 2025 Team Status: Active Member Role/Relationship Status Dates EZIO Negrete Primary Care Provider Active S tart: March 09, 2025 Tony Latham MD Attending Provider Active St art: March 09, 2025 Tony Latham MD Referring Provider Active St art: March 09, 2025 Tony Latham MD Other Provider Active Start: March 09, 2025 Team Status: Inactive Member Role/Relationship Status Dates EZIO Negrete Primary Care Provider Active S tart: March 14, 2025 End: March 14, 2025 EZIO Negrete Referring Provider Active Star t: March 14, 2025 End: March 14, 2025 Tony Latham MD Attending Provider Active St art: March 14, 2025 End: March 14, 2025 Team Status: Inactive Member Role/Relationship Status Dates EZIO Negrete Primary Care Provider Active S tart: March 22, 2025 End: March 22, 2025 EZIO Negrete Referring Provider Active Star t: March 22, 2025 End: March 22, 2025 Tony Latham MD Attending Provider Active St art: March 22, 2025 End: March 22, 2025 Team Status: Active Member Role/Relationship Status Dates EZIO Negrete Primary Care Provider Active S tart: April 18, 2025 Tony Latham MD Attending Provider Active St art: April 18, 2025 Tony Latham MD Referring Provider Active St art: April 18, 2025 Team Status: Inactive Member Role/Relationship Status Dates EZIO Negrete Primary Care Provider Active S tart: April 19, 2025 End: April 19, 2025 EZIO Negrete Referring Provider Active Star t: April 19, 2025 End: April 19, 2025 Tony Latham MD Attending Provider Active St art: April 19, 2025 End: April 19, 2025 Team Status: Active Member Role/Relationship Status Dates EZIO Negrete Primary care physician Active Team Status: Inactive Member Role/Relationship Status Dates EZIO Negrete Primary care physician Active Start: February 14, 2025 End: February 14, 2025 EZIO Negrete Referring Provider Active Star t: February 14, 2025 End: February 14, 2025 Tony Latham MD Attending physician Active S tart: February 14, 2025 End: February 14, 2025 Team Status: Inactive Member Role/Relationship Status Dates EZIO Negrete Primary care physician Active Start: March 09, 2025 End: March 09, 2025 Tony Latham MD Attending physician Active S tart: March 09, 2025 End: March 09, 2025 Tony Latham MD Referring Provider Active St art: March 09, 2025 End: March 09, 2025 Team Status: Active Member Role/Relationship Status Dates EZIO Negrete Primary care physician Active Start: March 09, 2025 Tony Latham MD Attending physician Active S tart: March 09, 2025 Tony Latham MD Referring Provider Active St art: March 09, 2025 Tony Latham MD Nurse Practitioner Active St art: March 09, 2025 Team Status: Inactive Member Role/Relationship Status Dates EZIO Negrete Primary care physician Active Start: March 14, 2025 End: March 14, 2025 Yahir Gutierrez PA Referring Provider Active Star t: March 14, 2025 End: March 14, 2025 Tony Latham MD Attending physician Active S tart: March 14, 2025 End: March 14, 2025 Team Status: Inactive Member Role/Relationship Status Dates EZIO Negrete Primary care physician Active Start: March 22, 2025 End: March 22, 2025 EZIO Negrete Referring Provider Active Star t: March 22, 2025 End: March 22, 2025 Tony Latham MD Attending physician Active S tart: March 22, 2025 End: March 22, 2025 Team Status: Inactive Member Role/Relationship Status Dates EZIO Negrete Primary care physician Active Start: April 19, 2025 End: April 19, 2025 Yahir Gutierrez PA Referring Provider Active Star t: April 19, 2025 End: April 19, 2025 Tony Latham MD Attending physician Active S tart: April 19, 2025 End: April 19, 2025 Team Status: Inactive Member Role/Relationship Status Dates EZIO Negrete Primary care physician Active Start: May 11, 2025 End: May 11, 2025 EZIO Negrete Attending physician Active Sta rt: May 11, 2025 End: May 11, 2025 EZIO Negrete Referring Provider Active Star t: May 11, 2025 End: May 11, 2025 Team Status: Inactive Member Role/Relationship Status Dates EZIO Negrete Primary care physician Active Start: May 12, 2025 End: May 13, 2025 Dr. Branden Schaffer , DO Attending physician Active Start: May 12, 2025 End: May 13, 2025 Dr. Branden Schaffer , DO Emergency Department Physician A ctive Start: May 12, 2025 End: May 13, 2025 Team Status: Active Member Role/Relationship Status Dates EZIO Negrete Primary care physician Active Start: May 13, 2025 Dr. Branden Schaffer , Attending physician Active Start: May 13, 2025 Dr. Branden Schaffer , DO Referring Provider Active Start: May 13, 2025 Team Status: Active Member Role/Relationship Status Dates EZIO Negrete Primary care physician Active Start: May 25, 2025 Tony Latham MD Attending physician Active S tart: May 25, 2025 Tony Latham MD Referring Provider Active St art: May 25, 2025 Goals (unrecognized section and content) Goals [...] or prosecute any alcohol or drug abuse patient.[facility] the event this information is protected by the Federal Confidentiality of Alcohol and Drug Abuse Patient Records regulations: The Federal rules restrict any use of the information to criminally investigate or prosecute any alcohol or drug abuse patient.[facility] Reason for Visit (unrecogniz ed section and content) Reason Comments Radiology CT Specialty Diagnoses / Procedures Referred By Contac t Referred To Contact RADIO CT SCAN [facility] Diagnoses Unspecified abdominal pain Procedures CT ABD/PEL W/CONTRAST Yahir Gutierrez [address] [place] [address] Phone: tel: fax: Cat Scan [address] [place] [address] Phone: tel: fax: Referral ID Status Reason Start Date Expiration Date V isits Requested Visits Authorized [id number] Pending Review 11/24/2024 01/23/2025 1 1 FOR [...] BE BASED ON THE PRIMARY CLINICAL RECORDS. [employer] [facility]. provides no warranty or guarantee of the accuracy or completeness of information in this document.
== END 2025-07-02 16:09 | disposition home or self-care (01) ==
LOC: ED 16:02
PROVIDERS: Emergency Provider Emergency Medicine; Visit Provider Emergency Medicine
DX: R60.0 Localized edema (principal); J44.9 Chronic obstructive pulmonary disease, unspecified; I82.5Y2 Chronic embolism and thrombosis of unspecified deep veins of left proximal lower extremity; R07.9 Chest pain, unspecified; F17.210 Nicotine dependence, cigarettes, uncomplicated; Z79.01 Long term (current) use of anticoagulants
CPT/HCPCS: 99282

== ENCOUNTER → 2025-07-06 | Outpatient (CLI) | payer OTHER, SELFPAY ==
--- NOTE | 2025-07-06 09:46 | VDLE_ITS ---
Reason For Study Reason For Study: Left leg pain RIGHT LEFT CFV is compressible, spontaneous, phasic, competent GSV is normal. and demonstrates normal augmentation. CFV is compressible, spontaneous, phasic, competent, Procedure and demonstrates normal augmentation. This is a venous duplex using B-mode, color flow and FV is compressible, spontaneous, phasic, competent spectral Doppler. and demonstrates normal augmentation. Exam performed in department. POP V is compressible, spontaneous, phasic, competent A preliminary report was called and/or faxed to PCP: and demonstrates normal augmentation. Raúl HOLGUIN. T/P Trunk is compressible. PTV is compressible. LT PerV is compressible. Left Gastroc V is partially NONCOMPRESSIBLE with minimal venous flow. Compared to 05/13/2025. VL/Venous Duplex US, Unilateral Interpretation Summary Acute deep vein thrombosis and chronic venous changes are noted in the left gas trocnemius vein, representing mild improvement since a prior study on 05/13/2025. The remainder of the left lower extremity deep venous system is patent and compressible. Valvular competence appears intact within the proximal deep v enous system on the left . The left great saphenous vein appears patent and compressible segmentally. The right common fe moral vein is patent and compressible . Ordering Physician: Braulio Reynolds Referring Physician: Jennifer Olsen Performed By: Matilde Jaime RVT
== END | disposition home or self-care (01) ==
LOC: CVS 09:41
PROVIDERS: Referring Provider Emergency Medicine; Visit Provider Emergency Medicine
DX: M79.662 Pain in left lower leg (principal)
CPT/HCPCS: 93971